=== PATIENT | male | born 2000 | race Caucasian/White ===

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

== ENCOUNTER 2018-02-07 22:36 | Emergency (ER) | payer OTHER ==
[2018-02-07] MEDS ORDERED: LORazepam 2 MG/ML INJ IM STA (22:46)
[2018-02-07] MEDS ORDERED: HALOPERIDOL LACTATE 5 MG/ML 1 ML VIAL IM STA (22:46)
[2018-02-07] MEDS ORDERED: diphenhydrAMINE 50 MG/ML 1 ML VIAL IM STA (22:46)
[2018-02-07 22:54] VITALS: TEMP 99
--- NOTE | 2018-02-08 00:26 | ED ---
General Adult HPI - General Source: patient, RN notes reviewed, old records reviewed Mode of arrival: ambulatory Limitations: no limitations <Shelton Pompa - Last Filed: 02/08/18 00:26> <Jose J Craven - Last Filed: 02/08/18 09:45> - General Chief complaint: Psychiatric Symptoms Stated complaint: Mental Health Time Seen by Provider: 02/07/18 22:41 - History of Present Illness Initial comments: This is a 17-year-old male coming in with intoxication, unknown drug abuse. Patient is uncooperative with history, actively violent, starting staff as well as patient self, patient's brought in by PD, petition under PD's help. (Shelton Pompa) - Related Data Home Medications Medication Instructions Recorded Confirmed Omeprazole 20 mg PO DAILY 12/24/17 02/08/18 traZODone HCL 100 mg PO DAILY 02/08/18 02/08/18 Allergies Allergy/AdvReac Type Severity Reaction Status Date / Time dog dander Allergy Dyspnea Verified 02/07/18 22:53 Review of Systems ROS Other: All systems not noted in ROS Statement are negative. <Shelton Pompa - Last Filed: 02/08/18 00:26> ROS Other: All systems not noted in ROS Statement are negative. <Jose J Craven - Last Filed: 02/08/18 09:45> ROS Statement: Those systems with pertinent positive or pertinent negative responses have been documented in the HPI. Past Medical History Past Medical History: GERD/Reflux Additional Past Medical History / Comment(s): Pt recently discharged from [facility] for suicidal ideation-states he has not followed up or taken his medications prescribed at discharge, FATTY LIVER. History of Any Multi-Drug Resistant Organisms: None Reported Past Surgical History: No Surgical Hx Reported Additional Past Surgical History / Comment(s): [place] teeth extraction with anesthesia. Past Anesthesia/Blood Transfusion Reactions: No Reported Reaction Past Psychological History: ADD/ADHD, Anxiety, Depression Smoking Status: Current every day smoker Past Alcohol Use History: None Reported Past Drug Use History: Cocaine, Marijuana - Past Family History Father Family Medical History: No Reported History Additional Family Medical History / Comment(s): Pt states his dad is healthy-"I guess". Mother Family Medical History: No Reported History Additional Family Medical History / Comment(s): Pt states his mother is healthy- "I guess." <Shelton Pompa - Last Filed: 02/08/18 00:26> General Exam Limitations: no limitations, altered mental status General appearance: alert, anxious, in distress Head exam: Present: atraumatic, normocephalic, normal inspection Eye exam: Present: normal appearance, PERRL, EOMI. Absent: scleral icterus, conjunctival injection, periorbital swelling ENT exam: Present: normal exam, mucous membranes moist Neck exam: Present: normal inspection. Absent: tenderness, meningismus, lymphadenopathy Respiratory exam: Present: normal lung sounds bilaterally. Absent: respiratory distress, wheezes, rales, rhonchi, stridor Cardiovascular Exam: Present: regular rate, normal rhythm, normal heart sounds. Absent: systolic murmur, diastolic murmur, rubs, gallop, clicks GI/Abdominal exam: Present: soft, normal bowel sounds. Absent: distended, tenderness, guarding, rebound, rigid Extremities exam: Present: normal inspection, full ROM, normal capillary refill. Absent: tenderness, pedal edema, joint swelling, calf tenderness Back exam: Present: normal inspection Neurological exam: Present: alert, oriented X3, CN II-XII intact Psychiatric exam: Present: normal affect, normal mood Skin exam: Present: warm, dry, intact, normal color. Absent: rash <Shelton Pompa - Last Filed: 02/08/18 00:26> Course <Shelton Pompa - Last Filed: 02/08/18 00:26> <Jose J Craven - Last Filed: 02/08/18 09:45> Vital Signs 02/07/18 02/08/18 02/08/18 22:51 01:15 05:26 Temperature 99.0 F Pulse Rate 116 H 89 Respiratory 20 16 22 Rate Blood Pressure 124/89 140/63 O2 Sat by Pulse 100 100 Oximetry 02/08/18 09:22 Temperature Pulse Rate 104 H Respiratory 18 Rate Blood Pressure 136/63 O2 Sat by Pulse 98 Oximetry - Reevaluation(s) Reevaluation #1: 02/08/18 00:26 Patient medically clear for psychiatric evaluation (Shelton Pompa) Reevaluation #2: 02/08/18 09:43 Patient reevaluated, he is calm, cooperative. No suicidal or homicidal ideation (Jose J Craven) Procedures - Restraint - Face to Face Restraint Occurrence 1 Patient's Immediate Situation: Endangers self safety, Endangers others' safety, Endangers staff safety, Violent behavior Patient's Reaction to the Intervention: Appropriate, Uncooperative, Belligerent Patient's Medical & Behavioral Condition: Awake Need to Continue or Terminate Restraint or Seclusion: Continue Face to Face Eval of Restraint Date: 02/07/18 Face to Face Eval of Restraint Time: 23:05 <Shelton Pompa - Last Filed: 02/08/18 00:26> Medical Decision Making <Shelton Pompa - Last Filed: 02/08/18 00:26> <Jose J Craven - Last Filed: 02/08/18 09:45> - Medical Decision Making 17-year-old male presenting with agitation anxiety, and aggressive behavior. He was petitioned by police for this behavior. He initially required both chemical and physical restraint. He was observed in the emergency department for several hours, on reevaluation is calm and cooperative. He was evaluated by EPS, it is felt that the patient is safe for outpatient follow-up. He does not require inpatient treatment at this time. He will be discharged home with his guardian who is also his father. (Jose J Craven) - Lab Data Lab Results 02/08/18 Range/Units 05:45 Urine Opiates Screen Not Detected (NotDetected) Ur Oxycodone Screen Not Detected (NotDetected) Urine Methadone Screen Not Detected (NotDetected) Ur Propoxyphene Screen Not Detected (NotDetected) Ur Barbiturates Screen Not Detected (NotDetected) U Tricyclic Antidepress Not Detected (NotDetected) Ur Phencyclidine Scrn Not Detected (NotDetected) Ur Amphetamines Screen Not Detected (NotDetected) U Methamphetamines Scrn Not Detected (NotDetected) U Benzodiazepines Scrn Detected H (NotDetected) Urine Cocaine Screen Not Detected (NotDetected) U Marijuana (THC) Screen Detected H (NotDetected) Disposition <Shelton Pompa - Last Filed: 02/08/18 00:26> Is patient prescribed a controlled substance at d/c from ED?: No Time of Disposition: 09:44 <Jose J Craven - Last Filed: 02/08/18 09:45> Clinical Impression: Bipolar disorder Disposition: HOME SELF-CARE Condition: Fair Instructions: Bipolar Disorder (ED) Additional Instructions: To follow-up with outpatient psychiatric services. Referrals: None,Stated [Primary Care Provider] - 1-2 days
[2018-02-08] MEDS ORDERED: LORazepam 1 MG TAB PO STA (06:11)
[2018-02-08 06:20] LABS: Amphetamine Screen,Urine Not Detected (NotDetected); Barbiturate Screen,Urine Not Detected (NotDetected); Benzodiazepines Screen,Urine Detected (NotDetected); Cocaine Screen,Urine Not Detected (NotDetected); Methadone Screen, Urine Not Detected (NotDetected); Opiate Screen,Urine Not Detected (NotDetected); Oxycodone Screen, Urine Not Detected (NotDetected); Phencyclidine Screen,Urine Not Detected (NotDetected); Tricyclic Antidepressant,Urine Not Detected (NotDetected); Urn Cannabinoid Scrn Detected (NotDetected)
[2018-02-08 09:22] VITALS: BP 136/63; PULSE 104; RESP 18
== END 2018-02-08 10:04 | disposition home or self-care (01) ==
LOC: EC 22:36
DX: F31.9 Bipolar disorder, unspecified (principal); R45.1 Restlessness and agitation; F41.9 Anxiety disorder, unspecified; F91.1 Conduct disorder, childhood-onset type; R45.6 Violent behavior; F90.9 Attention-deficit hyperactivity disorder, unspecified type; F17.200 Nicotine dependence, unspecified, uncomplicated; Z79.899 Other long term (current) drug therapy; Z91.09 Other allergy status, other than to drugs and biological substances
CPT/HCPCS: 80306; 99285; 96372 ×3; J2060; J1200; J1630; 82075

== ENCOUNTER 2018-02-08 19:21 | Inpatient (IN) | payer OTHER ==
[2018-02-08] MEDS ORDERED: ALPRAZolam 1 MG TAB PO STA (19:43)
--- NOTE | 2018-02-08 19:55 | ED ---
General Adult HPI - General Chief complaint: Psychiatric Symptoms Stated complaint: Anxiety Source: patient Mode of arrival: wheelchair Limitations: no limitations - History of Present Illness Initial comments: Dictation was produced using compropago dictation software. please excuse any grammatical, word or spelling errors. Chief Complaint: 17-year-old male with past medical history of anxiety and manic disorder presents with anxiety. History of Present Illness: Patient is a 17-year-old male presents today for anxiety. Patient was seen here yesterday for aggressive behavior. At that time he required chemical and physical restraints. Patient was kept in the emergency department. Patient was observed in emergency department. After several hours she was reevaluated and was found to be calm and cooperative. He was evaluated by EPS. EPS evaluated patient and felt that it was safe for him to follow up. He does have a discharge plan. He presents today with his father who is his sewer head. Patient denies any suicidal or homicidal ideation. Patient is cooperative. Patient has no complaints. The ROS documented in this emergency department record has been reviewed and confirmed by me. Those systems with pertinent positive or negative responses have been documented in the HPI. All other systems are other negative and/or noncontributory. - Related Data Home Medications Medication Instructions Recorded Confirmed Omeprazole 20 mg PO DAILY 12/24/17 02/08/18 traZODone HCL 100 mg PO DAILY 02/08/18 02/08/18 Previous Rx's Medication Instructions Recorded ALPRAZolam [Xanax] 1 mg PO Q8H PRN 3 Days #9 tab 02/08/18 Allergies Allergy/AdvReac Type Severity Reaction Status Date / Time dog dander Allergy Dyspnea Verified 02/08/18 19:27 Review of Systems ROS Statement: Those systems with pertinent positive or pertinent negative responses have been documented in the HPI. ROS Other: All systems not noted in ROS Statement are negative. Past Medical History Past Medical History: GERD/Reflux Additional Past Medical History / Comment(s): Pt recently discharged from [facility] for suicidal ideation-states he has not followed up or taken his medications prescribed at discharge, FATTY LIVER. History of Any Multi-Drug Resistant Organisms: None Reported Past Surgical History: No Surgical Hx Reported Additional Past Surgical History / Comment(s): [place] teeth extraction with anesthesia. Past Anesthesia/Blood Transfusion Reactions: No Reported Reaction Past Psychological History: ADD/ADHD, Anxiety, Depression Smoking Status: Current every day smoker Past Alcohol Use History: Occasional Past Drug Use History: Cocaine, Marijuana - Past Family History Father Family Medical History: No Reported History Additional Family Medical History / Comment(s): Pt states his dad is healthy-"I guess". Mother Family Medical History: No Reported History Additional Family Medical History / Comment(s): Pt states his mother is healthy- "I guess." General Exam - General Exam Comments Initial Comments: PHYSICAL EXAM: General Impression: Alert and oriented x3, not in acute distress HEENT: Normocephalic atraumatic, extra-ocular movements intact, pupils equal and reactive to light bilaterally, mucous membranes moist. Cardiovascular: Heart regular rate and rhythm, S1&S2 audible, no murmurs, rubs or gallops Chest: Lungs clear to auscultation bilaterally, no rhonchi, no wheeze, no rales Abdomen: Bowel sounds present, abdomen soft, non-tender, non-distended, no organomegaly Musculoskeletal: Pulses present and equal in all extremities, no peripheral edema Motor: Power 5/5 bilaterally, no focal deficits noted Neurological: CN II-XII grossly intact, no focal motor or sensory deficits noted Skin: Intact with no visualized rashes Psych: Normal affect and mood Limitations: no limitations Course Vital Signs 02/08/18 19:23 Temperature 98.7 F Pulse Rate 99 Respiratory 18 Rate Blood Pressure 144/74 O2 Sat by Pulse 99 Oximetry Medical Decision Making - Medical Decision Making ED course: 17-year-old male with history of psychiatric disease presents with anxiety. Vital signs upon arrival are within acceptable limits. Patient is requesting anti-anxiety medications to hold him over until he can follow up with psychiatrist for further treatment. Patient was seen and evaluated by EPS last night. Patient not showing any signs of psychosis. He is calm and cooperative. Believe is reasonable to give patient prescription for anxiolytics for the time being. Patient given prescription for Xanax. He is told to follow-up with psychiatrist and primary care physician upon discharge. Plan is agreed upon between patient, father and myself. Told to come to the emergency department should he develop any aggressive behavior. Disposition Clinical Impression: Acute anxiety Disposition: HOME SELF-CARE Condition: Good Prescriptions: ALPRAZolam [Xanax] 1 mg PO Q8H PRN 3 Days #9 tab PRN Reason: Anxiety Is patient prescribed a controlled substance at d/c from ED?: Yes If prescribed controlled substance>3 days was MAPS reviewed?: Prescribed <3 Days Referrals: Juan Diego Martinez MD [Primary Care Provider] - 1-2 days Time of Disposition: 19:55
[2018-02-08] MEDS ORDERED: NICOTINE 21MG/24HR PATCH TRANSDERM STA (20:38)
[2018-02-08 20:57] LABS: Amphetamine Screen,Urine Not Detected (NotDetected); Barbiturate Screen,Urine Not Detected (NotDetected); Benzodiazepines Screen,Urine Detected (NotDetected); Cocaine Screen,Urine Not Detected (NotDetected); Methadone Screen, Urine Not Detected (NotDetected); Opiate Screen,Urine Not Detected (NotDetected); Oxycodone Screen, Urine Not Detected (NotDetected); Phencyclidine Screen,Urine Not Detected (NotDetected); Tricyclic Antidepressant,Urine Not Detected (NotDetected); Urn Cannabinoid Scrn Detected (NotDetected)
[2018-02-08] MEDS ORDERED: OLANZapine 10 MG TAB PO STA (20:58)
[2018-02-08] MEDS ORDERED: HALOPERIDOL LACTATE 5 MG/ML 1 ML VIAL IM STA (22:01)
[2018-02-08] MEDS ORDERED: LORazepam 2 MG/ML INJ IM STA (22:02)
[2018-02-08] MEDS ORDERED: diphenhydrAMINE 50 MG/ML 1 ML VIAL IM STA (22:02)
[2018-02-08 23:13] LABS: Basophils % (A) 0 %; Eosinophils # (A) 0.2 k/uL (0-0.7); Eosinophils % (A) 2 %; HCT 48.1 % (39.0-53.0); HGB 16.1 gm/dL (13.0-17.5); Lymphocytes # (A) 2.4 k/uL (1.0-4.8); Lymphocytes % (A) 20 %; MCH 30.4 pg (25.0-35.0); MCHC 33.4 g/dL (31.0-37.0); Monocytes # (A) 0.7 k/uL (0-1.0); Monocytes % (A) 6 %; Neutrophils # (A) 8.2 k/uL (1.3-7.7); Neutrophils % (A) 70 %; Platelet Count 299 k/uL (150-450); RBC 5.29 m/uL (4.30-5.90); RDW 13.2 % (11.5-15.5); WBC 11.7 k/uL (4.0-11.0)
[2018-02-08 23:18] LABS: Appearance,Urine Clear (Clear); Bilirubin,Urine Negative (Negative); Blood,Urine Negative (Negative); Calcium Oxalate Crystals,Urine Rare /hpf; Color,Urine Yellow; Glucose,Urine (UA) Negative (Negative); Ketones,Urine Trace (Negative); Leukocyte Esterase,Urine Negative (Negative); Mucus,Urine Many /hpf; Nitrite,Urine Negative (Negative); Protein,Urine 1+ (Negative); RBC,Urine 2 /hpf (0-5); Specific Gravity,Urine 1.035 (1.001-1.035); Squamous Epithelial Cell,Urine <1 /hpf (0-4); WBC,Urine 3 /hpf (0-5)
[2018-02-08 23:22] LABS: ALT 28 U/L (21-72); AST 41 U/L (17-59); Albumin 4.3 g/dL (3.5-5.0); Alkaline Phosphatase 62 U/L (38-126); Anion Gap 10 mmol/L; Blood Urea Nitrogen 14 mg/dL (9-20); Calcium 9.8 mg/dL (8.4-10.2); Carbon Dioxide 25 mmol/L (22-30); Chloride 105 mmol/L (98-107); Glucose 89 mg/dL (74-99); Potassium 4.2 mmol/L (3.5-5.1); Sodium 140 mmol/L (137-145); Total Bilirubin 0.5 mg/dL (0.2-1.3); Total Protein 7.3 g/dL (6.3-8.2)
[2018-02-09] MEDS ORDERED: NICOTINE 21MG/24HR PATCH TRANSDERM STA ×3 (13:24→23:16)
[2018-02-09] MEDS ORDERED: traZODone HCL 100 MG TAB PO ONE (13:49)
[2018-02-09] MEDS ORDERED: ALPRAZolam 1 MG TAB PO STA ×2 (14:02→14:06)
[2018-02-09] MEDS ORDERED: diphenhydrAMINE 50 MG CAP PO STA (15:12)
[2018-02-09] MEDS ORDERED: LORazepam 2 MG/ML INJ IM STA (18:10)
[2018-02-10] MEDS ORDERED: LORazepam 1 MG TAB PO STA ×3 (00:50→13:32)
[2018-02-10] MEDS ORDERED: diphenhydrAMINE 50 MG CAP PO STA (01:34)
[2018-02-10] MEDS ORDERED: LORazepam 2 MG/ML INJ IM STA (03:28)
[2018-02-10] MEDS ORDERED: NICOTINE 21MG/24HR PATCH TRANSDERM STA (08:10)
[2018-02-10] MEDS ORDERED: ACETAMINOPHEN TAB 325 MG TAB PO PRN (16:17)
[2018-02-10] MEDS ORDERED: ZIPRASIDONE 20 MG VIAL IM PRN (16:17)
[2018-02-10] MEDS ORDERED: MAGNESIUM HYDROXIDE 2,400 MG/10 ML CUP PO PRN (16:17)
[2018-02-10] MEDS ORDERED: MAG HYDROX/AL HYDROX/SIMETH 30 ML CUP PO PRN (16:17)
[2018-02-10] MEDS: LORazepam 1 MG TAB PO PRN (16:46)
[2018-02-10] MEDS ORDERED: diphenhydrAMINE 50 MG/ML 1 ML VIAL IM STA (22:56)
[2018-02-10] MEDS ORDERED: chlorproMAZINE 25 MG/ML 2 ML AMP IM ONE (23:15)
[2018-02-11] MEDS: NICOTINE 21MG/24HR PATCH TRANSDERM SCH ×2 (10:14→12:19)
[2018-02-11] MEDS: LORazepam 1 MG TAB PO PRN ×3 (12:19→22:00)
--- NOTE | 2018-02-11 12:36 | P.HP ---
Psychiatric H&P - . H&P Date: 02/11/18 History & Physical: Allergies Allergy/AdvReac Type Severity Reaction Status Date / Time dog dander Allergy Dyspnea Verified 02/10/18 15:56 Vital Signs Temp 97 F L 02/10/18 15:44 Pulse 100 02/10/18 15:44 Resp 18 02/10/18 15:44 BP 136/70 02/10/18 15:44 Pulse Ox 97 02/09/18 23:00 Intake & Output 02/10/18 02/11/18 02/11/18 18:59 06:59 18:59 Weight 132.494 kg Laboratory Last Values WBC 11.7 k/uL (4.0-11.0) H 02/08/18 23:01 RBC 5.29 m/uL (4.30-5.90) 02/08/18 23:01 Hgb 16.1 gm/dL (13.0-17.5) 02/08/18 23:01 Hct 48.1 % (39.0-53.0) 02/08/18 23:01 MCV 91.0 fL (80.0-100.0) 02/08/18 23:01 MCH 30.4 pg (25.0-35.0) 02/08/18 23:01 MCHC 33.4 g/dL (31.0-37.0) 02/08/18 23:01 RDW 13.2 % (11.5-15.5) 02/08/18 23:01 Plt Count 299 k/uL (150-450) 02/08/18 23:01 Neutrophils % 70 % 02/08/18 23:01 Lymphocytes % 20 % 02/08/18 23:01 Monocytes % 6 % 02/08/18 23:01 Eosinophils % 2 % 02/08/18 23:01 Basophils % 0 % 02/08/18 23:01 Neutrophils # 8.2 k/uL (1.3-7.7) H 02/08/18 23:01 Lymphocytes # 2.4 k/uL (1.0-4.8) 02/08/18 23:01 Monocytes # 0.7 k/uL (0-1.0) 02/08/18 23:01 Eosinophils # 0.2 k/uL (0-0.7) 02/08/18 23:01 Basophils # 0.0 k/uL (0-0.2) 02/08/18 23:01 Sodium 140 mmol/L (137-145) 02/08/18 23:01 Potassium 4.2 mmol/L (3.5-5.1) 02/08/18 23: Chloride 105 mmol/L (98-107) 02/08/18 23: Carbon Dioxide 25 mmol/L (22-30) 02/08/18 23: Anion Gap 10 mmol/L 02/08/18 23: BUN 14 mg/dL (9-20) 02/08/18 23: Creatinine 0.75 mg/dL (0.66-1.25) 02/08/18 23:01 Est GFR (CKD-EPI)AfAm >90 (>60 ml/min/1.73 sqM) 02/08/18 23: Est GFR (CKD-EPI)NonAf >90 (>60 ml/min/1.73 sqM) 02/08/18 23: Glucose 89 mg/dL (74-99) 02/08/18 23: Calcium 9.8 mg/dL (8.4-10.2) 02/08/18 23:01 Total Bilirubin 0.5 mg/dL (0.2-1.3) 02/08/18 23:01 AST 41 U/L (17-59) 02/08/18 23:01 ALT 28 U/L (21-72) 02/08/18 23:01 Alkaline Phosphatase 62 U/L (38-126) 02/08/18 23: Total Protein 7.3 g/dL (6.3-8.2) 02/08/18 23: Albumin 4.3 g/dL (3.5-5.0) 02/08/18 23:01 Urine Color Yellow 02/08/18 20:35 Urine Appearance Clear (Clear) 02/08/18 20:35 Urine pH 6.0 (5.0-8.0) 02/08/18 20:35 Ur Specific [place] 1.035 (1.001-1.035) 02/08/18 20:35 Urine Protein 1+ (Negative) H 02/08/18 20:35 Urine Glucose (UA) Negative (Negative) 02/08/18 20:35 Urine Ketones Trace (Negative) H 02/08/18 20:35 Urine Blood Negative (Negative) 02/08/18 20:35 Urine Nitrite Negative (Negative) 02/08/18 20:35 Urine Bilirubin Negative (Negative) 02/08/18 20:35 Urine Urobilinogen 2.0 mg/dL (<2.0) 02/08/18 20:35 Ur Leukocyte Esterase Negative (Negative) 02/08/18 20:35 Urine RBC 2 /hpf (0-5) 02/08/18 20:35 Urine WBC 3 /hpf (0-5) 02/08/18 20:35 Ur Squamous Epith Cells <1 /hpf (0-4) 02/08/18 20:35 Calcium Oxalate Crystal Rare /hpf (None) H 02/08/18 20:35 Urine Mucus Many /hpf (None) H 02/08/18 20:35 Urine Opiates Screen Not Detected (NotDetected) 02/08/18 20:35 Ur Oxycodone Screen Not Detected (NotDetected) 02/08/18 20:35 Urine Methadone Screen Not Detected (NotDetected) 02/08/18 20:35 Ur Propoxyphene Screen Not Detected (NotDetected) 02/08/18 20:35 Ur Barbiturates Screen Not Detected (NotDetected) 02/08/18 20:35 U Tricyclic Antidepress Not Detected (NotDetected) 02/08/18 20:35 Ur Phencyclidine Scrn Not Detected (NotDetected) 02/08/18 20:35 Ur Amphetamines Screen Not Detected (NotDetected) 02/08/18 20:35 U Methamphetamines Scrn Not Detected (NotDetected) 02/08/18 20:35 U Benzodiazepines Scrn Detected (NotDetected) H 02/08/18 20:35 Urine Cocaine Screen Not Detected (NotDetected) 02/08/18 20:35 U Marijuana (THC) Screen Detected (NotDetected) H 02/08/18 20:35 Assessment and Plan (1) Psychomotor agitation Current Visit: Yes Status: Acute Priority: High Code(s): R45.1 - RESTLESSNESS AND AGITATION SNOMED Code(s): 70744970 (2) Bipolar disorder Current Visit: Yes Status: Acute Priority: High Code(s): F31.9 - BIPOLAR DISORDER, UNSPECIFIED SNOMED Code(s): 16076551 Plan: Chief Complaint: [This is a 17-year-old single male who lives with his father and grandmother who was brought in by the police for acute agitation and confrontation with the community relations police lieutenant.] History of Present Illness: [This patient was here 1 year ago and was placed on medication stated he stopped that I has a history of bipolar affective disorder and ADHD] Past Psychiatric History: [Nonadherent to his psychiatric treatment with a history of bipolar affective disorder and and ADHD] Drug/Alcohol Abuse History: [Marijuana he wants to get a medical marijuana card] Past Medical History Past Medical History: GERD/Reflux Additional Past Medical History / Comment(s): Pt recently discharged from [facility] for suicidal ideation-states he has not followed up or taken his medications prescribed at discharge, FATTY LIVER. History of Any Multi-Drug Resistant Organisms: None Reported Past Surgical History: No Surgical Hx Reported Additional Past Surgical History / Comment(s): [place] teeth extraction with anesthesia. Past Anesthesia/Blood Transfusion Reactions: No Reported Reaction Past Psychological History: ADD/ADHD, Anxiety, Depression Smoking Status: Current every day smoker Past Alcohol Use History: Occasional Past Drug Use History: Cocaine, Marijuana Family History: [Noncontributory] Current Medications: [Not at the current time since he stopped] Constitutional Review: [Only positive sign that he has difficulty with sleeping focus and concentration] Musculoskeletal Examination - Abnormal/Involuntary Movements: [none] Strength: [greater than antigravity (greater than/equal to 3/5) in all extremities] Muscle Tone: [no impairment] Gait: [grossly normal, ] Station: [grossly normal Mental Status Examination - General Appearance: [This is a 17-year-old dressed in T-shirt and pants with psychomotor agitation disheveled and poor focus and concentration, disheveled, casual, bizarre] Speech/Language: [ rapid, rambled,expressive, loud] Attitude/Behavior: [ irritable, withdrawn, indifferent] Mood: [depressed, anxious, elated, irritable, angry, fearful, hopelessness] Affect: [ incongruent, labile, blunted constricted] Orientation: [not time, but person, place situation] Thought Content: [delusions] Risk Factors: [suicidal (ideations, plan) Perception: [wnl, ] Thought Processes: [concrete, circumstantial, tangential] Concentration/Attention Span: impaired] [Per observation and interview with the patient] Recent Memory: [impaired] [1out of 3 in 3 minutes] Remote Memory: [impaired] [past events, as related history] Intelligence: [below average] [based on history, based on vocabulary, syntax, grammar, and content] Judgement: [poor] [per patient's behavior/history of present illness] Insight: [ poor] [understanding severity of illness/history of present illness] Admitting Diagnosis: [Bipolar affective disorder acute psychosis and mamie, polysubstance abuse] Patient Strengths - Personal Skills: [Patient has a supportive father and grandmother] Achievements: [None] Steady employment/financial stability: [None] Housing stability: [Living with father and grandmother] Interpersonal relationships and supports available - family [] Patient Limitations: [medication, non-compliance, pathological/unsupported environment, no interests, intellectual impairment Initial Plan of Care: [7-10 days due to severe illness and nonadherence to treatment plan plus polysubstance abuse and includes application for involuntary admission, first clinical certification for involuntary and second certification for involuntary hospitalization in a psychiatric environment for [facility]] Estimated Length of Stay: [7-10 days] Initial Discharge Plan: [home referred to therapist, and or partial hospitalr] Prognosis: [guarded] Justification for Inpatient Hospitalization - [Hallucinations, delusions, agitation, anxiety, depression resulting in significant loss of functioning.] [Dangerous to self or property with need for controlled environment.] [Emotional or behavioral conditions and complications requiring 24 hour medical and nursing care.] [Need for special drug therapy program requiring continuous hospitalization.] [Failure of social ] [Inability to meet basic life and health needs.] [Legally mandated admission.] [Patient's occupation presents danger to public safety if they continue to use drugs or alcohol.] [Biomedical conditions and complications requiring 24 hour medical and nursing care.] [Recovery environment includes detrimental family structure, logical impediments to out-patient treatment.] [High relapse potential due to inability to control substance use.] [Needs treatment for acute intoxication or withdrawal.] [Failure of treatment at a lower level of care.] will start lamictal, thorazine prn, proloxin, mirapex 0.75 mg po qhs Time with Patient: Greater than 30
--- NOTE | 2018-02-11 12:45 | CONS ---
CONSULTATION DATE OF CONSULTATION: 02/11/2018 REASON FOR CONSULTATION: Medical management requested by Dr. Ryan. CONSULTATION: This is a 17-year-old patient who follows with Dr. Martinez. Patient presented to the ER on 02/08/2018. He was seen the previous day for aggressive behavior. Patient required chemical and physical restraints. The patient is kept in the ER and observed there. The patient was then discharged. Patient presented yet again being aggressive. The patient was anxious. The patient has a known history of ADD. Patient states he smokes multiple things including cigar, cigarettes, chews tobacco, also did marijuana, did crack in the past. Patient is given medications last night. He feels dizzy this morning. He is hungry and he wants to get medications and get off these drugs. Appetite is fair. No fever. No chills. Up and about. REVIEW OF SYSTEMS: CONSTITUTIONAL: Tired HEENT: None, some dizziness. RESPIRATORY: None. CARDIOVASCULAR: None. GASTROINTESTINAL: None. GENITOURINARY: None. MUSCULOSKELETAL: None. DERMATOLOGIC: None. HEMATOLOGIC: None. LYMPHATIC: None. PSYCHIATRY: As above. NEUROLOGICAL: None. PAST MEDICAL HISTORY: Anxiety, ADD. PAST SURGICAL HISTORY: [place] tooth extraction with anesthesia. PSYCH HISTORY: ADD, anxiety, depression. Patient was recently at [facility], has not followed up with his appointments. SOCIAL HISTORY: Patient lives with grandparents, father, unemployed. Smokes cigar, cigarettes. Chews tobacco and did marijuana also, crack in the past. FAMILY HISTORY: Reviewed, noncontributory to presentation. HOME MEDICATIONS: None. ALLERGIES: Dog dander. PHYSICAL EXAMINATION: Temperature 97, pulse 100, respiration 18, blood pressure 136/70, pulse ox 97% on room air. GENERAL APPEARANCE: Well built, BMI 37.5, sitting up, tired appearing. EYES: Pupils equal, conjunctivae are normal. HEENT: External appearance of nose and ears normal. Oral cavity normal. NECK: JVD not raised. Mass not palpable. RESPIRATORY: Effort normal. LUNGS: Clear. CARDIOVASCULAR: First and second sounds, no edema. ABDOMEN: Soft, nontender. Liver and spleen not palpable. LYMPHATIC: N lymph node palpable in the neck or axillae. PSYCHIATRY: Alert and oriented x3. Mood and affect slightly low. NEUROLOGICAL: Pupils equal. Cranial nerves grossly intact. Power and sensation grossly intact. INVESTIGATIONS: White count 9.7, hemoglobin 16.1, potassium 4.2 BUN and creatinine is normal. Urine drug screen positive for benzodiazepine, marijuana. ASSESSMENT: 1. Chronic nicotine dependence, patient does smoke cigarettes and cigars, also chews tobacco. 2. Obesity, body mass index 37.5. 3. Anxiety disorder, uncontrolled. 4. Recreational marijuana use. 5. Gastroesophageal reflux disease. PLAN: Patient denies use of tobacco use, antianxiety antidepressants per Psychiatry. The patient should follow up with his family doctor for weight loss measures and has been given a nicotine patch. Care was discussed with the patient. Thank you, Dr. Ryan. CASSIE / RADHAN: [id number] /
[2018-02-11] MEDS: chlorproMAZINE 25 MG TAB PO PRN ×2 (13:24→18:24)
[2018-02-11 16:40] LABS: Basophils % (A) 0 %; Eosinophils # (A) 0.2 k/uL (0-0.7); Eosinophils % (A) 2 %; HCT 48.4 % (39.0-53.0); HGB 16.2 gm/dL (13.0-17.5); Lymphocytes % (A) 17 %; MCH 30.6 pg (25.0-35.0); MCHC 33.5 g/dL (31.0-37.0); MCV 91.3 fL (80.0-100.0); Mean Platelet Volume 6.9; Monocytes # (A) 0.6 k/uL (0-1.0); Monocytes % (A) 5 %; Neutrophils % (A) 76 %; Platelet Count 283 k/uL (150-450); RBC 5.31 m/uL (4.30-5.90); WBC 11.9 k/uL (4.0-11.0)
[2018-02-11 16:45] LABS: ALT 35 U/L (21-72); AST 42 U/L (17-59); Albumin 4.4 g/dL (3.5-5.0); Alkaline Phosphatase 63 U/L (38-126); Anion Gap 11 mmol/L; Blood Urea Nitrogen 16 mg/dL (9-20); Calcium 9.5 mg/dL (8.4-10.2); Carbon Dioxide 26 mmol/L (22-30); Chloride 103 mmol/L (98-107); Glucose 91 mg/dL (74-99); Potassium 4.4 mmol/L (3.5-5.1); Sodium 140 mmol/L (137-145); Total Bilirubin 0.6 mg/dL (0.2-1.3); Total Protein 7.4 g/dL (6.3-8.2)
[2018-02-11] MEDS: lamoTRIgine 25 MG TAB PO SCH (20:10)
[2018-02-11] MEDS: PRAMIPEXOLE 0.5 MG TAB PO SCH (20:10)
[2018-02-12] MEDS: chlorproMAZINE 25 MG/ML 2 ML AMP IM PRN (00:02)
[2018-02-12] MEDS: NICOTINE 21MG/24HR PATCH TRANSDERM SCH (07:47)
[2018-02-12] MEDS: chlorproMAZINE 25 MG TAB PO PRN ×2 (07:48→14:26)
[2018-02-12] MEDS: chlorproMAZINE 25 MG/ML 2 ML AMP IM STA ×2 (09:02→15:46)
[2018-02-12] MEDS: LORazepam 1 MG TAB PO PRN ×2 (09:09→16:04)
--- NOTE | 2018-02-12 13:45 | P.PN ---
Subjective Progress Note Date: 02/12/18 Principal diagnosis: Acute psychosis and mamie with agitation Interval history today includes that he still remains quite irritable and agitated roaming the unit and poor focus and concentration Chief Complaint: [This is a 17-year-old single male who lives with his father and grandmother who was brought in by the police for acute agitation and confrontation with the chief mechanical officer.] History of Present Illness: [This patient was here 1 year ago and was placed on medication stated he stopped that I has a history of bipolar affective disorder and ADHD] Past Medical History Past Medical History: GERD/Reflux Additional Past Medical History / Comment(s): Pt recently discharged from [facility] for suicidal ideation-states he has not followed up or taken his medications prescribed at discharge, FATTY LIVER. History of Any Multi-Drug Resistant Organisms: None Reported Past Surgical History: No Surgical Hx Reported Additional Past Surgical History / Comment(s): [place] teeth extraction with anesthesia. Past Anesthesia/Blood Transfusion Reactions: No Reported Reaction Past Psychological History: ADD/ADHD, Anxiety, Depression Smoking Status: Current every day smoker Past Alcohol Use History: Occasional Past Drug Use History: Cocaine, Marijuana Mental Status Examination - General Appearance: [This is a 17-year-old dressed in T-shirt and pants with psychomotor agitation disheveled and poor focus and concentration, disheveled, casual, bizarre] Speech/Language: [ rapid, rambled,expressive, loud] Attitude/Behavior: [ irritable, withdrawn, indifferent] Mood: [depressed, anxious, elated, irritable, angry, fearful, hopelessness] Affect: [ incongruent, labile, blunted constricted] Orientation: [not time, but person, place situation] Thought Content: [delusions] Risk Factors: [suicidal (ideations, plan) Perception: [wnl, ] Thought Processes: [concrete, circumstantial, tangential] Concentration/Attention Span: impaired] [Per observation and interview with the patient] Recent Memory: [impaired] [1out of 3 in 3 minutes] Remote Memory: [impaired] [past events, as related history] Intelligence: [below average] [based on history, based on vocabulary, syntax, grammar, and content] Judgement: [poor] [per patient's behavior/history of present illness] Insight: [ poor] [understanding severity of illness/history of present illness] Plan today; Lamictal was discontinued and Depakote 250 mg 3 times a day was started and Prolixin 5 mg 3 times a day was also initiated. Constant redirection as needed with this in this individual. Objective - Vital Signs Vital signs: Vital Signs Temp 97 F L 02/10/18 15:44 Pulse 100 02/10/18 15:44 Resp 18 02/10/18 15:44 BP 136/70 02/10/18 15:44 Pulse Ox 97 02/09/18 23:00 - Constitutional General appearance: Present: severe distress - Respiratory Respiratory: bilateral: CTA - Neurologic Neurologic: Present: CNII-XII intact - Psychiatric Psychiatric Comment(s): Manic agitated and confused repetitive - Labs CBC & Chem 7: 02/11/18 16:28 02/11/18 16:28 Labs: Abnormal Lab Results - Last 24 Hours (Table) 02/11/18 Range/Units 16:28 WBC 11.9 H (4.0-11.0) k/uL Neutrophils # 9.0 H (1.3-7.7) k/uL Assessment and Plan (1) Psychomotor agitation Current Visit: Yes Status: Acute Priority: High Code(s): R45.1 - RESTLESSNESS AND AGITATION SNOMED Code(s): 90388251 (2) Bipolar disorder Current Visit: Yes Status: Acute Priority: High Code(s): F31.9 - BIPOLAR DISORDER, UNSPECIFIED SNOMED Code(s): 85654755 Plan: Plan today; Lamictal was discontinued and Depakote 250 mg 3 times a day was started and Prolixin 5 mg 3 times a day was also initiated. Constant redirection as needed with this in this individual.
[2018-02-12] MEDS: DIVALPROEX 250 MG TABLET.DR PO SCH ×2 (15:04→21:07)
[2018-02-12] MEDS: PRAMIPEXOLE 0.5 MG TAB PO SCH (20:04)
[2018-02-12] MEDS: lamoTRIgine 25 MG TAB PO SCH (20:04)
[2018-02-12] MEDS: NICOTINE POLACRILEX 2 MG GUM BUCCAL PRN (22:07)
[2018-02-13] MEDS: DIVALPROEX 250 MG TABLET.DR PO SCH ×3 (07:37→22:05)
[2018-02-13] MEDS: NICOTINE POLACRILEX 2 MG GUM BUCCAL PRN ×4 (07:38→18:34)
[2018-02-13] MEDS: chlorproMAZINE 25 MG/ML 2 ML AMP IM PRN (09:58)
[2018-02-13] MEDS ORDERED: LORazepam 2 MG/ML INJ IM STA (10:05)
[2018-02-13] MEDS ORDERED: LORazepam 2 MG/ML INJ ONE (10:06)
--- NOTE | 2018-02-13 12:28 | P.PN ---
Subjective Progress Note Date: 02/13/18 Principal diagnosis: Acute psychosis and mamie with agitation Interval history today includes that he still remains quite irritable and agitated roaming the unit and poor focus and concentration Chief Complaint: [This is a 17-year-old single male who lives with his father and grandmother who was brought in by the police for acute agitation and confrontation with the special police.] History of Present Illness: [This patient was here 1 year ago and was placed on medication stated he stopped that I has a history of bipolar affective disorder and ADHD] Past Medical History Past Medical History: GERD/Reflux Additional Past Medical History / Comment(s): Pt recently discharged from [facility] for suicidal ideation-states he has not followed up or taken his medications prescribed at discharge, FATTY LIVER. History of Any Multi-Drug Resistant Organisms: None Reported Past Surgical History: No Surgical Hx Reported Additional Past Surgical History / Comment(s): [place] teeth extraction with anesthesia. Past Anesthesia/Blood Transfusion Reactions: No Reported Reaction Past Psychological History: ADD/ADHD, Anxiety, Depression Smoking Status: Current every day smoker Past Alcohol Use History: Occasional Past Drug Use History: Cocaine, Marijuana Mental Status Examination - General Appearance: [This is a 17-year-old dressed in T-shirt and pants with psychomotor agitation disheveled and poor focus and concentration, disheveled, casual, bizarre] Speech/Language: [ rapid, rambled,expressive, loud] Attitude/Behavior: [ irritable, withdrawn, indifferent] Mood: [depressed, anxious, elated, irritable, angry, fearful, hopelessness] Affect: [ incongruent, labile, blunted constricted] Orientation: [not time, but person, place situation] Thought Content: [delusions] Risk Factors: [suicidal (ideations, plan) Perception: [wnl, ] Thought Processes: [concrete, circumstantial, tangential] Concentration/Attention Span: impaired] [Per observation and interview with the patient] Recent Memory: [impaired] [1out of 3 in 3 minutes] Remote Memory: [impaired] [past events, as related history] Intelligence: [below average] [based on history, based on vocabulary, syntax, grammar, and content] Judgement: [poor] [per patient's behavior/history of present illness] Insight: [ poor] [understanding severity of illness/history of present illness] Plan today; Lamictal was discontinued and Depakote 250 mg 3 times a day was started and Prolixin 5 mg 3 times a day was also initiated. Constant redirection as needed with this in this individual. Objective - Vital Signs Vital signs: Vital Signs Temp 97 F L 02/10/18 15:44 Pulse 116 H 02/12/18 20:05 Resp 18 02/10/18 15:44 BP 143/66 02/12/18 20:05 Pulse Ox 97 02/09/18 23:00 - Labs CBC & Chem 7: 02/11/18 16:28 02/11/18 16:28 Assessment and Plan (1) Psychomotor agitation Current Visit: Yes Status: Acute Priority: High Code(s): R45.1 - RESTLESSNESS AND AGITATION SNOMED Code(s): 60915180 (2) Bipolar disorder Current Visit: Yes Status: Acute Priority: High Code(s): F31.9 - BIPOLAR DISORDER, UNSPECIFIED SNOMED Code(s): 67794146
[2018-02-13] MEDS: LORazepam 1 MG TAB PO PRN (17:48)
[2018-02-13] MEDS: lamoTRIgine 25 MG TAB PO SCH (22:04)
[2018-02-13] MEDS: PRAMIPEXOLE 0.5 MG TAB PO SCH (22:05)
[2018-02-14] MEDS: DIVALPROEX 250 MG TABLET.DR PO SCH (08:58)
[2018-02-14] MEDS: NICOTINE POLACRILEX 2 MG GUM BUCCAL PRN (08:59)
--- NOTE | 2018-02-14 09:22 | P.PN ---
Subjective Progress Note Date: 02/14/18 Principal diagnosis: Acute psychosis and mamie with agitation Interval history today includes that he still remains quite irritable and agitated roaming the unit and poor focus and concentration Chief Complaint: [This is a 17-year-old single male who lives with his father and grandmother who was brought in by the police for acute agitation and confrontation with the founder and chief technical officer.] History of Present Illness: [This patient was here 1 year ago and was placed on medication stated he stopped that I has a history of bipolar affective disorder and ADHD] Past Medical History Past Medical History: GERD/Reflux Additional Past Medical History / Comment(s): Pt recently discharged from [facility] for suicidal ideation-states he has not followed up or taken his medications prescribed at discharge, FATTY LIVER. History of Any Multi-Drug Resistant Organisms: None Reported Past Surgical History: No Surgical Hx Reported Additional Past Surgical History / Comment(s): [place] teeth extraction with anesthesia. Past Anesthesia/Blood Transfusion Reactions: No Reported Reaction Past Psychological History: ADD/ADHD, Anxiety, Depression Smoking Status: Current every day smoker Past Alcohol Use History: Occasional Past Drug Use History: Cocaine, Marijuana Mental Status Examination - General Appearance: [This is a 17-year-old dressed in T-shirt and pants with psychomotor agitation disheveled and poor focus and concentration, disheveled, casual, bizarre] Speech/Language: [ rapid, lessrambled,expressive, loud] Attitude/Behavior: [ irritable, withdrawn, indifferent] Mood: [depressed, anxious, elated, irritable, angry, fearful, hopelessness] Affect: [ incongruent, blunted constricted] Orientation: [ time, but person, place situation] Thought Content: [delusions] Risk Factors: [suicidal (ideations, plan) Perception: [wnl, ] Thought Processes: [concrete, circumstantial, tangential] Concentration/Attention Span: impaired] [Per observation and interview with the patient] Recent Memory: [impaired] [1out of 3 in 3 minutes] Remote Memory: [impaired] [past events, as related history] Intelligence: [below average] [based on history, based on vocabulary, syntax, grammar, and content] Judgement: [poor] [per patient's behavior/history of present illness] Insight: [ poor] [understanding severity of illness/history of present illness] Plan today; Depakote 250 mg 3 times a day was started and Prolixin 5 mg 3 times a day was also initiated. Constant redirection as needed with this in this individual. Increase depakote 500 mg tid, stop Nicotin gum, prolixin 5 mg tid Estimated length 5 more days Depakote level Saturday Objective - Vital Signs Vital signs: Vital Signs Temp 97 F L 02/10/18 15:44 Pulse 116 H 02/12/18 20:05 Resp 18 02/10/18 15:44 BP 143/66 02/12/18 20:05 Pulse Ox 97 02/09/18 23:00 - Labs CBC & Chem 7: 02/11/18 16:28 02/11/18 16:28 Assessment and Plan (1) Psychomotor agitation Current Visit: Yes Status: Acute Priority: High Code(s): R45.1 - RESTLESSNESS AND AGITATION SNOMED Code(s): 89955708 (2) Bipolar disorder Current Visit: Yes Status: Acute Priority: High Code(s): F31.9 - BIPOLAR DISORDER, UNSPECIFIED SNOMED Code(s): 24249433
[2018-02-14] MEDS: NICOTINE 14MG/24HR PATCH TRANSDERM SCH (09:54)
[2018-02-14] MEDS: DIVALPROEX 500 MG TABLET.DR PO SCH ×3 (13:10→21:02)
[2018-02-14] MEDS: PRAMIPEXOLE 0.5 MG TAB PO SCH (20:09)
[2018-02-14] MEDS: chlorproMAZINE 25 MG TAB PO PRN (22:50)
[2018-02-14] MEDS: LORazepam 1 MG TAB PO PRN (23:54)
[2018-02-15] MEDS: NICOTINE 14MG/24HR PATCH TRANSDERM SCH (08:43)
[2018-02-15] MEDS: DIVALPROEX 500 MG TABLET.DR PO SCH ×3 (08:44→18:06)
[2018-02-15] MEDS ORDERED: NICOTINE 14MG/24HR PATCH TRANSDERM SCH (09:00)
[2018-02-15] MEDS: chlorproMAZINE 25 MG TAB PO PRN (13:52)
[2018-02-15] MEDS: LORazepam 1 MG TAB PO PRN (16:52)
--- NOTE | 2018-02-15 18:06 | P.PN ---
Progress Note - Text Progress Note Date: 02/15/18 IDENTIFICATION DATA: 17-year-old male with history of bipolar disorder admitted due to medication non compliance, uncontrolled behaviors such as agitation, aggression, confrontation with police pilot, lack of impulse control and use of marijuana. INTERVAL HISTORY: Behavioral problems He reports feeling too energetic and feels he has nothing to do being in the hospital. He reports feeling as if he is trapped in here. He states there are no activities like gym to keep himself from feeling too energetic. He currently reports he wants to go home and wants to be with his family. He states taking his medications multiple times a day is too complaicated for him and wonders if his medications can be adjusted so that he can it take them once or twice a day. Mood disorder: He reports feeling crappy being away from his family. He currently realizes the significance of medication compliance. He also understands that self medicating with marijuana is not the best thing to do. He states he wants to be productive citizen and wants to live on his own. 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 He believs once he gets a job and his own place he will be better.. He denies current suicidal or homicidal ideations. He reports good appetite and sleep. Psychosis Denies symptoms of psychosis. MENTAL STATUS EXAMINATION: 17 - year-old male. He appeared his stated age in fair grooming and hygiene. He is dressed casually. No abnormal movements noted. The patient is alert and oriented 4 and in no apparent distress. His speech thought process are linear and goal directed. Mood is reported as good and affect is constricted. Denies suicidal or homicidal ideation. Denies auditory and visual hallucaintions. Not delusional. insight and judgment are improving. ASSESSMENT AND PLAN: Will switch his deapkote 500mg po qid to Depakote ER 2000mg po qhs for simplify his regimen and improve his compliance, as he complains it is too complicated/ cumbersome for him to take his medications multiple times a day. Will switch his prolixin 5mg pot id to 5mg po qam and 10mg po qhs. Continue all precuations Monitor for symptoms
[2018-02-15] MEDS: PRAMIPEXOLE 0.5 MG TAB PO SCH (21:52)
[2018-02-15] MEDS ORDERED: DIVALPROEX ER 500 MG TAB.ER.24H PO ONE (22:00)
[2018-02-16] MEDS: NICOTINE 14MG/24HR PATCH TRANSDERM SCH (09:06)
--- NOTE | 2018-02-16 14:57 | P.PN ---
Progress Note - Text Progress Note Date: 02/16/18 IDENTIFICATION DATA 17-year-old male with history of bipolar disorder admitted due to medication non compliance, uncontrolled behaviors such as agitation, aggression, confrontation with [employer] police, lack of impulse control and use of marijuana. INTERVAL HISTORY: Patient claims to have slept very well yesterday. He reports he woke up in the afternoon today. He states he would rather be drugged up so he wont feel bored. He states when he is awake he reports feeling too energetic and bored. He keeps complaining about feeling phu and seeks medications to knock him out so he can sleep all day long. He claims there is nothing for him to do in here. He reports meeting with his grandmother, father and sister yesterday. He reports his meeting with family members was good. He states his family is ready to take him back. He reports he is ready to go home rather than staying in the hospital and getting bored. He states his plan is to stay busy, find himself a job. He also wants to go to gym and stay healthy. He denies current symptoms of depression. He denies symptoms of psychosis. No behavioral problems reported. MENTAL STATUS EXAMINATION: The patient is alert and oriented 4 and in no apparent distress. he appears in fair grooming and hygiene. He is pleasant and cooperative. Mood is "bored" and affect is constricted. Denies auditory and visual hallucinations. thought processes is linear and goal directed. thought content is negative for suicidal or homicidal ideation. insight and judgment are improving. ASSESSMENT AND PLAN: He keeps complaining about feeling too energetic and bored. HE SEEMS TO HAVE RESPONDED well to depakote well. Will add another 500mg depakote er daily at noon. Obtain depakote level at steady state. Patient does have any symptoms of psychosis. Will taper and discontinue prolixin and mirapex to simplify his medication regimen as he plans to pursue his goal of finding him a job and states taking too many medications multiple times a day will be difficult for him. His depakote dose can be titrated upto his tolerance instead. Continue precuations Monitor for symptoms
[2018-02-16] MEDS: DIVALPROEX ER 250 MG TAB.ER.24H PO SCH (15:29)
[2018-02-16] MEDS: NICOTINE POLACRILEX 2 MG GUM BUCCAL PRN ×3 (16:20→22:49)
[2018-02-16] MEDS: DIVALPROEX ER 500 MG TAB.ER.24H PO SCH (20:36)
[2018-02-16] MEDS: LORazepam 1 MG TAB PO PRN (23:27)
[2018-02-16] MEDS: chlorproMAZINE 25 MG TAB PO PRN (23:47)
[2018-02-17] MEDS: DIVALPROEX ER 250 MG TAB.ER.24H PO SCH (11:59)
--- NOTE | 2018-02-17 12:41 | P.PN ---
Subjective Progress Note Date: 02/17/18 Principal diagnosis: Acute psychosis and mamie with agitation Interval history today includes that he still remains quite irritable and agitated roaming the unit and poor focus and concentration Chief Complaint: [This is a 17-year-old single male who lives with his father and grandmother who was brought in by the police for acute agitation and confrontation with the mounted police officer.] History of Present Illness: [This patient was here 1 year ago and was placed on medication stated he stopped that I has a history of bipolar affective disorder and ADHD] Past Medical History Past Medical History: GERD/Reflux Additional Past Medical History / Comment(s): Pt recently discharged from [facility] for suicidal ideation-states he has not followed up or taken his medications prescribed at discharge, FATTY LIVER. History of Any Multi-Drug Resistant Organisms: None Reported Past Surgical History: No Surgical Hx Reported Additional Past Surgical History / Comment(s): [place] teeth extraction with anesthesia. Past Anesthesia/Blood Transfusion Reactions: No Reported Reaction Past Psychological History: ADD/ADHD, Anxiety, Depression Smoking Status: Current every day smoker Past Alcohol Use History: Occasional Past Drug Use History: Cocaine, Marijuana Mental Status Examination - General Appearance: [This is a 17-year-old dressed in sweat shirt and pants with psychomotor agitation disheveled and poor focus and concentration, disheveled, casual, bizarre] Speech/Language: [ rapid, less rambled,expressive, loud] Attitude/Behavior: [ irritable, withdrawn, indifferent] Mood: [depressed, anxious, elated, irritable, angry, fearful, hopelessness] Affect: [ incongruent, blunted constricted] Orientation: [ time, but person, place situation] Thought Content: [delusions] Risk Factors: [suicidal (ideations, without plan) Perception: [wnl, ] Thought Processes: [circumstantial, tangential] Concentration/Attention Span: impaired] [Per observation and interview with the patient] Recent Memory: [impaired] [1out of 3 in 3 minutes] Remote Memory: [impaired] [past events, as related history] Intelligence: [below average] [based on history, based on vocabulary, syntax, grammar, and content] Judgement: [fair] [per patient's behavior/history of present illness] Insight: [ poor] [understanding severity of illness/history of present illness] Plan today; Depakote 250 mg 3 times a day was started and Prolixin 5 mg 3 times a day was also initiated. Constant redirection as needed with this in this individual. Increase depakote 1000 mg bid, stop Nicotin gum, prolixin 5 mg tid Estimated length 5 more days Depakote level Saturday Objective - Vital Signs Vital signs: Vital Signs Temp 98.0 F 02/17/18 00:15 Pulse 85 02/17/18 00:15 Resp 16 02/17/18 00:15 BP 134/76 02/17/18 00:15 Pulse Ox 97 02/09/18 23:00 Intake & Output 02/16/18 02/17/18 02/17/18 18:59 06:59 18:59 Weight 131.1 kg - Labs CBC & Chem 7: 02/11/18 16:28 02/11/18 16:28 Assessment and Plan (1) Psychomotor agitation Current Visit: Yes Status: Acute Priority: High Code(s): R45.1 - RESTLESSNESS AND AGITATION SNOMED Code(s): 97670744 (2) Bipolar disorder Current Visit: Yes Status: Acute Priority: High Code(s): F31.9 - BIPOLAR DISORDER, UNSPECIFIED SNOMED Code(s): 60434634
[2018-02-17] MEDS ORDERED: DIVALPROEX ER 250 MG TAB.ER.24H PO SCH (15:00)
[2018-02-17] MEDS: DIVALPROEX ER 500 MG TAB.ER.24H PO SCH (21:03)
[2018-02-17] MEDS: NICOTINE POLACRILEX 2 MG GUM BUCCAL PRN (21:43)
[2018-02-17] MEDS: LORazepam 1 MG TAB PO PRN (23:56)
[2018-02-17] MEDS: chlorproMAZINE 25 MG TAB PO PRN (23:56)
[2018-02-18 00:51] VITALS: RESP 18; TEMP 98.1
--- NOTE | 2018-02-18 11:44 | P.PN ---
Subjective Progress Note Date: 02/18/18 Principal diagnosis: Acute psychosis and mamie with agitation Interval history today includes that he still remains less irritable and less agitated roaming the unit and poor focus and concentration Chief Complaint: [This is a 17-year-old single male who lives with his father and grandmother who was brought in by the police for acute agitation and confrontation with the police and fire dispatcher.] History of Present Illness: [This patient was here 1 year ago and was placed on medication stated he stopped that I has a history of bipolar affective disorder and ADHD] Past Medical History Past Medical History: GERD/Reflux Additional Past Medical History / Comment(s): Pt recently discharged from [facility] for suicidal ideation-states he has not followed up or taken his medications prescribed at discharge, FATTY LIVER. History of Any Multi-Drug Resistant Organisms: None Reported Past Surgical History: No Surgical Hx Reported Additional Past Surgical History / Comment(s): [place] teeth extraction with anesthesia. Past Anesthesia/Blood Transfusion Reactions: No Reported Reaction Past Psychological History: ADD/ADHD, Anxiety, Depression Smoking Status: Current every day smoker Past Alcohol Use History: Occasional Past Drug Use History: Cocaine, Marijuana Mental Status Examination - General Appearance: [This is a 17-year-old dressed in sweat shirt and pants with psychomotor agitation disheveled and poor focus and concentration, disheveled, casual, bizarre] Speech/Language: [ rapid, less rambled,expressive, loud] Attitude/Behavior: [ less irritable, withdrawn, indifferent] Mood: [less depressed, anxious, elated, irritable, angry, fearful, hopelessness] Affect: [ incongruent, blunted constricted] Orientation: [ time, but person, place situation] Thought Content: [less delusions] Risk Factors: [not suicidal (ideations, without plan) Perception: [wnl, ] Thought Processes: [circumstantial, tangential] Concentration/Attention Span: wnl] [Per observation and interview with the patient] Recent Memory: [impaired] [1 out of 3 in 3 minutes] Remote Memory: [less impaired] [past events, as related history] Intelligence: [below average] [based on history, based on vocabulary, syntax, grammar, and content] Judgment: [fair] [per patient's behavior/history of present illness] Insight: [ fair] [understanding severity of illness/history of present illness] Plan today; Depakote hold and Prolixin 5 mg 3 times a day was also initiated. Constant redirection as needed with this in this individual. Hold Depakote 1000 mg bid due increase ammonium level and awaiting valproic level which is 85, stop Nicotin gum, prolixin 7.5 mg and client goes to court tomorrow.Stop Thorazine. Objective - Vital Signs Vital signs: Vital Signs Temp 98.1 F 02/18/18 00:15 Pulse 78 02/18/18 00:15 Resp 18 02/18/18 00:15 BP 121/57 02/18/18 00:15 Pulse Ox 97 02/09/18 23:00 - Labs CBC & Chem 7: 02/11/18 16:28 02/11/18 16:28 Labs: Abnormal Lab Results - Last 24 Hours (Table) 02/18/18 Range/Units 09:45 Ammonia 43 H (<30) umol/L Assessment and Plan (1) Psychomotor agitation Current Visit: Yes Status: Acute Priority: High Code(s): R45.1 - RESTLESSNESS AND AGITATION SNOMED Code(s): 38984860 (2) Bipolar disorder Current Visit: Yes Status: Acute Priority: High Code(s): F31.9 - BIPOLAR DISORDER, UNSPECIFIED SNOMED Code(s): 50394812
[2018-02-18] MEDS: NICOTINE POLACRILEX 2 MG GUM BUCCAL PRN ×2 (13:52→21:17)
[2018-02-18] MEDS: LORazepam 1 MG TAB PO PRN (23:03)
--- NOTE | 2018-02-19 13:23 | P.PN ---
Subjective Progress Note Date: 02/19/18 Principal diagnosis: Acute psychosis and mamie with agitation Interval history today includes that he still remains less irritable and less agitated roaming the unit and poor focus and concentration and has increased insight. Chief Complaint: [This is a 17-year-old single male who lives with his father and grandmother who was brought in by the police for acute agitation and confrontation with the police lieutenant.] History of Present Illness: [This patient was here 1 year ago and was placed on medication stated he stopped that I has a history of bipolar affective disorder and ADHD] Past Medical History Past Medical History: GERD/Reflux Additional Past Medical History / Comment(s): Pt recently discharged from [facility] for suicidal ideation-states he has not followed up or taken his medications prescribed at discharge, FATTY LIVER. History of Any Multi-Drug Resistant Organisms: None Reported Past Surgical History: No Surgical Hx Reported Additional Past Surgical History / Comment(s): [place] teeth extraction with anesthesia. Past Anesthesia/Blood Transfusion Reactions: No Reported Reaction Past Psychological History: ADD/ADHD, Anxiety, Depression Smoking Status: Current every day smoker Past Alcohol Use History: Occasional Past Drug Use History: Cocaine, Marijuana Mental Status Examination - General Appearance: [This is a 17-year-old dressed in sweat shirt and pants with psychomotor agitation disheveled and poor focus and casual, less bizarre] Speech/Language: [ rapid, less rambled,expressive] Attitude/Behavior: [ less irritable] Mood: [less depressed, anxious, elated, irritable, angry, fearful, hopelessness] Affect: [ incongruent, blunted constricted] Orientation: [ time, person, place situation] Thought Content: [less delusions] Risk Factors: [not suicidal (ideations, without plan) Perception: [wnl, ] Thought Processes: [tangential] Concentration/Attention Span: wnl] [Per observation and interview with the patient] Recent Memory: [impaired] [1 out of 3 in 3 minutes] Remote Memory: [less impaired] [past events, as related history] Intelligence: [below average] [based on history, based on vocabulary, syntax, grammar, and content] Judgment: [fair] [per patient's behavior/history of present illness] Insight: [ fair] [understanding severity of illness/history of present illness] Objective - Vital Signs Vital signs: Vital Signs Temp 98.1 F 02/18/18 00:15 Pulse 78 02/18/18 00:15 Resp 18 02/18/18 00:15 BP 121/57 02/18/18 00:15 Pulse Ox 97 02/09/18 23:00 - Labs CBC & Chem 7: 02/11/18 16:28 02/11/18 16:28 Assessment and Plan (1) Psychomotor agitation Current Visit: Yes Status: Acute Priority: High Code(s): R45.1 - RESTLESSNESS AND AGITATION SNOMED Code(s): 59950507 (2) Bipolar disorder Current Visit: Yes Status: Acute Priority: High Code(s): F31.9 - BIPOLAR DISORDER, UNSPECIFIED SNOMED Code(s): 92858740 Plan: Plan today; restart Depakote 750 mg a day was started and Prolixin 10 mg . . Time with Patient: Less than 30
[2018-02-19] MEDS: LORazepam 1 MG TAB PO PRN (18:13)
[2018-02-19] MEDS: NICOTINE POLACRILEX 2 MG GUM BUCCAL PRN ×2 (18:13→23:14)
[2018-02-19 20:45] VITALS: BP 145/67; PULSE 95
[2018-02-20] MEDS: LORazepam 1 MG TAB PO PRN (01:14)
[2018-02-20] MEDS ORDERED: DIVALPROEX ER 250 MG TAB.ER.24H PO SCH (09:00)
[2018-02-20 10:24] VITALS: BMI 37.0
[2018-02-20] MEDS: NICOTINE POLACRILEX 2 MG GUM BUCCAL PRN ×3 (11:38→16:27)
--- NOTE | 2018-02-20 13:50 | P.DS ---
Providers Date of admission: 02/10/18 15:20 Expected date of discharge: 02/20/18 Attending physician: Reuben Ryan DO Consults: 02/10/18 16:17 Consult Physician Routine Consulting Provider: Luis Murry Consult Reason/Comments: H and P Do you want consulting provider notified?: Already Contacted Primary care physician: Juan Diego Martinez - Discharge Diagnosis(es) (1) Psychomotor agitation Current Visit: Yes Status: Acute Priority: High (2) Bipolar disorder Current Visit: Yes Status: Acute Priority: High Patient Condition at Discharge: Good Plan - Discharge Summary Discharge Rx Participant: No New Discharge Prescriptions: New Divalproex ER [Depakote ER] 750 mg PO DAILY 30 Days #60 tab.er.24h fluPHENAZine [Prolixin] 10 mg PO 1999 30 Days #30 tab Nicotine Polacrilex [Nicorette] 2 mg BUCCAL Q2HR PRN 30 Days #90 gum PRN Reason: Nicotine Cravings No Action No Known Home Medications Discharge Medication List No Known Home Medications 02/09/18 [History] Divalproex ER [Depakote ER] 750 mg PO DAILY 30 Days #60 tab.er.24h 02/20/18 [Rx] Nicotine Polacrilex [Nicorette] 2 mg BUCCAL Q2HR PRN 30 Days #90 gum 02/20/18 [ Rx] fluPHENAZine [Prolixin] 10 mg PO 1999 30 Days #30 tab 02/20/18 [Rx] Follow up Appointment(s)/Referral(s): Juan Diego Martinez MD [Primary Care Provider] - 1-2 days Patient Instructions/Handouts: Anxiety (ED) Discharge Disposition: HOME SELF-CARE
== END 2018-02-20 16:45 | disposition home or self-care (01) | DRG 885 ==
LOC: EC 19:21 → 3MHU 02-10 15:20
PROVIDERS: ADMIT Psychiatry & Neurology Psychiatry; ATTEND Psychiatry & Neurology Psychiatry
DX: F31.2 Bipolar disorder, current episode manic severe with psychotic features (principal); F12.10 Cannabis abuse, uncomplicated; F14.11 Cocaine abuse, in remission; F17.210 Nicotine dependence, cigarettes, uncomplicated; F17.290 Nicotine dependence, other tobacco product, uncomplicated; F41.9 Anxiety disorder, unspecified; F90.9 Attention-deficit hyperactivity disorder, unspecified type; K21.9 Gastro-esophageal reflux disease without esophagitis; Z78.1 Physical restraint status; Z91.14 Patient's other noncompliance with medication regimen; Z91.19 Patient's noncompliance with other medical treatment and regimen; R45.1 Restlessness and agitation; Z56.0 Unemployment, unspecified; K76.0 Fatty (change of) liver, not elsewhere classified; Z65.3 Problems related to other legal circumstances; E66.9 Obesity, unspecified
CPT/HCPCS: 36415; 80053; 80164; 80306; 81001; 82075; 82140; 84146; 85025; 96372; 99284

== ENCOUNTER 2018-03-12 22:15 | Emergency (ER) | payer OTHER ==
[2018-03-12 22:46] VITALS: RESP 20; TEMP 97.4
--- NOTE | 2018-03-12 23:29 | ED ---
Psych HPI - General Chief Complaint: Psychiatric Symptoms Stated Complaint: Mental Health-needs med refill Time Seen by Provider: 03/12/18 23:10 Source: patient, RN notes reviewed Mode of arrival: ambulatory - History of Present Illness Initial Comments: This is a 17-year-old male with a history depression who states he's feeling depressed he was brought here in [facility] for evaluation. He states he is under a lot of stress he believes his girlfriend a . He denies any drugs or alcohol tonight. Is no particular plan on my examination however he would hurt himself. No other modifying factors at this time MD Complaint: suicidal ideation, feels depressed - Related Data Previous Rx's Medication Instructions Recorded Divalproex ER [Depakote ER] 750 mg PO DAILY 30 Days #60 02/20/18 tab.er.24h Nicotine Polacrilex [Nicorette] 2 mg BUCCAL Q2HR PRN 30 Days #90 02/20/18 gum fluPHENAZine [Prolixin] 10 mg PO HS@199903/12/18 Allergies Allergy/AdvReac Type Severity Reaction Status Date / Time dog dander Allergy Dyspnea Verified 03/17/18 12:33 Review of Systems ROS Statement: Those systems with pertinent positive or pertinent negative responses have been documented in the HPI. ROS Other: All systems not noted in ROS Statement are negative. Past Medical History Past Medical History: GERD/Reflux Additional Past Medical History / Comment(s): Pt recently discharged from [facility] for suicidal ideation-states he has not followed up or taken his medications prescribed at discharge, FATTY LIVER. History of Any Multi-Drug Resistant Organisms: None Reported Past Surgical History: No Surgical Hx Reported Additional Past Surgical History / Comment(s): [place] teeth extraction with anesthesia. Past Anesthesia/Blood Transfusion Reactions: No Reported Reaction Past Psychological History: ADD/ADHD, Anxiety, Depression Smoking Status: Current every day smoker Past Alcohol Use History: Occasional Past Drug Use History: Cocaine, Marijuana - Past Family History Father Family Medical History: No Reported History Additional Family Medical History / Comment(s): Pt states his dad is healthy-"I guess". Mother Family Medical History: No Reported History Additional Family Medical History / Comment(s): Pt states his mother is healthy- "I guess." General Exam - General Exam Comments Initial Comments: This is a well-developed well-nourished awake alert oriented 3 male Limitations: no limitations General appearance: alert, in no apparent distress Head exam: Present: atraumatic, normocephalic, normal inspection Eye exam: Present: normal appearance, PERRL, EOMI. Absent: scleral icterus, conjunctival injection, periorbital swelling ENT exam: Present: normal exam, mucous membranes moist Neck exam: Present: normal inspection. Absent: tenderness, meningismus, lymphadenopathy Respiratory exam: Present: normal lung sounds bilaterally. Absent: respiratory distress, wheezes, rales, rhonchi, stridor Cardiovascular Exam: Present: regular rate, normal rhythm, normal heart sounds. Absent: systolic murmur, diastolic murmur, rubs, gallop, clicks GI/Abdominal exam: Present: soft, normal bowel sounds. Absent: distended, tenderness, guarding, rebound, rigid Extremities exam: Present: normal inspection, full ROM, normal capillary refill. Absent: tenderness, pedal edema, joint swelling, calf tenderness Back exam: Present: normal inspection Neurological exam: Present: alert, oriented X3, CN II-XII intact Psychiatric exam: Present: depressed, flat affect, suicidal ideation Skin exam: Present: warm, dry, intact, normal color. Absent: rash Course Vital Signs 03/12/18 03/13/18 22:41 03:21 Temperature 97.4 F L Pulse Rate 108 H 104 H Respiratory 20 20 Rate Blood Pressure 131/77 155/95 O2 Sat by Pulse 98 98 Oximetry - Reevaluation(s) Reevaluation #1: 03/13/18 01:05 The patients care will be endorsed to Dr. Sebastian at shift change. Procedures - Restraint - Face to Face Restraint Occurrence 1 Patient's Immediate Situation: Endangers others' safety, Endangers staff safety , Violent behavior Patient's Immediate Situation - Comment: Aggressive and threatening Patient's Reaction to the Intervention: Uncooperative, Angry, Depressed, Hostile , Aggressive Patient's Medical & Behavioral Condition: Awake, Alert, Agitated, Depressed, Suicidal thoughts Need to Continue or Terminate Restraint or Seclusion: Continue Face to Face Eval of Restraint Date: 03/13/18 Face to Face Eval of Restraint Time: 00:18 Medical Decision Making - Medical Decision Making The patient had been endorsed to Dr. Sebastian at our shift change she will evaluated by psychiatric service after period time and found not to be a risk to himself he will be discharged to follow-up outpatient - Lab Data Lab Results 03/12/18 Range/Units 22:56 Urine Opiates Screen Not Detected (NotDetected) Ur Oxycodone Screen Not Detected (NotDetected) Urine Methadone Screen Not Detected (NotDetected) Ur Propoxyphene Screen Not Detected (NotDetected) Ur Barbiturates Screen Not Detected (NotDetected) U Tricyclic Antidepress Not Detected (NotDetected) Ur Phencyclidine Scrn Not Detected (NotDetected) Ur Amphetamines Screen Not Detected (NotDetected) U Methamphetamines Scrn Not Detected (NotDetected) U Benzodiazepines Scrn Not Detected (NotDetected) Urine Cocaine Screen Not Detected (NotDetected) U Marijuana (THC) Screen Detected H (NotDetected) Disposition Clinical Impression: Adjustment reaction, Personality disorder, Depression Disposition: HOME SELF-CARE Condition: Good Instructions: Generalized Anxiety Disorder (ED) Is patient prescribed a controlled substance at d/c from ED?: No Referrals: Juan Diego Martinez MD [Primary Care Provider] - 1-2 days
[2018-03-13 00:09] LABS: Amphetamine Screen,Urine Not Detected (NotDetected); Barbiturate Screen,Urine Not Detected (NotDetected); Benzodiazepines Screen,Urine Not Detected (NotDetected); Cocaine Screen,Urine Not Detected (NotDetected); Methadone Screen, Urine Not Detected (NotDetected); Opiate Screen,Urine Not Detected (NotDetected); Oxycodone Screen, Urine Not Detected (NotDetected); Phencyclidine Screen,Urine Not Detected (NotDetected); Tricyclic Antidepressant,Urine Not Detected (NotDetected); Urn Cannabinoid Scrn Detected (NotDetected)
[2018-03-13 03:21] VITALS: BP 155/95; PULSE 104
--- NOTE | 2018-03-14 05:14 | CDI ---
Documentation Clarification OP Dear Mejia Lux MD, Please do addendum to ED report for miising clinical impression. Thank you, george begum Expressive Art Therapist If you have any question, Please contact business office manager at [phone] [facility]
== END 2018-03-13 03:24 | disposition home or self-care (01) ==
LOC: EC 22:15
DX: F43.20 Adjustment disorder, unspecified (principal); F60.9 Personality disorder, unspecified; F32.9 Major depressive disorder, single episode, unspecified; F17.200 Nicotine dependence, unspecified, uncomplicated; Z91.09 Other allergy status, other than to drugs and biological substances
CPT/HCPCS: 80306; 82075; 99284

== ENCOUNTER 2018-03-13 21:48 | Emergency (ER) | payer OTHER ==
[2018-03-13 22:25] VITALS: RESP 18
[2018-03-14] MEDS ORDERED: LORazepam 2 MG/ML INJ IM PRN (03:33)
[2018-03-14] MEDS ORDERED: HALOPERIDOL LACTATE 5 MG/ML 1 ML VIAL IM PRN (03:33)
--- NOTE | 2018-03-14 07:13 | ED ---
Psych HPI - General Chief Complaint: Psychiatric Symptoms Stated Complaint: MENTAL HEALTH Time Seen by Provider: 03/13/18 22:04 Source: patient, EMS Mode of arrival: EMS Limitations: altered mental status (Delirium, suspected drug intoxication) - History of Present Illness Initial Comments: This patient is a 17-year-old man who is brought to the emergency room to have psychiatric evaluation. Per the patient's family, he has been acting appropriately in a bizarre fashion. He does have history of bipolar disorder. When I interview the patient at somewhat she said that he had taken some acid. Patient had also consumed some alcohol. He was denying complaints, but is moderately delirious. MD Complaint: other (Manic behavior) -: days(s) Associated Psychiatric Symptoms: delusions, other (Manic behavior) History of same: Yes Quality: getting worse Improves With: none Worsens With: drug use Context: recent drug abuse Associated Symptoms: insomnia - Related Data Previous Rx's Medication Instructions Recorded Divalproex ER [Depakote ER] 750 mg PO DAILY 30 Days #60 02/20/18 tab.er.24h Nicotine Polacrilex [Nicorette] 2 mg BUCCAL Q2HR PRN 30 Days #90 02/20/18 gum fluPHENAZine [Prolixin] 10 mg PO HS@199903/12/18 Allergies Allergy/AdvReac Type Severity Reaction Status Date / Time dog dander Allergy Dyspnea Verified 03/14/18 22:36 Review of Systems ROS Statement: Those systems with pertinent positive or pertinent negative responses have been documented in the HPI. ROS Other: All systems not noted in ROS Statement are negative. Limitations: ROS unobtainable due to patients medical condition (Suspected drug intoxication) Constitutional: Denies: fever, weakness Respiratory: Denies: cough, dyspnea Cardiovascular: Denies: chest pain, palpitations Gastrointestinal: Denies: abdominal pain, vomiting Musculoskeletal: Denies: back pain Skin: Denies: rash Neurological: Denies: headache, weakness, numbness Past Medical History Past Medical History: GERD/Reflux Additional Past Medical History / Comment(s): Pt recently discharged from [facility] for suicidal ideation-states he has not followed up or taken his medications prescribed at discharge, FATTY LIVER. History of Any Multi-Drug Resistant Organisms: None Reported Past Surgical History: No Surgical Hx Reported Additional Past Surgical History / Comment(s): [place] teeth extraction with anesthesia. Past Anesthesia/Blood Transfusion Reactions: No Reported Reaction Past Psychological History: ADD/ADHD, Anxiety, Depression Smoking Status: Current every day smoker Past Alcohol Use History: Occasional Past Drug Use History: Cocaine, Marijuana - Past Family History Father Family Medical History: No Reported History Additional Family Medical History / Comment(s): Pt states his dad is healthy-"I guess". Mother Family Medical History: No Reported History Additional Family Medical History / Comment(s): Pt states his mother is healthy- "I guess." General Exam Limitations: no limitations General appearance: alert, in no apparent distress, appears intoxicated Head exam: Present: atraumatic, normocephalic Eye exam: Present: normal appearance. Absent: scleral icterus, conjunctival injection ENT exam: Present: normal oropharynx Neck exam: Present: normal inspection Respiratory exam: Present: normal lung sounds bilaterally. Absent: respiratory distress, wheezes, rales, rhonchi, stridor Cardiovascular Exam: Present: regular rate, normal rhythm, normal heart sounds. Absent: systolic murmur, diastolic murmur, rubs, gallop GI/Abdominal exam: Present: soft. Absent: distended, tenderness, guarding, rebound, rigid, mass Back exam: Present: normal inspection Neurological exam: Present: alert, oriented X3, CN II-XII intact, normal gait, other (When the patient is not being directly stimulated she does at times appear to be responding to internal stimuli. When he is vigorously directed he is oriented.) Psychiatric exam: Present: normal mood, anxious, manic. Absent: depressed, agitated, flat affect, homicidal ideation, suicidal ideation Skin exam: Present: warm, dry, intact, normal color. Absent: rash Course Vital Signs 03/13/18 03/14/18 22:18 12:16 Temperature 96.9 F L 97.8 F Pulse Rate 95 96 Respiratory 18 18 Rate Blood Pressure 150/76 148/84 O2 Sat by Pulse 98 96 Oximetry Medical Decision Making - Medical Decision Making Patient has had some sleep here in the emergency department and has shown some symptomatic improvement. He has been evaluated by behavioral health and after staffing with psychiatrist they feel that his symptoms improved enough that he may follow up as outpatient. I did attempt to call and speak with the patient' s father this morning however the call goes to [employer] and the mailbox is full. Disposition Clinical Impression: Bipolar disorder Disposition: HOME SELF-CARE Condition: Good Instructions: Bipolar Disorder (ED) Is patient prescribed a controlled substance at d/c from ED?: No Referrals: Juan Diego Martinez MD [Primary Care Provider] - 1-2 days
--- NOTE | 2018-03-14 07:35 | CDI ---
Dear Helio Obrien MD: Please do addendum clinical impression and disposition. Thank you, Svetlana Dye, Medical Assistant Cardiology. If you have any questions, please contact Delicatessen Department Manager at [phone]. [facility]
[2018-03-14 12:25] VITALS: BP 148/84; PULSE 96; TEMP 97.8
== END 2018-03-14 12:16 | disposition home or self-care (01) ==
LOC: EC 21:48
DX: F31.9 Bipolar disorder, unspecified (principal); F10.129 Alcohol abuse with intoxication, unspecified; F22 Delusional disorders; G47.00 Insomnia, unspecified; R41.0 Disorientation, unspecified; F17.200 Nicotine dependence, unspecified, uncomplicated; Z91.048 Other nonmedicinal substance allergy status
CPT/HCPCS: 99285; 96372; 82075; J2060

== ENCOUNTER 2018-03-17 12:22 | Emergency (ER) | payer OTHER ==
[2018-03-17 12:36] VITALS: RESP 18; TEMP 97.6
--- NOTE | 2018-03-17 12:44 | ED ---
General Adult HPI - General Source: patient, police, EMS, RN notes reviewed, old records reviewed Mode of arrival: EMS Limitations: no limitations <Jose J Craven - Last Filed: 03/17/18 20:50> <Eugene Brice - Last Filed: 03/18/18 09:52> - General Chief complaint: Psychiatric Symptoms Stated complaint: Mental health Time Seen by Provider: 03/17/18 12:28 - History of Present Illness Initial comments: 17-year-old male presents for psychiatric evaluation. [facility], he's been there for the past 4 days. Patient states that he has been taking drugs that he stored in his rectum over the past 24 hours. However he's been in [facility] for the past 4 days. He has not taken his anti-psychiatric medication because every time the nurse attempts to administer these medications patient states he was going to rape them. He is accompanied by local police. Patient is in handcuffs at the time my evaluation. He is otherwise cooperative. No physical complaints. (Jose J Craven) - Related Data Previous Rx's Medication Instructions Recorded Divalproex ER [Depakote ER] 750 mg PO DAILY 30 Days #60 02/20/18 tab.er.24h Nicotine Polacrilex [Nicorette] 2 mg BUCCAL Q2HR PRN 30 Days #90 02/20/18 gum fluPHENAZine [Prolixin] 10 mg PO HS@199903/12/18 Allergies Allergy/AdvReac Type Severity Reaction Status Date / Time dog dander Allergy Dyspnea Verified 03/17/18 12:33 Review of Systems ROS Other: All systems not noted in ROS Statement are negative. <Jose J Craven - Last Filed: 03/17/18 20:50> ROS Other: All systems not noted in ROS Statement are negative. <Eugene Brice - Last Filed: 03/18/18 09:52> ROS Statement: Those systems with pertinent positive or pertinent negative responses have been documented in the HPI. Past Medical History Past Medical History: GERD/Reflux Additional Past Medical History / Comment(s): Pt recently discharged from [facility] for suicidal ideation-states he has not followed up or taken his medications prescribed at discharge, FATTY LIVER. History of Any Multi-Drug Resistant Organisms: None Reported Past Surgical History: No Surgical Hx Reported Additional Past Surgical History / Comment(s): [place] teeth extraction with anesthesia. Past Anesthesia/Blood Transfusion Reactions: No Reported Reaction Past Psychological History: ADD/ADHD, Anxiety, Depression Smoking Status: Current every day smoker Past Alcohol Use History: Occasional Past Drug Use History: Cocaine, IV Drug Use, Marijuana, Methamphetamine, Opiates - Past Family History Father Family Medical History: No Reported History Additional Family Medical History / Comment(s): Pt states his dad is healthy-"I guess". Mother Family Medical History: No Reported History Additional Family Medical History / Comment(s): Pt states his mother is healthy- "I guess." <Jose J Craven - Last Filed: 03/17/18 20:50> General Exam Limitations: no limitations General appearance: alert, in no apparent distress Head exam: Present: atraumatic, normocephalic Eye exam: Present: normal appearance, PERRL ENT exam: Present: normal exam Neck exam: Present: normal inspection. Absent: tenderness, meningismus Respiratory exam: Present: normal lung sounds bilaterally. Absent: respiratory distress, wheezes Cardiovascular Exam: Present: regular rate, normal rhythm GI/Abdominal exam: Present: soft. Absent: distended, tenderness, guarding Extremities exam: Present: normal inspection, normal capillary refill. Absent: pedal edema Neurological exam: Present: alert. Absent: motor sensory deficit Psychiatric exam: Present: agitated Skin exam: Present: warm, dry, intact. Absent: cyanosis, diaphoretic <Jose J Craven - Last Filed: 03/17/18 20:50> Course <Jose J Craven - Last Filed: 03/17/18 20:50> <Eugene Brice - Last Filed: 03/18/18 09:52> Vital Signs 03/17/18 03/17/18 03/18/18 12:24 19:00 06:07 Temperature 97.6 F Pulse Rate 110 H 110 H 57 L Respiratory 18 18 18 Rate Blood Pressure 143/97 171/74 136/89 O2 Sat by Pulse 96 98 96 Oximetry - Reevaluation(s) Reevaluation #1: 03/17/18 14:50 EPS evaluate patient emergency department, will require placement. Psychiatrist it operations manager recommends Thorazine and Benadryl at this time. These will be administered in the emergency department. (Jose J Craven) Reevaluation #2: 03/17/18 2100 Patient's care is signed out to oncoming physician awaiting final EPS disposition. (Jose J Craven) 03/18/18 09:47 Patient was seen by psychiatrist who did do a negative certificate. He does recommend patient be discharged back to [facility]. He feels patient symptoms are from coming off of methamphetamine. (Eugene Brice) Medical Decision Making - Lab Data Result diagrams: 03/17/18 13:15 03/17/18 13:15 <Jose J Craven - Last Filed: 03/17/18 20:50> - Lab Data Result diagrams: 03/17/18 13:15 03/17/18 13:15 <Eugene Brice - Last Filed: 03/18/18 09:52> - Lab Data Lab Results 03/17/18 03/17/18 03/17/18 Range/Units 13:15 13:15 16:51 WBC 12.1 H (4.0-11.0) k/uL RBC 5.22 (4.30-5.90) m/uL Hgb 16.0 (13.0-17.5) gm/dL Hct 47.0 (39.0-53.0) % MCV 90.1 (80.0-100.0) fL MCH 30.6 (25.0-35.0) pg MCHC 34.0 (31.0-37.0) g/dL RDW 12.8 (11.5-15.5) % Plt Count 304 (150-450) k/uL Neutrophils % 77 % Lymphocytes % 14 % Monocytes % 6 % Eosinophils % 1 % Basophils % 0 % Neutrophils # 9.3 H (1.3-7.7) k/uL Lymphocytes # 1.7 (1.0-4.8) k/uL Monocytes # 0.7 (0-1.0) k/uL Eosinophils # 0.1 (0-0.7) k/uL Basophils # 0.0 (0-0.2) k/uL Sodium 138 (137-145) mmol/L Potassium 4.1 (3.5-5.1) mmol/L Chloride 104 (98-107) mmol/L Carbon Dioxide 22 (22-30) mmol/L Anion Gap 12 mmol/L BUN 11 (9-20) mg/dL Creatinine 0.73 (0.66-1.25) mg/dL Est GFR (CKD-EPI)AfAm >90 (>60 ml/min/1.73 sqM) Est GFR (CKD-EPI)NonAf >90 (>60 ml/min/1.73 sqM) Glucose 101 H (74-99) mg/dL Calcium 9.8 (8.4-10.2) mg/dL Total Bilirubin 1.0 (0.2-1.3) mg/dL AST 32 (17-59) U/L ALT 39 (21-72) U/L Alkaline Phosphatase 68 (38-126) U/L Total Protein 7.5 (6.3-8.2) g/dL Albumin 4.4 (3.5-5.0) g/dL Urine Color Urine Appearance (Clear) Urine pH (5.0-8.0) Ur Specific [place] (1.001-1.035) Urine Protein (Negative) Urine Glucose (UA) (Negative) Urine Ketones (Negative) Urine Blood (Negative) Urine Nitrite (Negative) Urine Bilirubin (Negative) Urine Urobilinogen (<2.0) mg/dL Ur Leukocyte Esterase (Negative) Urine RBC (0-5) /hpf Urine WBC (0-5) /hpf Urine Mucus (None) /hpf Urine Opiates Screen Not Detected (NotDetected) Ur Oxycodone Screen Not Detected (NotDetected) Urine Methadone Screen Not Detected (NotDetected) Ur Propoxyphene Screen Not Detected (NotDetected) Ur Barbiturates Screen Not Detected (NotDetected) U Tricyclic Antidepress Not Detected (NotDetected) Ur Phencyclidine Scrn Not Detected (NotDetected) Ur Amphetamines Screen Not Detected (NotDetected) U Methamphetamines Scrn Not Detected (NotDetected) U Benzodiazepines Scrn Not Detected (NotDetected) Urine Cocaine Screen Not Detected (NotDetected) U Marijuana (THC) Screen Detected H (NotDetected) 03/17/18 Range/Units 16:51 WBC (4.0-11.0) k/uL RBC (4.30-5.90) m/uL Hgb (13.0-17.5) gm/dL Hct (39.0-53.0) % MCV (80.0-100.0) fL MCH (25.0-35.0) pg MCHC (31.0-37.0) g/dL RDW (11.5-15.5) % Plt Count (150-450) k/uL Neutrophils % % Lymphocytes % % Monocytes % % Eosinophils % % Basophils % % Neutrophils # (1.3-7.7) k/uL Lymphocytes # (1.0-4.8) k/uL Monocytes # (0-1.0) k/uL Eosinophils # (0-0.7) k/uL Basophils # (0-0.2) k/uL Sodium (137-145) mmol/L Potassium (3.5-5.1) mmol/L Chloride (98-107) mmol/L Carbon Dioxide (22-30) mmol/L Anion Gap mmol/L BUN (9-20) mg/dL Creatinine (0.66-1.25) mg/dL Est GFR (CKD-EPI)AfAm (>60 ml/min/1.73 sqM) Est GFR (CKD-EPI)NonAf (>60 ml/min/1.73 sqM) Glucose (74-99) mg/dL Calcium (8.4-10.2) mg/dL Total Bilirubin (0.2-1.3) mg/dL AST (17-59) U/L ALT (21-72) U/L Alkaline Phosphatase (38-126) U/L Total Protein (6.3-8.2) g/dL Albumin (3.5-5.0) g/dL Urine Color Yellow Urine Appearance Clear (Clear) Urine pH 6.0 (5.0-8.0) Ur Specific [place] 1.029 (1.001-1.035) Urine Protein 1+ H (Negative) Urine Glucose (UA) Negative (Negative) Urine Ketones 2+ H (Negative) Urine Blood Negative (Negative) Urine Nitrite Negative (Negative) Urine Bilirubin 1+ H (Negative) Urine Urobilinogen 3.0 (<2.0) mg/dL Ur Leukocyte Esterase Negative (Negative) Urine RBC <1 (0-5) /hpf Urine WBC 1 (0-5) /hpf Urine Mucus Moderate H (None) /hpf Urine Opiates Screen (NotDetected) Ur Oxycodone Screen (NotDetected) Urine Methadone Screen (NotDetected) Ur Propoxyphene Screen (NotDetected) Ur Barbiturates Screen (NotDetected) U Tricyclic Antidepress (NotDetected) Ur Phencyclidine Scrn (NotDetected) Ur Amphetamines Screen (NotDetected) U Methamphetamines Scrn (NotDetected) U Benzodiazepines Scrn (NotDetected) Urine Cocaine Screen (NotDetected) U Marijuana (THC) Screen (NotDetected) Disposition <Jose J Craven - Last Filed: 03/17/18 20:50> Is patient prescribed a controlled substance at d/c from ED?: No Time of Disposition: 09:51 <Eugene Brice - Last Filed: 03/18/18 09:52> Clinical Impression: Psychomotor agitation Disposition: HOME SELF-CARE Condition: Stable Instructions: Depression (ED), Psychotic Disorder (ED), Polysubstance Abuse (ED ) Additional Instructions: [facility]charge to [facility]. Return for worsening symptoms, thoughts of self-harm, threats or thoughts of harm to others, or other concerns Referrals: Juan Diego Martinez MD [Primary Care Provider] - 1-2 days
[2018-03-17 13:46] LABS: Basophils % (A) 0 %; Eosinophils # (A) 0.1 k/uL (0-0.7); Eosinophils % (A) 1 %; Lymphocytes # (A) 1.7 k/uL (1.0-4.8); Lymphocytes % (A) 14 %; MCH 30.6 pg (25.0-35.0); MCV 90.1 fL (80.0-100.0); Mean Platelet Volume 7.1; Monocytes # (A) 0.7 k/uL (0-1.0); Monocytes % (A) 6 %; Neutrophils # (A) 9.3 k/uL (1.3-7.7); Neutrophils % (A) 77 %; Platelet Count 304 k/uL (150-450); RBC 5.22 m/uL (4.30-5.90); RDW 12.8 % (11.5-15.5); WBC 12.1 k/uL (4.0-11.0)
[2018-03-17 13:52] LABS: ALT 39 U/L (21-72); AST 32 U/L (17-59); Albumin 4.4 g/dL (3.5-5.0); Alkaline Phosphatase 68 U/L (38-126); Anion Gap 12 mmol/L; Blood Urea Nitrogen 11 mg/dL (9-20); Calcium 9.8 mg/dL (8.4-10.2); Carbon Dioxide 22 mmol/L (22-30); Chloride 104 mmol/L (98-107); Glucose 101 mg/dL (74-99); Potassium 4.1 mmol/L (3.5-5.1); Sodium 138 mmol/L (137-145); Total Protein 7.5 g/dL (6.3-8.2)
[2018-03-17] MEDS ORDERED: diphenhydrAMINE 50 MG CAP PO STA (14:49)
[2018-03-17] MEDS ORDERED: chlorproMAZINE 25 MG TAB PO STA (14:50)
[2018-03-17] MEDS ORDERED: diphenhydrAMINE 50 MG/ML 1 ML VIAL IM STA ×2 (14:54→21:28)
[2018-03-17] MEDS ORDERED: chlorproMAZINE 25 MG/ML 2 ML AMP IM STA (14:54)
[2018-03-17 16:58] LABS: Appearance,Urine Clear (Clear); Bilirubin,Urine 1+ (Negative); Blood,Urine Negative (Negative); Color,Urine Yellow; Glucose,Urine (UA) Negative (Negative); Ketones,Urine 2+ (Negative); Leukocyte Esterase,Urine Negative (Negative); Mucus,Urine Moderate /hpf; Nitrite,Urine Negative (Negative); Protein,Urine 1+ (Negative); RBC,Urine <1 /hpf (0-5); Specific Gravity,Urine 1.029 (1.001-1.035); WBC,Urine 1 /hpf (0-5)
[2018-03-17 17:05] LABS: Amphetamine Screen,Urine Not Detected (NotDetected); Barbiturate Screen,Urine Not Detected (NotDetected); Benzodiazepines Screen,Urine Not Detected (NotDetected); Cocaine Screen,Urine Not Detected (NotDetected); Methadone Screen, Urine Not Detected (NotDetected); Opiate Screen,Urine Not Detected (NotDetected); Oxycodone Screen, Urine Not Detected (NotDetected); Phencyclidine Screen,Urine Not Detected (NotDetected); Tricyclic Antidepressant,Urine Not Detected (NotDetected); Urn Cannabinoid Scrn Detected (NotDetected)
[2018-03-17] MEDS ORDERED: chlorproMAZINE 25 MG/ML 2 ML AMP IM PRN (21:28)
[2018-03-18 06:08] VITALS: BP 136/89; PULSE 57
== END 2018-03-18 10:33 | disposition home or self-care (01) ==
LOC: EC 12:22
DX: R45.1 Restlessness and agitation (principal); F41.9 Anxiety disorder, unspecified; F32.9 Major depressive disorder, single episode, unspecified; F17.200 Nicotine dependence, unspecified, uncomplicated; Z91.048 Other nonmedicinal substance allergy status
CPT/HCPCS: 36415; 80053; 85025; 81001; 80306; 99284; 96372 ×4; J1200; J3230; 82075

== ENCOUNTER → 2018-05-30 | Outpatient (CLI) | payer OTHER ==
[2018-05-30 10:34] LABS: Basophils % (A) 0 %; Eosinophils # (A) 0.2 k/uL (0-0.7); Eosinophils % (A) 3 %; HCT 46.4 % (39.0-53.0); HGB 15.4 gm/dL (13.0-17.5); Lymphocytes # (A) 2.7 k/uL (1.0-4.8); Lymphocytes % (A) 39 %; MCH 31.2 pg (25.0-35.0); MCHC 33.1 g/dL (31.0-37.0); MCV 94.2 fL (80.0-100.0); Mean Platelet Volume 6.7; Monocytes # (A) 0.5 k/uL (0-1.0); Monocytes % (A) 7 %; Neutrophils # (A) 3.3 k/uL (1.3-7.7); Neutrophils % (A) 48 %; Platelet Count 241 k/uL (150-450); RBC 4.93 m/uL (4.30-5.90); RDW 13.8 % (11.5-15.5); WBC 6.9 k/uL (4.0-11.0)
[2018-05-30 17:01] LABS: Valproic Acid (Depakene) 66.2 ug/mL (50.0-100.0)
[2018-05-30 17:48] LABS: LDL Cholesterol,Calculated 99.8 mg/dL (0.0-131.0); VLDL Calculation 14.2 mg/dL (5.00-40.00)
[2018-05-30 17:49] LABS: Albumin 4.3 g/dL (3.80-4.90); Albumin/Globulin Ratio 2.39 (1.20-2.10); Anion Gap 10.8 mmol/L (4.00-12.00); Carbon Dioxide 28.2 mmol/L (21.6-31.8); Globulin 1.8 g/dL (1.6-3.3); Potassium 4.4 mmol/L (3.5-5.5); Total Bilirubin 0.4 mg/dL (0.2-1.2); Total Protein 6.1 g/dL (6.2-8.2)
[2018-05-30 17:56] LABS: T4, Free (Free Thyroxine) 1.3 ng/dL (0.83-1.43)
[2018-05-30 21:19] LABS: Hemoglobin A1C 4.8 % (4.0-6.0)
== END ==
LOC: LABWHC1 09:33
PROVIDERS: ATTEND Physician Assistant
DX: Z51.81 Encounter for therapeutic drug level monitoring (principal); Z79.899 Other long term (current) drug therapy
CPT/HCPCS: 36415; 80053; 80061; 80164; 83036; 84439; 84443; 85025

== ENCOUNTER → 2018-06-19 | Outpatient (CLI) | payer OTHER ==
[2018-06-20 00:22] LABS: Calcium 9.4 mg/dL (8.7-10.3); Lithium 0.3 mmol/L (1.0-1.2); Potassium 4.5 mmol/L (3.5-5.5)
== END ==
LOC: LABWHC1 15:19
PROVIDERS: ATTEND Physician Assistant
DX: Z51.81 Encounter for therapeutic drug level monitoring (principal); Z79.899 Other long term (current) drug therapy
CPT/HCPCS: 36415; 80048; 80178

== ENCOUNTER → 2018-06-26 | Outpatient (CLI) | payer OTHER ==
[2018-06-27 00:54] LABS: Anion Gap 11.7 mmol/L (4.00-12.00); Calcium 9.8 mg/dL (8.7-10.3); Carbon Dioxide 27.3 mmol/L (21.6-31.8); Lithium 0.4 mmol/L (1.0-1.2); Potassium 4.5 mmol/L (3.5-5.5)
== END | disposition home or self-care (01) ==
LOC: LABWHC1 16:06
PROVIDERS: ATTEND Physician Assistant
DX: Z51.81 Encounter for therapeutic drug level monitoring (principal); Z79.899 Other long term (current) drug therapy
CPT/HCPCS: 36415; 80048; 80178

== ENCOUNTER → 2018-07-18 | Outpatient (CLI) | payer OTHER ==
[2018-07-18 19:05] LABS: Anion Gap 10.4 mmol/L (4.00-12.00); Calcium 9.5 mg/dL (8.7-10.3); Carbon Dioxide 25.6 mmol/L (21.6-31.8); Lithium 0.6 mmol/L (1.0-1.2); Potassium 4.3 mmol/L (3.5-5.5)
== END | disposition home or self-care (01) ==
LOC: LABWHC1 10:00
PROVIDERS: ATTEND Physician Assistant
DX: F31.32 Bipolar disorder, current episode depressed, moderate (principal); Z79.899 Other long term (current) drug therapy
CPT/HCPCS: 36415; 80048; 80178

== ENCOUNTER → 2018-08-13 | Outpatient (CLI) | payer OTHER | END | disposition home or self-care (01) | LOC: LABWHC1 10:01 | PROVIDERS: ATTEND Physician Assistant | DX: F31.32 Bipolar disorder, current episode depressed, moderate (principal); Z79.899 Other long term (current) drug therapy | CPT/HCPCS: 36415; 80178 ==

== ENCOUNTER → 2018-10-02 | Outpatient (CLI) | payer OTHER ==
[2018-10-02 19:28] LABS: Anion Gap 6.3 mmol/L (4.00-12.00); Calcium 9.2 mg/dL (8.7-10.3); Carbon Dioxide 26.7 mmol/L (21.6-31.8); Lithium 0.7 mmol/L (1.0-1.2); Potassium 4.3 mmol/L (3.5-5.5)
== END | disposition home or self-care (01) ==
LOC: LABWHC1 12:47
PROVIDERS: ATTEND Physician Assistant
DX: F31.32 Bipolar disorder, current episode depressed, moderate (principal); Z79.899 Other long term (current) drug therapy
CPT/HCPCS: 36415; 80048; 80178; 84439; 84443

== ENCOUNTER 2019-01-30 06:15 | Emergency (ER) | payer OTHER ==
[2019-01-30 06:40] VITALS: RESP 18
--- NOTE | 2019-01-30 06:59 | ED ---
Psych HPI - General Chief Complaint: Anxiety Stated Complaint: Mental Health Time Seen by Provider: 01/30/19 06:17 Source: patient Mode of arrival: ambulatory - History of Present Illness Initial Comments: 18yo male presenting for psychiatric med evaluation. Patient states that he is currently on probation. He states he is tired of his by mouth telling him what to do. He states that this caused him to feel very angry. He states he wants to be up his by mouth in order to just go to [facility] don't probation. She states she does not like where he lives, and he does not seem age. He states that he doesn't feel like anyone is helping him. Patient denies any homicidal or suicidal thoughts. Patient states that he doesn't appointment at 8:30AM at [facility] and doesnt want to go because "they dont do anything for him anyways". Remaining ROS (-), patient denies any recent fever, chills, shortness of breath, chest pain, back pain, abdominal pain, nausea or vomiting, numbness or tingling, dysuria or hematuria, constipation or diarrhea, headaches or visual changes, or any other complaints. - Related Data Home Medications Medication Instructions Recorded Confirmed [place] Carbonate 1,200 mg PO HS 01/30/19 01/30/19 QUEtiapine FUMARATE [QUEtiapine 150 mg PO HS 01/30/19 01/30/19 FUMARATE ER] Allergies Allergy/AdvReac Type Severity Reaction Status Date / Time dog dander AdvReac Dyspnea Verified 01/30/19 07:00 Review of Systems ROS Statement: Those systems with pertinent positive or pertinent negative responses have been documented in the HPI. ROS Other: All systems not noted in ROS Statement are negative. Past Medical History Past Medical History: GERD/Reflux Additional Past Medical History / Comment(s): Pt recently discharged from [facility] for suicidal ideation-states he has not followed up or taken his medications prescribed at discharge, FATTY LIVER. History of Any Multi-Drug Resistant Organisms: None Reported Past Surgical History: No Surgical Hx Reported Additional Past Surgical History / Comment(s): [place] teeth extraction with anesthesia. Past Anesthesia/Blood Transfusion Reactions: No Reported Reaction Past Drug Use History: Cocaine, IV Drug Use, Marijuana, Methamphetamine, Opiates - Past Family History Father Family Medical History: No Reported History Additional Family Medical History / Comment(s): Pt states his dad is healthy-"I guess". Mother Family Medical History: No Reported History Additional Family Medical History / Comment(s): Pt states his mother is healthy- "I guess." General Exam - General Exam Comments Initial Comments: General: The patient is awake and alert, in no distress, and does not appear acutely ill. Eye: +3 mm pupils are equal, round and reactive to light, extra-ocular movements are intact. No nystagmus. There is normal conjunctiva bilaterally. No signs of icterus. Ears, nose, mouth and throat: There are moist mucous membranes and no oral lesions. Cardiovascular: There is a regular rate and rhythm. No murmur, rub or gallop is appreciated. Respiratory: Lungs are clear to auscultation, respirations are non-labored, breath sounds are equal. No wheezes, stridor, rales, or rhonchi. Gastrointestinal: Soft, non-distended, non-tender abdomen without masses or organomegaly noted. There is no rebound or guarding present. N Musculoskeletal: Normal ROM, no tenderness. Strength 5/5. Sensation intact. Pulses equal bilaterally 2+. Neurological: A&O x 3. CN II-XII intact, There are no obvious motor or sensory deficits. Coordination appears grossly intact. Speech is normal. Skin: Skin is warm and dry and no rashes or lesions are noted. Psychiatric: Cooperative Limitations: no limitations Course Vital Signs 01/30/19 06:34 Temperature 97 F L Pulse Rate 100 Respiratory 18 Rate Blood Pressure 138/98 O2 Sat by Pulse 93 L Oximetry Medical Decision Making - Medical Decision Making 18-year-old male presenting for wanting new psychiatrist as he feels [facility] is not helping him. Patient is evaluated by EPS he denies any suicidal or homicidal ideation. At this time feel patient is stable for discharge, inpatient psychiatry standpoint to follow up with [facility]. There is a plan in place patient appears pleased with this and was discharged appearing well. - Lab Data Lab Results 01/30/19 Range/Units 08:25 Urine Opiates Screen Not Detected (NotDetected) Ur Oxycodone Screen Not Detected (NotDetected) Urine Methadone Screen Not Detected (NotDetected) Ur Propoxyphene Screen Not Detected (NotDetected) Ur Barbiturates Screen Not Detected (NotDetected) U Tricyclic Antidepress Not Detected (NotDetected) Ur Phencyclidine Scrn Not Detected (NotDetected) Ur Amphetamines Screen Not Detected (NotDetected) U Methamphetamines Scrn Not Detected (NotDetected) U Benzodiazepines Scrn Not Detected (NotDetected) Urine Cocaine Screen Not Detected (NotDetected) U Marijuana (THC) Screen Not Detected (NotDetected) Disposition Clinical Impression: Anxiety Disposition: HOME SELF-CARE Condition: Good Instructions (If sedation given, give patient instructions): Generalized Anxiety Disorder (ED) Is patient prescribed a controlled substance at d/c from ED?: No Referrals: None,Stated [Primary Care Provider] - 1-2 days Time of Disposition: 12:31
[2019-01-30 08:42] LABS: Amphetamine Screen,Urine Not Detected (NotDetected); Barbiturate Screen,Urine Not Detected (NotDetected); Benzodiazepines Screen,Urine Not Detected (NotDetected); Cocaine Screen,Urine Not Detected (NotDetected); Methadone Screen, Urine Not Detected (NotDetected); Opiate Screen,Urine Not Detected (NotDetected); Oxycodone Screen, Urine Not Detected (NotDetected); Phencyclidine Screen,Urine Not Detected (NotDetected); Tricyclic Antidepressant,Urine Not Detected (NotDetected); Urn Cannabinoid Scrn Not Detected (NotDetected)
[2019-01-30 12:50] VITALS: BP 156/96; PULSE 102; TEMP 97.8
== END 2019-01-30 12:50 | disposition home or self-care (01) ==
LOC: EC 06:15
DX: F41.9 Anxiety disorder, unspecified (principal); R45.4 Irritability and anger; Z79.899 Other long term (current) drug therapy; Z91.048 Other nonmedicinal substance allergy status
CPT/HCPCS: 80306; 82075; 99284

== ENCOUNTER 2019-03-22 09:44 | Inpatient (IN) | payer BC, OTHER ==
--- NOTE | 2019-03-22 10:10 | ED ---
General Adult HPI - General Chief complaint: Altered Mental Status Stated complaint: Altered Mental Status Time Seen by Provider: 03/22/19 09:50 Source: EMS, RN notes reviewed Mode of arrival: EMS Limitations: altered mental status - History of Present Illness Initial comments: This is a 19-year-old male who [facility] he started acting bizarre and altered last evening and there was a possibility that he was throwing himself on the ground and hurting himself. It did not appear that he understood that he may be hurting himself according to the clearing distribution clerk that came with him. The clearing distribution clerk states he does not have that much information on him other than he is altered and he is all bruised up on his back. According to the clearing distribution clerk he has had no episode like this in the past where he was confused acting erratically. Patient is unable to give any other history. No one else is with the patient currently. - Related Data Home Medications Medication Instructions Recorded Confirmed [place] Carbonate 1,200 mg PO HS 01/30/19 03/22/19 QUEtiapine FUMARATE [QUEtiapine 150 mg PO HS 01/30/19 03/22/19 FUMARATE ER] Allergies Allergy/AdvReac Type Severity Reaction Status Date / Time dog dander AdvReac Dyspnea Verified 03/22/19 10:28 Review of Systems ROS Statement: Those systems with pertinent positive or pertinent negative responses have been documented in the HPI. ROS Other: All systems not noted in ROS Statement are negative. Past Medical History Past Medical History: GERD/Reflux Additional Past Medical History / Comment(s): Pt recently discharged from [facility] for suicidal ideation-states he has not followed up or taken his medications prescribed at discharge, FATTY LIVER. History of Any Multi-Drug Resistant Organisms: None Reported Past Surgical History: No Surgical Hx Reported Additional Past Surgical History / Comment(s): [place] teeth extraction with anesthesia. Past Anesthesia/Blood Transfusion Reactions: No Reported Reaction Past Psychological History: ADD/ADHD, Anxiety, Depression Smoking Status: Former smoker Past Alcohol Use History: None Reported Past Drug Use History: Cocaine, IV Drug Use, Marijuana, Methamphetamine, Opiates - Past Family History Father Family Medical History: No Reported History Additional Family Medical History / Comment(s): Pt states his dad is healthy-"I guess". Mother Family Medical History: No Reported History Additional Family Medical History / Comment(s): Pt states his mother is healthy- "I guess." General Exam - General Exam Comments Initial Comments: GENERAL: Patient is well-developed and well-nourished. Patient is nontoxic and well- hydrated and is in no acute distress. ENT: Neck is soft and supple. No significant lymphadenopathy is noted. Oropharynx is clear. Moist mucous membranes. Neck has full range of motion without eliciting any pain. EYES: The sclera were anicteric and conjunctiva were pink and moist. Extraocular movements were intact and pupils were equal round and reactive to light. Eyelid s were unremarkable. PULMONARY: Unlabored respirations. Good breath sounds bilaterally. No audible rales rhonchi or wheezing was noted. CARDIOVASCULAR: There is a regular rate and rhythm without any murmurs gallops or rubs. ABDOMEN: Soft and nontender with normal bowel sounds. SKIN: She has multiple areas of ecchymosis to his back and buttocks and legs and left upper arm. NEUROLOGIC: Patient is alert and is not oriented at all. Patient was able to ambulate according to the Tax Expert he is moving all 4 extremities. I cannot assess his sensation and I cannot assess how much drinking he has because he does not follow any commands. Patient does speak clearly but does not make any sense. MUSCULOSKELETAL: Normal extremities with adequate strength and full range of motion. No lower e xtremity swelling or edema. No calf tenderness. LYMPHATICS: No significant lymphadenopathy is noted PSYCHIATRIC: Unable to assess Limitations: altered mental status Course Vital Signs 03/22/19 03/22/19 03/22/19 09:48 11:25 13:59 Temperature 100.1 F H 99.6 F 100.7 F H Pulse Rate 130 H 125 H 133 H Respiratory 20 20 20 Rate Blood Pressure 144/92 156/100 O2 Sat by Pulse 100 100 Oximetry 03/22/19 14:39 Temperature Pulse Rate 130 H Respiratory 20 Rate Blood Pressure 136/88 O2 Sat by Pulse 96 Oximetry Medical Decision Making - Medical Decision Making EKG shows supraventricular tachycardia at 134 bpm QRS is 82 QT interval 336 QTC is 501. P waves or not completely discernible CT of the brain shows no acute abnormalities. CT of the abdomen and pelvis showed no acute normalities. Patient still is babbling and not making any sense in his heart rate is greater than 120. Patient did get Tylenol for the fever as well as Motrin earlier. I attempted a lumbar puncture but because of all the ecchymosis around his lumbar area I could not find any significant anatomy that would indicate the spinous processes were made a couple of attempts but was unable to get the lumbar puncture. I spoke with Rosey and I indicated to him I thought it lumbar puncture was indicated but I was unable to do so. Patient did get 1 g Rocephin. I spoke with Dr. Ronquillo he wanted the patient to be on 2 g of Rocephin every 12 hours and vancomycin. I added 1 g in the emergency department I ordered the rest as an inpatient. - Lab Data Result diagrams: 03/22/19 10:15 03/22/19 10:15 Lab Results 03/22/19 03/22/19 03/22/19 Range/Units 10:15 10:15 10:15 WBC 13.7 H (3.8-10.6) k/uL RBC 4.73 (4.30-5.90) m/uL Hgb 14.7 (13.0-17.5) gm/dL Hct 43.0 (39.0-53.0) % MCV 90.9 (80.0-100.0) fL MCH 31.1 (25.0-35.0) pg MCHC 34.2 (31.0-37.0) g/dL RDW 13.0 (11.5-15.5) % Plt Count 344 (150-450) k/uL Neutrophils % 83 % Lymphocytes % 8 % Monocytes % 8 % Eosinophils % 0 % Basophils % 0 % Neutrophils # 11.3 H (1.3-7.7) k/uL Lymphocytes # 1.0 (1.0-4.8) k/uL Monocytes # 1.0 (0-1.0) k/uL Eosinophils # 0.0 (0-0.7) k/uL Basophils # 0.0 (0-0.2) k/uL PT (9.0-12.0) sec INR (<1.2) APTT (22.0-30.0) sec Sodium 136 L (137-145) mmol/L Potassium 4.0 (3.5-5.1) mmol/L Chloride 103 (98-107) mmol/L Carbon Dioxide 19 L (22-30) mmol/L Anion Gap 14 mmol/L BUN 13 (9-20) mg/dL Creatinine 0.88 (0.66-1.25) mg/dL Est GFR (CKD-EPI)AfAm >90 (>60 ml/min/1.73 sqM) Est GFR (CKD-EPI)NonAf >90 (>60 ml/min/1.73 sqM) Glucose 120 H (74-99) mg/dL Lactic Ac Sepsis Rflx Plasma Lactic Acid Cesar 2.2 H* (0.7-2.0) mmol/L Calcium 9.5 (8.4-10.2) mg/dL Total Bilirubin 2.3 H (0.2-1.3) mg/dL AST 60 H (17-59) U/L ALT 94 H (21-72) U/L Alkaline Phosphatase 83 (38-126) U/L Total Protein 6.9 (6.3-8.2) g/dL Albumin 4.2 (3.5-5.0) g/dL Urine Color Urine Appearance (Clear) Urine pH (5.0-8.0) Ur Specific [place] (1.001-1.035) Urine Protein (Negative) Urine Glucose (UA) (Negative) Urine Ketones (Negative) Urine Blood (Negative) Urine Nitrite (Negative) Urine Bilirubin (Negative) Urine Urobilinogen (<2.0) mg/dL Ur Leukocyte Esterase (Negative) Urine RBC (0-5) /hpf Urine WBC (0-5) /hpf Ur Squamous Epith Cells (0-4) /hpf Hyaline Casts (0-2) /lpf Urine Mucus (None) /hpf Urine Opiates Screen (NotDetected) Ur Oxycodone Screen (NotDetected) Urine Methadone Screen (NotDetected) Ur Propoxyphene Screen (NotDetected) Ur Barbiturates Screen (NotDetected) U Tricyclic Antidepress (NotDetected) Ur Phencyclidine Scrn (NotDetected) Ur Amphetamines Screen (NotDetected) U Methamphetamines Scrn (NotDetected) U Benzodiazepines Scrn (NotDetected) [place] mmol/L Urine Cocaine Screen (NotDetected) U Marijuana (THC) Screen (NotDetected) Serum Alcohol mg/dL Influenza Type A RNA (Not Detectd) Influenza Type B (PCR) (Not Detectd) 03/22/19 03/22/19 03/22/19 Range/Units 10:15 10:32 10:32 WBC (3.8-10.6) k/uL RBC (4.30-5.90) m/uL Hgb (13.0-17.5) gm/dL Hct (39.0-53.0) % MCV (80.0-100.0) fL MCH (25.0-35.0) pg MCHC (31.0-37.0) g/dL RDW (11.5-15.5) % Plt Count (150-450) k/uL Neutrophils % % Lymphocytes % % Monocytes % % Eosinophils % % Basophils % % Neutrophils # (1.3-7.7) k/uL Lymphocytes # (1.0-4.8) k/uL Monocytes # (0-1.0) k/uL Eosinophils # (0-0.7) k/uL Basophils # (0-0.2) k/uL PT 10.8 (9.0-12.0) sec INR 1.0 (<1.2) APTT 21.3 L (22.0-30.0) sec Sodium (137-145) mmol/L Potassium (3.5-5.1) mmol/L Chloride (98-107) mmol/L Carbon Dioxide (22-30) mmol/L Anion Gap mmol/L BUN (9-20) mg/dL Creatinine (0.66-1.25) mg/dL Est GFR (CKD-EPI)AfAm (>60 ml/min/1.73 sqM) Est GFR (CKD-EPI)NonAf (>60 ml/min/1.73 sqM) Glucose (74-99) mg/dL Lactic Ac Sepsis Rflx Plasma Lactic Acid Cesar (0.7-2.0) mmol/L Calcium (8.4-10.2) mg/dL Total Bilirubin (0.2-1.3) mg/dL AST (17-59) U/L ALT (21-72) U/L Alkaline Phosphatase (38-126) U/L Total Protein (6.3-8.2) g/dL Albumin (3.5-5.0) g/dL Urine Color [place] Urine Appearance Clear (Clear) Urine pH 6.0 (5.0-8.0) Ur Specific [place] 1.031 (1.001-1.035) Urine Protein 2+ H (Negative) Urine Glucose (UA) Negative (Negative) Urine Ketones 3+ H (Negative) Urine Blood Small H (Negative) Urine Nitrite Negative (Negative) Urine Bilirubin 1+ H (Negative) Urine Urobilinogen 6.0 (<2.0) mg/dL Ur Leukocyte Esterase Negative (Negative) Urine RBC 1 (0-5) /hpf Urine WBC 5 (0-5) /hpf Ur Squamous Epith Cells <1 (0-4) /hpf Hyaline Casts 5 H (0-2) /lpf Urine Mucus Many H (None) /hpf Urine Opiates Screen Not Detected (NotDetected) Ur Oxycodone Screen Not Detected (NotDetected) Urine Methadone Screen Not Detected (NotDetected) Ur Propoxyphene Screen Not Detected (NotDetected) Ur Barbiturates Screen Not Detected (NotDetected) U Tricyclic Antidepress Not Detected (NotDetected) Ur Phencyclidine Scrn Not Detected (NotDetected) Ur Amphetamines Screen Not Detected (NotDetected) U Methamphetamines Scrn Not Detected (NotDetected) U Benzodiazepines Scrn Not Detected (NotDetected) [place] mmol/L Urine Cocaine Screen Not Detected (NotDetected) U Marijuana (THC) Screen Not Detected (NotDetected) Serum Alcohol mg/dL Influenza Type A RNA (Not Detectd) Influenza Type B (PCR) (Not Detectd) 03/22/19 03/22/19 03/22/19 Range/Units 10:35 12:06 12:24 WBC (3.8-10.6) k/uL RBC (4.30-5.90) m/uL Hgb (13.0-17.5) gm/dL Hct (39.0-53.0) % MCV (80.0-100.0) fL MCH (25.0-35.0) pg MCHC (31.0-37.0) g/dL RDW (11.5-15.5) % Plt Count (150-450) k/uL Neutrophils % % Lymphocytes % % Monocytes % % Eosinophils % % Basophils % % Neutrophils # (1.3-7.7) k/uL Lymphocytes # (1.0-4.8) k/uL Monocytes # (0-1.0) k/uL Eosinophils # (0-0.7) k/uL Basophils # (0-0.2) k/uL PT (9.0-12.0) sec INR (<1.2) APTT (22.0-30.0) sec Sodium (137-145) mmol/L Potassium (3.5-5.1) mmol/L Chloride (98-107) mmol/L Carbon Dioxide (22-30) mmol/L Anion Gap mmol/L BUN (9-20) mg/dL Creatinine (0.66-1.25) mg/dL Est GFR (CKD-EPI)AfAm (>60 ml/min/1.73 sqM) Est GFR (CKD-EPI)NonAf (>60 ml/min/1.73 sqM) Glucose (74-99) mg/dL Lactic Ac Sepsis Rflx Y Plasma Lactic Acid Cesar (0.7-2.0) mmol/L Calcium (8.4-10.2) mg/dL Total Bilirubin (0.2-1.3) mg/dL AST (17-59) U/L ALT (21-72) U/L Alkaline Phosphatase (38-126) U/L Total Protein (6.3-8.2) g/dL Albumin (3.5-5.0) g/dL Urine Color Urine Appearance (Clear) Urine pH (5.0-8.0) Ur Specific [place] (1.001-1.035) Urine Protein (Negative) Urine Glucose (UA) (Negative) Urine Ketones (Negative) Urine Blood (Negative) Urine Nitrite (Negative) Urine Bilirubin (Negative) Urine Urobilinogen (<2.0) mg/dL Ur Leukocyte Esterase (Negative) Urine RBC (0-5) /hpf Urine WBC (0-5) /hpf Ur Squamous Epith Cells (0-4) /hpf Hyaline Casts (0-2) /lpf Urine Mucus (None) /hpf Urine Opiates Screen (NotDetected) Ur Oxycodone Screen (NotDetected) Urine Methadone Screen (NotDetected) Ur Propoxyphene Screen (NotDetected) Ur Barbiturates Screen (NotDetected) U Tricyclic Antidepress (NotDetected) Ur Phencyclidine Scrn (NotDetected) Ur Amphetamines Screen (NotDetected) U Methamphetamines Scrn (NotDetected) U Benzodiazepines Scrn (NotDetected) [place] mmol/L Urine Cocaine Screen (NotDetected) U Marijuana (THC) Screen (NotDetected) Serum Alcohol <10 mg/dL Influenza Type A RNA Not Detected (Not Detectd) Influenza Type B (PCR) Not Detected (Not Detectd) 03/22/19 03/22/19 Range/Units 13:48 16:00 WBC (3.8-10.6) k/uL RBC (4.30-5.90) m/uL Hgb (13.0-17.5) gm/dL Hct (39.0-53.0) % MCV (80.0-100.0) fL MCH (25.0-35.0) pg MCHC (31.0-37.0) g/dL RDW (11.5-15.5) % Plt Count (150-450) k/uL Neutrophils % % Lymphocytes % % Monocytes % % Eosinophils % % Basophils % % Neutrophils # (1.3-7.7) k/uL Lymphocytes # (1.0-4.8) k/uL Monocytes # (0-1.0) k/uL Eosinophils # (0-0.7) k/uL Basophils # (0-0.2) k/uL PT (9.0-12.0) sec INR (<1.2) APTT (22.0-30.0) sec Sodium (137-145) mmol/L Potassium (3.5-5.1) mmol/L Chloride (98-107) mmol/L Carbon Dioxide (22-30) mmol/L Anion Gap mmol/L BUN (9-20) mg/dL Creatinine (0.66-1.25) mg/dL Est GFR (CKD-EPI)AfAm (>60 ml/min/1.73 sqM) Est GFR (CKD-EPI)NonAf (>60 ml/min/1.73 sqM) Glucose (74-99) mg/dL Lactic Ac Sepsis Rflx Plasma Lactic Acid Cesar 1.2 (0.7-2.0) mmol/L Calcium (8.4-10.2) mg/dL Total Bilirubin (0.2-1.3) mg/dL AST (17-59) U/L ALT (21-72) U/L Alkaline Phosphatase (38-126) U/L Total Protein (6.3-8.2) g/dL Albumin (3.5-5.0) g/dL Urine Color Urine Appearance (Clear) Urine pH (5.0-8.0) Ur Specific [place] (1.001-1.035) Urine Protein (Negative) Urine Glucose (UA) (Negative) Urine Ketones (Negative) Urine Blood (Negative) Urine Nitrite (Negative) Urine Bilirubin (Negative) Urine Urobilinogen (<2.0) mg/dL Ur Leukocyte Esterase (Negative) Urine RBC (0-5) /hpf Urine WBC (0-5) /hpf Ur Squamous Epith Cells (0-4) /hpf Hyaline Casts (0-2) /lpf Urine Mucus (None) /hpf Urine Opiates Screen (NotDetected) Ur Oxycodone Screen (NotDetected) Urine Methadone Screen (NotDetected) Ur Propoxyphene Screen (NotDetected) Ur Barbiturates Screen (NotDetected) U Tricyclic Antidepress (NotDetected) Ur Phencyclidine Scrn (NotDetected) Ur Amphetamines Screen (NotDetected) U Methamphetamines Scrn (NotDetected) U Benzodiazepines Scrn (NotDetected) [place] <0.2 mmol/L Urine Cocaine Screen (NotDetected) U Marijuana (THC) Screen (NotDetected) Serum Alcohol mg/dL Influenza Type A RNA (Not Detectd) Influenza Type B (PCR) (Not Detectd) Disposition Clinical Impression: Altered mental status, Multiple contusions Disposition: ADMITTED IP TO THIS HOSP Referrals: None,Stated [Primary Care Provider] - 1-2 days Time of Disposition: 15:49
[2019-03-22] MEDS ORDERED: IBUPROFEN IV 600 MG in SODIUM CHLORIDE 0.9% 250 ML IV STA (10:13)
[2019-03-22 10:29] LABS: Basophils % (A) 0 %; Eosinophils % (A) 0 %; HGB 14.7 gm/dL (13.0-17.5); Lymphocytes % (A) 8 %; MCH 31.1 pg (25.0-35.0); MCHC 34.2 g/dL (31.0-37.0); MCV 90.9 fL (80.0-100.0); Mean Platelet Volume 6.8; Monocytes % (A) 8 %; Neutrophils # (A) 11.3 k/uL (1.3-7.7); Neutrophils % (A) 83 %; Platelet Count 344 k/uL (150-450); RBC 4.73 m/uL (4.30-5.90); WBC 13.7 k/uL (3.8-10.6)
[2019-03-22 10:33] LABS: ALT 94 U/L (21-72); AST 60 U/L (17-59); African American GFR (CKD) >90 (>60 ml/min/1.73 sqM); Albumin 4.2 g/dL (3.5-5.0); Alkaline Phosphatase 83 U/L (38-126); Anion Gap 14 mmol/L; Blood Urea Nitrogen 13 mg/dL (9-20); Calcium 9.5 mg/dL (8.4-10.2); Carbon Dioxide 19 mmol/L (22-30); Chloride 103 mmol/L (98-107); Glucose 120 mg/dL (74-99); Non-African American GFR(CKD) >90 (>60 ml/min/1.73 sqM); Prothrombin Time 10.8 sec (9.0-12.0); Sodium 136 mmol/L (137-145); Total Bilirubin 2.3 mg/dL (0.2-1.3); Total Protein 6.9 g/dL (6.3-8.2)
[2019-03-22] MEDS: SODIUM CHLORIDE 0.9% 500 ML 500 ML IV SCH ×3 (10:36→11:36)
[2019-03-22 10:41] LABS: Partial Thromboplastin Time 21.3 sec (22.0-30.0)
[2019-03-22 11:02] LABS: Appearance,Urine Clear (Clear); Bilirubin,Urine 1+ (Negative); Blood,Urine Small (Negative); Color,Urine Orange; Glucose,Urine (UA) Negative (Negative); Hyaline Casts,Urine 5 /lpf (0-2); Ketones,Urine 3+ (Negative); Leukocyte Esterase,Urine Negative (Negative); Mucus,Urine Many /hpf; Nitrite,Urine Negative (Negative); Protein,Urine 2+ (Negative); RBC,Urine 1 /hpf (0-5); Specific Gravity,Urine 1.031 (1.001-1.035); Squamous Epithelial Cell,Urine <1 /hpf (0-4)
--- NOTE | 2019-03-22 11:40 | CT ---
EXAMINATION TYPE: CT brain wo con DATE OF EXAM: 03/22/2019 COMPARISON: NONE HISTORY: Altered mental status CT DLP: 1095.4 mGycm Automated exposure control for dose reduction was used. FINDINGS: Central structures are midline. There is no evidence of hydrocephalus. No acute focal lesion, mass ef fect or midline shift is seen. I do not see evidence of intracranial blood. There is mild mucoperiosteal thickening involving the anterior ethmoid air cells on the right. The re maining paranasal sinuses and mastoids are clear. The bony calvarium is intact. IMPRESSION: 1. NO ACUTE INTRACRANIAL ABNORMALITY. 2. MINIMAL, RIGHT, ANTERIOR ETHMOIDAL AIRSPACE DISEASE.
--- NOTE | 2019-03-22 11:47 | CT ---
EXAMINATION TYPE: CT abdomen pelvis w con DATE OF EXAM: 03/22/2019 REFERENCE: NONE HISTORY: Trauma HISTORY: Trauma CT DLP: 2560.7 mGy Automated exposure control for dose reduction was used. TECHNIQUE: Helical acquisition through the abdomen and pelvis was obtained following the oral ingesti on of without Oral Contrast and following intravenous administration of 100 ml mL of Isovue 300. The data was reformatted in axial, coronal and sagittal projections. FINDINGS: Visualized portions of the lungs are clear. There is no pleural or pericardial fluid. The heart is not enlarged. Within the abdomen, there is significant streak artifact due to breathing motion. The liver, spleen and gallbladder are normal. Both adrenal glands appear normal. Both kidneys demonstrate function and appear morphologically normal. Limited views of the pancreas are unremarkable. There is no significant retroperitoneal, iliac or inguinal adenopathy. There is considerable streak artifact in the pelvis due to the patient's arms. The bladder is only pa rtially assessed. There is no significant diverticular change and there is no radiographic evidence of diverticulitis t he appendix is not visualized with certainty. Small bowel loops are normal in caliber. There is no free fluid and no free air identified. No fractures are seen. IMPRESSION: NO ACUTE POSTTRAUMATIC ABNORMALITY.
--- NOTE | 2019-03-22 11:48 | XR ---
EXAMINATION TYPE: XR chest 2V DATE OF EXAM: 03/22/2019 HISTORY: Fever. REFERENCE: Previous study dated 07/20/2017. FINDINGS: The lungs remain clear. Heart size upper limits of normal. Pleural space are clear. IMPRESSION: NO ACTIVE INTRATHORACIC DISEASE.
[2019-03-22 12:47] LABS: Amphetamine Screen,Urine Not Detected (NotDetected); Barbiturate Screen,Urine Not Detected (NotDetected); Benzodiazepines Screen,Urine Not Detected (NotDetected); Cocaine Screen,Urine Not Detected (NotDetected); Methadone Screen, Urine Not Detected (NotDetected); Opiate Screen,Urine Not Detected (NotDetected); Oxycodone Screen, Urine Not Detected (NotDetected); Phencyclidine Screen,Urine Not Detected (NotDetected); Tricyclic Antidepressant,Urine Not Detected (NotDetected); Urn Cannabinoid Scrn Not Detected (NotDetected)
[2019-03-22] MEDS ORDERED: SODIUM CHLORIDE 0.9% 1,000 ML IV STA (14:01)
[2019-03-22] MEDS ORDERED: MORPHINE SULFATE 2 MG/ML SYRINGE IVP STA (14:01)
[2019-03-22] MEDS ORDERED: ACETAMINOPHEN TAB 500 MG TAB PO STA (14:23)
[2019-03-22] MEDS ORDERED: cefTRIAXone IN SWFI 1,000 MG/10 ML SYRINGE IVP STA ×2 (14:24→16:15)
[2019-03-22] MEDS: SODIUM CHLORIDE 0.9% 1,000 ML IV ONE ×2 (16:10→16:57)
[2019-03-22] MEDS ORDERED: VANCOMYCIN IV PER PHARMACY 1 EACH MISC MISCELLANE PRN (16:17)
[2019-03-22] MEDS ORDERED: VANCOMYCIN 2,000 MG in SODIUM CHLORIDE 0.9% 500 ML 500 ML IVPB STA (16:24)
[2019-03-22] MEDS ORDERED: LITHIUM CARBONATE ER 450 MG TABLET.ER PO SCH (21:00)
[2019-03-22] MEDS: DEXTROSE 5%-0.2% NACL 1,000 ML IV SCH (22:11)
[2019-03-23] MEDS: DEXTROSE 5%-0.2% NACL 1,000 ML IV SCH ×3 (01:44→22:14)
[2019-03-23] MEDS: VANCOMYCIN 1,750 MG in SODIUM CHLORIDE 0.9% 500 ML 500 ML IVPB SCH ×3 (03:00→18:05)
[2019-03-23] MEDS: LITHIUM CARBONATE 300 MG CAP PO SCH ×2 (09:27→10:19)
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
[2019-03-23] MEDS: ACETAMINOPHEN IV (For NPO) 1,000 MG in EMPTY BAG 1 BAG IVPB PRN (16:00)
[2019-03-23 16:29] LABS: T4, Free (Free Thyroxine) 1.87 ng/dL (0.78-2.19)
--- NOTE | 2019-03-23 19:33 | PN ---
PROGRESS NOTE CHIEF COMPLAINT: Mental status changes. HISTORY OF PRESENT ILLNESS: This gentleman is still slightly lethargic, but is still very agitated. He is not making sense with his speech. PHYSICAL EXAMINATION: Chest is clear. Cardiac exam is normal. Abdomen is soft, nontender. IMPRESSION: 1. Mental status changes. 2. Possible neuroleptic malignant syndrome. PLAN: 1. Continue with restraints. 2. Psychiatric consult. 3. Hold lithium and Seroquel. MMODL / IJN: [id number] /
[2019-03-23 19:48] LABS: Hepatitis A Antibody IgM Non-Reactive (Non-Reactive); Hepatitis B Core IgM Non-Reactive (Non-Reactive); Hepatitis B Surface Antigen Non-Reactive (Non-Reactive); Hepatitis C IgG Antibody Non-Reactive (Non-Reactive)
--- NOTE | 2019-03-23 20:50 | P.CONS ---
History of Present Illness - Reason for Consult Consult date: 03/23/19 - Chief Complaint ltered mental status - History of Present Illness 19-year-old male is [facility] because of worsening behavior. The patient has a known psychiatric history it is not clear what his current medications are while he is incarcerated except for notations of lithium and Seroquel. The patient apparently has been doing self-harm activities mentoring himself against doors in the floor. His behavior worsened consequently he was brought to the emergency center recommendations evidence of a low-grade fever. The patient underwent some testing showed evidence of a mild leukocytosis no evidence of pneumonia, urinary tract infection or other obvious source of infection. He'll low-grade temperature 100.6 calcium lumbar puncture was attempted given his altered mental status. Lumbar puncture could not be performed. Antibiotics therapy was begun and the consult was requested. The patient this point in time remains acutely psychotic. He is not communicating in any meaningful way to the observers. Echolalia is occurring. Fortunately he is accepting some food and drink from the staff and not spitting on them as he was earlier. Review of Systems ROS unobtainable: due to mental status Past Medical History Past Medical History: GERD/Reflux Additional Past Medical History / Comment(s): Pt recently discharged from [facility] for suicidal ideation, suicide percautions in place from [facility]. History of Any Multi-Drug Resistant Organisms: None Reported Past Surgical History: No Surgical Hx Reported Additional Past Surgical History / Comment(s): [place] teeth extraction with anesthesia. Past Anesthesia/Blood Transfusion Reactions: No Reported Reaction Past Psychological History: ADD/ADHD, Anxiety, Depression Additional Psychological History / Comment(s): Pt states he is suicidal. He was recently admitted/discharged from [facility] and has not followed thru with appts or taken his medication. He recently moved out of his mother's home and is living with his brother. He does not have a job. He drives. Smoking Status: Unknown if ever smoked Past Alcohol Use History: None Reported Additional Past Alcohol Use History / Comment(s): Pt states he started smoking in 2015 and is less than a ppd smoker. Past Drug Use History: Cocaine, IV Drug Use, Marijuana, Methamphetamine, Opiates Additional Drug Use History / Comment(s): Pt states he used to smoke marijuana on a daily basis but now only smokes it "once in a blue salguero." - Past Family History Father Family Medical History: No Reported History Additional Family Medical History / Comment(s): Pt states his dad is healthy-"I guess". Mother Family Medical History: No Reported History Additional Family Medical History / Comment(s): Pt states his mother is healthy- "I guess." Medications and Allergies Home Medications and Allergies Comment(s): Current Medications Acetaminophen (Tylenol Tab) 650 mg PO Q6HR PRN PRN Reason: Fever and/ or Pain Ceftriaxone Sodium 2 gm/ (Sodium Chloride) 50 mls @ 100 mls/hr IVPB Q12HR [facility] Last Admin: 03/23/19 09:10 Dose: 100 mls/hr Documented by: Dextrose/Sodium Chloride (Dextrose 5%-1/4ns Iv Soln) 1,000 mls @ 150 mls/hr IV .Q6H40M [facility] Last Admin: 03/23/19 13:10 Dose: 150 mls/hr Documented by: Vancomycin HCl 1,750 mg/ (Sodium Chloride) 500 mls @ 167 mls/hr IVPB Q8H [facility] Last Admin: 03/23/19 18:05 Dose: 167 mls/hr Documented by: Acetaminophen 1,000 mg/ IV (Solution) 100 mls @ 400 mls/hr IVPB Q6HR PRN PRN Reason: Fever Stop: 03/24/19 12:14 Last Admin: 03/23/19 16:00 Dose: 400 mls/hr Documented by: Miscellaneous Information (Vancomycin Trough Due) 0 each MISCELLANE DIRECTED ONE Stop: 03/24/19 01:01 Home Medications Medication Instructions Recorded Confirmed Type Pike Carbonate 1,200 mg PO HS 01/30/19 03/22/19 History QUEtiapine FUMARATE [QUEtiapine 150 mg PO HS 01/30/19 03/22/19 History FUMARATE ER] Allergies Allergy/AdvReac Type Severity Reaction Status Date / Time dog dander AdvReac Dyspnea Verified 03/22/19 10:28 Physical Exam Vitals: Vital Signs Temp Pulse Resp BP Pulse Ox 03/23/19 16:05 100.1 F H 110 H 18 169/86 03/23/19 11:40 100.1 F H 110 H 16 135/70 98 03/23/19 09:05 100 F H 120 H 18 138/65 96 03/23/19 04:00 99.4 F 98 16 139/75 98 03/23/19 00:00 99.6 F 119 H 17 159/75 98 Intake and Output 03/23/19 03/23/19 03/23/19 06:59 14:59 22:59 Intake Total 450 200 Output Total 1300 1000 Balance -850 200 -1000 Intake: Intake, IV Titration 450 Amount Dextrose 5%-0.2% NaCl 1, 450 000 ml @ 150 mls/hr IV . Q6H40M [facility] Rx#:[id number] Oral 200 Output: Urine 1300 1000 Other: Voiding Method Indwelling Catheter Indwelling Catheter Indwelling Catheter Weight 131.5 kg 19-year-old male he is tall and obese HEENT: Anicteric conjunctiva are pink and moist nasal mucosa grossly intact without significant lesions, there is no thrush. Neck: The neck is supple without significant lymphadenopathy or thyromegaly. Lungs: They're symmetrical bilateral air entry no severe wheezing no bronchial sounds no crackles Heart: Regular rate and rhythm with an audible S1-S2, no S3 no S4. There is no significant murmur click or rub, PMI was nondisplaced. Abdomen:obese, Positive bowel sounds soft and nontender without palpable masses or organomegaly. There was no guarding or rebound. Extremities: The upper extremities have excellent pulses they are symmetric, no significant petechiae or telangiectasia. No splinter hemorrhages were noted. The lower extremities are free from significant edema. The peripheral pulses were 2+ and symmetric. skin;The backs evaluated with the help of the nursing staff. There are no open ulcerations. Some scattered ecchymosis is seen. Some ecchymosis of the upper buttocks is also noted without open ulcers. Neuro: he is awake he looks to be observers he exhibits echolalia but does not initiate speech edges of significant comprehension or of any significant content Results CBC & Chem 7: 03/22/19 10:15 03/22/19 10:15 Labs: Abnormal Lab Results - Last 24 Hours (Table) 03/23/19 Range/Units 14:14 TSH 0.199 L (0.465-4.680) mIU/L Microbiology - Last 24 Hours (Table) 03/22/19 10:00 Blood Culture - Preliminary Blood No Growth after 24 hours Laboratory Results WBC 13.7 k/uL (3.8-10.6) H 03/22/19 10:15 RBC 4.73 m/uL (4.30-5.90) 03/22/19 10:15 Hgb 14.7 gm/dL (13.0-17.5) 03/22/19 10:15 Hct 43.0 % (39.0-53.0) 03/22/19 10:15 MCV 90.9 fL (80.0-100.0) 03/22/19 10:15 MCH 31.1 pg (25.0-35.0) 03/22/19 10:15 MCHC 34.2 g/dL (31.0-37.0) 03/22/19 10:15 RDW 13.0 % (11.5-15.5) 03/22/19 10:15 Plt Count 344 k/uL (150-450) 03/22/19 10:15 Neutrophils % 83 % 03/22/19 10:15 Lymphocytes % 8 % 03/22/19 10:15 Monocytes % 8 % 03/22/19 10:15 Eosinophils % 0 % 03/22/19 10:15 Basophils % 0 % 03/22/19 10:15 Neutrophils # 11.3 k/uL (1.3-7.7) H 03/22/19 10:15 Lymphocytes # 1.0 k/uL (1.0-4.8) 03/22/19 10:15 Monocytes # 1.0 k/uL (0-1.0) 03/22/19 10:15 Eosinophils # 0.0 k/uL (0-0.7) 03/22/19 10:15 Basophils # 0.0 k/uL (0-0.2) 03/22/19 10:15 PT 10.8 sec (9.0-12.0) 03/22/19 10:15 INR 1.0 (<1.2) 03/22/19 10:15 APTT 21.3 sec (22.0-30.0) L 03/22/19 10:15 Sodium 136 mmol/L (137-145) L 03/22/19 10:15 Potassium 4.0 mmol/L (3.5-5.1) 03/22/19 10:15 Chloride 103 mmol/L (98-107) 03/22/19 10:15 Carbon Dioxide 19 mmol/L (22-30) L 03/22/19 10:15 Anion Gap 14 mmol/L 03/22/19 10:15 BUN 13 mg/dL (9-20) 03/22/19 10:15 Creatinine 0.88 mg/dL (0.66-1.25) 03/22/19 10:15 Est GFR (CKD-EPI)AfAm >90 (>60 ml/min/1.73 sqM) 03/22/19 10:15 Est GFR (CKD-EPI)NonAf >90 (>60 ml/min/1.73 sqM) 03/22/19 10:15 Glucose 120 mg/dL (74-99) H 03/22/19 10:15 Lactic Ac Sepsis Rflx Y 03/22/19 10:35 Plasma Lactic Acid Cesar 0.8 mmol/L (0.7-2.0) 03/23/19 14:14 Calcium 9.5 mg/dL (8.4-10.2) 03/22/19 10:15 Total Bilirubin 2.3 mg/dL (0.2-1.3) H 03/22/19 10:15 AST 60 U/L (17-59) H 03/22/19 10:15 ALT 94 U/L (21-72) H 03/22/19 10:15 Alkaline Phosphatase 83 U/L (38-126) 03/22/19 10:15 Total Protein 6.9 g/dL (6.3-8.2) 03/22/19 10:15 Albumin 4.2 g/dL (3.5-5.0) 03/22/19 10:15 TSH 0.199 mIU/L (0.465-4.680) L 03/23/19 14:14 Free T4 1.87 ng/dL (0.78-2.19) 03/23/19 14:14 Urine Color [place] 03/22/19 10:32 Urine Appearance Clear (Clear) 03/22/19 10:32 Urine pH 6.0 (5.0-8.0) 03/22/19 10:32 Ur Specific [place] 1.031 (1.001-1.035) 03/22/19 10:32 Urine Protein 2+ (Negative) H 03/22/19 10:32 Urine Glucose (UA) Negative (Negative) 03/22/19 10:32 Urine Ketones 3+ (Negative) H 03/22/19 10:32 Urine Blood Small (Negative) H 03/22/19 10:32 Urine Nitrite Negative (Negative) 03/22/19 10:32 Urine Bilirubin 1+ (Negative) H 03/22/19 10:32 Urine Urobilinogen 6.0 mg/dL (<2.0) 03/22/19 10:32 Ur Leukocyte Esterase Negative (Negative) 03/22/19 10:32 Urine RBC 1 /hpf (0-5) 03/22/19 10:32 Urine WBC 5 /hpf (0-5) 03/22/19 10:32 Ur Squamous Epith Cells <1 /hpf (0-4) 03/22/19 10:32 Hyaline Casts 5 /lpf (0-2) H 03/22/19 10:32 Urine Mucus Many /hpf (None) H 03/22/19 10:32 Urine Opiates Screen Not Detected (NotDetected) 03/22/19 10:32 Ur Oxycodone Screen Not Detected (NotDetected) 03/22/19 10:32 Urine Methadone Screen Not Detected (NotDetected) 03/22/19 10:32 Ur Propoxyphene Screen Not Detected (NotDetected) 03/22/19 10:32 Ur Barbiturates Screen Not Detected (NotDetected) 03/22/19 10:32 U Tricyclic Antidepress Not Detected (NotDetected) 03/22/19 10:32 Ur Phencyclidine Scrn Not Detected (NotDetected) 03/22/19 10:32 Ur Amphetamines Screen Not Detected (NotDetected) 03/22/19 10:32 U Methamphetamines Scrn Not Detected (NotDetected) 03/22/19 10:32 U Benzodiazepines Scrn Not Detected (NotDetected) 03/22/19 10:32 Pike <0.2 mmol/L 03/22/19 16:00 Urine Cocaine Screen Not Detected (NotDetected) 03/22/19 10:32 U Marijuana (THC) Screen Not Detected (NotDetected) 03/22/19 10:32 Serum Alcohol <10 mg/dL 03/22/19 12:24 Hepatitis A IgM Ab Non-Reactive (Non-Reactive) 03/23/19 14:14 Hep Bs Antigen Non-Reactive (Non-Reactive) 03/23/19 14:14 Hep B Core IgM Ab Non-Reactive (Non-Reactive) 03/23/19 14:14 Hep C IgG Ab Non-Reactive (Non-Reactive) 03/23/19 14:14 Influenza Type A RNA Not Detected (Not Detectd) 03/22/19 12:06 Influenza Type B (PCR) Not Detected (Not Detectd) 03/22/19 12:06 Microbiology 03/22/19 10:00 Blood Blood Culture - Preliminary No Growth after 24 hours Chest x-ray: image reviewed (no acute infiltrates) CT Scan - head: report reviewed (no acute trauma) Assessment and Plan (1) Psychoses Current Visit: Yes Status: Acute Code(s): F29 - UNSP PSYCHOSIS NOT DUE TO A SUBSTANCE OR KNOWN PHYSIOL COND SNOMED Code(s): 57699541 (2) Fever Narrative/Plan: 19-year-old male presents to the emergency center from the local care home because of worsening of his behavior and mental status. The patient currently has been throwing his body against the doors in the floor resulting in a scattered ecchymosis of his back and buttocks area. As noted no open areas are seen. Patient is being available by psychiatry for the utilization of antipsychotics. The patient has had a low-grade fever which could be coming from the traumatic areas over his lower back and buttocks that are reportedly self-inflicted. He does not seem. Other obvious sources of infection. His lumbar puncture could not be performed antibiotic therapy has been she with Rocephin and vancomycin pending some of his other culture results. He has only some low-grade temperature leukocytosis at 13.6 and these will all be monitored. Neuroleptic malignant syndrome is not likely given the patient's fever is minimal, and he has no evidence of any spasticity or depressed level of consciousness. His progress will be monitored while he remains in hospital. Current Visit: Yes Status: Acute Code(s): R50.9 - FEVER, UNSPECIFIED SNOMED Code(s): 729750274 (3) Leukocytosis Current Visit: Yes Status: Acute Code(s): D72.829 - ELEVATED WHITE BLOOD CELL COUNT, UNSPECIFIED SNOMED Code(s): 539652206 (4) Altered mental status Current Visit: Yes Status: Acute Code(s): R41.82 - ALTERED MENTAL STATUS, UNSPECIFIED SNOMED Code(s): 749669499 (5) Multiple contusions Current Visit: Yes Status: Acute Code(s): T07.XXXA - UNSPECIFIED MULTIPLE INJURIES, INITIAL ENCOUNTER SNOMED Code(s): 014657400
--- NOTE | 2019-03-23 23:31 | CONS ---
CONSULTATION DATE OF SERVICE: 03/23/2019 PURPOSE FOR CONSULTATION: Evaluate for disorganized behavior and history of psychiatric issues. HISTORY OF PRESENTING ILLNESS: It is noted the patient was not able to provide any information regarding his current situation. The patient is a 19-year-old male. He was brought to the hospital from senior living due to increasing bazaar behavior where recently he started throwing himself around the senior living and up against jauregui. He has suffered bruises on his back. It is noted that the only descriptive documentation in the psychiatric record is as follows. "Drug abuse; involuntary admission; hallucinations; delusions; agitation; anxiety; depression." Again, there is no specific information, behavioral observations or historical record relating to presenting circumstances or recent past history to clarify those specific descriptors. He is currently prescribed Seroquel 150 mg at bedtime and lithium carbonate 1200 mg at bedtime. He has a long history of psychiatric issues. He had a psychiatric hospitalization in this facility on 02/10/2018 to 02/20/2018. Unfortunately, the documentation for that hospitalization provides virtually no information in regards to the psychiatric issues. There is no information about treatment leading up to his hospitalization. There was no information regarding the presenting circumstances and symptoms and there was no clear indication of the treatment plan upon discharge. Discharge medications included Depakote ER 750 mg a day and Prolixin 10 mg a day. He also had a psychiatric hospitalization 01/28/2017 to 02/04/2017. I refer the reader to Dr. Frances's admission note, progress notes and discharge summary for details. At that time he was admitted for major depression. The patient was noted to be depressed and hopeless. He had an attempted suicide by contemplating carbon monoxide poisoning, though apparently brought himself to the emergency room. He was noted to have significant problems with poor self esteem. His diagnosis was major depression. He was discharged on a combination of Wellbutrin 200 mg a day and Abilify 5 mg a day. He was referred for followup with Dr. Martinez for primary care. My understanding is that he had been living with his parents. There is a telephone number listed, though it is outdated. I was not able to make contact with the patient's parents to get further psychiatric history. He has been in senior living for about the last 2 months according to senior living staff that were with him. Apparently, the patient is in senior living due to probation violation. According to the senior living staff, he has been prescribed lithium, though has been refusing it in senior living. Since he has been on the floor, staff have noted that he is eating poorly and has been resisting medications. When I talked to the patient he would respond to some questions with direct responses, at other times he would just mumble. According to senior living staff who is with him, the staff indicated that the patient had been adequately communicative until I came into the room. He believed that the patient had consciously chosen to withdraw from any productive communication. MENTAL STATUS: Patient was lying in bed. He had his eyes closed. He was mumbling various sounds repeatedly. Most of what he said was unintelligible. It was noteworthy that occasionally he would give direct responses that were appropriate and one example is I told him he needed to open his eyes and his immediate response was to stop his mumbling and then say "I can't open my eyes." He had other similar responses to concrete information then in between those statements he would go back to mumbling and making repeated almost chanting like verbalizations. He had some restlessness in his upper body, though not to a significant degree. For the most part he kept his eyes either shut or half shut throughout the interview. He had a fairly relaxed facial expression. He did not appear to be significantly distressed. ASSESSMENT: This 19-year-old male is diagnosed with depression based on his admission of January 2017, again, I refer the reader to notes of Dr. Frances for details, beyond that there is no reliable information to better clarify his psychiatric history. He has significantly disorganized behavior, though it is unclear whether that represents underlying psychosis or related to personality and behavioral issues which may be impacted specifically by his being incarcerated as opposed to a clear underlying thought disorder. It would not be unreasonable to consider starting an antipsychotic medication which may be the only likely medication option that could show some response in a timely manner which could be useful not only for treatment but as well as diagnostics. At this point I would make an effort to contact parents as soon as possible to try to get further information prior to starting an antipsychotic. It may be useful to contact Dr. Martinez if, in fact, he actually provided followup for his psychiatric care following his January 2018 admission. It would not be unreasonable at this point to consider a test dose of Haldol 5 mg IM once or twice a day, though again it would be helpful to get any input that we can from family and Dr. Martinez if there was a choice to initiate the Haldol. I would reconsult psychiatry to continue to follow. MMODL / IJN: [id number] /
[2019-03-24] MEDS ORDERED: VANCOMYCIN TROUGH DUE 1 EACH MISC MISCELLANE ONE (01:00)
[2019-03-24 01:23] LABS: African American GFR (CKD) >90 (>60 ml/min/1.73 sqM); Non-African American GFR(CKD) >90 (>60 ml/min/1.73 sqM)
[2019-03-24] MEDS: VANCOMYCIN 1,750 MG in SODIUM CHLORIDE 0.9% 500 ML 500 ML IVPB SCH ×3 (02:34→18:22)
[2019-03-24] MEDS: DEXTROSE 5%-0.2% NACL 1,000 ML IV SCH ×4 (03:29→17:42)
[2019-03-24] MEDS: ACETAMINOPHEN IV (For NPO) 1,000 MG in EMPTY BAG 1 BAG IVPB PRN (11:03)
--- NOTE | 2019-03-24 15:16 | P.PN ---
Progress Note - Text Progress Note Date: 03/24/19 Patient was seen today as a follow-up consult after was seen first time on 03/23/[address] Pinto for initial psychiatric consultation. Subjective: The patient was not able to give any information today and he was mumbling sounds. Patient refused to talk to me and was mumbling " devil". According to the nursing staff at the medical floor the patient presents on and continued to be mumbling sounds. He refused to eat earlier today and he spits out the food. Patient continued to refuse medications and he was repeating what he hears from nurses and probably hears from patients and other rooms. Reportedly, the patient's father stated that patient has history of bipolar" manic depressive", and he would presented with disorganized speech and behavior when he is manic. Nursing reported patient was supposed to be on Seroquel and lithium while he was in halfway but according to the halfway report he was refusing taking these medications for the past 2 weeks. Also reported the patient was receiving Haldol Decanoate from [facility] with the last dose given 50 mg which was about 2 weeks ago. Discussed the case with the attending physician who reported that patient came into the hospital was violent and aggressive behavior but apparently now he presents with altered mental status and some psychotic features. Discussed with the attending physician the potential diagnosis of neuroleptic malignant syndrome and that is very unlikely due to questionable compliance with antipsychotic medications. The patient didn't present with any aggression, disruptive or violent behavior today. No reports of suicidal ideation, and no reports of thoughts to hurt self or others. Objective: Vitals has been reviewed. Mental status examination; Appearance: The patient appears stated age, poorly groomed, dressed in hospital gown, above average body built, no specific features. Gait/posture: Gait was not assessed, Normal arm swinging: No abnormal movements. Attitude and behavior: Not engaged, not cooperative, poor eye contact. Motor activity: Decreased psychomotor activity Speech: Limited. Low tone. Not pressured Mood: Irritable Affect: Constricted to flat Thought form: Disorganized Thought content: Some delusions, report of suicidal thoughts, denies homicidal thoughts, denies intentions or plans. Perception: No report of auditory or visual hallucinations Attention: Impaired Orientation: Impaired and patient not cooperative for full assessment. Insight: Limited Judgment: Limited Assessment: Altered mental status Unspecified psychosis History of bipolar disorder. Recommendations: Addressed and ensured patient's safety, patient is not actively suicidal, report of active plan or intent of suicide. Patient is not psychiatrically stable due to psychotic symptoms and bizarre thoughts. Please contact psychiatric team before discharging the patient. Psychiatry team will continue follow-up with the patient. Medication management: At this time the patient does not present with aggressive or threatening behavior and will hold starting anti-psychotic medications until we achieve more stability or AMS. As NMS was considered as DD, it is better to make sure the patient is not having reaction to previous doses of anti-psychotic. Please obtain collateral from [facility] about any history of adverse reaction to previous anti-psychotic medications. Consider low dose of Anti-psychotic medications like Haldol or Zyprexa only as needed for severe agitation or severe threatening psychotic behavior. Obtain information from [facility] about dose and when received Haldol Decanoate last time. Also obtain copy of the court order to mandate treatment. Contact the psychiatric team once you obtain the information requested from [facility]. Not recommended to restart [place] and/or Seroquel at his time because of the patient's AMS. Delirium precautions recommended with the patient including: Avoid use of narcotics and [employer] sedatives, limit anti-cholinergic medications when possible, frequent reorientation, minimize use of restraints, open window shades during the day and close them at night. Discussed the treatment plan with the requesting physician/service. Thank you for permitting me to assist in this patient's treatment. Please call psychiatry department if you have any question or need further help with this case.
[2019-03-24] MEDS: ACETAMINOPHEN TAB 325 MG TAB PO PRN (18:04)
--- NOTE | 2019-03-24 23:16 | PN ---
PROGRESS NOTE CHIEF COMPLAINT: Altered mental status and fever. HISTORY OF PRESENT ILLNESS: This gentleman is just about the same. He is possibly a little bit more alert. He is still running temperatures on and off. Remains agitated. He is diaphoretic. PHYSICAL EXAMINATION: Chest is clear. Cardiac exam is normal. Abdomen is soft. IMPRESSION: 1. Mental status changes. 2. Hyperpyrexia. 3. Diaphoresis. 4. History of schizophrenia. 5. Neuroleptic malignant syndrome ? PLAN: Continue to monitor and if he continues to improve, no further studies should be necessary. MMODL / IJN: [id number] /
[2019-03-25] MEDS: VANCOMYCIN 1,750 MG in SODIUM CHLORIDE 0.9% 500 ML 500 ML IVPB SCH ×3 (02:34→18:07)
[2019-03-25] MEDS: DEXTROSE 5%-0.2% NACL 1,000 ML IV SCH ×4 (02:37→18:42)
[2019-03-25 07:29] LABS: Basophils % (A) 0 %; Eosinophils # (A) 0.3 k/uL (0-0.7); Eosinophils % (A) 4 %; HCT 38.6 % (39.0-53.0); HGB 13.1 gm/dL (13.0-17.5); Lymphocytes # (A) 1.9 k/uL (1.0-4.8); Lymphocytes % (A) 20 %; MCH 30.5 pg (25.0-35.0); MCHC 33.9 g/dL (31.0-37.0); MCV 90.1 fL (80.0-100.0); Mean Platelet Volume 7.3; Monocytes # (A) 0.6 k/uL (0-1.0); Monocytes % (A) 7 %; Neutrophils # (A) 6.6 k/uL (1.3-7.7); Neutrophils % (A) 68 %; Platelet Count 282 k/uL (150-450); RBC 4.28 m/uL (4.30-5.90); RDW 12.9 % (11.5-15.5); WBC 9.7 k/uL (3.8-10.6)
--- NOTE | 2019-03-25 20:17 | PN ---
PROGRESS NOTE CHIEF COMPLAINT: Mental status changes. HISTORY OF PRESENT ILLNESS: This gentleman is gradually becoming more awake and alert. He is eating. PHYSICAL EXAMINATION: Chest is quite clear. Cardiac exam is normal. The abdomen is soft and nontender. IMPRESSION: Mental status changes probably related to Haldol and neuroleptic malignant syndrome. PLAN: No change in program, as he is improving. MMODL / IJN: [id number] /
[2019-03-26] MEDS: VANCOMYCIN 1,750 MG in SODIUM CHLORIDE 0.9% 500 ML 500 ML IVPB SCH (03:35)
[2019-03-26] MEDS: DEXTROSE 5%-0.2% NACL 1,000 ML IV SCH ×4 (03:38→23:00)
[2019-03-26] MEDS ORDERED: VANCOMYCIN TROUGH DUE 1 EACH MISC MISCELLANE ONE (09:00)
[2019-03-26 09:43] LABS: African American GFR (CKD) >90 (>60 ml/min/1.73 sqM); Non-African American GFR(CKD) >90 (>60 ml/min/1.73 sqM)
[2019-03-26] MEDS ORDERED: VANCOMYCIN 2,000 MG in SODIUM CHLORIDE 0.9% 500 ML 500 ML IVPB SCH (11:00)
--- NOTE | 2019-03-26 15:37 | P.CN ---
Psychiatric Consult - . Consult date: 03/26/19 Consult:: Chief complaint: "Feeling depressed, guilty, and suicidal " Subjective: The patient has been seen today as follow-up psychiatric consultation, chart reviewed, case discussed with the treatment team. Patient didn't refused to talk to me today, and he presented very depressed, crying, and was very emotional. He was talking about feeling very depressed, guilty, and he puts his family down because what he did. Patient was not able to explain more but he clearly indicated that he is feeling suicidal. Patient denies any active plan but he reports doesn't feel safe and continued to cry. Patient reports very poor sleep and wakes up frequently during the night. He reports very poor appetite. Reportedly the patient has severe mood swings with outbursts of severe agitation and anger problems. Reportedly the patient was throwing his food earlier today and he was very agitated. Objective: Vitals has been reviewed. Mental status examination; Appearance: The patient appears stated age, poorly groomed, dressed in hospital gown, above average body built, in handcuffs, no specific features. Gait/posture: Gait was not assessed, No abnormal movements. Attitude and behavior: Not fully engaged, superficially cooperative, poor eye contact. Motor activity: Decreased psychomotor activity Speech: Limited. Low tone. Not pressured Mood: Depressed, Irritable Affect: Constricted to flat Thought form: Disorganized Thought content: Some delusions, report of suicidal thoughts, denies homicidal thoughts, denies intentions or plans. Perception: No report of auditory or visual hallucinations Attention: Impaired Orientation: Impaired. Insight: Limited Judgment: Limited Assessment: Unspecified mood disorder. Unspecified psychosis. Rule out bipolar disorder most recent episode depressed versus mixed it with psychotic features. Rule out major depressive disorder, recurrent, severe with psychotic features. Recommendations: Addressed and ensured patient's safety, patient is actively suicidal. Patient is not psychiatrically stable. Patient meets criteria for psychiatric hospitalization. Please contact psychiatry team once the patient is medically stable. Psychiatry team will continue follow-up with the patient. No evidence of an NMS which was differential for altered mental status. Patient presents today with severe mood swings and suicidal thoughts and not disorganized or delusional. As per report from [facility], the patient last time he received Haldol Decanoate was December 2018. Medication management: Discussed starting psychiatric medications and patient agreed. Recommended to start Abilify 5 mg daily for mood stabilization. Start Effexor XR 37.5 mg daily for depression and anxiety symptoms. Start trazodone 50 mg at bedtime for depression and anxiety and to help with insomnia. Discussed the treatment plan with the requesting physician/service. Thank you for permitting me to assist in this patient's treatment. Please call psychiatry department if you have any question or need further help with this case. 03/26/19 15:28
[2019-03-26] MEDS: ARIPiprazole 5 MG TAB PO SCH (16:16)
[2019-03-26] MEDS: VENLAFAXINE HCL ER 37.5 MG CAP PO SCH (16:16)
--- NOTE | 2019-03-26 19:38 | PN ---
PROGRESS NOTE CHIEF COMPLAINT: Mental status changes and neuroleptic malignant syndrome. HISTORY OF PRESENT ILLNESS: This gentleman is slowly becoming more alert and awake each day. His vital signs are normal. He is not febrile. PHYSICAL EXAMINATION: Hydration is good. Chest is clear. Cardiac exam is normal. Abdomen is soft, nontender. IMPRESSION: 1. Neuroleptic malignant syndrome. 2. Encephalopathy. 3. Mental status changes. 4. Schizophrenia. PLAN: Continue with the monitoring process until he is fully awake and alert. MMODL / IJN: [id number] /
[2019-03-26] MEDS: traZODone HCL 50 MG TAB PO SCH (20:10)
[2019-03-27 07:20] LABS: HGB 12.5 gm/dL (13.0-17.5); MCH 30.5 pg (25.0-35.0); MCHC 33.6 g/dL (31.0-37.0); MCV 90.6 fL (80.0-100.0); Mean Platelet Volume 6.4; Platelet Count 324 k/uL (150-450); RBC 4.09 m/uL (4.30-5.90); RDW 13.4 % (11.5-15.5); WBC 7.8 k/uL (3.8-10.6)
[2019-03-27 07:33] LABS: African American GFR (CKD) >90 (>60 ml/min/1.73 sqM); Anion Gap 8 mmol/L; Blood Urea Nitrogen 3 mg/dL (9-20); Calcium 8.8 mg/dL (8.4-10.2); Carbon Dioxide 29 mmol/L (22-30); Chloride 101 mmol/L (98-107); Glucose 100 mg/dL (74-99); Non-African American GFR(CKD) >90 (>60 ml/min/1.73 sqM); Potassium 3.2 mmol/L (3.5-5.1); Sodium 138 mmol/L (137-145)
[2019-03-27] MEDS: DEXTROSE 5%-0.2% NACL 1,000 ML IV SCH ×2 (08:38→20:14)
[2019-03-27] MEDS: VENLAFAXINE HCL ER 37.5 MG CAP PO SCH (08:44)
[2019-03-27] MEDS: ARIPiprazole 5 MG TAB PO SCH (08:44)
--- NOTE | 2019-03-27 12:30 | CDI ---
Documentation Clarification Form Date: 03/27/2019 12:09:52 PM From: Fara Ortiz RN, CCDS Admit Date: 03/22/2019 3:50:00 PM Patient Name: Chapito Cancino Visit Number: [id number] ATTENTION: The Clinical Documentation Specialists (CDI) and [facility] Coding Staff appreciate your assistance in clarifying documentation. Please respond to the clarification below the line at the bottom and electronically sign. The CDI & [facility] Coding staff will review the response and follow-up if needed. Please note: Queries are made part of the Legal Health Record. If you have any questions, please contact the author of this message via ITS. Dr. Darell Lew Encephalopathy is documented in the 03/26 Progress note and requires further specificity. History/Risk Factors: pt has an extensive PMH of drug abuse, [place] and Sequ[place] at [facility] w/o documentation of psych disorder Clinical Indicators: 03/24 Attending Progress Note: "Remains agitated. He is diaphoretic." 03/25 Attending Progress Note: "Mental status changes probably related to Haldol and neuroleptic malignant syndrome." 03/26 Attending Progress Note: Neuroleptic malignant syndrome." Labs: WBC 13.7 CT Brain: right anterior ethmoidal sinus disease Treatment: Consults: Psych Abilify 5 mg PO QD, IVF @ 150 cc/hr [place] PO BID Po Effexor PO QD In your professional opinion, can you please clarify the specific type of Encephalopathy, if known? Toxic Encephalopathy Metabolic Encephalopathy Septic Encephalopathy Other, please specify Unable to determine (Last Revision: August 2017) MTDD
--- NOTE | 2019-03-27 18:00 | PN ---
PROGRESS NOTE CHIEF COMPLAINT: Mental status changes. HISTORY OF PRESENT ILLNESS: This gentleman is slowly becoming more awake and alert. Psychiatry is apparently talking about taking him on the psych floor once he is more stable. He has not been gotten out of bed at this time. PHYSICAL EXAMINATION: He is a little bit more alert each day. Breath sounds are clear on both sides and cardiac exam is normal. Abdomen is soft. IMPRESSION: 1. Mental status changes. 2. Neuroleptic malignant syndrome. 3. Schizophrenia. PLAN: Continue to monitor until he is able to go independently to the psych service. MMODL / IJN: [id number] /
[2019-03-27] MEDS: ACETAMINOPHEN TAB 325 MG TAB PO PRN (18:53)
[2019-03-27] MEDS: traZODone HCL 50 MG TAB PO SCH (20:17)
[2019-03-28] MEDS: ARIPiprazole 5 MG TAB PO SCH (08:29)
[2019-03-28] MEDS: VENLAFAXINE HCL ER 37.5 MG CAP PO SCH (08:29)
[2019-03-28] MEDS: ACETAMINOPHEN TAB 325 MG TAB PO PRN ×2 (12:03→21:07)
--- NOTE | 2019-03-28 13:47 | PN ---
PROGRESS NOTE CHIEF COMPLAINT: Mental status changes. HISTORY OF PRESENT ILLNESS: This gentleman continues to do a little bit better each day. We are increasing his activity and diet. It is currently planned that when he is a little bit more stable, he will be sent to the psych unit. PHYSICAL EXAMINATION: His vital signs are normal. He is afebrile. Chest is clear. Cardiac exam is normal. IMPRESSION: 1. Neuroleptic malignant syndrome. 2. Schizophrenia. 3. Mental status changes. PLAN: Continue with recovery and probably transfer next week. MMODL / IJN: [id number] /
[2019-03-28] MEDS: traZODone HCL 50 MG TAB PO SCH (21:07)
[2019-03-29] MEDS: VENLAFAXINE HCL ER 37.5 MG CAP PO SCH (08:22)
[2019-03-29] MEDS: ARIPiprazole 5 MG TAB PO SCH (08:22)
--- NOTE | 2019-03-29 19:24 | PN ---
PROGRESS NOTE CHIEF COMPLAINT: Mental status changes, coma and schizophrenia. HISTORY OF PRESENT ILLNESS: This gentleman is now fully awake and alert and is becoming extremely agitated and aggressive. He has pulled out his IV and this will be left out. It is planned that he will go to Psychiatry this week. PHYSICAL EXAM: Patient would not allow an exam. He is very agitated and combative. IMPRESSION: 1. Mental status changes. 2. Possible neuroleptic malignant syndrome. 3. Schizophrenia with aggressive behavior. PLAN: Transferred to Psychiatry tomorrow. MMODL / IJN: [id number] /
[2019-03-29] MEDS: traZODone HCL 50 MG TAB PO SCH ×2 (19:33→19:40)
[2019-03-29] MEDS ORDERED: HALOPERIDOL LACTATE 5 MG/ML 1 ML VIAL IM PRN (20:53)
[2019-03-29] MEDS ORDERED: diphenhydrAMINE 50 MG/ML 1 ML VIAL IM PRN (20:54)
[2019-03-30] MEDS: LORazepam 2 MG/ML INJ IM PRN ×3 (05:57→19:46)
[2019-03-30] MEDS: VENLAFAXINE HCL ER 37.5 MG CAP PO SCH ×2 (09:45→10:00)
[2019-03-30] MEDS: ARIPiprazole 5 MG TAB PO SCH ×2 (09:45→10:00)
[2019-03-30 13:49] VITALS: BMI 36.2
--- NOTE | 2019-03-30 16:19 | P.CON ---
Consult Note - . Consult date: 03/30/19 Assessment/Plan:: I reviewed the medical record and attempted to interview the patient. He is a 19-year-old single male transferred from correction for evaluation and treatment of acute mental status changes. According to the record he was "acting bizarre". He was "turn himself on the ground and "hurting himself". Dr. Shah completed the initial psychiatric assessment on 03/24/2019 and diagnosed altered mental status, unspecified psychosis and history of bipolar disorder. He recommended to transfer him to the psychiatric unit when he was medically stable. He was laying in bed with the software reliability engineer and attendance. He had handcuffs on both arms and one leg. He was markedly sedated. According to the ER he received 2 mg of lorazepam IM about 1 hour before my assessment. He is unable to concentrate or attend to the interview. Nursing notes that he has recently refused to take recommended psychotropic medications-Abilify 5 mg daily, trazodone 50 mg at bedtime and Effexor XR 37.5 mg daily. He is not appropriate for transfer to the psychiatric unit at this time. I will attempt to reevaluate him again on 03/31/2019. However, considering his need for 24-hour supervision by software reliability engineer and the need for 3 and 4 point restraint he may be not be appropriate for transfer to this psychiatric unit.
--- NOTE | 2019-03-30 17:41 | PN ---
PROGRESS NOTE CHIEF COMPLAINT: Mental status changes, schizophrenia. HISTORY OF PRESENT ILLNESS: This gentleman is currently calm. Yesterday he became very violent and uncontrollable. PHYSICAL EXAMINATION: Chest is clear. Cardiac exam is normal. At the present time he is calm. IMPRESSION: 1. Schizophrenia. 2. Aggressive personality. 3. Bipolar disease. PLAN: I had a lengthy discussion with the patient's father, who is his legal guardian. He is concerned about his son being returned to custodial. It is agreed that this is not an appropriate treatment facility for the patient, but his behavior will make him difficult to manage in any care setting. Psychiatry wanted him to be transferred to [facility], but I am concerned about the safety of the patient, other patients and the staff. He is more appropriate for long-term inpatient care, which is what his father would prefer. This will be the direction that we will try to go, and the patient's father will go to court requesting same. CASSIE / BETINA: [id number] /
[2019-03-30] MEDS: traZODone HCL 50 MG TAB PO SCH (19:46)
[2019-03-31] MEDS: ARIPiprazole 5 MG TAB PO SCH ×2 (08:13→13:52)
[2019-03-31] MEDS: VENLAFAXINE HCL ER 37.5 MG CAP PO SCH ×2 (08:13→13:52)
[2019-03-31] MEDS: LORazepam 2 MG/ML INJ IM PRN ×3 (08:26→20:36)
--- NOTE | 2019-03-31 09:38 | CDI ---
Documentation Clarification Form 2nd Request ATTENTION: The Clinical Documentation Specialists (CDI) and [facility] Coding Staff appreciate your assistance in clarifying documentation. Please respond to the clarification below the line at the bottom and electronically sign. The [facility] & [facility] Coding staff will review the response and follow-up if needed. Please note: Queries are made part of the Legal Health Record. If you have any questions, please contact the author of this message via ITS. Date: 03/27/2019 12:09:52 PM From: Fara Ortiz RN, CCDS Admit Date: 03/22/2019 3:50:00 PM Patient Name: Chapito Cancino Visit Number: [id number] ATTENTION: The Clinical Documentation Specialists (CDI) and [facility] Coding Staff appreciate your assistance in clarifying documentation. Please respond to the clarification below the line at the bottom and electronically sign. The [facility] & [facility] Coding staff will review the response and follow-up if needed. Please note: Queries are made part of the Legal Health Record. If you have any questions, please contact the author of this message via ITS. Dr. Darell Lew Encephalopathy is documented in the 03/26 Progress note and requires further specificity. History/Risk Factors: pt has an extensive PMH of drug abuse, [place] and Sequel at [facility] w/o documentation of psych disorder Clinical Indicators: 03/24 Attending Progress Note: "Remains agitated. He is diaphoretic." 03/25 Attending Progress Note: "Mental status changes probably related to Haldol and neuroleptic malignant syndrome." 03/26 Attending Progress Note: Neuroleptic malignant syndrome." Labs: WBC 13.7 CT Brain: right anterior ethmoidal sinus disease Treatment: Consults: Psych Abilify 5 mg PO QD, IVF @ 150 cc/hr [place] PO BID Po Effexor PO QD In your professional opinion, can you please clarify the specific type of Encephalopathy, if known? Toxic Encephalopathy Metabolic Encephalopathy Septic Encephalopathy Other, please specify Unable to determine (Last Revision: August 2017) MTDD
--- NOTE | 2019-03-31 10:38 | MISC ---
MISCELLANOUS REPORT Toxic encephalopathy. MMODL / IJN: [id number] /
[2019-03-31] MEDS: ACETAMINOPHEN TAB 325 MG TAB PO PRN (11:17)
--- NOTE | 2019-03-31 18:47 | PN ---
PROGRESS NOTE CHIEF COMPLAINT: Schizophrenia and bipolar I depression. HISTORY OF PRESENT ILLNESS: This patient remains shackled in bed. Inpatient Psychiatry has turned him down as a candidate on . My understanding is that the family and court will pursue other placement options. PHYSICAL EXAMINATION: He is a little bit lethargic. His chest is clear. Cardiac exam is normal. The abdomen is soft, nontender. IMPRESSION: 1. Bipolar I depression. 2. Schizophrenia. PLAN: Await arrangements for discharge. MMODL / IJN: [id number] /
[2019-04-01] MEDS: LORazepam 2 MG/ML INJ IM PRN ×4 (02:34→18:40)
[2019-04-01] MEDS: VENLAFAXINE HCL ER 37.5 MG CAP PO SCH (08:12)
[2019-04-01] MEDS: ARIPiprazole 5 MG TAB PO SCH (08:12)
--- NOTE | 2019-04-01 14:00 | P.CON ---
Consult Note - . Consult date: 04/01/19 Assessment/Plan:: Clinical Problems: Schizophrenia Interim history: I reviewed the medical record and attempted to interview the patient. He is a 19-year-old single male who has a history of a mental illness variously diagnosed as ADHD, major depressive disorder, bipolar disorder and schizoaffective disorder. He is transferred from retirement for evaluation of acute change in mental status. According to the record he was acting bizarrely and attempting to harm herself. I first attempted to interview him on 03/30/2019. He was markedly sedated after receiving 2 mg of lorazepam IM. Since the initial evaluation both his nurse and the forensic social worker have contacted me. Apparently the patient's guardian requested transfer to a long-term state facility. The guardian is concerned that he is had multiple psychiatric hospitalizations, has been treated with several medications, has been on a continual involuntary treatment order and yet remains unwell. The patient was lying on his hospital bed and the camp guard was in attendance. He was in 4-point restraint with handcuffs on his arms and legs. He was unable to provide a coherent history. He talked about having poison in his blood. He perseverated about wanting to have sex with his cousin but knowing that it is wrong to have sex with her. Mental status exam: He presented as I disheveled appearing 19-year-old male who is wearing a hospital gown. When I arrived in the room his genitals were exposed. He was in 4-point hard restraints. He made eye contact but did not appear to attend to the interview. He was twisting against the restraints and frequently asked me to release him. His affect was inappropriate but not intense. He did not express suicidal ideation or wishes. He denied homicidal ideation. His thinking was grossly disorganized. He expressed paran oid ideation and bizarre beliefs. He did not appear to be responding to internal stimuli. Assessment: He has a chronic and severe mental illness that is most likely due to a schizophrenia. He is had multiple psychiatric hospitalization and his clinical condition is not improved with treatment with antipsychotic medications. I concur with the recommendation that he would benefit from long- term psychiatric treatment. Considering the chronicity and severity of his illness he may also benefit from a trial of clozapine. Plan: remelt worker to coordinate transfer to a long-term psychiatric facility. Discontinue venlafaxine because of may be activating. Increase Abilify to 10 mg daily and titrated according to clinical response and tolerance. Discontinue trazodone 50 mg at bedtime and begin quetiapine 100 mg at bedtime for sleep and augmentation of Abilify. Consider a trial of clozapine.
[2019-04-01] MEDS ORDERED: diphenhydrAMINE 50 MG/ML 1 ML VIAL IM STA (18:38)
[2019-04-01] MEDS: QUEtiapine 100 MG TAB PO SCH (21:02)
--- NOTE | 2019-04-01 22:43 | PN ---
PROGRESS NOTE CHIEF COMPLAINT: Bipolar I and schizophrenia. HISTORY OF PRESENT ILLNESS: This gentleman still awaits a decision regarding where he will be going for treatment after the hospital. This is probably going to be worked out by his guardian through the court. CASSIE / RADHAN: [id number] /
[2019-04-02] MEDS: LORazepam 2 MG/ML INJ IM PRN ×4 (00:22→21:42)
[2019-04-02] MEDS: ARIPiprazole 10 MG TAB PO SCH (08:45)
--- NOTE | 2019-04-02 12:23 | PN ---
PROGRESS NOTE CHIEF COMPLAINT: Schizophrenia. HISTORY OF PRESENT ILLNESS: This gentleman's condition is just about the same. Psychiatry in the hospital are now working on finding a place for him in the long-term institutional setting. There has been no other interval change. He is requiring occasional sedation. IMPRESSION: 1. Schizophrenia. 2. Hostile and aggressive personality. PLAN: Await transfer to psych institution for inpatient care. MMODL / IJN: [id number] /
[2019-04-02] MEDS: QUEtiapine 100 MG TAB PO SCH (19:43)
[2019-04-03] MEDS: LORazepam 2 MG/ML INJ IM PRN ×3 (02:52→19:32)
[2019-04-03] MEDS: ARIPiprazole 10 MG TAB PO SCH (08:00)
[2019-04-03] MEDS: ARIPiprazole 15 MG TAB PO SCH (10:46)
[2019-04-03] MEDS: LITHIUM CARBONATE 300 MG CAP PO SCH ×2 (10:46→20:55)
[2019-04-03 11:14] LABS: Basophils # (A) 0.1 k/uL (0-0.2); Basophils % (A) 1 %; Eosinophils # (A) 0.3 k/uL (0-0.7); Eosinophils % (A) 3 %; HCT 43.1 % (39.0-53.0); Lymphocytes # (A) 1.5 k/uL (1.0-4.8); Lymphocytes % (A) 16 %; MCH 30.1 pg (25.0-35.0); MCHC 32.4 g/dL (31.0-37.0); MCV 92.9 fL (80.0-100.0); Mean Platelet Volume 6.5; Monocytes # (A) 0.6 k/uL (0-1.0); Monocytes % (A) 7 %; Neutrophils # (A) 6.8 k/uL (1.3-7.7); Neutrophils % (A) 72 %; Platelet Count 396 k/uL (150-450); RBC 4.64 m/uL (4.30-5.90); RDW 13.7 % (11.5-15.5); WBC 9.4 k/uL (3.8-10.6)
[2019-04-03 11:26] LABS: African American GFR (CKD) >90 (>60 ml/min/1.73 sqM); Anion Gap 8 mmol/L; Blood Urea Nitrogen 12 mg/dL (9-20); Calcium 9.4 mg/dL (8.4-10.2); Carbon Dioxide 28 mmol/L (22-30); Chloride 103 mmol/L (98-107); Glucose 91 mg/dL (74-99); Non-African American GFR(CKD) >90 (>60 ml/min/1.73 sqM); Potassium 4.4 mmol/L (3.5-5.1); Sodium 139 mmol/L (137-145)
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
[2019-04-03] MEDS ORDERED: QUEtiapine 200 MG TAB PO SCH (21:00)
[2019-04-04] MEDS: ARIPiprazole 15 MG TAB PO SCH (07:47)
[2019-04-04] MEDS: LITHIUM CARBONATE 300 MG CAP PO SCH ×2 (07:47→20:41)
[2019-04-04] MEDS: ACETAMINOPHEN TAB 325 MG TAB PO PRN (07:47)
[2019-04-04] MEDS: LORazepam 2 MG/ML INJ IM PRN ×3 (07:48→18:09)
[2019-04-04] MEDS ORDERED: HALOPERIDOL LACTATE 5 MG/ML 1 ML VIAL IM PRN (13:41)
--- NOTE | 2019-04-04 13:49 | P.PN ---
Progress Note - Text Progress Note Date: 04/04/19 Interval history: Patient was seen today at the bedside at the request of the nurse taking care of the patient. Patient was handcuffed to the bed and had a company manager at his side. Patient was noted by a nurse and company manager to be yelling and agitated throughout the day and night. Zipper Lining Folder spoke with patient who states that he feels "angry" and claimed that people were out to harm him. He states that everything was making him upset and proceeded to tell press writer what to do and who to talk to in the room. Patient was difficult to redirect and appeared to have poor insight and judgment and was impulsive. At this time patient denies any suicidal or homicidal ideations intent or plan. Admits to Auditory hallucinations at this time but does not describe what they are. Patient denies any side effects from the medications and has been compliant with meds. Mental status exam: General Appearance: Patient appears to be overweight, tall and stated age is alert, and difficult to redirect. Patient has poor hygiene and grooming. Behavior: Patient was pulling at restraints and was uncooperative and difficult to redirect. Speech: Patient's speech is fluent and nonpressured. Loud tone. Mood/Affect: Mood is "bad", affect is congruent and constricted. Suicidality/Homicidality: Patient denies having any suicidal or homicidal ideation intent or plan. Perceptions: Admits to auditory hallucinations. Though content/process: Patient is delusional and is illogical at times, difficult to redirect. Memory and concentration: AOX3, grossly intact for the purposes of this session, poor attention span. Judgment and insight: Poor Assessment/Plan: Continue with current diagnosis. Continue with placement in long-term psychiatric facility. Increased patient's Haldol IM PRN dose to 4 mg every 6 hours when necessary for agitation/psychosis. Changed Seroquel to 200 mg daily +500 mg daily at bedtime for psychosis/mood stabilization. Continue with current dose of Abilify. Continue with current dose of Ativan when necessary for agitation.
[2019-04-04] MEDS: QUEtiapine 200 MG TAB PO SCH ×2 (14:45→20:41)
[2019-04-05] MEDS: LORazepam 2 MG/ML INJ IM PRN ×4 (00:33→17:32)
[2019-04-05] MEDS: ARIPiprazole 15 MG TAB PO SCH (08:54)
[2019-04-05] MEDS: QUEtiapine 200 MG TAB PO SCH ×2 (08:54→22:28)
[2019-04-05] MEDS: LITHIUM CARBONATE 300 MG CAP PO SCH ×2 (09:03→22:28)
--- NOTE | 2019-04-05 10:42 | PN ---
PROGRESS NOTE CHIEF COMPLAINT: Schizophrenia. HISTORY OF PRESENT ILLNESS: This gentleman awaits placement for long-term institutional mental health care. There has been no interval change. PHYSICAL EXAM: Unchanged with normal chest and cardiac exam. IMPRESSION: Schizophrenia. PLAN: Await institutional placement. MMCASSY / RDAHAN: [id number] /
[2019-04-05] MEDS ORDERED: QUEtiapine 400 MG TAB PO SCH (21:00)
[2019-04-05] MEDS: HEPARIN SODIUM,PORCINE 5,000 UNIT/ML 1 ML VIAL SQ SCH (22:29)
[2019-04-06] MEDS: ARIPiprazole 15 MG TAB PO SCH (07:38)
[2019-04-06] MEDS: QUEtiapine 200 MG TAB PO SCH ×2 (07:38→21:11)
[2019-04-06] MEDS: HEPARIN SODIUM,PORCINE 5,000 UNIT/ML 1 ML VIAL SQ SCH ×2 (07:38→21:12)
[2019-04-06] MEDS: LITHIUM CARBONATE 300 MG CAP PO SCH ×2 (07:39→21:11)
[2019-04-06] MEDS: LORazepam 2 MG/ML INJ IM PRN ×2 (09:35→17:35)
--- NOTE | 2019-04-06 16:15 | P.CON ---
Consult Note - . Consult date: 04/06/19 Assessment/Plan:: The patient was seen today as a follow-up psychiatric consultation He continued to address feeling suicidal. As per nursing team the patient continued to have severe mood swings with outbursts of severe agitation. Chart reviewed, case discussed with the treatment team. Patient continued to report feeling overwhelmed, stressed, and easily agitated. He reports feeling depressed and he continued to feel suicidal and not able to commit for safety. Patient reports very poor sleep and according to the 1-1 the patient didn't sleep for more than 20 minutes since yesterday. Mental status examination; Appearance: The patient appears stated age, poorly groomed, dressed in hospital gown, above average body built, in handcuffs, no specific features. Gait/posture: Gait was not assessed, No abnormal movements. Attitude and behavior: Not fully engaged, superficially cooperative, poor eye contact. Motor activity: Decreased psychomotor activity Speech: Limited. Low tone. Not pressured Mood: Depressed, Irritable Affect: Constricted to flat Thought form: Disorganized Thought content: Some delusions, report of suicidal thoughts, denies homicidal thoughts, denies intentions or plans. Perception: No report of auditory or visual hallucinations Attention: Impaired Orientation: Impaired. Insight: Limited Judgment: Limited Assessment: Bipolar disorder by history. Rule out bipolar disorder most recent episode depressed versus mixed it with psychotic features. Recommendations: The primary team has been working on transferring the patient to [facility]. Psychiatry team will continue follow-up with the patient. Medication management: Continue Abilify 15 mg daily for mood stabilization and psychotic symptoms. Seroquel 200 mg in the morning and 500 mg at bedtime for psychotic symptoms and mood stabilization. Continue lithium 600 mg twice daily for mood stabilization. Please obtain lithium level to rule out toxicity. Continue Haldol when necessary for severe agitation/psychosis. Start trazodone 50 mg at bedtime as needed for insomnia. The patient on 2 antipsychotic medication because he had 3 failed trials of monotherapy with Antipsychotics medication. Discussed the treatment plan with the requesting physician/service. Thank you for permitting me to assist in this patient's treatment. Please call psychiatry department if you have any question or need further help with this case.
--- NOTE | 2019-04-06 19:31 | PN ---
PROGRESS NOTE DATE OF SERVICE: 04/06/2019 CHIEF COMPLAINT: Schizophrenia and mental status changes. HISTORY OF PRESENT ILLNESS: The patient is currently stable and we are waiting for a long-term inpatient institutionalization bed. There has been no interval change. Physical exam is unchanged. IMPRESSION: Schizophrenia. PLAN: Await discharge location and plan. MMVICKYL / RADHAN: [id number] /
[2019-04-06] MEDS: traZODone HCL 50 MG TAB PO SCH (21:11)
[2019-04-07] MEDS: ARIPiprazole 15 MG TAB PO SCH (08:34)
[2019-04-07] MEDS: QUEtiapine 200 MG TAB PO SCH ×2 (08:34→20:17)
[2019-04-07] MEDS: HEPARIN SODIUM,PORCINE 5,000 UNIT/ML 1 ML VIAL SQ SCH ×3 (08:34→20:17)
[2019-04-07] MEDS: LITHIUM CARBONATE 300 MG CAP PO SCH ×2 (08:34→20:17)
--- NOTE | 2019-04-07 17:24 | PN ---
PROGRESS NOTE CHIEF COMPLAINT: Schizophrenia. HISTORY OF PRESENT ILLNESS: The nurse noticed that the patient's pulse was running around 120 beats per minute. He did not appear to be having any discomfort or shortness of breath. There was no diaphoresis. PHYSICAL EXAMINATION: His chest is clear and it sounds like he has sinus tachycardia. Extremities are normal. IMPRESSION: Tachycardia. PLAN: 1. EKG. 2. Await results of EKG before making any changes. In the meantime, we are still waiting for a discharge plan. MMODL / IJN: [id number] /
[2019-04-07] MEDS: traZODone HCL 50 MG TAB PO SCH (20:17)
[2019-04-08] MEDS: ARIPiprazole 15 MG TAB PO SCH (09:36)
[2019-04-08] MEDS: LITHIUM CARBONATE 300 MG CAP PO SCH ×2 (09:36→21:18)
[2019-04-08] MEDS: QUEtiapine 200 MG TAB PO SCH ×2 (09:36→21:18)
[2019-04-08] MEDS: HEPARIN SODIUM,PORCINE 5,000 UNIT/ML 1 ML VIAL SQ SCH ×2 (09:36→21:19)
--- NOTE | 2019-04-08 14:17 | P.CON ---
Consult Note - . Consult date: 04/08/19 Assessment/Plan:: The patient was seen today as a follow-up psychiatric consultation Patient presented with better affect and he minimizes depression and suicidal ideation. Reportedly the patient continued to have severe mood swings with ou tbursts of agitation. Patient reports feeling stressed and overwhelmed. Patient was not fully cooperative and to certain degree guarded and very superficial in his answers. Patient is not fully oriented and continued to report poor sleep. Mental status examination; Appearance: The patient appears stated age, poorly groomed, dressed in hospital gown, above average body built, in handcuffs, no specific features. Gait/posture: Gait was not assessed, No abnormal movements. Attitude and behavior: Not fully engaged, superficially cooperative, poor eye contact. Motor activity: Decreased psychomotor activity Speech: Limited. Low tone. Not pressured Mood: Depressed, Irritable Affect: Constricted to flat Thought form: Disorganized Thought content: Some delusions, minimizes suicidal thoughts, denies homicidal thoughts, denies intentions or plans. Perception: No report of auditory or visual hallucinations Attention: Impaired Orientation: Impaired. Insight: Limited Judgment: Limited Assessment: Bipolar disorder by history. Rule out bipolar disorder most recent episode depressed versus mixed it with psychotic features. Recommendations: The primary team has been working on transferring the patient to psychiatric [facility]. Agree with the plan to [facility]. Psychiatry team will continue follow-up with the patient. Medication management: Continue Abilify 15 mg daily for mood stabilization and psychotic symptoms. Seroquel 200 mg in the morning and 500 mg at bedtime for psychotic symptoms and mood stabilization. Continue lithium 600 mg twice daily for mood stabilization. [place] level reviewed 0.7 on 04/07/19. Continue Haldol when necessary for severe agitation/psychosis. Continue trazodone 50 mg at bedtime as needed for insomnia. The patient on 2 antipsychotic medication because he failed 3 trials of monotherapy with Antipsychotics medication (Haldol, Seroquel, and Zyprexa) Discussed the treatment plan with the requesting physician/service. Thank you for permitting me to assist in this patient's treatment. Please call psychiatry department if you have any question or need further help with this case.
--- NOTE | 2019-04-08 16:47 | P.PN ---
Progress Note - Text Progress Note Date: 04/08/19 Chart reviewed. Patient remains in 3 or 4 point restraint. [place] level .7. This is steady state for the 1200mg dose of lithium. Will increase the dose to 600mg TID to target a steady state between .8 and 1.2. Repeat lithium level in 3 to 4 days.
--- NOTE | 2019-04-08 17:21 | PN ---
PROGRESS NOTE CHIEF COMPLAINT: Schizophrenia. HISTORY OF PRESENT ILLNESS: We are still waiting on a bed. Case was discussed with the staff in [facility] as well as Case Management, and there was word that he might be transferred to [place] today. Efforts are being made to get him into long-term institutionalization. If they accept him today, arrangements which will be made for him to be discharged and transferred. Physical exam is unchanged. IMPRESSION: Schizophrenia with borderline personality. PLAN: Await approval of discharge plan and institutionalization. CASSIE / BETINA: [id number] /
[2019-04-08] MEDS: traZODone HCL 50 MG TAB PO SCH (21:18)
[2019-04-09] MEDS: LITHIUM CARBONATE 300 MG CAP PO SCH ×2 (07:00→21:41)
[2019-04-09] MEDS: ARIPiprazole 15 MG TAB PO SCH (07:00)
[2019-04-09] MEDS: HEPARIN SODIUM,PORCINE 5,000 UNIT/ML 1 ML VIAL SQ SCH ×2 (07:01→21:41)
[2019-04-09] MEDS: QUEtiapine 200 MG TAB PO SCH ×2 (07:01→21:41)
--- NOTE | 2019-04-09 20:42 | PN ---
PROGRESS NOTE CHIEF COMPLAINT: Schizophrenia with violent behavior and mental status changes. HISTORY OF PRESENT ILLNESS: There is still no word on this patient's placement and long-term psychiatric institution. Two days ago it was thought that he was approved to go to [place]. Physical exam is unchanged. CSASIE / BETINA: [id number] /
[2019-04-09] MEDS: traZODone HCL 50 MG TAB PO SCH (21:41)
[2019-04-10] MEDS: ARIPiprazole 15 MG TAB PO SCH (06:56)
[2019-04-10] MEDS: LITHIUM CARBONATE 300 MG CAP PO SCH ×2 (06:56→21:24)
[2019-04-10] MEDS: HEPARIN SODIUM,PORCINE 5,000 UNIT/ML 1 ML VIAL SQ SCH ×2 (06:56→21:24)
[2019-04-10] MEDS: QUEtiapine 200 MG TAB PO SCH ×2 (06:57→21:24)
--- NOTE | 2019-04-10 11:37 | P.CON ---
Consult Note - . Consult date: 04/10/19 Assessment/Plan:: The patient was seen today as a follow-up psychiatric consultation Patient was seen while he is in bed. Generally, the patient was minimally cooperative and very superficial in his answer. He was not fully oriented to time, but oriented to place and situation. He was to some degree inappropriate and sexually preoccupied. Today, he reports feeling suicidal but didn't address any specific plan to hurt himself. He denies any homicidal ideation. Nursing reports one incident of yelling and screaming yesterday but no threatening or violent behavior, and sometimes using inappropriate language with nurses. Patient continued to report poor sleep, but as per nursing and one to one officer in the room with the patient he slept all night with no interruptions. Patient presents to some degree tired and hypersomnolent Mental status examination; Appearance: The patient appears stated age, poorly groomed, dressed in hospital gown, above average body built, in handcuffs, no specific features. Gait/posture: Gait was not assessed as patient is lying in bed. No abnormal movements. Attitude and behavior: Not fully engaged, superficially cooperative, poor eye contact. Motor activity: Decreased psychomotor activity Speech: Limited. Low tone. Not pressured Mood: Depressed, Irritable Affect: Constricted to flat Thought form: Disorganized Thought content: Some delusions, reports suicidal thoughts, denies homicidal thoughts, denies intentions or plans. Perception: No report of auditory or visual hallucinations Attention: Impaired Orientation: Impaired. Insight: Limited Judgment: Limited Assessment: Bipolar disorder by history. Rule out bipolar disorder most recent episode depressed versus mixed it with psychotic features. Recommendations: The primary team has been working on transferring the patient to psychiatric [facility]. Agree with the plan to transfer [facility]term [facility]. Psychiatry team will continue follow-up with the patient. Medication management: Continue Abilify 15 mg daily for mood stabilization and psychotic symptoms. Seroquel 200 mg in the morning and 500 mg at bedtime for psychotic symptoms and mood stabilization. Continue lithium 600 mg twice daily for mood stabilization. [place] level reviewed 0.7 on 04/07/19. Continue Haldol when necessary for severe agitation/psychosis. Continue trazodone 50 mg at bedtime as needed for insomnia. Discussed the case with Dr. Nicholson who recommended to increase [place] to 600 mg TID, but for now I will keep the patient on 600 mg BID as his level was within therapeutic level and patient has no acute mamie but he presents to some degree over sedated and hypersomnolent. The patient on 2 antipsychotic medication because he failed 3 trials of monotherapy with antipsychotics medication (Haldol, Seroquel, and Zyprexa) Discussed the treatment plan with the requesting physician/service. Thank you for permitting me to assist in this patient's treatment. Please call psychiatry department if you have any question or need further help with this case.
--- NOTE | 2019-04-10 13:38 | PN ---
PROGRESS NOTE CHIEF COMPLAINT: Schizophrenia and mental status changes. HISTORY OF PRESENT ILLNESS: We are waiting for long-term placement in a mental institution. There has been no interval change in his history or exam. MMODL / IJN: [id number] /
[2019-04-10] MEDS: traZODone HCL 50 MG TAB PO SCH (21:24)
[2019-04-11] MEDS: ARIPiprazole 15 MG TAB PO SCH (08:23)
[2019-04-11] MEDS: LITHIUM CARBONATE 300 MG CAP PO SCH ×2 (08:23→22:09)
[2019-04-11] MEDS: HEPARIN SODIUM,PORCINE 5,000 UNIT/ML 1 ML VIAL SQ SCH ×2 (08:23→22:10)
[2019-04-11] MEDS: QUEtiapine 200 MG TAB PO SCH ×2 (08:23→22:10)
[2019-04-11 10:57] LABS: Basophils # (A) 0.3 k/uL (0-0.2); Basophils % (A) 3 %; Eosinophils # (A) 0.3 k/uL (0-0.7); Eosinophils % (A) 2 %; HCT 50.6 % (39.0-53.0); HGB 16.6 gm/dL (13.0-17.5); Lymphocytes # (A) 2.7 k/uL (1.0-4.8); Lymphocytes % (A) 22 %; MCHC 32.8 g/dL (31.0-37.0); MCV 94.5 fL (80.0-100.0); Mean Platelet Volume 7.5; Monocytes # (A) 0.7 k/uL (0-1.0); Monocytes % (A) 6 %; Neutrophils # (A) 8.1 k/uL (1.3-7.7); Neutrophils % (A) 66 %; Platelet Count 316 k/uL (150-450); RBC 5.35 m/uL (4.30-5.90); WBC 12.3 k/uL (3.8-10.6)
[2019-04-11 11:07] LABS: ALT 81 U/L (21-72); AST 29 U/L (17-59); African American GFR (CKD) >90 (>60 ml/min/1.73 sqM); Albumin 4.2 g/dL (3.5-5.0); Alkaline Phosphatase 83 U/L (38-126); Anion Gap 10 mmol/L; Blood Urea Nitrogen 13 mg/dL (9-20); Calcium 10.2 mg/dL (8.4-10.2); Carbon Dioxide 31 mmol/L (22-30); Chloride 99 mmol/L (98-107); Glucose 95 mg/dL (74-99); Non-African American GFR(CKD) >90 (>60 ml/min/1.73 sqM); Potassium 4.9 mmol/L (3.5-5.1); Sodium 140 mmol/L (137-145); Total Bilirubin 0.7 mg/dL (0.2-1.3); Total Protein 7.3 g/dL (6.3-8.2)
--- NOTE | 2019-04-11 13:56 | XR ---
EXAMINATION TYPE: XR chest 1V portable DATE OF EXAM: 04/11/2019 COMPARISON: NONE HISTORY: Fever of unknown origin. TECHNIQUE: Single frontal view of the chest is obtained. FINDINGS: There is no focal air space opacity, pleural effusion, or pneumothorax seen. The cardiac silhouette size is within normal limits. The osseous structures are intact. IMPRESSION: No acute process.
[2019-04-11 15:26] LABS: Appearance,Urine Clear (Clear); Bilirubin,Urine Negative (Negative); Blood,Urine Negative (Negative); Color,Urine Yellow; Glucose,Urine (UA) Negative (Negative); Ketones,Urine Negative (Negative); Leukocyte Esterase,Urine Negative (Negative); Nitrite,Urine Negative (Negative); PH, Urine 6.5 (5.0-8.0); Protein,Urine Trace (Negative)
--- NOTE | 2019-04-11 16:26 | PN ---
PROGRESS NOTE CHIEF COMPLAINT: Schizophrenia. HISTORY OF PRESENT ILLNESS: We are still waiting psychiatric institutional bed for this patient. In the meantime, his lactic acid has gone over 2 and he has a low-grade fever. This will be worked up. PHYSICAL EXAMINATION: Chest is clear. Cardiac exam is normal. Abdomen is soft, nontender. IMPRESSION: 1. Schizophrenia with aggressive personality. 2. Low-grade fever and elevated lactic acid. PLAN: Chest x-ray, CBC, UA and blood cultures. Monitor his temperature. MMODL / IJN: [id number] /
[2019-04-11] MEDS: traZODone HCL 50 MG TAB PO SCH (22:10)
[2019-04-11 22:29] VITALS: RESP 16
[2019-04-12] MEDS: LITHIUM CARBONATE 300 MG CAP PO SCH ×2 (08:46→20:40)
[2019-04-12] MEDS: ARIPiprazole 15 MG TAB PO SCH (08:46)
[2019-04-12] MEDS: QUEtiapine 200 MG TAB PO SCH ×2 (08:46→20:41)
[2019-04-12] MEDS: HEPARIN SODIUM,PORCINE 5,000 UNIT/ML 1 ML VIAL SQ SCH ×2 (08:47→20:42)
[2019-04-12] MEDS: traZODone HCL 50 MG TAB PO SCH (20:42)
[2019-04-13] MEDS: QUEtiapine 200 MG TAB PO SCH (05:59)
[2019-04-13] MEDS: ARIPiprazole 15 MG TAB PO SCH (05:59)
[2019-04-13] MEDS: LITHIUM CARBONATE 300 MG CAP PO SCH (05:59)
[2019-04-13 06:12] VITALS: BP 130/85; PULSE 126; TEMP 98.5
--- NOTE | 2019-04-13 11:59 | MISC ---
MISCELLANOUS REPORT QUERY Encephalopathy, would be other. Schizophrenia, mood stabilizer overdose. MMODL / IJN: [id number] /
--- NOTE | 2019-04-13 13:56 | PN ---
PROGRESS NOTE DATE OF SERVICE: 04/12/2019. CHIEF COMPLAINT: Schizophrenia. HISTORY OF PRESENT ILLNESS: Apparently, a bed is now available at [facility] and he will be going there at 7 o'clock tomorrow morning. PHYSICAL EXAM: Unchanged. IMPRESSION: Mental status changes and schizophrenia. PLAN: Discharged early tomorrow morning to [facility]. MMODL / IJN: [id number] /
--- NOTE | 2019-04-13 17:02 | DS ---
DISCHARGE SUMMARY CHIEF COMPLAINT: Mental status changes. HISTORY OF PRESENT ILLNESS AND PHYSICAL EXAM: Details of this man's history and physical can be found in the initial workup. LABORATORY STUDIES: While he was in the hospital, he had laboratory studies, details of which can be found in the laboratory section of his chart. COURSE IN HOSPITAL: After admission, he was placed on bedrest, started on intravenous fluids and worked up for mental status changes and FUO. He remained very lethargic for many days and then slowly he became more awake and oriented. He became very violent at times. He had to be restrained his entire hospitalization. It was thought that he may have had a neuroleptic malignant syndrome based on his elevated temperature. Psychiatry initially had planned to move him to the psych unit, but could clearly see that this was not safe even for this patient, other people on the floor including the staff, etc. It was decided he should be institutionalized in a marine [facility] superintendent psychiatric care facility. This was petitioned to the court and he was assigned to [facility]. A bed became available and he was sent on the morning of the . FINAL DIAGNOSES: 1. Mental status changes. 2. Schizophrenia. 3. Possible neuroleptic malignant syndrome. OPERATIONS: None. CONSULTATIONS: Psychiatry and Intensive Medicine. He is improved. MMODL / IJN: [id number] /
--- NOTE | 2019-04-15 12:38 | PN ---
PROGRESS NOTE ADDENDUM: DATE OF SERVICE: 04/10/2019 HISTORY OF PRESENT ILLNESS: History of present illness is unchanged. We are still waiting bed. He has had no fever, chest pain, abdominal pain, nausea, etc. PHYSICAL EXAM: Chest is clear. Cardiac exam is normal. Abdomen is soft and there are no masses. IMPRESSION: 1. Mental status changes. 2. Schizophrenia and aggressive personality. PLAN: Wait for a psych bed to open up so that he could be transferred. MMODL / IJN: [id number] /
--- NOTE | 2019-04-15 12:38 | PN ---
PROGRESS NOTE ADDENDUM: DATE OF SERVICE: 04/09/2019 HISTORY OF PRESENT ILLNESS: Regarding the patient's history of present illness, there has been nothing new. He has had no fever, complaints of any abdominal pain, nausea, etc. PHYSICAL EXAMINATION: Chest is clear. Cardiac exam is normal. The abdomen is slightly protuberant, soft, but there is no tenderness or masses. Extremities are the same. MMODL / IJN: [id number] /
--- NOTE | 2019-04-15 12:41 | PN ---
PROGRESS NOTE ADDENDUM: DATE OF SERVICE: 04/01/2019 HISTORY OF PRESENT ILLNESS: History of present illness reveals that the patient is not having any further difficulty. He has not had any new symptoms including fever, chest pain, abdominal pain, nausea, etc. PHYSICAL EXAM: Physical exam is normal. Temperature is normal. Chest is clear. There are no rales. Cardiac exam is normal sinus rhythm. The abdomen is soft and there are no masses. Extremities are the same. Neurologically, he is intact. IMPRESSION: 1. Schizophrenia with major aggressive behavior. 2. Mental status changes. 3. Possible neuroleptics malignant syndrome. 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 MMODL / IJN: [id number] /
== END 2019-04-13 07:31 | DRG 885 ==
LOC: EC 09:44 → 3SCARD 15:50 → EEVIPCON 15:50 → 3SCARD 16:55 → 4MS4W 04-01 19:24
PROVIDERS: ADMIT Family Medicine; ATTEND Family Medicine
DX: F20.9 Schizophrenia, unspecified (principal); G21.0 Malignant neuroleptic syndrome; G92 Toxic encephalopathy; R45.851 Suicidal ideations; D72.829 Elevated white blood cell count, unspecified; F60.3 Borderline personality disorder; T50.991A Poisoning by other drugs, medicaments and biological substances, accidental (unintentional), initial encounter; K76.0 Fatty (change of) liver, not elsewhere classified; S60.811A Abrasion of right wrist, initial encounter; T43.4X5A Adverse effect of butyrophenone and thiothixene neuroleptics, initial encounter; S20.229A Contusion of unspecified back wall of thorax, initial encounter; S30.0XXA Contusion of lower back and pelvis, initial encounter; F41.9 Anxiety disorder, unspecified; F90.9 Attention-deficit hyperactivity disorder, unspecified type; K21.9 Gastro-esophageal reflux disease without esophagitis; Z79.899 Other long term (current) drug therapy; Z87.891 Personal history of nicotine dependence; Z91.048 Other nonmedicinal substance allergy status
CPT/HCPCS: 36415; 70450; 71045; 71046; 74177; 80048; 80053; 80074; 80178; 80202; 80306; 80320; 81001; 81003; 82565; 83605; 84439; 84443; 85025; 85027; 85610; 85730; 87040; 87502; 93005; 96361; 96365; 96366; 96375; 96376; 99285

== ENCOUNTER 2022-08-18 23:20 | Emergency (ER) | payer BC, OTHER ==
[2022-08-18 23:48] VITALS: RESP 18
[2022-08-19] MEDS ORDERED: ZIPRASIDONE 20 MG VIAL IM STA
[2022-08-19 01:54] LABS: Appearance,Urine Clear (Clear); Bilirubin,Urine Negative (Negative); Blood,Urine Negative (Negative); Color,Urine Yellow; Glucose,Urine (UA) Negative (Negative); Ketones,Urine 2+ (Negative); Leukocyte Esterase,Urine Negative (Negative); Nitrite,Urine Negative (Negative); PH, Urine 5.5 (5.0-8.0); Protein,Urine Trace (Negative); Specific Gravity,Urine 1.031 (1.001-1.035); Urobilinogen,Urine <2.0 mg/dL (<2.0)
[2022-08-19 02:17] LABS: Amphetamine Screen,Urine Not Detected (NotDetected); Barbiturate Screen,Urine Not Detected (NotDetected); Benzodiazepines Screen,Urine Not Detected (NotDetected); Cocaine Screen,Urine Not Detected (NotDetected); Methadone Screen, Urine Not Detected (NotDetected); Opiate Screen,Urine Not Detected (NotDetected); Oxycodone Screen, Urine Not Detected (NotDetected); Phencyclidine Screen,Urine Not Detected (NotDetected); Tricyclic Antidepressant,Urine Not Detected (NotDetected); Urn Cannabinoid Scrn Not Detected (NotDetected)
--- NOTE | 2022-08-19 04:36 | ED ---
Psych HPI - General Source: patient, family, police Mode of arrival: ambulatory <Ayesha Avila - Last Filed: 08/19/22 08:29> <Shelton Pompa - Last Filed: 08/19/22 16:02> - General Chief Complaint: Psychiatric Symptoms Stated Complaint: Mental Health - History of Present Illness Initial Comments: 22-year-old male past history of polysubstance abuse, schizophrenia who presents emergency department accompanied by dad and police. It is reported that the patient has been acting aggressive at his fpc. Father states that he has the ability to get extremely out of control and therefore he wanted to "catch it early". States he has been taking his medications however his outbursts has been getting progressively worse. Patient admits to feeling depressed. Denies suicidal ideations. No drug use. No other alleviating, precipitating or modifying factors (Ayesha Avila) - Related Data Home Medications Medication Instructions Recorded Confirmed Cholecalciferol (Vitamin D3) 125 mcg PO DAILY@00 08/19/22 08/19/22 [Vitamin D3 (125 MCG = 5,000 IU)] [place] Carbonate 600 mg PO HS@209908/19/22 08/19/22 Paliperidone [Invega] 1.5 mg PO DIRECTED 08/19/22 08/19/22 Paliperidone [Invega] 9 mg PO HS@209908/19/22 08/19/22 Sertraline [Zoloft] 50 mg PO DAILY@79908/19/22 08/19/22 buPROPion SR [Wellbutrin SR] 100 mg PO DAILY@79908/19/22 08/19/22 hydrOXYzine HCL [Atarax] 25 mg PO TID PRN 08/19/22 08/19/22 traZODone HCL 100 mg PO HS@209908/19/22 08/19/22 Previous Rx's Medication Instructions Recorded LORazepam [Ativan] 2 mg PO TID 3 Days #9 tab 08/19/22 haloperidoL [Haldol] 5 mg PO TID #9 tablet 08/19/22 Allergies Allergy/AdvReac Type Severity Reaction Status Date / Time dog dander AdvReac Dyspnea Verified 08/19/22 13:27 Review of Systems ROS Other: All systems not noted in ROS Statement are negative. <Ayesha Avila - Last Filed: 08/19/22 08:29> ROS Other: All systems not noted in ROS Statement are negative. <PeñaShelton - Last Filed: 08/19/22 16:02> ROS Statement: Those systems with pertinent positive or pertinent negative responses have been documented in the HPI. Past Medical History Past Medical History: GERD/Reflux Additional Past Medical History / Comment(s): Pt recently discharged from [facility] for suicidal ideation, [facility]. History of Any Multi-Drug Resistant Organisms: None Reported Past Surgical History: No Surgical Hx Reported Additional Past Surgical History / Comment(s): [place] teeth extraction with anesthesia. Past Anesthesia/Blood Transfusion Reactions: No Reported Reaction Past Psychological History: ADD/ADHD, Anxiety, Depression Past Alcohol Use History: None Reported Past Drug Use History: Cocaine, IV Drug Use, Marijuana, Methamphetamine, Opiates - Past Family History Father Family Medical History: No Reported History Additional Family Medical History / Comment(s): Pt states his dad is healthy-"I guess". Mother Family Medical History: No Reported History Additional Family Medical History / Comment(s): Pt states his mother is healthy- "I guess." <Ayesha Avila - Last Filed: 08/19/22 08:29> General Exam Limitations: altered mental status <Ayesha Avila - Last Filed: 08/19/22 08:29> General appearance: alert, in no apparent distress Head exam: Present: atraumatic, normocephalic, normal inspection Eye exam: Present: normal appearance, PERRL, EOMI. Absent: scleral icterus, conjunctival injection, periorbital swelling ENT exam: Present: normal exam, mucous membranes moist Neck exam: Present: normal inspection. Absent: tenderness, meningismus, lymphadenopathy Respiratory exam: Present: normal lung sounds bilaterally. Absent: respiratory distress, wheezes, rales, rhonchi, stridor Cardiovascular Exam: Present: regular rate, normal rhythm, normal heart sounds. Absent: systolic murmur, diastolic murmur, rubs, gallop, clicks GI/Abdominal exam: Present: soft, normal bowel sounds. Absent: distended, tenderness, guarding, rebound, rigid Extremities exam: Present: normal inspection, full ROM, normal capillary refill. Absent: tenderness, pedal edema, joint swelling, calf tenderness Back exam: Present: normal inspection Neurological exam: Present: alert, oriented X3, CN II-XII intact Psychiatric exam: Present: normal affect, normal mood Skin exam: Present: warm, dry, intact, normal color. Absent: rash <Shelton Pompa - Last Filed: 08/19/22 16:02> Course Vital Signs 08/18/22 08/19/22 23:39 11:35 Temperature 96.9 F L 98.7 F Pulse Rate 83 87 Respiratory 18 18 Rate Blood Pressure 145/67 142/91 O2 Sat by Pulse 97 97 Oximetry Medical Decision Making <Ayesha Avila - Last Filed: 08/19/22 08:29> <Shelton Pompa - Last Filed: 08/19/22 16:02> - Medical Decision Making Was pt. sent in by a medical professional or institution (, PA, THERMOSPRAY OPERATOR, urgent care, hospital, or snf...) When possible be specific @ -[No] Did you speak to anyone other than the patient for history (EMS, parent, family, police, friend...)? What history was obtained from this source @ -[No] Did you review nursing and triage notes (agree or disagree)? Why? @ -[I reviewed and agree with nursing and triage notes] Were old charts reviewed (outside hosp., previous admission, EMS record, old EKG, old radiological studies, urgent care reports/EKG's, snf records)? Report findings @ -[No old charts were reviewed] Differential Diagnosis (chest pain, altered mental status, abdominal pain women, abdominal pain men, vaginal bleeding, weakness, fever, dyspnea, syncope, headache, dizziness, GI bleed, back pain, seizure, CVA, palpatations, mental health, musculoskeletal)? @ -[not applicable] EKG interpreted by me (3pts min.). @ -[As above] X-rays interpreted by me (1pt min.). @ -[None done] CT interpreted by me (1pt min.). @ -[None done] U/S interpreted by me (1pt. min.). @ -[None done] What testing was considered but not performed or refused? (CT, X-rays, U/S, labs)? Why? @ -[None] What meds were considered but not given or refused? Why? @ -[None] Did you discuss the management of the patient with other professionals (professionals i.e. , PA, THERMOSPRAY OPERATOR, lab, RT, psych nurse, social media executive, garbage pick up worker, teacher, licensing officer, case packer and sealer)? Give summary @ -[No] Was smoking cessation discussed for >3mins.? @ -[No] Was critical care preformed (if so, how long)? @ -[No] Were there social determinants of health that impacted care today? How? (Homelessness, low income, unemployed, alcoholism, drug addiction, transportation, low edu. Level, literacy, decrease access to med. care, long term, rehab)? @ -[No] Was there de-escalation of care discussed even if they declined (Discuss DNR or withdrawal of care, Hospice)? DNR status @ -[No] What co-morbidities impacted this encounter? (DM, HTN, Smoking, COPD, CAD, Cancer, CVA, ARF, Chemo, Hep., AIDS, mental health diagnosis, sleep apnea, morbid obesity)? @ -[None] Was patient admitted / discharged? Hospital course, mention meds given and route, prescriptions, significant lab abnormalities, going to OR and other pertinent info. @ -Upon arrival patient was placed into room 8. There are history of physical exam was performed. Patient does provide a urine sample. He is evaluated by EPS. They did discuss the case with the psychiatrist and we are awaiting personal psychiatry evaluation at this time. Undiagnosed new problem with uncertain prognosis? @ -[No] Drug Therapy requiring intensive monitoring for toxicity (Heparin, Nitro, Insulin, Cardizem)? @ -[No] Were any procedures done? @ -[No] Diagnosis/symptom? @ -[default] Acute, or Chronic, or Acute on Chronic? @ -[default] Uncomplicated (without systemic symptoms) or Complicated (systemic symptoms)? @ -[default] Side effects of treatment? @ -[No] Exacerbation, Progression, or Severe Exacerbation? @ -[No] Poses a threat to life or bodily function? How? (Chest pain, USA, ND, pneumonia, PE, COPD, DKA, ARF, appy, cholecystitis, CVA, Diverticulitis, Homicidal, Suicidal, threat to staff... and all critical care pts) @ -[No] (Ayesha Avila) 22 male was seen eval by psychiatry here in the emergency department, no placement able to be fine, patient will work on outpatient treatment and continued going for (Shelton Pompa) - Lab Data Lab Results 08/19/22 Range/Units 01:12 Urine Color Yellow Urine Appearance Clear (Clear) Urine pH 5.5 (5.0-8.0) Ur Specific [place] 1.031 (1.001-1.035) Urine Protein Trace H (Negative) Urine Glucose (UA) Negative (Negative) Urine Ketones 2+ H (Negative) Urine Blood Negative (Negative) Urine Nitrite Negative (Negative) Urine Bilirubin Negative (Negative) Urine Urobilinogen <2.0 (<2.0) mg/dL Ur Leukocyte Esterase Negative (Negative) Urine Opiates Screen Not Detected (NotDetected) Ur Oxycodone Screen Not Detected (NotDetected) Urine Methadone Screen Not Detected (NotDetected) Ur Propoxyphene Screen Not Detected (NotDetected) Ur Barbiturates Screen Not Detected (NotDetected) U Tricyclic Antidepress Not Detected (NotDetected) Ur Phencyclidine Scrn Not Detected (NotDetected) Ur Amphetamines Screen Not Detected (NotDetected) U Methamphetamines Scrn Not Detected (NotDetected) U Benzodiazepines Scrn Not Detected (NotDetected) Urine Cocaine Screen Not Detected (NotDetected) U Marijuana (THC) Screen Not Detected (NotDetected) Disposition <Ayesha Avila - Last Filed: 08/19/22 08:29> Is patient prescribed a controlled substance at d/c from ED?: No <Shelton Pompa - Last Filed: 08/19/22 16:02> Clinical Impression: Altered mental status, Psychoses, Acute anxiety, Depression, Psychomotor agitation Disposition: HOME SELF-CARE Condition: Good Instructions (If sedation given, give patient instructions): Depression (ED) Prescriptions: LORazepam [Ativan] 2 mg PO TID 3 Days #9 tab haloperidoL [Haldol] 5 mg PO TID #9 tablet Referrals: Juan Diego Martinez MD [Primary Care Provider] - 1-2 days
[2022-08-19] MEDS ORDERED: buPROPion 100 MG TAB PO STA (08:02)
[2022-08-19] MEDS ORDERED: INVEGA 1.5 MG PO STA (08:03)
[2022-08-19] MEDS ORDERED: SERTRALINE 50 MG TAB PO SCH (09:00)
[2022-08-19 11:37] VITALS: BP 142/91; PULSE 87; TEMP 98.7
[2022-08-19] MEDS ORDERED: HALOPERIDOL LACTATE 5 MG/ML 1 ML VIAL IM ONE (14:50)
[2022-08-19] MEDS ORDERED: LORazepam 2 MG/ML INJ IM ONE (14:50)
== END 2022-08-19 16:05 | disposition home or self-care (01) ==
LOC: EC 23:20
DX: R41.82 Altered mental status, unspecified (principal); F29 Unspecified psychosis not due to a substance or known physiological condition; F41.9 Anxiety disorder, unspecified; F32.A Depression, unspecified; R41.843 Psychomotor deficit; F90.9 Attention-deficit hyperactivity disorder, unspecified type; F12.90 Cannabis use, unspecified, uncomplicated; F14.90 Cocaine use, unspecified, uncomplicated; F11.90 Opioid use, unspecified, uncomplicated; Z88.8 Allergy status to other drugs, medicaments and biological substances
CPT/HCPCS: 82075; 81003; 80306; 99285; 96372 ×3; J2060; J1630; J3486

== ENCOUNTER 2022-08-20 00:28 | Emergency (ER) | payer OTHER ==
[2022-08-20] MEDS ORDERED: ZIPRASIDONE 20 MG VIAL IM STA (00:58)
[2022-08-20] MEDS ORDERED: LORazepam 2 MG/ML INJ IM STA ×4 (00:59→21:37)
[2022-08-20] MEDS ORDERED: LORazepam 2 MG/ML INJ IV STA (00:59)
[2022-08-20] MEDS ORDERED: hydrOXYzine HCL 50 MG/ML 1 ML VIAL IM STA (01:39)
--- NOTE | 2022-08-20 07:46 | ED ---
Psych HPI <Ayesha Avila - Last Filed: 08/23/22 13:35> - General Source: patient, family Mode of arrival: ambulatory - History of Present Illness MD Complaint: other -: days(s) Associated Psychiatric Symptoms: racing thoughts, delusions History of same: Yes Quality: getting worse Improves With: none Worsens With: none Associated Symptoms: denies other symptoms <Helio Sebastian - Last Filed: 08/26/22 08:53> - General Chief Complaint: Psychiatric Symptoms Stated Complaint: Insomnia Time Seen by Provider: 08/20/22 00:46 - History of Present Illness Initial Comments: This patient is a 22-year-old man with history of bipolar disorder and previous episodes of mamie. He is brought by his father to have evaluation for suspected recurrence. He had been seen here yesterday, been given medications and then discharged but the patient's father states that he was not able to sleep and therefore the symptoms are not improving. The patient is not having suicidal or homicidal ideation. (Helio Sebastian) - Related Data Home Medications Medication Instructions Recorded Confirmed Cholecalciferol (Vitamin D3) 125 mcg PO DAILY@79908/19/22 08/20/22 [Vitamin D3 (125 MCG = 5,000 IU)] [place] Carbonate 600 mg PO HS@209908/19/22 08/20/22 Paliperidone [Invega] 1.5 mg PO DAILY@79908/19/22 08/20/22 Paliperidone [Invega] 9 mg PO HS@209908/19/22 08/20/22 Sertraline [Zoloft] 50 mg PO DAILY@79908/19/22 08/20/22 buPROPion SR [Wellbutrin SR] 100 mg PO DAILY@79908/19/22 08/20/22 hydrOXYzine HCL [Atarax] 25 mg PO TID PRN 08/19/22 08/20/22 traZODone HCL 100 mg PO HS@209908/19/22 08/20/22 Previous Rx's Medication Instructions Recorded LORazepam [Ativan] 2 mg PO TID 3 Days #9 tab 08/19/22 haloperidoL [Haldol] 5 mg PO TID #9 tablet 08/19/22 Allergies Allergy/AdvReac Type Severity Reaction Status Date / Time dog dander AdvReac Dyspnea Verified 08/20/22 07:29 Review of Systems ROS Other: All systems not noted in ROS Statement are negative. <Ayesha Avila Ej - Last Filed: 08/23/22 13:35> ROS Other: All systems not noted in ROS Statement are negative. Constitutional: Denies: fever, chills Eyes: Denies: vision change Respiratory: Denies: cough, dyspnea Cardiovascular: Denies: chest pain, palpitations, edema, syncope Gastrointestinal: Denies: abdominal pain, vomiting, diarrhea Genitourinary: Denies: dysuria, hematuria Musculoskeletal: Denies: back pain Skin: Denies: rash Neurological: Denies: headache, weakness, confusion Psychiatric: Reports: as per HPI, other. Denies: visual hallucinations, homicidal thoughts, suicidal thoughts <RomuloHelio - Last Filed: 08/26/22 08:53> ROS Statement: Those systems with pertinent positive or pertinent negative responses have been documented in the HPI. Past Medical History Past Medical History: GERD/Reflux Additional Past Medical History / Comment(s): Pt recently discharged from [facility] for suicidal ideation, suicide percautions in place from [facility],[place]. History of Any Multi-Drug Resistant Organisms: None Reported Past Surgical History: No Surgical Hx Reported Additional Past Surgical History / Comment(s): [place] teeth extraction with anesthesia. Past Anesthesia/Blood Transfusion Reactions: No Reported Reaction Past Psychological History: ADD/ADHD, Anxiety, Depression Smoking Status: Vaper Past Alcohol Use History: None Reported Past Drug Use History: Cocaine, IV Drug Use, Marijuana, Methamphetamine, Opiates - Past Family History Father Family Medical History: No Reported History Additional Family Medical History / Comment(s): Pt states his dad is healthy-"I guess". Mother Family Medical History: No Reported History Additional Family Medical History / Comment(s): Pt states his mother is healthy- "I guess." <Helio Sebastian - Last Filed: 08/26/22 08:53> General Exam Limitations: no limitations General appearance: alert, in no apparent distress Head exam: Present: atraumatic, normocephalic Eye exam: Present: normal appearance, PERRL, EOMI. Absent: scleral icterus, conjunctival injection ENT exam: Present: normal oropharynx Neck exam: Present: normal inspection Respiratory exam: Present: normal lung sounds bilaterally. Absent: respiratory distress, wheezes, rales, rhonchi, stridor Cardiovascular Exam: Present: regular rate, normal rhythm, normal heart sounds. Absent: systolic murmur, diastolic murmur, rubs, gallop GI/Abdominal exam: Present: soft. Absent: distended, tenderness, guarding, rebound, rigid, mass Extremities exam: Present: normal inspection, normal capillary refill. Absent: pedal edema, calf tenderness Back exam: Present: normal inspection. Absent: vertebral tenderness Neurological exam: Present: alert, CN II-XII intact. Absent: motor sensory deficit Psychiatric exam: Present: manic. Absent: homicidal ideation, suicidal ideation Skin exam: Present: warm, dry, intact, normal color. Absent: rash <Helio Sebastian - Last Filed: 08/26/22 08:53> Course Vital Signs 08/20/22 08/20/22 08/21/22 00:29 00:36 10:35 Temperature 98.6 F 98.0 F Pulse Rate 118 H 86 Respiratory 18 18 Rate Blood Pressure 138/83 124/82 119/73 O2 Sat by Pulse 93 L 98 Oximetry 08/22/22 12:01 Temperature 97.7 F Pulse Rate 81 Respiratory 19 Rate Blood Pressure 144/77 O2 Sat by Pulse 97 Oximetry Medical Decision Making - Lab Data Result diagrams: 08/20/22 15:27 08/20/22 15:27 <Ayesha Avila - Last Filed: 08/23/22 13:35> - Lab Data Result diagrams: 08/20/22 15:27 08/20/22 15:27 <Helio Sebastian - Last Filed: 08/26/22 08:53> - Medical Decision Making Patient was evaluated by EPS today and is deemed stable for discharge. He does have follow up with [facility] tomorrow. His medications have been adjusted. Soak with the patient's father who was agreeable to take the patient home (Ayesha Avila) Was pt. sent in by a medical professional or institution (, PA, FABRIC AND ACCESSORIES ESTIMATOR, urgent care, hospital, or intermediate...) When possible be specific @ -[No] Did you speak to anyone other than the patient for history (EMS, parent, family, police, friend...)? What history was obtained from this source @ -[Parent Did you review nursing and triage notes (agree or disagree)? Why? @ -[I reviewed and agree with nursing and triage notes] Were old charts reviewed (outside hosp., previous admission, EMS record, old EKG, old radiological studies, urgent care reports/EKG's, intermediate records)? Report findings @ -[old charts were reviewed] Differential Diagnosis (chest pain, altered mental status, abdominal pain women, abdominal pain men, vaginal bleeding, weakness, fever, dyspnea, syncope, headache, dizziness, GI bleed, back pain, seizure, CVA, palpatations, mental health, musculoskeletal)? @ -Differential Mental Health Depression, anxiety, bipolar, psychosis, schizophrenia, borderline personality, situational depression, adjustment disorder, behavioral disorder, brain tumor, malingering, substance abuse, encephalopathy, medication reaction, dementia, hypothyroidism, degenerative neurologic disorder, lupus.... This is not meant to be all-inclusive list EKG interpreted by me (3pts min.). @ -[ X-rays interpreted by me (1pt min.). @ -[None done] CT interpreted by me (1pt min.). @ -[None done] U/S interpreted by me (1pt. min.). @ -[None done] What testing was considered but not performed or refused? (CT, X-rays, U/S, labs)? Why? @ -[None] What meds were considered but not given or refused? Why? @ -[None] Did you discuss the management of the patient with other professionals (professionals i.e. , PA, FABRIC AND ACCESSORIES ESTIMATOR, lab, RT, psych nurse, rn social services, information assoc, teacher, navigating officer, hospice case manager)? Give summary @ -[Case was discussed with EPS personnel Was smoking cessation discussed for >3mins.? @ -[No] Was critical care preformed (if so, how long)? @ -[No] Were there social determinants of health that impacted care today? How? (Homelessness, low income, unemployed, alcoholism, drug addiction, transportation, low edu. Level, literacy, decrease access to med. care, shelter, rehab)? @ -[No] Was there de-escalation of care discussed even if they declined (Discuss DNR or withdrawal of care, Hospice)? DNR status @ -[No] What co-morbidities impacted this encounter? (DM, HTN, Smoking, COPD, CAD, Cancer, CVA, ARF, Chemo, Hep., AIDS, mental health diagnosis, sleep apnea, morbid obesity)? @ -[None] Was patient admitted / discharged? Hospital course, mention meds given and route, prescriptions, significant lab abnormalities, going to OR and other pertinent info. @ -[Is charged Undiagnosed new problem with uncertain prognosis? @ -[No] Drug Therapy requiring intensive monitoring for toxicity (Heparin, Nitro, Insulin, Cardizem)? @ -[No] Were any procedures done? @ -[No] Diagnosis/symptom? @ -[Acute mamie Acute, or Chronic, or Acute on Chronic? @ -[Acute on chronic Uncomplicated (without systemic symptoms) or Complicated (systemic symptoms)? @ -[Uncomplicated Side effects of treatment? @ -[No] Exacerbation, Progression, or Severe Exacerbation? @ -[Exacerbation Poses a threat to life or bodily function? How? (Chest pain, USA, [place], pneumonia, PE, COPD, DKA, ARF, appy, cholecystitis, CVA, Diverticulitis, Homicidal, Suicidal, threat to staff... and all critical care pts) @ -[No] (Helio Sebastian) - Lab Data Lab Results 08/20/22 08/20/22 08/20/22 Range/Units 15:27 15:27 15:27 WBC 11.9 H (3.8-10.6) k/uL RBC 4.97 (4.30-5.90) m/uL Hgb 14.9 (13.0-17.5) gm/dL Hct 44.2 (39.0-53.0) % MCV 88.9 (80.0-100.0) fL MCH 30.0 (25.0-35.0) pg MCHC 33.7 (31.0-37.0) g/dL RDW 13.3 (11.5-15.5) % Plt Count 316 (150-450) k/uL MPV 7.8 Neutrophils % 72 % Lymphocytes % 18 % Monocytes % 5 % Eosinophils % 2 % Basophils % 0 % Neutrophils # 8.6 H (1.3-7.7) k/uL Lymphocytes # 2.2 (1.0-4.8) k/uL Monocytes # 0.6 (0-1.0) k/uL Eosinophils # 0.2 (0-0.7) k/uL Basophils # 0.0 (0-0.2) k/uL Sodium 140 (137-145) mmol/L Potassium 4.7 (3.5-5.1) mmol/L Chloride 105 (98-107) mmol/L Carbon Dioxide 27 (22-30) mmol/L Anion Gap 8 mmol/L BUN 11 (9-20) mg/dL Creatinine 0.83 (0.66-1.25) mg/dL Est GFR (CKD-EPI)AfAm >90 (>60 ml/min/1.73 sqM) Est GFR (CKD-EPI)NonAf >90 (>60 ml/min/1.73 sqM) Glucose 81 (74-99) mg/dL Calcium 9.0 (8.4-10.2) mg/dL Total Bilirubin 0.5 (0.2-1.3) mg/dL AST 30 (17-59) U/L ALT 43 (4-49) U/L Alkaline Phosphatase 78 (38-126) U/L Total Protein 7.0 (6.3-8.2) g/dL Albumin 4.2 (3.5-5.0) g/dL Coronavirus (PCR) Not Detected (Not Detectd) Disposition Is patient prescribed a controlled substance at d/c from ED?: No Time of Disposition: 11:53 <Ayesha Avila - Last Filed: 08/23/22 13:35> <Helio Sebastian - Last Filed: 08/26/22 08:53> Clinical Impression: Acute psychosis Disposition: HOME SELF-CARE Condition: Stable Instructions (If sedation given, give patient instructions): Conduct Disorder in Children (ED) Referrals: Juan Diego Martinez MD [Primary Care Provider] - 1-2 days
[2022-08-20 16:10] LABS: Basophils % (A) 0 %; Eosinophils # (A) 0.2 k/uL (0-0.7); Eosinophils % (A) 2 %; HCT 44.2 % (39.0-53.0); HGB 14.9 gm/dL (13.0-17.5); Lymphocytes # (A) 2.2 k/uL (1.0-4.8); Lymphocytes % (A) 18 %; MCHC 33.7 g/dL (31.0-37.0); MCV 88.9 fL (80.0-100.0); Mean Platelet Volume 7.8; Monocytes # (A) 0.6 k/uL (0-1.0); Monocytes % (A) 5 %; Neutrophils # (A) 8.6 k/uL (1.3-7.7); Neutrophils % (A) 72 %; Platelet Count 316 k/uL (150-450); RBC 4.97 m/uL (4.30-5.90); RDW 13.3 % (11.5-15.5); WBC 11.9 k/uL (3.8-10.6)
[2022-08-20 16:11] LABS: ALT 43 U/L (4-49); AST 30 U/L (17-59); African American GFR (CKD) >90 (>60 ml/min/1.73 sqM); Albumin 4.2 g/dL (3.5-5.0); Alkaline Phosphatase 78 U/L (38-126); Anion Gap 8 mmol/L; Blood Urea Nitrogen 11 mg/dL (9-20); Carbon Dioxide 27 mmol/L (22-30); Chloride 105 mmol/L (98-107); Glucose 81 mg/dL (74-99); Non-African American GFR(CKD) >90 (>60 ml/min/1.73 sqM); Potassium 4.7 mmol/L (3.5-5.1); Sodium 140 mmol/L (137-145); Total Bilirubin 0.5 mg/dL (0.2-1.3)
[2022-08-20] MEDS: haloperidoL 5 MG TAB PO SCH ×2 (19:59→22:16)
[2022-08-20] MEDS: LORazepam 1 MG TAB PO SCH ×2 (19:59→22:53)
[2022-08-20] MEDS: LITHIUM CARBONATE 300 MG CAP PO SCH (19:59)
[2022-08-20] MEDS: traZODone HCL 100 MG TAB PO SCH (20:00)
[2022-08-20] MEDS: PALIPERIDONE 3 MG TAB.ER.24 PO SCH (20:00)
[2022-08-20] MEDS ORDERED: diphenhydrAMINE 50 MG/ML 1 ML VIAL IM STA (21:37)
[2022-08-20] MEDS ORDERED: HALOPERIDOL LACTATE 5 MG/ML 1 ML VIAL IM STA (21:37)
--- NOTE | 2022-08-20 22:07 | ED ---
Medical Decision Making - Lab Data Result diagrams: 08/20/22 15:27 08/20/22 15:27 Lab Results 08/20/22 08/20/22 08/20/22 Range/Units 15:27 15:27 15:27 WBC 11.9 H (3.8-10.6) k/uL RBC 4.97 (4.30-5.90) m/uL Hgb 14.9 (13.0-17.5) gm/dL Hct 44.2 (39.0-53.0) % MCV 88.9 (80.0-100.0) fL MCH 30.0 (25.0-35.0) pg MCHC 33.7 (31.0-37.0) g/dL RDW 13.3 (11.5-15.5) % Plt Count 316 (150-450) k/uL MPV 7.8 Neutrophils % 72 % Lymphocytes % 18 % Monocytes % 5 % Eosinophils % 2 % Basophils % 0 % Neutrophils # 8.6 H (1.3-7.7) k/uL Lymphocytes # 2.2 (1.0-4.8) k/uL Monocytes # 0.6 (0-1.0) k/uL Eosinophils # 0.2 (0-0.7) k/uL Basophils # 0.0 (0-0.2) k/uL Sodium 140 (137-145) mmol/L Potassium 4.7 (3.5-5.1) mmol/L Chloride 105 (98-107) mmol/L Carbon Dioxide 27 (22-30) mmol/L Anion Gap 8 mmol/L BUN 11 (9-20) mg/dL Creatinine 0.83 (0.66-1.25) mg/dL Est GFR (CKD-EPI)AfAm >90 (>60 ml/min/1.73 sqM) Est GFR (CKD-EPI)NonAf >90 (>60 ml/min/1.73 sqM) Glucose 81 (74-99) mg/dL Calcium 9.0 (8.4-10.2) mg/dL Total Bilirubin 0.5 (0.2-1.3) mg/dL AST 30 (17-59) U/L ALT 43 (4-49) U/L Alkaline Phosphatase 78 (38-126) U/L Total Protein 7.0 (6.3-8.2) g/dL Albumin 4.2 (3.5-5.0) g/dL Coronavirus (PCR) Not Detected (Not Detectd) Disposition Clinical Impression: Acute psychosis Disposition: TRANSFER TO PSYCH HOSP/UNIT Condition: Stable Is patient prescribed a controlled substance at d/c from ED?: No Referrals: Juan Diego Martinez MD [Primary Care Provider] - 1-2 days Procedures - Restraint - Face to Face Restraint Occurrence 1 Patient's Immediate Situation: Endangers self safety, Endangers others' safety Patient's Reaction to the Intervention: Appropriate, Calm, Angry Patient's Medical & Behavioral Condition: Awake, Alert Need to Continue or Terminate Restraint or Seclusion: Continue Face to Face Eval of Restraint Date: 08/20/22 Face to Face Eval of Restraint Time: 21:55
[2022-08-21] MEDS: hydrOXYzine HCL 25 MG TAB PO PRN (04:33)
[2022-08-21] MEDS: SERTRALINE 50 MG TAB PO SCH (10:37)
[2022-08-21] MEDS: CHOLECALCIFEROL 125 MCG (5000 IU) TABLET PO SCH (10:37)
[2022-08-21] MEDS: LORazepam 1 MG TAB PO SCH ×3 (10:37→21:51)
[2022-08-21] MEDS: haloperidoL 5 MG TAB PO SCH ×3 (10:37→21:51)
[2022-08-21] MEDS: buPROPion SR 100 MG TABLET.ER PO SCH (10:38)
[2022-08-21] MEDS: PALIPERIDONE 1.5 MG TAB.ER.24 PO SCH ×2 (10:39→21:51)
[2022-08-21] MEDS: traZODone HCL 100 MG TAB PO SCH (21:51)
[2022-08-21] MEDS: LITHIUM CARBONATE 300 MG CAP PO SCH (21:51)
[2022-08-21] MEDS: PALIPERIDONE 3 MG TAB.ER.24 PO SCH (21:54)
[2022-08-22] MEDS: hydrOXYzine HCL 25 MG TAB PO PRN (01:30)
[2022-08-22] MEDS: SERTRALINE 50 MG TAB PO SCH (08:27)
[2022-08-22] MEDS: CHOLECALCIFEROL 125 MCG (5000 IU) TABLET PO SCH (08:27)
[2022-08-22] MEDS: buPROPion SR 100 MG TABLET.ER PO SCH (08:27)
[2022-08-22] MEDS: LORazepam 1 MG TAB PO SCH (08:27)
[2022-08-22] MEDS: haloperidoL 5 MG TAB PO SCH (09:11)
[2022-08-22 12:02] VITALS: BP 144/77; PULSE 81; RESP 19; TEMP 97.7
== END 2022-08-22 12:02 | disposition home or self-care (01) ==
LOC: EC 00:28
DX: F23 Brief psychotic disorder (principal); F31.9 Bipolar disorder, unspecified; F41.9 Anxiety disorder, unspecified; F17.290 Nicotine dependence, other tobacco product, uncomplicated; F12.90 Cannabis use, unspecified, uncomplicated; F14.90 Cocaine use, unspecified, uncomplicated; F11.90 Opioid use, unspecified, uncomplicated; F15.90 Other stimulant use, unspecified, uncomplicated; Z79.899 Other long term (current) drug therapy; Z91.048 Other nonmedicinal substance allergy status; Z20.822 Contact with and (suspected) exposure to COVID-19
CPT/HCPCS: 99285 ×2; 96372 ×9; 82075; 36415; 80053; 85025; 87635; J2060; J1200; J1630; S0106 ×2; J3410; J3486

== ENCOUNTER 2022-09-10 22:40 | Emergency (ER) | payer OTHER ==
[2022-09-10 22:46] VITALS: BP 175/95; PULSE 88; RESP 20; TEMP 98.6
--- NOTE | 2022-09-10 23:37 | ED ---
Psych HPI - General Source: patient, RN notes reviewed, old records reviewed Mode of arrival: ambulatory - History of Present Illness MD Complaint: feels depressed (anxiety) -: days(s) (1) Associated Psychiatric Symptoms: depression History of same: Yes Quality: constant, getting worse Associated Symptoms: denies other symptoms <Phuc Nash - Last Filed: 09/11/22 03:08> <Yves Payne - Last Filed: 09/12/22 22:48> - General Chief Complaint: Psychiatric Symptoms Stated Complaint: Mental Health Time Seen by Provider: 09/10/22 23:22 - History of Present Illness Initial Comments: This is a nontoxic appearing 22-year-old male that presents to the emergency room pacing with complaints of increased anxiety, depression, and inability to sit still. Feels like he is going to have a manic episode. Patient states he was last hospitalized a few weeks ago with similar symptoms and was given medications which seem to have improved his symptoms until today. He denies any alcohol or drug use. States he has been taking his medications as prescribed. Denies any suicidal or homicidal ideations. States that he does vape and smoke (Phuc Nash) - Related Data Home Medications Medication Instructions Recorded Confirmed Cholecalciferol (Vitamin D3) 125 mcg PO DAILY@0800 08/19/22 08/20/22 [Vitamin D3 (125 MCG = 5,000 IU)] [place] Carbonate 600 mg PO HS@209908/19/22 08/20/22 Paliperidone [Invega] 1.5 mg PO DAILY@79908/19/22 08/20/22 Paliperidone [Invega] 9 mg PO HS@209908/19/22 08/20/22 Sertraline [Zoloft] 50 mg PO DAILY@79908/19/22 08/20/22 buPROPion SR [Wellbutrin SR] 100 mg PO DAILY@79908/19/22 08/20/22 hydrOXYzine HCL [Atarax] 25 mg PO TID PRN 08/19/22 08/20/22 traZODone HCL 100 mg PO HS@209908/19/22 08/20/22 Previous Rx's Medication Instructions Recorded LORazepam [Ativan] 2 mg PO TID 3 Days #9 tab 08/19/22 haloperidoL [Haldol] 5 mg PO TID #9 tablet 08/19/22 Allergies Allergy/AdvReac Type Severity Reaction Status Date / Time dog dander AdvReac Dyspnea Verified 08/20/22 07:29 Review of Systems ROS Other: All systems not noted in ROS Statement are negative. <Phuc Nash - Last Filed: 09/11/22 03:08> ROS Other: All systems not noted in ROS Statement are negative. <Yves Payne - Last Filed: 09/12/22 22:48> ROS Statement: Those systems with pertinent positive or pertinent negative responses have been documented in the HPI. Past Medical History Past Medical History: GERD/Reflux Additional Past Medical History / Comment(s): Pt recently discharged from [facility] for suicidal ideation[facility]. History of Any Multi-Drug Resistant Organisms: None Reported Past Surgical History: No Surgical Hx Reported Additional Past Surgical History / Comment(s): [place] teeth extraction with anesthesia. Past Anesthesia/Blood Transfusion Reactions: No Reported Reaction Past Psychological History: ADD/ADHD, Anxiety, Depression Past Alcohol Use History: None Reported Past Drug Use History: Cocaine, IV Drug Use, Marijuana, Methamphetamine, Opiates - Past Family History Father Family Medical History: No Reported History Additional Family Medical History / Comment(s): Pt states his dad is healthy-"I guess". Mother Family Medical History: No Reported History Additional Family Medical History / Comment(s): Pt states his mother is healthy- "I guess." <Phuc Nash - Last Filed: 09/11/22 03:08> General Exam Limitations: no limitations General appearance: alert, in no apparent distress Head exam: Present: atraumatic Eye exam: Present: normal appearance, EOMI. Absent: scleral icterus, conjunctival injection, periorbital swelling, periorbital tenderness ENT exam: Present: mucous membranes moist Neck exam: Absent: meningismus Respiratory exam: Absent: respiratory distress, accessory muscle use Cardiovascular Exam: Present: regular rate GI/Abdominal exam: Present: soft Extremities exam: Present: normal capillary refill Neurological exam: Present: alert, oriented X3, normal gait Psychiatric exam: Present: normal affect, normal mood Skin exam: Present: warm, dry, normal color. Absent: cyanosis, diaphoretic, petechiae, pallor <Phuc Nash - Last Filed: 09/11/22 03:08> Course Vital Signs 09/10/22 22:44 Temperature 98.6 F Pulse Rate 88 Respiratory 20 Rate Blood Pressure 175/95 O2 Sat by Pulse 96 Oximetry Medical Decision Making <Phuc Nash - Last Filed: 09/11/22 03:08> - Medical Decision Making Patient presents increased anxiety and depression. Denies any suicidal or homicidal ideations. He denies any physical complaints. No fevers, no nausea vomiting or diarrhea. Denies any pain. EPS nurse Leann did speak with patient and states that this is his anxiety and he is not a risk to himself. He was last hospitalized inpatient for mental health on August 20. He was encouraged to follow up with [facility]. Continue his previous prescribed medications. Patient agreeable to discharge. He does want to go to the care home. Case discussed with Dr. Payne Was pt. sent in by a medical professional or institution (, PA, HORN PLAYER, urgent care, hospital, or long term...) When possible be specific @ -No Did you speak to anyone other than the patient for history (EMS, parent, family, police, friend...)? What history was obtained from this source @ -No Did you review nursing and triage notes (agree or disagree)? Why? @ -I reviewed and agree with nursing and triage notes Were old charts reviewed (outside hosp., previous admission, EMS record, old EKG, old radiological studies, urgent care reports/EKG's, long term records)? Report findings @ -No old charts were reviewed Differential Diagnosis (chest pain, altered mental status, abdominal pain women, abdominal pain men, vaginal bleeding, weakness, fever, dyspnea, syncope, headache, dizziness, GI bleed, back pain, seizure, CVA, palpatations, mental health, musculoskeletal)? @ -Differential Mental Health Depression, anxiety, bipolar, psychosis, schizophrenia, borderline personality, situational depression, adjustment disorder, behavioral disorder, brain tumor, malingering, substance abuse, encephalopathy, medication reaction, dementia, hypothyroidism, degenerative neurologic disorder, lupus.... This is not meant to be all-inclusive list EKG interpreted by me (3pts min.). @ -n/a X-rays interpreted by me (1pt min.). @ -None done CT interpreted by me (1pt min.). @ -None done U/S interpreted by me (1pt. min.). @ -None done What testing was considered but not performed or refused? (CT, X-rays, U/S, labs)? Why? @ -None What meds were considered but not given or refused? Why? @ -Antipsychotics were considered however patient is not currently manic and is calm and cooperative. Did you discuss the management of the patient with other professionals (professionals i.e. , PA, HORN PLAYER, lab, RT, psych nurse, healthcare social worker, punch machine operator, teacher, customer service security officer, lining caser)? Give summary @ -Leann EPS nurse Was smoking cessation discussed for >3mins.? @ -Yes Was critical care preformed (if so, how long)? @ -No Were there social determinants of health that impacted care today? How? (Homelessness, low income, unemployed, alcoholism, drug addiction, transportation, low edu. Level, literacy, decrease access to med. care, senior living, rehab)? @ -No Was there de-escalation of care discussed even if they declined (Discuss DNR or withdrawal of care, Hospice)? DNR status @ -No What co-morbidities impacted this encounter? (DM, HTN, Smoking, COPD, CAD, Cancer, CVA, ARF, Chemo, Hep., AIDS, mental health diagnosis, sleep apnea, morbid obesity)? @ -Anxiety, bipolar, depression Was patient admitted / discharged? Hospital course, mention meds given and route, prescriptions, significant lab abnormalities, going to OR and other pertinent info. @ -Discharged Undiagnosed new problem with uncertain prognosis? @ -No Drug Therapy requiring intensive monitoring for toxicity (Heparin, Nitro, Insulin, Cardizem)? @ -No Were any procedures done? @ -No Diagnosis/symptom? @ -Anxiety, depression Acute, or Chronic, or Acute on Chronic? @ -Acute on chronic Uncomplicated (without systemic symptoms) or Complicated (systemic symptoms)? @ -Uncomplicated Side effects of treatment? @ -No Exacerbation, Progression, or Severe Exacerbation? @ -No Poses a threat to life or bodily function? How? (Chest pain, USA, [place], pneumonia, PE, COPD, DKA, ARF, appy, cholecystitis, CVA, Diverticulitis, Homicidal, Suicidal, threat to staff... and all critical care pts) @ -No (Phuc Nash) Disposition Is patient prescribed a controlled substance at d/c from ED?: No Time of Disposition: 01:34 <Phuc Nash - Last Filed: 09/11/22 03:08> <Yves Payne - Last Filed: 09/12/22 22:48> Clinical Impression: Personality disorder, Acute anxiety Disposition: HOME SELF-CARE Condition: Good Instructions (If sedation given, give patient instructions): Mood Disorders (ED), Generalized Anxiety Disorder (ED) Additional Instructions: Continue taking your previously prescribed medications and follow up with community mental health. Referrals: None,Stated [REFERRING] - 1-2 days
== END 2022-09-11 01:58 | disposition home or self-care (01) ==
LOC: EC 22:40
DX: F60.9 Personality disorder, unspecified (principal); F41.9 Anxiety disorder, unspecified; F14.10 Cocaine abuse, uncomplicated; F12.90 Cannabis use, unspecified, uncomplicated; F11.90 Opioid use, unspecified, uncomplicated; F15.10 Other stimulant abuse, uncomplicated; F17.290 Nicotine dependence, other tobacco product, uncomplicated; F90.9 Attention-deficit hyperactivity disorder, unspecified type; F32.A Depression, unspecified; Z88.8 Allergy status to other drugs, medicaments and biological substances
CPT/HCPCS: 99284

== ENCOUNTER 2022-11-27 18:15 | Emergency (ER) | payer MEDICAID, OTHER ==
[2022-11-27 19:16] VITALS: BP 115/83; PULSE 94; RESP 18; TEMP 99.2
--- NOTE | 2022-11-27 19:28 | ED ---
General Adult HPI - General Chief complaint: Psychiatric Symptoms Stated complaint: mental health Time Seen by Provider: 11/27/22 19:17 Source: patient, RN notes reviewed Mode of arrival: ambulatory Limitations: no limitations - History of Present Illness Initial comments: Patient is a pleasant 22-year-old male presenting to the emergency room with concerns with depression and suicidal thoughts. Patient has multiple mental health problems. Patient still takes his medications. Patient has felt more depressed last few days with suicidal thoughts and plan. Patient does not want assure the plan. No homicidal thoughts. No physical complaints. No hallucinations. No alcohol or street drug use - Related Data Home Medications Medication Instructions Recorded Confirmed Cholecalciferol (Vitamin D3) 125 mcg PO DAILY@0800 08/19/22 08/20/22 [Vitamin D3 (125 MCG = 5,000 IU)] [place] Carbonate 600 mg PO HS@209908/19/22 08/20/22 Paliperidone [Invega] 1.5 mg PO DAILY@79908/19/22 08/20/22 Paliperidone [Invega] 9 mg PO HS@209908/19/22 08/20/22 Sertraline [Zoloft] 50 mg PO DAILY@00 08/19/22 08/20/22 buPROPion SR [Wellbutrin SR] 100 mg PO DAILY@79908/19/22 08/20/22 hydrOXYzine HCL [Atarax] 25 mg PO TID PRN 08/19/22 08/20/22 traZODone HCL 100 mg PO HS@209908/19/22 08/20/22 Previous Rx's Medication Instructions Recorded LORazepam [Ativan] 2 mg PO TID 3 Days #9 tab 08/19/22 haloperidoL [Haldol] 5 mg PO TID #9 tablet 08/19/22 Allergies Allergy/AdvReac Type Severity Reaction Status Date / Time dog dander AdvReac Dyspnea Verified 11/27/22 19:16 Review of Systems ROS Statement: Those systems with pertinent positive or pertinent negative responses have been documented in the HPI. ROS Other: All systems not noted in ROS Statement are negative. Constitutional: Denies: fever Eyes: Denies: eye pain ENT: Denies: ear pain Respiratory: Denies: cough Cardiovascular: Denies: chest pain Endocrine: Denies: fatigue Gastrointestinal: Denies: abdominal pain Genitourinary: Denies: dysuria Psychiatric: Reports: anxiety, depression, suicidal thoughts Past Medical History Past Medical History: GERD/Reflux Additional Past Medical History / Comment(s): Pt recently discharged from [facility] for suicidal ideation, suicide percautions in [facility] from [facility]. History of Any Multi-Drug Resistant Organisms: None Reported Past Surgical History: No Surgical Hx Reported Additional Past Surgical History / Comment(s): [place] teeth extraction with anesthesia. Past Anesthesia/Blood Transfusion Reactions: No Reported Reaction Past Psychological History: ADD/ADHD, Anxiety, Depression Smoking Status: Current every day smoker Past Alcohol Use History: None Reported Past Drug Use History: Cocaine, IV Drug Use, Marijuana, Methamphetamine, Opiates - Past Family History Father Family Medical History: No Reported History Additional Family Medical History / Comment(s): Pt states his dad is healthy-"I guess". Mother Family Medical History: No Reported History Additional Family Medical History / Comment(s): Pt states his mother is healthy- "I guess." General Exam Limitations: no limitations General appearance: alert, in no apparent distress Head exam: Present: normocephalic Eye exam: Present: normal appearance Neck exam: Present: normal inspection Respiratory exam: Present: normal lung sounds bilaterally Cardiovascular Exam: Present: regular rate, normal rhythm GI/Abdominal exam: Present: soft. Absent: tenderness Extremities exam: Present: normal inspection Neurological exam: Present: alert Psychiatric exam: Present: flat affect Skin exam: Present: normal color Course Vital Signs 11/27/22 19:14 Temperature 99.2 F Pulse Rate 94 Respiratory 18 Rate Blood Pressure 115/83 O2 Sat by Pulse 97 Oximetry Medical Decision Making - Medical Decision Making Was pt. sent in by a medical professional or institution (, PA, MANAGER SAS, urgent care, hospital, or detention...) When possible be specific @ -No Did you speak to anyone other than the patient for history (EMS, parent, family, police, friend...)? What history was obtained from this source @ -No Did you review nursing and triage notes (agree or disagree)? Why? @ -I reviewed and agree with nursing and triage notes Were old charts reviewed (outside hosp., previous admission, EMS record, old EKG, old radiological studies, urgent care reports/EKG's, detention records)? Report findings @ -No old charts were reviewed Differential Diagnosis (chest pain, altered mental status, abdominal pain women, abdominal pain men, vaginal bleeding, weakness, fever, dyspnea, syncope, headache, dizziness, GI bleed, back pain, seizure, CVA, palpatations, mental health, musculoskeletal)? @ -Differential Mental Health Depression, anxiety, bipolar, psychosis, schizophrenia, borderline personality, situational depression, adjustment disorder, behavioral disorder, brain tumor, malingering, substance abuse, encephalopathy, medication reaction, dementia, hypothyroidism, degenerative neurologic disorder, lupus.... This is not meant to be all-inclusive list EKG interpreted by me (3pts min.). @ -As above X-rays interpreted by me (1pt min.). @ -None done CT interpreted by me (1pt min.). @ -None done U/S interpreted by me (1pt. min.). @ -None done What testing was considered but not performed or refused? (CT, X-rays, U/S, labs)? Why? @ -None What meds were considered but not given or refused? Why? @ -None Did you discuss the management of the patient with other professionals (asmita pollard i.e. , PA, MANAGER SAS, lab, RT, psych nurse, public health social worker, sifting operator, teacher, neighborhood conservation officer, bottle caser)? Give summary @ -Case was discussed with psychiatric nurse with plans for admission or transfer Was smoking cessation discussed for >3mins.? @ -No Was critical care preformed (if so, how long)? @ -No Were there social determinants of health that impacted care today? How? (Homelessness, low income, unemployed, alcoholism, drug addiction, transportation, low edu. Level, literacy, decrease access to med. care, care home, rehab)? @ -No Was there de-escalation of care discussed even if they declined (Discuss DNR or withdrawal of care, Hospice)? DNR status @ -No What co-morbidities impacted this encounter? (DM, HTN, Smoking, COPD, CAD, Cancer, CVA, ARF, Chemo, Hep., AIDS, mental health diagnosis, sleep apnea, morbid obesity)? @ -None Was patient admitted / discharged? Hospital course, mention meds given and route, prescriptions, significant lab abnormalities, going to OR and other pertinent info. @ -Patient presents with depression and suicidal ideation with plan. Patient will be transferred for psychiatric care. Positive clinical certificate is completed. Undiagnosed new problem with uncertain prognosis? @ -No Drug Therapy requiring intensive monitoring for toxicity (Heparin, Nitro, Insulin, Cardizem)? @ -[No] Were any procedures done? @ -[No] Diagnosis/symptom? @ -Depression, suicidal ideation Acute, or Chronic, or Acute on Chronic? @ -Acute on chronic, acute on chronic Uncomplicated (without systemic symptoms) or Complicated (systemic symptoms)? @ -[default] Side effects of treatment? @ -[No] Exacerbation, Progression, or Severe Exacerbation? @ -[No] Poses a threat to life or bodily function? How? (Chest pain, USA, [place], pneumonia, PE, COPD, DKA, ARF, appy, cholecystitis, CVA, Diverticulitis, Homicidal, Suicidal, threat to staff... and all critical care pts) @ -[No] - Lab Data Lab Results 11/27/22 Range/Units 19:40 Urine Opiates Screen Not Detected (NotDetected) Ur Oxycodone Screen Not Detected (NotDetected) Urine Methadone Screen Not Detected (NotDetected) Ur Propoxyphene Screen Not Detected (NotDetected) Ur Barbiturates Screen Not Detected (NotDetected) U Tricyclic Antidepress Not Detected (NotDetected) Ur Phencyclidine Scrn Not Detected (NotDetected) Ur Amphetamines Screen Not Detected (NotDetected) U Methamphetamines Scrn Not Detected (NotDetected) U Benzodiazepines Scrn Detected H (NotDetected) Urine Cocaine Screen Not Detected (NotDetected) U Marijuana (THC) Screen Not Detected (NotDetected) Disposition Clinical Impression: Suicidal ideation, Depression Disposition: TRANSFER TO PSYCH HOSP/UNIT Is patient prescribed a controlled substance at d/c from ED?: No Referrals: [facility] [Primary Care Provider] - 1-2 days Time of Disposition: 22:23
[2022-11-27 20:24] LABS: Amphetamine Screen,Urine Not Detected (NotDetected); Barbiturate Screen,Urine Not Detected (NotDetected); Benzodiazepines Screen,Urine Detected (NotDetected); Cocaine Screen,Urine Not Detected (NotDetected); Methadone Screen, Urine Not Detected (NotDetected); Opiate Screen,Urine Not Detected (NotDetected); Oxycodone Screen, Urine Not Detected (NotDetected); Phencyclidine Screen,Urine Not Detected (NotDetected); Tricyclic Antidepressant,Urine Not Detected (NotDetected); Urn Cannabinoid Scrn Not Detected (NotDetected)
[2022-11-27] MEDS ORDERED: NICOTINE 21MG/24HR PATCH TRANSDERM STA (21:24)
[2022-11-28 00:18] LABS: Appearance,Urine Clear (Clear); Bilirubin,Urine Negative (Negative); Blood,Urine Negative (Negative); Color,Urine Yellow; Glucose,Urine (UA) Negative (Negative); Ketones,Urine Negative (Negative); Leukocyte Esterase,Urine Negative (Negative); Nitrite,Urine Negative (Negative); PH, Urine 5.5 (5.0-8.0); Protein,Urine Trace (Negative); Specific Gravity,Urine 1.024 (1.001-1.035); Urobilinogen,Urine <2.0 mg/dL (<2.0)
[2022-11-28] MEDS ORDERED: hydrOXYzine HCL 25 MG TAB PO PRN (00:18)
[2022-11-28] MEDS ORDERED: LORazepam 1 MG TAB PO PRN (00:22)
[2022-11-28] MEDS ORDERED: PALIPERIDONE 3 MG TAB.ER.24 PO SCH (00:30)
[2022-11-28] MEDS ORDERED: haloperidoL 5 MG TAB PO SCH (00:30)
[2022-11-28] MEDS ORDERED: traZODone HCL 100 MG TAB PO SCH (00:30)
[2022-11-28] MEDS ORDERED: LITHIUM CARBONATE 300 MG CAP PO SCH (00:30)
[2022-11-28] MEDS ORDERED: NICOTINE 21MG/24HR PATCH TRANSDERM STA (01:04)
[2022-11-28 02:32] LABS: Basophils % (A) 0 %; Eosinophils # (A) 0.4 k/uL (0-0.7); Eosinophils % (A) 3 %; HCT 46.2 % (39.0-53.0); HGB 14.6 gm/dL (13.0-17.5); Lymphocytes # (A) 3.2 k/uL (1.0-4.8); Lymphocytes % (A) 25 %; MCH 28.6 pg (25.0-35.0); MCHC 31.6 g/dL (31.0-37.0); MCV 90.3 fL (80.0-100.0); Mean Platelet Volume 7.3; Monocytes # (A) 0.7 k/uL (0-1.0); Monocytes % (A) 6 %; Neutrophils # (A) 8.3 k/uL (1.3-7.7); Neutrophils % (A) 65 %; Platelet Count 357 k/uL (150-450); RBC 5.12 m/uL (4.30-5.90); RDW 13.5 % (11.5-15.5); WBC 12.9 k/uL (3.8-10.6)
[2022-11-28 02:34] LABS: African American GFR (CKD) >90 (>60 ml/min/1.73 sqM); Anion Gap 8 mmol/L; Blood Urea Nitrogen 10 mg/dL (9-20); Calcium 8.8 mg/dL (8.4-10.2); Carbon Dioxide 23 mmol/L (22-30); Chloride 104 mmol/L (98-107); Glucose 95 mg/dL (74-99); Non-African American GFR(CKD) >90 (>60 ml/min/1.73 sqM); Potassium 4.3 mmol/L (3.5-5.1); Sodium 135 mmol/L (137-145)
--- NOTE | 2022-11-28 06:56 | ED ---
Medical Decision Making - Medical Decision Making Patient was pending psychiatric transfer. I was notified by [facility] patient was accepted to [facility]. Accepting physician is Dr. James. Patient will be transferred at approximately 8 AM 11/28/2022. - Lab Data Result diagrams: 11/27/22 01:45 11/27/22 01:45 Lab Results 11/27/22 11/27/22 11/27/22 Range/Units 01:45 01:45 01:51 WBC 12.9 H (3.8-10.6) k/uL RBC 5.12 (4.30-5.90) m/uL Hgb 14.6 (13.0-17.5) gm/dL Hct 46.2 (39.0-53.0) % MCV 90.3 (80.0-100.0) fL MCH 28.6 (25.0-35.0) pg MCHC 31.6 (31.0-37.0) g/dL RDW 13.5 (11.5-15.5) % Plt Count 357 (150-450) k/uL MPV 7.3 Neutrophils % 65 % Lymphocytes % 25 % Monocytes % 6 % Eosinophils % 3 % Basophils % 0 % Neutrophils # 8.3 H (1.3-7.7) k/uL Lymphocytes # 3.2 (1.0-4.8) k/uL Monocytes # 0.7 (0-1.0) k/uL Eosinophils # 0.4 (0-0.7) k/uL Basophils # 0.0 (0-0.2) k/uL Sodium 135 L (137-145) mmol/L Potassium 4.3 (3.5-5.1) mmol/L Chloride 104 (98-107) mmol/L Carbon Dioxide 23 (22-30) mmol/L Anion Gap 8 mmol/L BUN 10 (9-20) mg/dL Creatinine 0.85 (0.66-1.25) mg/dL Est GFR (CKD-EPI)AfAm >90 (>60 ml/min/1.73 sqM) Est GFR (CKD-EPI)NonAf >90 (>60 ml/min/1.73 sqM) Glucose 95 (74-99) mg/dL Calcium 8.8 (8.4-10.2) mg/dL Urine Color Urine Appearance (Clear) Urine pH (5.0-8.0) Ur Specific [place] (1.001-1.035) Urine Protein (Negative) Urine Glucose (UA) (Negative) Urine Ketones (Negative) Urine Blood (Negative) Urine Nitrite (Negative) Urine Bilirubin (Negative) Urine Urobilinogen (<2.0) mg/dL Ur Leukocyte Esterase (Negative) Urine Opiates Screen (NotDetected) Ur Oxycodone Screen (NotDetected) Urine Methadone Screen (NotDetected) Ur Propoxyphene Screen (NotDetected) Ur Barbiturates Screen (NotDetected) U Tricyclic Antidepress (NotDetected) Ur Phencyclidine Scrn (NotDetected) Ur Amphetamines Screen (NotDetected) U Methamphetamines Scrn (NotDetected) U Benzodiazepines Scrn (NotDetected) Urine Cocaine Screen (NotDetected) U Marijuana (THC) Screen (NotDetected) Coronavirus (PCR) Not Detected (Not Detectd) 11/27/22 11/27/22 Range/Units 19:40 19:40 WBC (3.8-10.6) k/uL RBC (4.30-5.90) m/uL Hgb (13.0-17.5) gm/dL Hct (39.0-53.0) % MCV (80.0-100.0) fL MCH (25.0-35.0) pg MCHC (31.0-37.0) g/dL RDW (11.5-15.5) % Plt Count (150-450) k/uL MPV Neutrophils % % Lymphocytes % % Monocytes % % Eosinophils % % Basophils % % Neutrophils # (1.3-7.7) k/uL Lymphocytes # (1.0-4.8) k/uL Monocytes # (0-1.0) k/uL Eosinophils # (0-0.7) k/uL Basophils # (0-0.2) k/uL Sodium (137-145) mmol/L Potassium (3.5-5.1) mmol/L Chloride (98-107) mmol/L Carbon Dioxide (22-30) mmol/L Anion Gap mmol/L BUN (9-20) mg/dL Creatinine (0.66-1.25) mg/dL Est GFR (CKD-EPI)AfAm (>60 ml/min/1.73 sqM) Est GFR (CKD-EPI)NonAf (>60 ml/min/1.73 sqM) Glucose (74-99) mg/dL Calcium (8.4-10.2) mg/dL Urine Color Yellow Urine Appearance Clear (Clear) Urine pH 5.5 (5.0-8.0) Ur Specific [place] 1.024 (1.001-1.035) Urine Protein Trace H (Negative) Urine Glucose (UA) Negative (Negative) Urine Ketones Negative (Negative) Urine Blood Negative (Negative) Urine Nitrite Negative (Negative) Urine Bilirubin Negative (Negative) Urine Urobilinogen <2.0 (<2.0) mg/dL Ur Leukocyte Esterase Negative (Negative) Urine Opiates Screen Not Detected (NotDetected) Ur Oxycodone Screen Not Detected (NotDetected) Urine Methadone Screen Not Detected (NotDetected) Ur Propoxyphene Screen Not Detected (NotDetected) Ur Barbiturates Screen Not Detected (NotDetected) U Tricyclic Antidepress Not Detected (NotDetected) Ur Phencyclidine Scrn Not Detected (NotDetected) Ur Amphetamines Screen Not Detected (NotDetected) U Methamphetamines Scrn Not Detected (NotDetected) U Benzodiazepines Scrn Detected H (NotDetected) Urine Cocaine Screen Not Detected (NotDetected) U Marijuana (THC) Screen Not Detected (NotDetected) Coronavirus (PCR) (Not Detectd) Disposition Clinical Impression: Suicidal ideation, Depression Disposition: TRANSFER TO PSYCH HOSP/UNIT Condition: Stable Referrals: [facility] [Primary Care Provider] - 1-2 days
[2022-11-28] MEDS ORDERED: buPROPion SR 100 MG TABLET.ER PO SCH (09:00)
[2022-11-28] MEDS ORDERED: LORATADINE 10 MG TAB PO SCH (09:00)
[2022-11-28] MEDS ORDERED: CHOLECALCIFEROL 125 MCG (5000 IU) TABLET PO SCH (09:00)
[2022-11-28] MEDS ORDERED: SERTRALINE 50 MG TAB PO SCH (09:00)
== END 2022-11-28 08:26 ==
LOC: EC 18:15
DX: F32.A Depression, unspecified (principal); R45.851 Suicidal ideations; F41.9 Anxiety disorder, unspecified; K21.9 Gastro-esophageal reflux disease without esophagitis; F17.200 Nicotine dependence, unspecified, uncomplicated; F11.90 Opioid use, unspecified, uncomplicated; F12.90 Cannabis use, unspecified, uncomplicated; F14.90 Cocaine use, unspecified, uncomplicated; F15.90 Other stimulant use, unspecified, uncomplicated; Z79.899 Other long term (current) drug therapy; Z91.09 Other allergy status, other than to drugs and biological substances
CPT/HCPCS: 82075; 36415; 80048; 85025; 81003; 80306; 87635; 99285; S4990 ×2

== ENCOUNTER 2023-01-25 20:10 | Emergency (ER) | payer MEDICARE, OTHER ==
[2023-01-25 20:19] VITALS: RESP 18
--- NOTE | 2023-01-25 21:03 | ED ---
Psych HPI - General Chief Complaint: Psychiatric Symptoms Stated Complaint: Petitioned Time Seen by Provider: 01/25/23 21:02 Source: patient, police, RN notes reviewed, old records reviewed Mode of arrival: ambulatory Limitations: no limitations - History of Present Illness Initial Comments: This is a 22-year-old male to the emergency department stay. for evaluation today. Patient presents was for evaluation of psychiatric illness. Patient was petition for psychiatric evaluation and treatment MD Complaint: suicidal ideation, feels depressed -: unknown Associated Psychiatric Symptoms: depression, suicidal ideation History of same: Yes Quality: constant, getting worse Improves With: none Context: significant life stressor Associated Symptoms: denies other symptoms Treatments Prior to Arrival: placed on mental health hold - Related Data Home Medications Medication Instructions Recorded Confirmed Cholecalciferol (Vitamin D3) 125 mcg PO DAILY 08/19/22 11/27/22 [Vitamin D3 (125 MCG = 5,000 IU)] [place] Carbonate 600 mg PO HS 08/19/22 11/27/22 Paliperidone [Invega] 9 mg PO HS 08/19/22 11/27/22 Sertraline [Zoloft] 50 mg PO DAILY 08/19/22 11/27/22 buPROPion SR [Wellbutrin SR] 100 mg PO DAILY 08/19/22 11/27/22 hydrOXYzine HCL [Atarax] 25 mg PO TID PRN 08/19/22 11/27/22 traZODone HCL 100 mg PO HS 08/19/22 11/27/22 LORazepam [Ativan] 2 mg PO HS PRN 11/27/22 11/27/22 Loratadine [Claritin] 10 mg PO DAILY 11/27/22 11/27/22 haloperidoL [Haldol] 10 mg PO HS 11/27/22 11/27/22 Allergies Allergy/AdvReac Type Severity Reaction Status Date / Time dog dander AdvReac Dyspnea Verified 01/25/23 20:18 Review of Systems ROS Statement: Those systems with pertinent positive or pertinent negative responses have been documented in the HPI. ROS Other: All systems not noted in ROS Statement are negative. Past Medical History Past Medical History: GERD/Reflux Additional Past Medical History / Comment(s): Pt recently discharged from [facility] for suicidal ideation, suicide percautions in place from [facility],[place] [place]. History of Any Multi-Drug Resistant Organisms: None Reported Past Surgical History: No Surgical Hx Reported Additional Past Surgical History / Comment(s): [place] teeth extraction with anesthesia. Past Anesthesia/Blood Transfusion Reactions: No Reported Reaction Past Psychological History: ADD/ADHD, Anxiety, Depression Smoking Status: Current every day smoker Past Alcohol Use History: None Reported Past Drug Use History: Cocaine, IV Drug Use, Marijuana, Methamphetamine, Opiates - Past Family History Father Family Medical History: No Reported History Additional Family Medical History / Comment(s): Pt states his dad is healthy-"I guess". Mother Family Medical History: No Reported History Additional Family Medical History / Comment(s): Pt states his mother is healthy- "I guess." General Exam Limitations: no limitations General appearance: alert, in no apparent distress Head exam: Present: atraumatic, normocephalic, normal inspection Eye exam: Present: normal appearance, PERRL, EOMI. Absent: scleral icterus, c onjunctival injection, periorbital swelling ENT exam: Present: normal exam, mucous membranes moist Neck exam: Present: normal inspection. Absent: tenderness, meningismus, lymphadenopathy Respiratory exam: Present: normal lung sounds bilaterally. Absent: respiratory distress, wheezes, rales, rhonchi, stridor Cardiovascular Exam: Present: regular rate, normal rhythm, normal heart sounds. Absent: systolic murmur, diastolic murmur, rubs, gallop, clicks GI/Abdominal exam: Present: soft, normal bowel sounds. Absent: distended, tenderness, guarding, rebound, rigid Extremities exam: Present: normal inspection, full ROM, normal capillary refill. Absent: tenderness, pedal edema, joint swelling, calf tenderness Back exam: Present: normal inspection Neurological exam: Present: alert, oriented X3, CN II-XII intact Psychiatric exam: Present: normal affect, normal mood Skin exam: Present: warm, dry, intact, normal color. Absent: rash Course Vital Signs 01/25/23 01/26/23 20:13 12:03 Temperature 98.3 F 97.8 F Pulse Rate 92 79 Respiratory 18 18 Rate Blood Pressure 122/73 129/84 O2 Sat by Pulse 99 98 Oximetry - Reevaluation(s) Reevaluation #1: 01/25/23 22:51 Medical records reviewed Reevaluation #2: 09/08/23 22:51 Medically clear for psychiatric evaluation Medical Decision Making - Medical Decision Making 22 male to the ER stay for psychiatric evaluation patient seen and evaluated here in the ER is will be transferred inpatient psychiatric evaluation and treatment - Lab Data Result diagrams: 01/25/23 22:59 01/25/23 22:59 Lab Results 01/25/23 01/25/23 01/25/23 Range/Units 21:50 22:59 22:59 WBC 11.9 H (3.8-10.6) k/uL RBC 5.60 (4.30-5.90) m/uL Hgb 16.2 (13.0-17.5) gm/dL Hct 50.0 (39.0-53.0) % MCV 89.2 (80.0-100.0) fL MCH 29.0 (25.0-35.0) pg MCHC 32.5 (31.0-37.0) g/dL RDW 13.1 (11.5-15.5) % Plt Count 357 (150-450) k/uL MPV 7.2 Neutrophils % 69 % Lymphocytes % 22 % Monocytes % 5 % Eosinophils % 2 % Basophils % 0 % Neutrophils # 8.3 H (1.3-7.7) k/uL Lymphocytes # 2.6 (1.0-4.8) k/uL Monocytes # 0.6 (0-1.0) k/uL Eosinophils # 0.3 (0-0.7) k/uL Basophils # 0.0 (0-0.2) k/uL Sodium (137-145) mmol/L Potassium (3.5-5.1) mmol/L Chloride (98-107) mmol/L Carbon Dioxide (22-30) mmol/L Anion Gap mmol/L BUN (9-20) mg/dL Creatinine (0.66-1.25) mg/dL Est GFR (CKD-EPI)AfAm (>60 ml/min/1.73 sqM) Est GFR (CKD-EPI)NonAf (>60 ml/min/1.73 sqM) Glucose (74-99) mg/dL Calcium (8.4-10.2) mg/dL Total Bilirubin (0.2-1.3) mg/dL AST (17-59) U/L ALT (4-49) U/L Alkaline Phosphatase (38-126) U/L Total Protein (6.3-8.2) g/dL Albumin (3.5-5.0) g/dL Urine Color Light Brown Urine Appearance Turbid (Clear) Urine pH 5.5 (5.0-8.0) Ur Specific [place] 1.028 (1.001-1.035) Urine Protein Trace H (Negative) Urine Glucose (UA) Negative (Negative) Urine Ketones Negative (Negative) Urine Blood Negative (Negative) Urine Nitrite Negative (Negative) Urine Bilirubin Negative (Negative) Urine Urobilinogen <2.0 (<2.0) mg/dL Ur Leukocyte Esterase Negative (Negative) Urine WBC 5 (0-5) /hpf Amorphous Sediment Many H (None) /hpf Urine Mucus Many H (None) /hpf Urine Opiates Screen Not Detected (NotDetected) Ur Oxycodone Screen Not Detected (NotDetected) Urine Methadone Screen Not Detected (NotDetected) Ur Propoxyphene Screen Not Detected (NotDetected) Ur Barbiturates Screen Not Detected (NotDetected) U Tricyclic Antidepress Detected H (NotDetected) Ur Phencyclidine Scrn Not Detected (NotDetected) Ur Amphetamines Screen Not Detected (NotDetected) U Methamphetamines Scrn Not Detected (NotDetected) U Benzodiazepines Scrn Not Detected (NotDetected) Urine Cocaine Screen Not Detected (NotDetected) U Marijuana (THC) Screen Not Detected (NotDetected) Coronavirus (PCR) Not Detected (Not Detectd) 01/25/23 Range/Units 22:59 WBC (3.8-10.6) k/uL RBC (4.30-5.90) m/uL Hgb (13.0-17.5) gm/dL Hct (39.0-53.0) % MCV (80.0-100.0) fL MCH (25.0-35.0) pg MCHC (31.0-37.0) g/dL RDW (11.5-15.5) % Plt Count (150-450) k/uL MPV Neutrophils % % Lymphocytes % % Monocytes % % Eosinophils % % Basophils % % Neutrophils # (1.3-7.7) k/uL Lymphocytes # (1.0-4.8) k/uL Monocytes # (0-1.0) k/uL Eosinophils # (0-0.7) k/uL Basophils # (0-0.2) k/uL Sodium 138 (137-145) mmol/L Potassium 4.3 (3.5-5.1) mmol/L Chloride 105 (98-107) mmol/L Carbon Dioxide 22 (22-30) mmol/L Anion Gap 11 mmol/L BUN 8 L (9-20) mg/dL Creatinine 0.79 (0.66-1.25) mg/dL Est GFR (CKD-EPI)AfAm >90 (>60 ml/min/1.73 sqM) Est GFR (CKD-EPI)NonAf >90 (>60 ml/min/1.73 sqM) Glucose 98 (74-99) mg/dL Calcium 9.7 (8.4-10.2) mg/dL Total Bilirubin 0.6 (0.2-1.3) mg/dL AST 38 (17-59) U/L ALT 49 (4-49) U/L Alkaline Phosphatase 110 (38-126) U/L Total Protein 7.9 (6.3-8.2) g/dL Albumin 4.6 (3.5-5.0) g/dL Urine Color Urine Appearance (Clear) Urine pH (5.0-8.0) Ur Specific [place] (1.001-1.035) Urine Protein (Negative) Urine Glucose (UA) (Negative) Urine Ketones (Negative) Urine Blood (Negative) Urine Nitrite (Negative) Urine Bilirubin (Negative) Urine Urobilinogen (<2.0) mg/dL Ur Leukocyte Esterase (Negative) Urine WBC (0-5) /hpf Amorphous Sediment (None) /hpf Urine Mucus (None) /hpf Urine Opiates Screen (NotDetected) Ur Oxycodone Screen (NotDetected) Urine Methadone Screen (NotDetected) Ur Propoxyphene Screen (NotDetected) Ur Barbiturates Screen (NotDetected) U Tricyclic Antidepress (NotDetected) Ur Phencyclidine Scrn (NotDetected) Ur Amphetamines Screen (NotDetected) U Methamphetamines Scrn (NotDetected) U Benzodiazepines Scrn (NotDetected) Urine Cocaine Screen (NotDetected) U Marijuana (THC) Screen (NotDetected) Coronavirus (PCR) (Not Detectd) Disposition Clinical Impression: Suicidal ideation, Psychoses, Acute anxiety Disposition: TRANSFER TO PSYCH HOSP/UNIT Condition: Fair Is patient prescribed a controlled substance at d/c from ED?: No Referrals: None,Stated [Primary Care Provider] - 1-2 days
[2023-01-25 23:27] LABS: ALT 49 U/L (4-49); AST 38 U/L (17-59); African American GFR (CKD) >90 (>60 ml/min/1.73 sqM); Albumin 4.6 g/dL (3.5-5.0); Alkaline Phosphatase 110 U/L (38-126); Anion Gap 11 mmol/L; Blood Urea Nitrogen 8 mg/dL (9-20); Calcium 9.7 mg/dL (8.4-10.2); Carbon Dioxide 22 mmol/L (22-30); Chloride 105 mmol/L (98-107); Glucose 98 mg/dL (74-99); Non-African American GFR(CKD) >90 (>60 ml/min/1.73 sqM); Potassium 4.3 mmol/L (3.5-5.1); Sodium 138 mmol/L (137-145); Total Bilirubin 0.6 mg/dL (0.2-1.3); Total Protein 7.9 g/dL (6.3-8.2)
[2023-01-25 23:30] LABS: Basophils % (A) 0 %; Eosinophils # (A) 0.3 k/uL (0-0.7); Eosinophils % (A) 2 %; HGB 16.2 gm/dL (13.0-17.5); Lymphocytes # (A) 2.6 k/uL (1.0-4.8); Lymphocytes % (A) 22 %; MCHC 32.5 g/dL (31.0-37.0); MCV 89.2 fL (80.0-100.0); Mean Platelet Volume 7.2; Monocytes # (A) 0.6 k/uL (0-1.0); Monocytes % (A) 5 %; Neutrophils # (A) 8.3 k/uL (1.3-7.7); Neutrophils % (A) 69 %; Platelet Count 357 k/uL (150-450); RDW 13.1 % (11.5-15.5); WBC 11.9 k/uL (3.8-10.6)
[2023-01-25 23:59] LABS: Amorphous Sediment,Urine Many /hpf; Appearance,Urine Turbid (Clear); Bilirubin,Urine Negative (Negative); Blood,Urine Negative (Negative); Color,Urine Light Brown; Glucose,Urine (UA) Negative (Negative); Ketones,Urine Negative (Negative); Leukocyte Esterase,Urine Negative (Negative); Mucus,Urine Many /hpf; Nitrite,Urine Negative (Negative); PH, Urine 5.5 (5.0-8.0); Protein,Urine Trace (Negative); Specific Gravity,Urine 1.028 (1.001-1.035); Urobilinogen,Urine <2.0 mg/dL (<2.0); WBC,Urine 5 /hpf (0-5)
[2023-01-26 00:06] LABS: Amphetamine Screen,Urine Not Detected (NotDetected); Barbiturate Screen,Urine Not Detected (NotDetected); Benzodiazepines Screen,Urine Not Detected (NotDetected); Cocaine Screen,Urine Not Detected (NotDetected); Methadone Screen, Urine Not Detected (NotDetected); Opiate Screen,Urine Not Detected (NotDetected); Oxycodone Screen, Urine Not Detected (NotDetected); Phencyclidine Screen,Urine Not Detected (NotDetected); Tricyclic Antidepressant,Urine Detected (NotDetected); Urn Cannabinoid Scrn Not Detected (NotDetected)
[2023-01-26 12:06] VITALS: BP 129/84; PULSE 79; TEMP 97.8
== END 2023-01-26 12:03 ==
LOC: EC 20:10
DX: F41.9 Anxiety disorder, unspecified (principal); R45.851 Suicidal ideations; F29 Unspecified psychosis not due to a substance or known physiological condition; F32.A Depression, unspecified; F90.9 Attention-deficit hyperactivity disorder, unspecified type; F17.200 Nicotine dependence, unspecified, uncomplicated; F12.90 Cannabis use, unspecified, uncomplicated; F14.90 Cocaine use, unspecified, uncomplicated; F15.90 Other stimulant use, unspecified, uncomplicated; Z79.899 Other long term (current) drug therapy; Z91.09 Other allergy status, other than to drugs and biological substances; Z20.822 Contact with and (suspected) exposure to COVID-19
CPT/HCPCS: 36415; 80053; 80306; 81001; 82075; 85025; 87635; 99285

== ENCOUNTER 2023-03-22 03:17 | Emergency (ER) | payer MEDICARE, OTHER ==
[2023-03-22 03:38] VITALS: RESP 18; TEMP 98.6
--- NOTE | 2023-03-22 03:39 | ED ---
General Adult HPI - General Source: patient Mode of arrival: ambulatory <Alek Torres - Last Filed: 03/22/23 07:01> <Yves Payne - Last Filed: 03/22/23 14:12> - General Chief complaint: Psychiatric Symptoms Stated complaint: Mental Health Time Seen by Provider: 03/22/23 03:22 - History of Present Illness Initial comments: Dictation was produced using [employer] dictation software. please excuse any grammatical, word or spelling errors. Chief Complaint: 23-year-old male presents to the ER for psychiatric evaluation History of Present Illness: 23-year-old male who has psychiatric history presents to the ER for psychiatric evaluation. Patient isn't illicit drug user states that he feels manic paranoid. Denies any suicidal or homicidal ideation. Denies any visual or auditory hallucinations. The ROS documented in this emergency department record has been reviewed and confirmed by me. Those systems with pertinent positive or negative responses have been documented in the HPI. All other systems are other negative and/or noncontributory. (Alek Torres) - Related Data Home Medications Medication Instructions Recorded Confirmed Paliperidone [Invega] 9 mg PO HS 08/19/22 03/22/23 [place] Carbonate ER [Lithobid] 450 mg PO HS 03/22/23 03/22/23 OXcarbazepine [Trileptal] 300 mg PO BID 03/22/23 03/22/23 Sertraline [Zoloft] 100 mg PO DAILY 03/22/23 03/22/23 chlorproMAZINE HCL [Thorazine] 50 mg PO DAILY 03/22/23 03/22/23 chlorproMAZINE [Thorazine] 100 mg PO HS 03/22/23 03/22/23 hydrOXYzine pamoate [Vistaril] 50 mg PO BID PRN 03/22/23 03/22/23 traZODone HCL [Desyrel] 50 mg PO HS PRN 03/22/23 03/22/23 Allergies Allergy/AdvReac Type Severity Reaction Status Date / Time dog dander AdvReac Dyspnea Verified 03/22/23 08:24 Review of Systems ROS Other: All systems not noted in ROS Statement are negative. <Alek Torres - Last Filed: 03/22/23 07:01> ROS Other: All systems not noted in ROS Statement are negative. <Yves Payne - Last Filed: 03/22/23 14:12> ROS Statement: Those systems with pertinent positive or pertinent negative responses have been documented in the HPI. Past Medical History Past Medical History: GERD/Reflux Additional Past Medical History / Comment(s): Pt recently discharged from [facility] for suicidal ideation, suicide percautions in place from [facility]. History of Any Multi-Drug Resistant Organisms: None Reported Past Surgical History: No Surgical Hx Reported Additional Past Surgical History / Comment(s): [place] teeth extraction with anesthesia. Past Anesthesia/Blood Transfusion Reactions: No Reported Reaction Past Psychological History: ADD/ADHD, Anxiety, Depression Smoking Status: Current every day smoker Past Alcohol Use History: None Reported Past Drug Use History: Cocaine, IV Drug Use, Marijuana, Methamphetamine, Opiates - Past Family History Father Family Medical History: No Reported History Additional Family Medical History / Comment(s): Pt states his dad is healthy-"I guess". Mother Family Medical History: No Reported History Additional Family Medical History / Comment(s): Pt states his mother is healthy- "I guess." <Alek Torres - Last Filed: 03/22/23 07:01> General Exam <Alek Torres - Last Filed: 03/22/23 07:01> - General Exam Comments Initial Comments: PHYSICAL EXAM: General Impression: Alert and oriented x3, not in acute distress HEENT: Normocephalic atraumatic, extra-ocular movements intact, pupils equal and reactive to light bilaterally, mucous membranes moist. Cardiovascular: Heart regular rate and rhythm Chest: Able to complete full sentences, no retractions, no tachypnea Musculoskeletal: no peripheral edema Motor: no focal deficits noted Neurological: CN II-XII grossly intact, no focal motor or sensory deficits noted Skin: Intact with no visualized rashes Psych: Tangential speech (Alek Torres) Course Vital Signs 03/22/23 03/22/23 03:21 06:20 Temperature 98.6 F 98.6 F Pulse Rate 99 84 Respiratory 18 18 Rate Blood Pressure 161/90 152/84 O2 Sat by Pulse 97 98 Oximetry Medical Decision Making <Alek Torres - Last Filed: 03/22/23 07:01> <Yves Payne - Last Filed: 03/22/23 14:12> - Medical Decision Making Was pt. sent in by a medical professional or institution ([facility] Forte, [facility]ST[facility]ICER, urgent care, hospital, or intermediate...) When possible be specific @ -No Did you speak to anyone other than the patient for history (EMS, parent, family, police, friend...)? What history was obtained from this source @ -No Did you review nursing and triage notes (agree or disagree)? Why? @ -I reviewed and agree with nursing and triage notes Were old charts reviewed (outside hosp., previous admission, EMS record, old EKG , old radiological studies, urgent care reports/EKG's, intermediate records)? Report findings @ -No old charts were reviewed Differential Diagnosis (chest pain, altered mental status, abdominal pain women, abdominal pain men, vaginal bleeding, musculoskeletal, weakness, fever, dyspnea, syncope, headache, dizziness, GI bleed, back pain, seizure, CVA, palpatations, mental health)? @ -Differential Mental Health: Depression, anxiety, bipolar, psychosis, schizophrenia, borderline personality, situational depression, adjustment disorder, behavioral disorder, brain tumor, malingering, substance abuse, encephalopathy, medication reaction, dementia, hypothyroidism, degenerative neurologic disorder, lupus.... This is not meant to be all-inclusive list EKG interpreted by me (3pts min.). @ -None done X-rays interpreted by me (1pt min.). @ -None done CT interpreted by me (1pt min.). @ -None done U/S interpreted by me (1pt. min.). @ -None done What testing was considered but not performed or refused? (CT, X-rays, U/S, labs)? Why? @ -None What meds were considered but not given or refused? Why? @ -None Did you discuss the management of the patient with other professionals (professionals i.e. LEONID Forte, [facility]YSTAL SLICER, lab, RT, psych nurse, director of social services, scalp specialist, teacher, customs and immigration officer, counter caser)? Give summary @ - discussed with the EPS Was smoking cessation discussed for >3mins.? @ -No Was critical care preformed (if so, how long)? @ -No Were there social determinants of health that impacted care today? How? (Homelessness, low income, unemployed, alcoholism, drug addiction, tra nsportation, low edu. Level, literacy, decrease access to med. care, residential, rehab)? @ -No Was there de-escalation of care discussed even if they declined (Discuss DNR or withdrawal of care, Hospice)? DNR status @ -No What co-morbidities impacted this encounter? (DM, HTN, Smoking, COPD, CAD, Cancer, CVA, ARF, Chemo, Hep., AIDS, mental health diagnosis, sleep apnea, morbid obesity)? @ -None Was patient admitted / discharged? Hospital course, mention meds given and route, prescriptions, significant lab abnormalities, going to OR and other pertinent info. @ -23-year-old male presents emergency department for psychiatric evaluation. Vital signs stable. Patient denies any medical complaints. Vital signs stable. Patient cleared by me for EPS evaluation at 3:30 AM. Patient care is signed out to oncoming physician at 7am Undiagnosed new problem with uncertain prognosis? @ -No Drug Therapy requiring intensive monitoring for toxicity (Heparin, Nitro, Insulin, Cardizem)? @ -No Were any procedures done? @ -No Diagnosis/symptom? Acute, or Chronic, or Acute on Chronic? Uncomplicated (without systemic symptoms) or Complicated (systemic symptoms)? @ -Psychosis Side effects of treatment? @ -No Exacerbation, Progression, or Severe Exacerbation? @ -No Poses a threat to life or bodily function? How? (Chest pain, [place], MA, pneumonia, PE, COPD, DKA, ARF, appy, cholecystitis, CVA, Diverticulitis, Homicidal, Suicidal, threat to staff... and all critical care pts) @ -No (Alek Torres) Patient signed out to me pending results of EPS evaluation. Brought himself in for voluntary EPS evaluation. Does have paranoia but denies any homicidal or suicidal ideations, attempts, plans. Is not a danger to himself or others. He would like to go home. Patient does have a guardian. We are still pending EPS evaluation at this time. He is not petitioned. Guardian was contacted and was in agreement the patient does not require evaluation. Guardian presents emergency department to sign paperwork for AGAINST MEDICAL ADVICE for discharge home. I do not be that the patient requires being held against his will for evaluation. He is not a danger to himself or others. Guardian was in agreement with this. Recommended to get a psychiatric evaluation. Expressed understanding. Patient signed out via Guardian AGAINST MEDICAL ADVICE. Diagnosis/symptom? @ -Encounter for psychiatric evaluation Acute, or Chronic, or Acute on Chronic? @ -Acute Uncomplicated (without systemic symptoms) or Complicated (systemic symptoms)? @ -Uncomplicated Side effects of treatment? @ -none Exacerbation, Progression, or Severe Exacerbation] @ -no Poses a threat to life or bodily function? @ -no (Yves Payne) Disposition <Alek Torres - Last Filed: 03/22/23 07:01> <Yves Payne - Last Filed: 03/22/23 14:12> Clinical Impression: Encounter for psychological evaluation Disposition: LEFT AGAINST MEDICAL ADVICE Condition: Undetermined Referrals: [facility] [Primary Care Provider] - 1-2 days
[2023-03-22 06:26] VITALS: BP 152/84; PULSE 84
== END 2023-03-22 08:50 | disposition left against medical advice (07) ==
LOC: EC 03:17
DX: Z00.8 Encounter for other general examination (principal); F41.9 Anxiety disorder, unspecified; F32.A Depression, unspecified; F17.200 Nicotine dependence, unspecified, uncomplicated; Z79.899 Other long term (current) drug therapy; Z88.8 Allergy status to other drugs, medicaments and biological substances; Z53.29 Procedure and treatment not carried out because of patient's decision for other reasons
CPT/HCPCS: 82075; 99284

== ENCOUNTER 2023-03-31 19:46 | Emergency (ER) | payer MEDICARE, OTHER ==
--- NOTE | 2023-03-31 20:05 | ED ---
Psych HPI - General Chief Complaint: Psychiatric Symptoms Stated Complaint: Mental Health Time Seen by Provider: 03/31/23 19:57 Source: patient, RN notes reviewed Mode of arrival: ambulatory - History of Present Illness Initial Comments: Patient is 23-year-old male presenting to ER with a chief complaint of mental health. Patient states his [facility] worker picked him up and brought him here. Patient is unaware why his worker brought him here. Patient denies any SI/HI. Denies any alcohol or drug use at this time. - Related Data Home Medications Medication Instructions Recorded Confirmed Paliperidone [Invega] 9 mg PO HS 08/19/22 03/31/23 [place] Carbonate ER [Lithobid] 450 mg PO HS 03/22/23 03/31/23 OXcarbazepine [Trileptal] 300 mg PO BID 03/22/23 03/31/23 Sertraline [Zoloft] 100 mg PO DAILY 03/22/23 03/31/23 chlorproMAZINE HCL [Thorazine] 50 mg PO DAILY 03/22/23 03/31/23 chlorproMAZINE [Thorazine] 100 mg PO HS 03/22/23 03/31/23 hydrOXYzine pamoate [Vistaril] 50 mg PO BID PRN 03/22/23 03/31/23 traZODone HCL [Desyrel] 50 mg PO HS PRN 03/22/23 03/31/23 Allergies Allergy/AdvReac Type Severity Reaction Status Date / Time dog dander AdvReac Dyspnea Verified 03/31/23 21:11 Review of Systems ROS Statement: Those systems with pertinent positive or pertinent negative responses have been documented in the HPI. ROS Other: All systems not noted in ROS Statement are negative. Past Medical History Past Medical History: GERD/Reflux Additional Past Medical History / Comment(s): Pt recently discharged from [facility] for suicidal ideation, suicide percautions in place from [facility],FATTY LIVER. History of Any Multi-Drug Resistant Organisms: None Reported Past Surgical History: No Surgical Hx Reported Additional Past Surgical History / Comment(s): [place] teeth extraction with anesthesia. Past Anesthesia/Blood Transfusion Reactions: No Reported Reaction Past Psychological History: ADD/ADHD, Anxiety, Depression Smoking Status: Current every day smoker Past Alcohol Use History: None Reported Past Drug Use History: Cocaine, IV Drug Use, Marijuana, Methamphetamine, Opiates - Past Family History Father Family Medical History: No Reported History Additional Family Medical History / Comment(s): Pt states his dad is healthy-"I guess". Mother Family Medical History: No Reported History Additional Family Medical History / Comment(s): Pt states his mother is healthy- "I guess." General Exam Limitations: no limitations General appearance: alert, in no apparent distress Respiratory exam: Present: normal lung sounds bilaterally. Absent: respiratory distress, wheezes, rales, rhonchi, stridor Cardiovascular Exam: Present: regular rate, normal rhythm, normal heart sounds. Absent: systolic murmur, diastolic murmur, rubs, gallop, clicks Neurological exam: Present: alert, oriented X3, CN II-XII intact Psychiatric exam: Present: anxious Skin exam: Present: warm, dry, intact, normal color. Absent: rash Course Vital Signs 03/31/23 19:47 Temperature 97.4 F L Pulse Rate 91 Respiratory 16 Rate Blood Pressure 130/91 O2 Sat by Pulse 98 Oximetry Medical Decision Making - Medical Decision Making Was pt. sent in by a medical professional or institution (, PA, TECHNICIAN PREVENTATIVE MEDICINE, urgent care, hospital, or long-term...) When possible be specific @ -No Did you speak to anyone other than the patient for history (EMS, parent, family, police, friend...)? What history was obtained from this source @ -No Did you review nursing and triage notes (agree or disagree)? Why? @ -I reviewed and agree with nursing and triage notes Were old charts reviewed (outside hosp., previous admission, EMS record, old EKG, old radiological studies, urgent care reports/EKG's, long-term records)? Report findings @ -No old charts were reviewed Differential Diagnosis (chest pain, altered mental status, abdominal pain women, abdominal pain men, vaginal bleeding, weakness, fever, dyspnea, syncope, headache, dizziness, GI bleed, back pain, seizure, CVA, palpatations, mental health, musculoskeletal)? @ -Differential Mental Health: Depression, anxiety, bipolar, psychosis, schizophrenia, borderline personality, situational depression, adjustment disorder, behavioral disorder, brain tumor, malingering, substance abuse, encephalopathy, medication reaction, dementia, hypothyroidism, degenerative neurologic disorder, lupus.... This is not meant to be all-inclusive liste EKG interpreted by me (3pts min.). @ -None X-rays interpreted by me (1pt min.). @ -None done CT interpreted by me (1pt min.). @ -None done U/S interpreted by me (1pt. min.). @ -None done What testing was considered but not performed or refused? (CT, X-rays, U/S, labs)? Why? @ -None What meds were considered but not given or refused? Why? @ -None Did you discuss the management of the patient with other professionals (professionals i.e. , PA, TECHNICIAN PREVENTATIVE MEDICINE, lab, RT, psych nurse, family welfare social work professor, battery container tester aluminum, teacher, international first officer, upper caser)? Give summary @ -Yes, I discussed this case with Berna from [facility]. She stated she is unsure why he is here. She spoke with his father, his legal guardian, and decided he was safe for discharge. Was smoking cessation discussed for >3mins.? @ -No Was critical care preformed (if so, how long)? @ -No Were there social determinants of health that impacted care today? How? (Homelessness, low income, unemployed, alcoholism, drug addiction, transportation, low edu. Level, literacy, decrease access to med. care, usp, rehab)? @ -No Was there de-escalation of care discussed even if they declined (Discuss DNR or withdrawal of care, Hospice)? DNR status @ -No What co-morbidities impacted this encounter? (DM, HTN, Smoking, COPD, CAD, Cancer, CVA, ARF, Chemo, Hep., AIDS, mental health diagnosis, sleep apnea, morbid obesity)? @ -Mental Health Was patient admitted / discharged? Hospital course, mention meds given and route, prescriptions, significant lab abnormalities, going to OR and other pertinent info. @ -Discharge. Patient was medically cleared to speak with mental health. I discussed this case with Berna from [facility] who examined the patient and spoke with his father. She states he is not homicidal or suicidal. She is unsure why patient is here today thinking he may have missed 1 dose of his medications and the [facility] worker sent him in. Patient's father stated that he will make sure the patient receives his medication when he gets home and will monitor him for the remainder of the night. Patient will be discharged in stable condition with follow-up to [facility]. Undiagnosed new problem with uncertain prognosis? @ -No Drug Therapy requiring intensive monitoring for toxicity (Heparin, Nitro, Insulin, Cardizem)? @ -No Were any procedures done? @ -No Diagnosis/symptom? @ -Schizoaffective/bipolar disorder Acute, or Chronic, or Acute on Chronic? @ -Chronic Uncomplicated (without systemic symptoms) or Complicated (systemic symptoms)? @ -Uncomplicated Side effects of treatment? @ -No Exacerbation, Progression, or Severe Exacerbation? @ -No Poses a threat to life or bodily function? How? (Chest pain, [place], [place], pneumonia, PE, COPD, DKA, ARF, appy, cholecystitis, CVA, Diverticulitis, Homicidal, Suicidal, threat to staff... and all critical care pts) @ -No Disposition Clinical Impression: Schizoaffective disorder, Bipolar disorder Disposition: HOME SELF-CARE Condition: Stable Additional Instructions: Please return to the Emergency Department if symptoms worsen or any other concerns. Is patient prescribed a controlled substance at d/c from ED?: No Referrals: [facility] [Primary Care Provider] - 1-2 days Time of Disposition: 21:33
[2023-03-31 20:09] VITALS: PULSE 91
[2023-03-31 22:09] VITALS: BP 128/88; RESP 18; TEMP 98.6
== END 2023-03-31 22:00 | disposition home or self-care (01) ==
LOC: EC 19:46
DX: F25.9 Schizoaffective disorder, unspecified (principal); F31.9 Bipolar disorder, unspecified; F90.9 Attention-deficit hyperactivity disorder, unspecified type; F41.9 Anxiety disorder, unspecified; F17.200 Nicotine dependence, unspecified, uncomplicated; F12.90 Cannabis use, unspecified, uncomplicated; F11.90 Opioid use, unspecified, uncomplicated; F15.90 Other stimulant use, unspecified, uncomplicated; F14.90 Cocaine use, unspecified, uncomplicated; Z79.899 Other long term (current) drug therapy
CPT/HCPCS: 82075; 99285

== ENCOUNTER 2023-04-13 06:42 | Emergency (ER) | payer MEDICARE, OTHER ==
[2023-04-13 07:16] VITALS: TEMP 98.1
--- NOTE | 2023-04-13 07:47 | ED ---
General Adult HPI - General Chief complaint: Psychiatric Symptoms Stated complaint: Mental Health Source: patient Mode of arrival: ambulatory Limitations: no limitations - History of Present Illness Initial comments: Patient seen in waiting room for advanced triage purposes. Patient has a psychiatric history. He hasn't slept very well. He is feeling calm but is having racing thoughts and talking/laughing to himself. He denies any suicidal or homicidal thoughts. - Related Data Home Medications Medication Instructions Recorded Confirmed Paliperidone [Invega] 9 mg PO HS 08/19/22 03/31/23 [place] Carbonate ER [Lithobid] 450 mg PO HS 03/22/23 03/31/23 OXcarbazepine [Trileptal] 300 mg PO BID 03/22/23 03/31/23 Sertraline [Zoloft] 100 mg PO DAILY 03/22/23 03/31/23 chlorproMAZINE HCL [Thorazine] 50 mg PO DAILY 03/22/23 03/31/23 chlorproMAZINE [Thorazine] 100 mg PO HS 03/22/23 03/31/23 hydrOXYzine pamoate [Vistaril] 50 mg PO BID PRN 03/22/23 03/31/23 traZODone HCL [Desyrel] 50 mg PO HS PRN 03/22/23 03/31/23 Allergies Allergy/AdvReac Type Severity Reaction Status Date / Time dog dander AdvReac Dyspnea Verified 04/13/23 06:50 Review of Systems ROS Statement: Those systems with pertinent positive or pertinent negative responses have been documented in the HPI. ROS Other: All systems not noted in ROS Statement are negative. Past Medical History Past Medical History: GERD/Reflux Additional Past Medical History / Comment(s): FATTY LIVER. History of Any Multi-Drug Resistant Organisms: None Reported Past Surgical History: No Surgical Hx Reported Additional Past Surgical History / Comment(s): [place] teeth extraction with anesthesia. Past Anesthesia/Blood Transfusion Reactions: No Reported Reaction Past Psychological History: ADD/ADHD, Anxiety, Depression Smoking Status: Current every day smoker, Vaper Past Alcohol Use History: None Reported Past Drug Use History: Cocaine, IV Drug Use, Marijuana, Methamphetamine, Opiates - Past Family History Father Family Medical History: No Reported History Additional Family Medical History / Comment(s): Pt states his dad is healthy-"I guess". Mother Family Medical History: No Reported History Additional Family Medical History / Comment(s): Pt states his mother is healthy- "I guess." General Exam Limitations: no limitations General appearance: alert, in no apparent distress Head exam: Present: atraumatic Eye exam: Present: normal appearance, PERRL, EOMI. Absent: scleral icterus, conjunctival injection ENT exam: Present: normal exam Neck exam: Present: normal inspection Respiratory exam: Absent: respiratory distress Neurological exam: Present: alert Course Vital Signs 04/13/23 06:50 Temperature 98.1 F Pulse Rate 89 Respiratory 18 Rate Blood Pressure 128/75 O2 Sat by Pulse 98 Oximetry Medical Decision Making - Medical Decision Making Was pt. sent in by a medical professional or institution (, PA, CIRCULAR HEAD SAW OPERATOR, urgent care, hospital, or fdc...) When possible be specific @ -no Did you speak to anyone other than the patient for history (EMS, parent, family, police, friend...)? What history was obtained from this source @ -parent (father) Did you review nursing and triage notes (agree or disagree)? Why? @ -[I reviewed and agree with nursing and triage notes] Were old charts reviewed (outside hosp., previous admission, EMS record, old EKG, old radiological studies, urgent care reports/EKG's, fdc records)? Report findings @ -Previous admissions, previous ER visits Differential Diagnosis (chest pain, altered mental status, abdominal pain women, abdominal pain men, vaginal bleeding, weakness, fever, dyspnea, syncope, headache, dizziness, GI bleed, back pain, seizure, CVA, palpatations, mental health)? @ -Anxiety, psychosis, insomnia EKG interpreted by me (3pts min.). @ -Not applicable X-rays interpreted by me (1pt min.). @ -[None done] CT interpreted by me (1pt min.). @ -[None done] U/S interpreted by me (1pt. min.). @ -[None done] What testing was considered but not performed or refused? (CT, X-rays, U/S, labs)? Why? @ -EPS evaluation with urine drug screen, alcohol, patient started to feel better and father was comfortable with discharge before EPS evaluation. Father is guardian. What meds were considered but not given or refused? Why? @ -[None] Did you discuss the management of the patient with other professionals (professionals i.e. DrKole, PA, CIRCULAR HEAD SAW OPERATOR, lab, RT, psych nurse, high school social studies teacher, drift miner, teacher, sheriff officer, rn field case manager)? Give summary @ -[No] Was smoking cessation discussed for >3mins.? @ -[No] Was critical care preformed (if so, how long)? @ -[No] Were there social determinants of health that impacted care today? How? (Homelessness, low income, unemployed, alcoholism, drug addiction, transportation, low edu. Level, literacy, decrease access to med. care, fdc, rehab)? @ -[No] Was there de-escalation of care discussed even if they declined (Discuss DNR or withdrawal of care, Hospice)? DNR status @ -[No] What co-morbidities impacted this encounter? (DM, HTN, Smoking, COPD, CAD, Cancer, CVA, ARF, Chemo, Hep., AIDS, mental health diagnosis, sleep apnea, morbid obesity)? @ -[None] Was patient admitted / discharged? Hospital course, mention meds given and route, prescriptions, significant lab abnormalities, going to OR and other pertinent info. @ -Patient seen in waiting room. He felt like he couldn't sleep. He had racing thoughts. No suicidal or homicidal thoughts or thoughts of harming himself or anyone else. Patient waited in the waiting room for over 2 hours. He became sleepy and felt like he wanted to go home as that was his problem in the first place. He spoke with father who is his guardian and he prefers to take the patient home today and not have him evaluated by EPS. Undiagnosed new problem with uncertain prognosis? @ -[No] Drug Therapy requiring intensive monitoring for toxicity (Heparin, Nitro, Insulin, Cardizem)? @ -[No] Were any procedures done? @ -[No] Diagnosis/symptom? @ -[default] Acute, or Chronic, or Acute on Chronic? @ -Acute on chronic Uncomplicated (without systemic symptoms) or Complicated (systemic symptoms)? @ -[default] Side effects of treatment? @ -[No] Exacerbation, Progression, or Severe Exacerbation? @ -[No] Poses a threat to life or bodily function? How? (Chest pain, [place], [place], pneumonia, PE, COPD, DKA, ARF, appy, cholecystitis, CVA, Diverticulitis, Homicidal, Suicidal, threat to staff... and all critical care pts) @ -[No] Disposition Clinical Impression: Acute anxiety Disposition: HOME SELF-CARE Condition: Good Instructions (If sedation given, give patient instructions): Anxiety (ED) Additional Instructions: Please return as needed. Is patient prescribed a controlled substance at d/c from ED?: No Referrals: [facility] [Primary Care Provider] - 1-2 days Time of Disposition: 08:35
[2023-04-13 09:02] VITALS: BP 120/75; PULSE 78; RESP 19
== END 2023-04-13 08:41 | disposition home or self-care (01) ==
LOC: EEVIPCON 06:42 → EC 06:42
DX: F41.9 Anxiety disorder, unspecified (principal); F32.A Depression, unspecified; F17.290 Nicotine dependence, other tobacco product, uncomplicated; F12.90 Cannabis use, unspecified, uncomplicated; Z88.8 Allergy status to other drugs, medicaments and biological substances; Z79.899 Other long term (current) drug therapy
CPT/HCPCS: 99285

== ENCOUNTER 2023-05-02 04:08 | Emergency (ER) | payer MEDICARE, OTHER ==
[2023-05-02 04:40] VITALS: BP 132/90; PULSE 105; RESP 16; TEMP 98.1
--- NOTE | 2023-05-02 05:01 | ED ---
General Adult HPI - General Chief complaint: Psychiatric Symptoms Stated complaint: Insomnia, Hallucinations Time Seen by Provider: 05/02/23 04:13 Source: patient, RN notes reviewed, old records reviewed Mode of arrival: ambulatory Limitations: no limitations - History of Present Illness Initial comments: 23 yo male presenting with insomnia, patient states that he's had changes in his medication timing which has disturbed his sleep. He has no physical complaints. No suicidal or homicidal ideation. - Related Data Home Medications Medication Instructions Recorded Confirmed Paliperidone [Invega] 9 mg PO HS 08/19/22 03/31/23 [place] Carbonate ER [Lithobid] 450 mg PO HS 03/22/23 03/31/23 OXcarbazepine [Trileptal] 300 mg PO BID 03/22/23 03/31/23 Sertraline [Zoloft] 100 mg PO DAILY 03/22/23 03/31/23 chlorproMAZINE HCL [Thorazine] 50 mg PO DAILY 03/22/23 03/31/23 chlorproMAZINE [Thorazine] 100 mg PO HS 03/22/23 03/31/23 hydrOXYzine pamoate [Vistaril] 50 mg PO BID PRN 03/22/23 03/31/23 traZODone HCL [Desyrel] 50 mg PO HS PRN 03/22/23 03/31/23 Previous Rx's Medication Instructions Recorded LORazepam [Ativan] 1 mg PO HS 3 Days #3 tab 05/02/23 Allergies Allergy/AdvReac Type Severity Reaction Status Date / Time dog dander AdvReac Dyspnea Verified 04/13/23 06:50 Review of Systems ROS Statement: Those systems with pertinent positive or pertinent negative responses have been documented in the HPI. ROS Other: All systems not noted in ROS Statement are negative. Past Medical History Past Medical History: GERD/Reflux Additional Past Medical History / Comment(s): FATTY LIVER. History of Any Multi-Drug Resistant Organisms: None Reported Past Surgical History: No Surgical Hx Reported Additional Past Surgical History / Comment(s): [place] teeth extraction with anesthesia. Past Anesthesia/Blood Transfusion Reactions: No Reported Reaction Past Psychological History: ADD/ADHD, Anxiety, Depression Smoking Status: Current every day smoker, Vaper Past Alcohol Use History: None Reported Past Drug Use History: Cocaine, IV Drug Use, Marijuana, Methamphetamine, Opiates - Past Family History Father Family Medical History: No Reported History Additional Family Medical History / Comment(s): Pt states his dad is healthy-"I guess". Mother Family Medical History: No Reported History Additional Family Medical History / Comment(s): Pt states his mother is healthy- "I guess." General Exam Limitations: no limitations General appearance: alert, in no apparent distress Head exam: Present: atraumatic, normocephalic Eye exam: Present: normal appearance, PERRL ENT exam: Present: normal exam Neck exam: Present: normal inspection Respiratory exam: Present: normal lung sounds bilaterally. Absent: respiratory distress, wheezes Cardiovascular Exam: Present: regular rate, normal rhythm GI/Abdominal exam: Present: soft. Absent: distended, tenderness Extremities exam: Present: normal inspection, normal capillary refill. Absent: pedal edema Neurological exam: Present: alert, oriented X3, CN II-XII intact. Absent: motor sensory deficit Psychiatric exam: Present: normal affect, normal mood. Absent: homicidal ideation, suicidal ideation Skin exam: Present: warm, dry, intact Course Vital Signs 05/02/23 04:26 Temperature 98.1 F Pulse Rate 105 H Respiratory 16 Rate Blood Pressure 132/90 O2 Sat by Pulse 97 Oximetry Medical Decision Making - Medical Decision Making Was pt. sent in by a medical professional or institution (LEONID Forte, EMERGENCY ROOM CLINICIAN, urgent care, hospital, or shelter...) When possible be specific @ -No Did you speak to anyone other than the patient for history (EMS, parent, family, police, friend...)? What history was obtained from this source @ -No Did you review nursing and triage notes (agree or disagree)? Why? @ -I reviewed and agree with nursing and triage notes Were old charts reviewed (outside hosp., previous admission, EMS record, old EKG, old radiological studies, urgent care reports/EKG's, shelter records)? Report findings @ -No old charts were reviewed Differential Diagnosis (chest pain, altered mental status, abdominal pain women, abdominal pain men, vaginal bleeding, weakness, fever, dyspnea, syncope, headache, dizziness, GI bleed, back pain, seizure, CVA, palpatations, mental health, musculoskeletal)? @ -Differential Mental Health Depression, anxiety, bipolar, psychosis, schizophrenia, borderline personality, situational depression, adjustment disorder, behavioral disorder, brain tumor, malingering, substance abuse, encephalopathy, medication reaction, dementia, hypothyroidism, degenerative neurologic disorder, lupus.... This is not meant to be all-inclusive list EKG interpreted by me (3pts min.). @ -As above X-rays interpreted by me (1pt min.). @ -None done CT interpreted by me (1pt min.). @ -None done U/S interpreted by me (1pt. min.). @ -None done What testing was considered but not performed or refused? (CT, X-rays, U/S, labs)? Why? @ -None What meds were considered but not given or refused? Why? @ -None Did you discuss the management of the patient with other professionals (professionals i.e. , PA, EMERGENCY ROOM CLINICIAN, lab, RT, psych nurse, high school social studies tutor, closing supervisor, teacher, strategic intelligence officer, casework manager)? Give summary @ -No Was smoking cessation discussed for >3mins.? @ -No Was critical care preformed (if so, how long)? @ -No Were there social determinants of health that impacted care today? How? (Homelessness, low income, unemployed, alcoholism, drug addiction, transportation, low edu. Level, literacy, decrease access to med. care, long term, rehab)? @ -No Was there de-escalation of care discussed even if they declined (Discuss DNR or withdrawal of care, Hospice)? DNR status @ -No What co-morbidities impacted this encounter? (DM, HTN, Smoking, COPD, CAD, Cancer, CVA, ARF, Chemo, Hep., AIDS, mental health diagnosis, sleep apnea, morbid obesity)? @ -None Was patient admitted / discharged? Hospital course, mention meds given and route, prescriptions, significant lab abnormalities, going to OR and other pertinent info. @Patient requesting medication for insomnia. No other complaints. Undiagnosed new problem with uncertain prognosis? @ -No Drug Therapy requiring intensive monitoring for toxicity (Heparin, Nitro, Insulin, Cardizem)? @ -No Were any procedures done? @ -No Diagnosis/symptom? @Insomnia Acute, or Chronic, or Acute on Chronic? @Acute on chronic Uncomplicated (without systemic symptoms) or Complicated (systemic symptoms)? @ -default Side effects of treatment? @ -No Exacerbation, Progression, or Severe Exacerbation? @ -No Poses a threat to life or bodily function? How? (Chest pain, [place], [place], pneumonia, PE, COPD, DKA, ARF, appy, cholecystitis, CVA, Diverticulitis, Homicidal, Suicidal, threat to staff... and all critical care pts) @ -No Disposition Clinical Impression: Acute insomnia Disposition: HOME SELF-CARE Condition: Fair Instructions (If sedation given, give patient instructions): Insomnia (ED) Prescriptions: LORazepam [Ativan] 1 mg PO HS 3 Days #3 tab Is patient prescribed a controlled substance at d/c from ED?: No Referrals: [facility] [Primary Care Provider] - 1-2 days Time of Disposition: 05:01
[2023-05-02] MEDS ORDERED: LORazepam 1 MG TAB PO STA (05:07)
== END 2023-05-02 05:21 | disposition home or self-care (01) ==
LOC: EC 04:08
DX: G47.00 Insomnia, unspecified (principal); K76.0 Fatty (change of) liver, not elsewhere classified; F90.9 Attention-deficit hyperactivity disorder, unspecified type; F32.A Depression, unspecified; F41.9 Anxiety disorder, unspecified; F17.290 Nicotine dependence, other tobacco product, uncomplicated; F14.90 Cocaine use, unspecified, uncomplicated; F12.90 Cannabis use, unspecified, uncomplicated; F15.90 Other stimulant use, unspecified, uncomplicated; F11.90 Opioid use, unspecified, uncomplicated; Z79.899 Other long term (current) drug therapy; Z88.8 Allergy status to other drugs, medicaments and biological substances
CPT/HCPCS: 99284

== ENCOUNTER 2023-05-18 23:54 | Emergency (ER) | payer MEDICARE, OTHER ==
[2023-05-19 00:11] VITALS: PULSE 84
--- NOTE | 2023-05-19 00:28 | ED ---
General Adult HPI - General Source: patient, police, RN notes reviewed, old records reviewed Mode of arrival: ambulatory Limitations: no limitations <Yves Payne - Last Filed: 05/19/23 03:53> <Shelton Carr - Last Filed: 05/19/23 15:19> - General Chief complaint: Psychiatric Symptoms Stated complaint: EPS Time Seen by Provider: 05/18/23 23:57 - History of Present Illness Initial comments: Patient Is a 23-year-old male presents to the Department complaining of petition. Is well known to our emergency department. Petition states that he was knocking on random doors, asking for help getting into his house and he was locked out of, was petitioned by police. Currently has no acute acute complaints. Does not wish to speak with me. He is requesting a sandwich only. Is alert and oriented. Presents for further. Evaluation and was petitioned. (Yves Payne) - Related Data Home Medications Medication Instructions Recorded Confirmed Paliperidone [Invega] 9 mg PO HS 08/19/22 03/31/23 [place] Carbonate ER [Lithobid] 450 mg PO HS 03/22/23 03/31/23 OXcarbazepine [Trileptal] 300 mg PO BID 03/22/23 03/31/23 Sertraline [Zoloft] 100 mg PO DAILY 03/22/23 03/31/23 chlorproMAZINE HCL [Thorazine] 50 mg PO DAILY 03/22/23 03/31/23 chlorproMAZINE [Thorazine] 100 mg PO HS 03/22/23 03/31/23 hydrOXYzine pamoate [Vistaril] 50 mg PO BID PRN 03/22/23 03/31/23 traZODone HCL [Desyrel] 50 mg PO HS PRN 03/22/23 03/31/23 Previous Rx's Medication Instructions Recorded LORazepam [Ativan] 1 mg PO HS 3 Days #3 tab 05/02/23 Allergies Allergy/AdvReac Type Severity Reaction Status Date / Time dog dander AdvReac Dyspnea Verified 05/18/23 23:56 Review of Systems ROS Other: All systems not noted in ROS Statement are negative. <Yves Payne - Last Filed: 05/19/23 03:53> ROS Other: All systems not noted in ROS Statement are negative. <Shelton Carr - Last Filed: 05/19/23 15:19> ROS Statement: Those systems with pertinent positive or pertinent negative responses have been documented in the HPI. Review of Systems: CONST: Denies fever EYES: Denies blurry vision ENT: Denies nasal congestion C/V: Denies Chest pain RESP: Denies shortness of breath GI: Denies abdominal pain : Denies dysuria SKIN: Denies rash. MSK: Denies joint pain. NEURO: Denies headache (Yves Payne) Past Medical History Past Medical History: GERD/Reflux Additional Past Medical History / Comment(s): FATTY LIVER. History of Any Multi-Drug Resistant Organisms: None Reported Past Surgical History: No Surgical Hx Reported Additional Past Surgical History / Comment(s): [place] teeth extraction with anesthesia. Past Anesthesia/Blood Transfusion Reactions: No Reported Reaction Past Psychological History: ADD/ADHD, Anxiety, Depression Smoking Status: Current every day smoker, Vaper Past Alcohol Use History: None Reported Past Drug Use History: Cocaine, IV Drug Use, Marijuana, Methamphetamine, Opiates - Past Family History Father Family Medical History: No Reported History Additional Family Medical History / Comment(s): Pt states his dad is healthy-"I guess". Mother Family Medical History: No Reported History Additional Family Medical History / Comment(s): Pt states his mother is healthy- "I guess." <Yves Payne - Last Filed: 05/19/23 03:53> General Exam Limitations: no limitations <Yves Payne - Last Filed: 05/19/23 03:53> - General Exam Comments Initial Comments: General: Appears in no acute distress. HEAD: Normal with no signs of head trauma. EYES: EOMI ENT: Hearing grossly intact, normal oropharynx. RESPIRATORY: Clear breath sounds bilaterally. No wheezes, rales, or rhonchi. C/V: Regular rate and rhythm. S1 and S2 auscultated, peripheral pulses 2+ and intact throughout ABD: Abd is soft, nontender, nondistended EXT: Normal range of motion, no obvious deformity SKIN: No rashes or lesions observed on exposed skin. NEURO: Alert and oriented x 4. (Yves Payne) Course Vital Signs 05/18/23 05/19/23 23:55 08:01 Temperature 97.6 F 98.1 F Pulse Rate 84 84 Respiratory 18 17 Rate Blood Pressure 143/96 143/83 O2 Sat by Pulse 97 96 Oximetry Medical Decision Making <Yves Payne - Last Filed: 05/19/23 03:53> <Shelton Carr - Last Filed: 05/19/23 15:19> - Medical Decision Making Was pt. sent in by a medical professional or institution (, PA, FINANCIAL ADMINISTRATIVE ASSISTANT, urgent care, hospital, or penitentiary...) When possible be specific @ -No Did you speak to anyone other than the patient for history (EMS, parent, family, police, friend...)? What history was obtained from this source @ -No Did you review nursing and triage notes (agree or disagree)? Why? @ -I reviewed and agree with nursing and triage notes Were old charts reviewed (outside hosp., previous admission, EMS record, old EKG, old radiological studies, urgent care reports/EKG's, penitentiary records)? Report findings @ -No old charts were reviewed Differential Diagnosis (chest pain, altered mental status, abdominal pain women, abdominal pain men, vaginal bleeding, weakness, fever, dyspnea, syncope, headache, dizziness, GI bleed, back pain, seizure, CVA, palpatations, mental health, musculoskeletal)? @ -Differential Mental Health Depression, anxiety, bipolar, psychosis, schizophrenia, borderline personality, situational depression, adjustment disorder, behavioral disorder, brain tumor, malingering, substance abuse, encephalopathy, medication reaction, dementia, hypothyroidism, degenerative neurologic disorder, lupus.... This is not meant to be all-inclusive list EKG interpreted by me (3pts min.). @ -None done X-rays interpreted by me (1pt min.). @ -None done CT interpreted by me (1pt min.). @ -None done U/S interpreted by me (1pt. min.). @ -None done What testing was considered but not performed or refused? (CT, X-rays, U/S, labs)? Why? @ -None What meds were considered but not given or refused? Why? @ -None Did you discuss the management of the patient with other professionals (professionals i.e. , PA, FINANCIAL ADMINISTRATIVE ASSISTANT, lab, RT, psych nurse, director social welfare, roofer helper, teacher, fisheries officer, manager rn case)? Give summary @ -EPS notified of the consult. Was smoking cessation discussed for >3mins.? @ -No Was critical care preformed (if so, how long)? @ -No Were there social determinants of health that impacted care today? How? (Homelessness, low income, unemployed, alcoholism, drug addiction, transportation, low edu. Level, literacy, decrease access to med. care, senior living, rehab)? @ -No Was there de-escalation of care discussed even if they declined (Discuss DNR or withdrawal of care, Hospice)? DNR status @ -No What co-morbidities impacted this encounter? (DM, HTN, Smoking, COPD, CAD, Cancer, CVA, ARF, Chemo, Hep., AIDS, mental health diagnosis, sleep apnea, morbid obesity)? @ -None Was patient admitted / discharged? Hospital course, mention meds given and route, prescriptions, significant lab abnormalities, going to OR and other pertinent info. @ -Based on the patient's presentation and physical exam, presents complaining of being petitioned. Patient is no acute complaints at this time. Patient was placed in green scrubs. BAT is 0. UDS is pending. Vital signs are within acceptable limits. At this time, patient is medically cleared for evaluation by psychiatry. Disposition is pending psychiatric evaluation. EPS is notified. Undiagnosed new problem with uncertain prognosis? @ -No Drug Therapy requiring intensive monitoring for toxicity (Heparin, Nitro, Insulin, Cardizem)? @ -No Were any procedures done? @ -No (Yves Payne) Was patient admitted / discharged? Hospital course, mention meds given and route, prescriptions, significant lab abnormalities, going to OR and other pertinent info. @ -Patient was evaluated by EPS and they determined that the patient could safely be discharged home with the guardian. Everybody was in agreement. Patient was given a safety plan and so was the guardian Undiagnosed new problem with uncertain prognosis? @ -No Drug Therapy requiring intensive monitoring for toxicity (Heparin, Nitro, Insulin, Cardizem)? @ -No Were any procedures done? @ -No Diagnosis/symptom? @ -Acute psychosis Acute, or Chronic, or Acute on Chronic? @ -Acute Uncomplicated (without systemic symptoms) or Complicated (systemic symptoms)? @ -Complicated Side effects of treatment? @ -No Exacerbation, Progression, or Severe Exacerbation? @ -No Poses a threat to life or bodily function? How? (Chest pain, USA, SD, pneumonia, PE, COPD, DKA, ARF, appy, cholecystitis, CVA, Diverticulitis, Homicidal, Suicidal, threat to staff... and all critical care pts) @ -No (Shelton Carr) - Lab Data Lab Results 05/19/23 Range/Units 00:20 Urine Opiates Screen Not Detected (NotDetected) Ur Oxycodone Screen Not Detected (NotDetected) Urine Methadone Screen Not Detected (NotDetected) Ur Barbiturates Screen Not Detected (NotDetected) U Tricyclic Antidepress Detected H (NotDetected) Ur Phencyclidine Scrn Not Detected (NotDetected) Ur Amphetamines Screen Not Detected (NotDetected) U Methamphetamines Scrn Not Detected (NotDetected) U Benzodiazepines Scrn Not Detected (NotDetected) Urine Cocaine Screen Not Detected (NotDetected) U Marijuana (THC) Screen Not Detected (NotDetected) Disposition <Yves Payne - Last Filed: 05/19/23 03:53> Is patient prescribed a controlled substance at d/c from ED?: No Time of Disposition: 15:19 <Shelton Carr - Last Filed: 05/19/23 15:19> Clinical Impression: Acute psychosis Disposition: HOME SELF-CARE Condition: Good Instructions (If sedation given, give patient instructions): Psychotic Disorder (ED) Additional Instructions: Patient should take medicines as prescribed Referrals: None,Stated [Primary Care Provider] - 1-2 days
[2023-05-19 01:03] LABS: Amphetamine Screen,Urine Not Detected (NotDetected); Barbiturate Screen,Urine Not Detected (NotDetected); Benzodiazepines Screen,Urine Not Detected (NotDetected); Cocaine Screen,Urine Not Detected (NotDetected); Methadone Screen, Urine Not Detected (NotDetected); Opiate Screen,Urine Not Detected (NotDetected); Oxycodone Screen, Urine Not Detected (NotDetected); Phencyclidine Screen,Urine Not Detected (NotDetected); Tricyclic Antidepressant,Urine Detected (NotDetected); Urn Cannabinoid Scrn Not Detected (NotDetected)
[2023-05-19 08:18] VITALS: BP 143/83; RESP 17; TEMP 98.1
== END 2023-05-19 15:29 | disposition home or self-care (01) ==
LOC: EC 23:54
DX: F29 Unspecified psychosis not due to a substance or known physiological condition (principal); F41.9 Anxiety disorder, unspecified; F32.A Depression, unspecified; F12.90 Cannabis use, unspecified, uncomplicated; F17.290 Nicotine dependence, other tobacco product, uncomplicated; Z79.899 Other long term (current) drug therapy; Z88.8 Allergy status to other drugs, medicaments and biological substances
CPT/HCPCS: 80306; 82075; 99285

== ENCOUNTER 2023-05-19 18:51 | Inpatient (IN) | payer MEDICARE, OTHER ==
[2023-05-19] MEDS ORDERED: ZIPRASIDONE 20 MG VIAL IM STA (19:42)
--- NOTE | 2023-05-19 23:37 | ED ---
Psych HPI <Jose J Craven [place] - Last Filed: 05/20/23 06:49> <Eugene Brice - Last Filed: 05/20/23 13:01> <Shelton Pompa - Last Filed: 05/24/23 22:05> - General Source: patient, family Mode of arrival: ambulatory <Ayesha Avila - Last Filed: 05/29/23 23:12> - General Chief Complaint: Psychiatric Symptoms Stated Complaint: Mental Health Time Seen by Provider: 05/19/23 19:00 - History of Present Illness Initial Comments: 23-year-old male with past medical history of polysubstance abuse who presents to the emergency department and is petitioned by father. Patient was just in the emergency department last night for mental health evaluation. Patient was discharged home and was visiting with family. Father the patient reports that he squeezed arm of an family member in an attempt to harm himself. Because of this aggressive behavior they bring him back for reevaluation. Patient states that he is not taking his medications. Offers little advice upon my evaluation. Report of any suicidal statements. Patient not intoxicated. No other alleviating, precipitating or modifying factors (Ayesha Avila) - Related Data Home Medications Medication Instructions Recorded Confirmed Paliperidone [Invega] 9 mg PO HS 08/19/22 05/19/23 Cane Beds Carbonate ER [Lithobid] 450 mg PO HS 03/22/23 05/19/23 OXcarbazepine [Trileptal] 300 mg PO BID 03/22/23 05/19/23 Sertraline [Zoloft] 100 mg PO DAILY 03/22/23 05/19/23 chlorproMAZINE HCL [Thorazine] 50 mg PO DAILY 03/22/23 05/19/23 chlorproMAZINE [Thorazine] 100 mg PO HS 03/22/23 05/19/23 hydrOXYzine pamoate [Vistaril] 50 mg PO BID PRN 03/22/23 05/19/23 traZODone HCL [Desyrel] 50 mg PO HS PRN 03/22/23 05/19/23 Allergies Allergy/AdvReac Type Severity Reaction Status Date / Time dog dander AdvReac Dyspnea Verified 05/27/23 21:27 Review of Systems ROS Other: All systems not noted in ROS Statement are negative. <Jose J Craven - Last Filed: 05/20/23 06:49> ROS Other: All systems not noted in ROS Statement are negative. <Eugene Brice - Last Filed: 05/20/23 13:01> ROS Other: All systems not noted in ROS Statement are negative. <PeñaLiamShelton B - Last Filed: 05/24/23 22:05> ROS Other: All systems not noted in ROS Statement are negative. <Ayesha Avila Ej - Last Filed: 05/29/23 23:12> ROS Statement: Those systems with pertinent positive or pertinent negative responses have been documented in the HPI. Past Medical History Past Medical History: GERD/Reflux Additional Past Medical History / Comment(s): FATTY LIVER. History of Any Multi-Drug Resistant Organisms: None Reported Past Surgical History: No Surgical Hx Reported Additional Past Surgical History / Comment(s): [place] teeth extraction with anes thesia. Past Anesthesia/Blood Transfusion Reactions: No Reported Reaction Past Psychological History: ADD/ADHD, Anxiety, Depression Smoking Status: Current every day smoker, Vaper Past Alcohol Use History: None Reported Past Drug Use History: Cocaine, IV Drug Use, Marijuana, Methamphetamine, Opiates - Past Family History Father Family Medical History: No Reported History Additional Family Medical History / Comment(s): Pt states his dad is healthy-"I guess". Mother Family Medical History: No Reported History Additional Family Medical History / Comment(s): Pt states his mother is healthy- "I guess." <AustinAyesha A - Last Filed: 05/29/23 23:12> General Exam Limitations: no limitations General appearance: alert, in no apparent distress Head exam: Present: atraumatic, normocephalic, normal inspection Eye exam: Present: normal appearance, PERRL, EOMI. Absent: scleral icterus, conjunctival injection, periorbital swelling ENT exam: Present: normal exam, mucous membranes moist Neck exam: Present: normal inspection. Absent: tenderness, meningismus, lymphadenopathy Respiratory exam: Present: normal lung sounds bilaterally. Absent: respiratory distress, wheezes, rales, rhonchi, stridor Cardiovascular Exam: Present: normal rhythm, tachycardia, normal heart sounds. Absent: systolic murmur, diastolic murmur, rubs, gallop, clicks GI/Abdominal exam: Present: soft, normal bowel sounds. Absent: distended, tenderness, guarding, rebound, rigid Extremities exam: Present: normal inspection, full ROM, normal capillary refill. Absent: tenderness, pedal edema, joint swelling, calf tenderness Back exam: Present: normal inspection Neurological exam: Present: alert, oriented X3, CN II-XII intact Psychiatric exam: Present: normal affect, normal mood Skin exam: Present: warm, dry, intact, normal color. Absent: rash <Ayesha Avila - Last Filed: 05/29/23 23:12> Course Vital Signs 05/19/23 05/20/23 05/21/23 18:57 04:25 00:12 Temperature 97 F L 97.9 F Pulse Rate 116 H 100 84 Respiratory 20 17 19 Rate Blood Pressure 156/95 130/83 148/96 O2 Sat by Pulse 97 97 98 Oximetry 05/21/23 05/21/23 05/21/23 06:34 08:00 10:31 Temperature Pulse Rate 109 H 86 86 Respiratory 19 20 20 Rate Blood Pressure 122/84 140/68 120/80 O2 Sat by Pulse 96 98 96 Oximetry 05/21/23 05/22/23 05/23/23 15:33 03:48 01:30 Temperature 98.1 F 97.6 F Pulse Rate 78 90 80 Respiratory 20 18 18 Rate Blood Pressure 150/89 165/111 142/86 O2 Sat by Pulse 98 98 97 Oximetry 05/23/23 05/24/23 05/26/23 05:15 07:28 08:00 Temperature 98.0 F 97.5 F L Pulse Rate 97 95 Respiratory 18 16 20 Rate Blood Pressure 178/88 122/76 O2 Sat by Pulse 97 99 Oximetry 05/26/23 05/26/23 05/26/23 09:00 12:04 16:00 Temperature Pulse Rate Respiratory 18 18 18 Rate Blood Pressure O2 Sat by Pulse Oximetry 05/26/23 05/26/23 05/27/23 16:55 18:40 06:22 Temperature 97.6 F 98.1 F Pulse Rate 97 92 Respiratory 18 18 18 Rate Blood Pressure 124/79 131/81 O2 Sat by Pulse 97 98 Oximetry Procedures - Restraint - Face to Face Restraint Occurrence 1 Patient's Immediate Situation: Endangers self safety, Endangers others' safety, Endangers staff safety Patient's Reaction to the Intervention: Uncooperative, Belligerent, Aggressive Patient's Medical & Behavioral Condition: Awake, Alert, Follows directions Need to Continue or Terminate Restraint or Seclusion: Continue Face to Face Eval of Restraint Date: 05/20/23 Face to Face Eval of Restraint Time: 06:35 <Jose J Craven - Last Filed: 05/20/23 06:49> - Restraint - Face to Face Restraint Occurrence 2 Patient's Immediate Situation: Endangers self safety, Endangers others' safety, Endangers staff safety Patient's Reaction to the Intervention: Angry Patient's Medical & Behavioral Condition: Awake Need to Continue or Terminate Restraint or Seclusion: Continue Face to Face Eval of Restraint Date: 05/20/23 Face to Face Eval of Restraint Time: 10:29 <Eugene Brice - Last Filed: 05/20/23 13:01> - Restraint - Face to Face Restraint Occurrence 6 Patient's Immediate Situation: Endangers self safety, Endangers others' safety, Endangers staff safety, Violent behavior Patient's Reaction to the Intervention: Appropriate, Uncooperative, Angry, Depressed, Hostile, Belligerent, Anxious Patient's Medical & Behavioral Condition: Awake Need to Continue or Terminate Restraint or Seclusion: Continue Face to Face Eval of Restraint Date: 05/24/23 Face to Face Eval of Restraint Time: 22:07 <Shelton Pompa - Last Filed: 05/24/23 22:05> - Restraint - Face to Face Restraint Occurrence 3 Patient's Immediate Situation: Endangers self safety, Endangers others' safety Patient's Reaction to the Intervention: Aggressive, Combative, Resistive to care Patient's Medical & Behavioral Condition: Awake, Alert, Agitated, Manic Need to Continue or Terminate Restraint or Seclusion: Continue Face to Face Eval of Restraint Date: 05/22/23 Face to Face Eval of Restraint Time: 18:52 Restraint Occurrence 4 Patient's Immediate Situation: Endangers self safety, Endangers others' safety Patient's Reaction to the Intervention: Aggressive, Combative, Restless, Resistive to care Patient's Medical & Behavioral Condition: Agitated Need to Continue or Terminate Restraint or Seclusion: Continue Face to Face Eval of Restraint Date: 05/22/23 Face to Face Eval of Restraint Time: 22:50 Restraint Occurrence 5 Patient's Immediate Situation: Endangers self safety, Endangers others' safety Patient's Reaction to the Intervention: Aggressive, Combative, Resistive to care Patient's Medical & Behavioral Condition: Agitated Need to Continue or Terminate Restraint or Seclusion: Continue Face to Face Eval of Restraint Date: 05/24/23 Face to Face Eval of Restraint Time: 14:10 <Ayesha Avila - Last Filed: 05/29/23 23:12> Medical Decision Making - Lab Data Result diagrams: 05/20/23 09:12 05/20/23 09:12 <Eugene Brice - Last Filed: 05/20/23 13:01> - Lab Data Result diagrams: 05/20/23 09:12 05/20/23 09:12 <Shelton Pompa - Last Filed: 05/24/23 22:05> - Lab Data Result diagrams: 05/27/23 08:50 05/27/23 08:50 <Ayesha Avila - Last Filed: 05/29/23 23:12> - Medical Decision Making Case was discussed with mental health worker who does recommend placement. Patient reevaluated. Patient in bed. Patient denies having problems. Patient denies drug use. Patient will not answer if he has any hallucinations. Patient admits to not sleeping well for the past few days. Positive clinical certificate completed. Diagnosis psychosis, acute Plan is for patient to be admitted for psychiatric care. (Eugene Brice) Was pt. sent in by a medical professional or institution (, PA, PRESS PIPE INSPECTOR, urgent care, hospital, or [facility]...) When possible be specific @ -No Did you speak to anyone other than the patient for history (EMS, parent, family, police, friend...)? What history was obtained from this source @ -father Did you review nursing and triage notes (agree or disagree)? Why? @ -I reviewed and agree with nursing and triage notes Were old charts reviewed (outside hosp., previous admission, EMS record, old EKG, old radiological studies, urgent care reports/EKG's, [facility] records)? Report findings @ -Reviewed patient's ED visit from yesterday Differential Diagnosis (chest pain, altered mental status, abdominal pain women, abdominal pain men, vaginal bleeding, weakness, fever, dyspnea, syncope, headache, dizziness, GI bleed, back pain, seizure, CVA, palpatations, mental health, musculoskeletal)? @ -Differential Mental Health Depression, anxiety, bipolar, psychosis, schizophrenia, borderline personality, situational depression, adjustment disorder, behavioral disorder, brain tumor, malingering, substance abuse, encephalopathy, medication reaction, dementia, hyp othyroidism, degenerative neurologic disorder, lupus.... This is not meant to be all-inclusive list EKG interpreted by me (3pts min.). @ -not done X-rays interpreted by me (1pt min.). @ -None done CT interpreted by me (1pt min.). @ -None done U/S interpreted by me (1pt. min.). @ -None done What testing was considered but not performed or refused? (CT, X-rays, U/S, labs)? Why? @ -None What meds were considered but not given or refused? Why? @ -None Did you discuss the management of the patient with other professionals (professionals i.e. , PA, PRESS PIPE INSPECTOR, lab, RT, psych nurse, foster care social worker, tile mechanic helper, teacher, custodial officer, immigration case worker)? Give summary @ -EPS nurse Was smoking cessation discussed for >3mins.? @ -No Was critical care preformed (if so, how long)? @ -No Were there social determinants of health that impacted care today? How? (Homelessness, low income, unemployed, alcoholism, drug addiction, transportation, low edu. Level, literacy, decrease access to med. care, [facility], rehab)? @ -No Was there de-escalation of care discussed even if they declined (Discuss DNR or withdrawal of care, Hospice)? DNR status @ -No What co-morbidities impacted this encounter? (DM, HTN, Smoking, COPD, CAD, Cancer, CVA, ARF, Chemo, Hep., AIDS, mental health diagnosis, sleep apnea, morbid obesity)? @ -polysubstance abuse Was patient admitted / discharged? Hospital course, mention meds given and route, prescriptions, significant lab abnormalities, going to OR and other pertinent info. @ -Patient's placed into room 12. He is evaluated by EPS. They do feel that the patient may need admission and therefore laboratory studies are obtained. Patient will be reevaluated in the morning by psychiatric services Undiagnosed new problem with uncertain prognosis? @ -No Drug Therapy requiring intensive monitoring for toxicity (Heparin, Nitro, Insulin, Cardizem)? @ -No Were any procedures done? @ -No Diagnosis/symptom? @ -Acute aggressive behavior Acute, or Chronic, or Acute on Chronic? @ -acute Uncomplicated (without systemic symptoms) or Complicated (systemic symptoms)? @ -Complicated Side effects of treatment? @ -No Exacerbation, Progression, or Severe Exacerbation? @ -No Poses a threat to life or bodily function? How? (Chest pain, [place], [place], pneumonia, PE, COPD, DKA, ARF, appy, cholecystitis, CVA, Diverticulitis, Homicidal, Suicidal, threat to staff... and all critical care pts) @ -No (Ayesha Avila) - Lab Data Lab Results 05/20/23 05/20/23 05/20/23 Range/Units 09:12 09:12 09:12 WBC 11.9 H (3.8-10.6) k/uL RBC 5.16 (4.30-5.90) m/uL Hgb 15.0 (13.0-17.5) gm/dL Hct 45.9 (39.0-53.0) % MCV 89.0 (80.0-100.0) fL MCH 29.0 (25.0-35.0) pg MCHC 32.6 (31.0-37.0) g/dL RDW 13.5 (11.5-15.5) % Plt Count 327 (150-450) k/uL MPV 7.6 Neutrophils % 72 % Lymphocytes % 17 % Monocytes % 7 % Eosinophils % 2 % Basophils % 0 % Neutrophils # 8.6 H (1.3-7.7) k/uL Lymphocytes # 2.0 (1.0-4.8) k/uL Monocytes # 0.9 (0-1.0) k/uL Eosinophils # 0.2 (0-0.7) k/uL Basophils # 0.1 (0-0.2) k/uL Sodium 139 (137-145) mmol/L Potassium 4.2 (3.5-5.1) mmol/L Chloride 101 (98-107) mmol/L Carbon Dioxide 25 (22-30) mmol/L Anion Gap 13 mmol/L BUN 11 (9-20) mg/dL Creatinine 0.73 (0.66-1.25) mg/dL Est GFR (CKD-EPI)AfAm >90 (>60 ml/min/1.73 sqM) Est GFR (CKD-EPI)NonAf >90 (>60 ml/min/1.73 sqM) Glucose 102 H (74-99) mg/dL Calcium 9.3 (8.4-10.2) mg/dL Total Bilirubin 0.9 (0.2-1.3) mg/dL AST 30 (17-59) U/L ALT 30 (4-49) U/L Alkaline Phosphatase 96 (38-126) U/L Total Protein 7.1 (6.3-8.2) g/dL Albumin 4.4 (3.5-5.0) g/dL Urine Color Colorless Urine Appearance Clear (Clear) Urine pH 6.0 (5.0-8.0) Ur Specific [place] 1.007 (1.001-1.035) Urine Protein Negative (Negative) Urine Glucose (UA) Negative (Negative) Urine Ketones Negative (Negative) Urine Blood Negative (Negative) Urine Nitrite Negative (Negative) Urine Bilirubin Negative (Negative) Urine Urobilinogen <2.0 (<2.0) mg/dL Ur Leukocyte Esterase Negative (Negative) Urine Opiates Screen Not Detected (NotDetected) Ur Oxycodone Screen Not Detected (NotDetected) Urine Methadone Screen Not Detected (NotDetected) Ur Barbiturates Screen Not Detected (NotDetected) U Tricyclic Antidepress Not Detected (NotDetected) Ur Phencyclidine Scrn Not Detected (NotDetected) Ur Amphetamines Screen Not Detected (NotDetected) U Methamphetamines Scrn Not Detected (NotDetected) U Benzodiazepines Scrn Detected H (NotDetected) Cane Beds mmol/L Urine Cocaine Screen Not Detected (NotDetected) U Marijuana (THC) Screen Not Detected (NotDetected) SARS-CoV-2 (PCR) (Not Detectd) 05/20/23 05/24/23 05/27/23 Range/Units 09:12 02:38 08:50 WBC 11.9 H (3.8-10.6) k/uL RBC 4.96 (4.30-5.90) m/uL Hgb 14.6 (13.0-17.5) gm/dL Hct 44.1 (39.0-53.0) % MCV 89.1 (80.0-100.0) fL MCH 29.4 (25.0-35.0) pg MCHC 33.0 (31.0-37.0) g/dL RDW 13.7 (11.5-15.5) % Plt Count 306 (150-450) k/uL MPV 7.6 Neutrophils % 67 % Lymphocytes % 20 % Monocytes % 9 % Eosinophils % 2 % Basophils % 0 % Neutrophils # 8.0 H (1.3-7.7) k/uL Lymphocytes # 2.4 (1.0-4.8) k/uL Monocytes # 1.1 H (0-1.0) k/uL Eosinophils # 0.3 (0-0.7) k/uL Basophils # 0.0 (0-0.2) k/uL Sodium (137-145) mmol/L Potassium (3.5-5.1) mmol/L Chloride (98-107) mmol/L Carbon Dioxide (22-30) mmol/L Anion Gap mmol/L BUN (9-20) mg/dL Creatinine (0.66-1.25) mg/dL Est GFR (CKD-EPI)AfAm (>60 ml/min/1.73 sqM) Est GFR (CKD-EPI)NonAf (>60 ml/min/1.73 sqM) Glucose (74-99) mg/dL Calcium (8.4-10.2) mg/dL Total Bilirubin (0.2-1.3) mg/dL AST (17-59) U/L ALT (4-49) U/L Alkaline Phosphatase (38-126) U/L Total Protein (6.3-8.2) g/dL Albumin (3.5-5.0) g/dL Urine Color Urine Appearance (Clear) Urine pH (5.0-8.0) Ur Specific [place] (1.001-1.035) Urine Protein (Negative) Urine Glucose (UA) (Negative) Urine Ketones (Negative) Urine Blood (Negative) Urine Nitrite (Negative) Urine Bilirubin (Negative) Urine Urobilinogen (<2.0) mg/dL Ur Leukocyte Esterase (Negative) Urine Opiates Screen (NotDetected) Ur Oxycodone Screen (NotDetected) Urine Methadone Screen (NotDetected) Ur Barbiturates Screen (NotDetected) U Tricyclic Antidepress (NotDetected) Ur Phencyclidine Scrn (NotDetected) Ur Amphetamines Screen (NotDetected) U Methamphetamines Scrn (NotDetected) U Benzodiazepines Scrn (NotDetected) Cane Beds 0.3 mmol/L Urine Cocaine Screen (NotDetected) U Marijuana (THC) Screen (NotDetected) SARS-CoV-2 (PCR) Not Detected (Not Detectd) 05/27/23 05/27/23 Range/Units 08:50 16:50 WBC (3.8-10.6) k/uL RBC (4.30-5.90) m/uL Hgb (13.0-17.5) gm/dL Hct (39.0-53.0) % MCV (80.0-100.0) fL MCH (25.0-35.0) pg MCHC (31.0-37.0) g/dL RDW (11.5-15.5) % Plt Count (150-450) k/uL MPV Neutrophils % % Lymphocytes % % Monocytes % % Eosinophils % % Basophils % % Neutrophils # (1.3-7.7) k/uL Lymphocytes # (1.0-4.8) k/uL Monocytes # (0-1.0) k/uL Eosinophils # (0-0.7) k/uL Basophils # (0-0.2) k/uL Sodium 138 (137-145) mmol/L Potassium 4.3 (3.5-5.1) mmol/L Chloride 104 (98-107) mmol/L Carbon Dioxide 27 (22-30) mmol/L Anion Gap 7 mmol/L BUN 9 (9-20) mg/dL Creatinine 0.85 (0.66-1.25) mg/dL Est GFR (CKD-EPI)AfAm >90 (>60 ml/min/1.73 sqM) Est GFR (CKD-EPI)NonAf >90 (>60 ml/min/1.73 sqM) Glucose 89 (74-99) mg/dL Calcium 8.9 (8.4-10.2) mg/dL Total Bilirubin (0.2-1.3) mg/dL AST (17-59) U/L ALT (4-49) U/L Alkaline Phosphatase (38-126) U/L Total Protein (6.3-8.2) g/dL Albumin (3.5-5.0) g/dL Urine Color Urine Appearance (Clear) Urine pH (5.0-8.0) Ur Specific [place] (1.001-1.035) Urine Protein (Negative) Urine Glucose (UA) (Negative) Urine Ketones (Negative) Urine Blood (Negative) Urine Nitrite (Negative) Urine Bilirubin (Negative) Urine Urobilinogen (<2.0) mg/dL Ur Leukocyte Esterase (Negative) Urine Opiates Screen (NotDetected) Ur Oxycodone Screen (NotDetected) Urine Methadone Screen (NotDetected) Ur Barbiturates Screen (NotDetected) U Tricyclic Antidepress (NotDetected) Ur Phencyclidine Scrn (NotDetected) Ur Amphetamines Screen (NotDetected) U Methamphetamines Scrn (NotDetected) U Benzodiazepines Scrn (NotDetected) Cane Beds 0.2 mmol/L Urine Cocaine Screen (NotDetected) U Marijuana (THC) Screen (NotDetected) SARS-CoV-2 (PCR) Not Detected (Not Detectd) Disposition <Jose J Craven - Last Filed: 05/20/23 06:49> Is patient prescribed a controlled substance at d/c from ED?: No Time of Disposition: 13:02 <Eugene Brice - Last Filed: 05/20/23 13:01> <Shelton Pompa - Last Filed: 05/24/23 22:05> <Ayesha Avila - Last Filed: 05/29/23 23:12> Clinical Impression: Acute psychosis Disposition: TRANSFER TO PSYCH HOSP/UNIT Condition: Stable
[2023-05-20] MEDS ORDERED: LORazepam 2 MG/ML INJ IM STA ×3 (03:19→19:38)
[2023-05-20] MEDS ORDERED: ZIPRASIDONE 20 MG VIAL IM STA ×3 (03:41→23:59)
[2023-05-20] MEDS ORDERED: traZODone HCL 50 MG TAB PO PRN (06:47)
[2023-05-20] MEDS: chlorproMAZINE 25 MG TAB PO SCH (09:16)
[2023-05-20] MEDS: OXcarbazepine 300 MG TAB PO SCH ×2 (09:16→21:41)
[2023-05-20] MEDS: SERTRALINE 100 MG TAB PO SCH (09:16)
[2023-05-20 09:23] LABS: Appearance,Urine Clear (Clear); Bilirubin,Urine Negative (Negative); Blood,Urine Negative (Negative); Color,Urine Colorless; Glucose,Urine (UA) Negative (Negative); Ketones,Urine Negative (Negative); Leukocyte Esterase,Urine Negative (Negative); Nitrite,Urine Negative (Negative); Protein,Urine Negative (Negative); Specific Gravity,Urine 1.007 (1.001-1.035); Urobilinogen,Urine <2.0 mg/dL (<2.0)
[2023-05-20 09:25] LABS: Basophils # (A) 0.1 k/uL (0-0.2); Basophils % (A) 0 %; Eosinophils # (A) 0.2 k/uL (0-0.7); Eosinophils % (A) 2 %; HCT 45.9 % (39.0-53.0); Lymphocytes % (A) 17 %; MCHC 32.6 g/dL (31.0-37.0); Mean Platelet Volume 7.6; Monocytes # (A) 0.9 k/uL (0-1.0); Monocytes % (A) 7 %; Neutrophils # (A) 8.6 k/uL (1.3-7.7); Neutrophils % (A) 72 %; Platelet Count 327 k/uL (150-450); RBC 5.16 m/uL (4.30-5.90); RDW 13.5 % (11.5-15.5); WBC 11.9 k/uL (3.8-10.6)
[2023-05-20 09:31] LABS: ALT 30 U/L (4-49); AST 30 U/L (17-59); African American GFR (CKD) >90 (>60 ml/min/1.73 sqM); Albumin 4.4 g/dL (3.5-5.0); Alkaline Phosphatase 96 U/L (38-126); Anion Gap 13 mmol/L; Blood Urea Nitrogen 11 mg/dL (9-20); Calcium 9.3 mg/dL (8.4-10.2); Carbon Dioxide 25 mmol/L (22-30); Chloride 101 mmol/L (98-107); Glucose 102 mg/dL (74-99); Non-African American GFR(CKD) >90 (>60 ml/min/1.73 sqM); Potassium 4.2 mmol/L (3.5-5.1); Sodium 139 mmol/L (137-145); Total Bilirubin 0.9 mg/dL (0.2-1.3); Total Protein 7.1 g/dL (6.3-8.2)
[2023-05-20 09:40] LABS: Amphetamine Screen,Urine Not Detected (NotDetected); Barbiturate Screen,Urine Not Detected (NotDetected); Benzodiazepines Screen,Urine Detected (NotDetected); Cocaine Screen,Urine Not Detected (NotDetected); Methadone Screen, Urine Not Detected (NotDetected); Opiate Screen,Urine Not Detected (NotDetected); Oxycodone Screen, Urine Not Detected (NotDetected); Phencyclidine Screen,Urine Not Detected (NotDetected); Tricyclic Antidepressant,Urine Not Detected (NotDetected); Urn Cannabinoid Scrn Not Detected (NotDetected)
--- NOTE | 2023-05-20 16:41 | ED ---
Medical Decision Making - Lab Data Result diagrams: 05/20/23 09:12 05/20/23 09:12 <Alek Torres - Last Filed: 05/21/23 17:27> - Lab Data Result diagrams: 05/20/23 09:12 05/20/23 09:12 <MechegeorgiaJose J - Last Filed: 05/22/23 02:11> - Lab Data Result diagrams: 05/20/23 09:12 05/20/23 09:12 <Yves Payne - Last Filed: 05/23/23 22:51> - Lab Data Result diagrams: 05/27/23 08:50 05/27/23 08:50 <Eugene Brice - Last Filed: 05/28/23 01:03> - Medical Decision Making EKG interpreted by myself at 1343 shows sinus rhythm with rate of 92. WI 164. QRS 113. QT 368. QTC 418. Normal axis. Normal QRS. No acute ST change. (Eugene Brice) - Lab Data Lab Results 05/20/23 05/20/23 05/20/23 Range/Units 09:12 09:12 09:12 WBC 11.9 H (3.8-10.6) k/uL RBC 5.16 (4.30-5.90) m/uL Hgb 15.0 (13.0-17.5) gm/dL Hct 45.9 (39.0-53.0) % MCV 89.0 (80.0-100.0) fL MCH 29.0 (25.0-35.0) pg MCHC 32.6 (31.0-37.0) g/dL RDW 13.5 (11.5-15.5) % Plt Count 327 (150-450) k/uL MPV 7.6 Neutrophils % 72 % Lymphocytes % 17 % Monocytes % 7 % Eosinophils % 2 % Basophils % 0 % Neutrophils # 8.6 H (1.3-7.7) k/uL Lymphocytes # 2.0 (1.0-4.8) k/uL Monocytes # 0.9 (0-1.0) k/uL Eosinophils # 0.2 (0-0.7) k/uL Basophils # 0.1 (0-0.2) k/uL Sodium 139 (137-145) mmol/L Potassium 4.2 (3.5-5.1) mmol/L Chloride 101 (98-107) mmol/L Carbon Dioxide 25 (22-30) mmol/L Anion Gap 13 mmol/L BUN 11 (9-20) mg/dL Creatinine 0.73 (0.66-1.25) mg/dL Est GFR (CKD-EPI)AfAm >90 (>60 ml/min/1.73 sqM) Est GFR (CKD-EPI)NonAf >90 (>60 ml/min/1.73 sqM) Glucose 102 H (74-99) mg/dL Calcium 9.3 (8.4-10.2) mg/dL Total Bilirubin 0.9 (0.2-1.3) mg/dL AST 30 (17-59) U/L ALT 30 (4-49) U/L Alkaline Phosphatase 96 (38-126) U/L Total Protein 7.1 (6.3-8.2) g/dL Albumin 4.4 (3.5-5.0) g/dL Urine Color Colorless Urine Appearance Clear (Clear) Urine pH 6.0 (5.0-8.0) Ur Specific [place] 1.007 (1.001-1.035) Urine Protein Negative (Negative) Urine Glucose (UA) Negative (Negative) Urine Ketones Negative (Negative) Urine Blood Negative (Negative) Urine Nitrite Negative (Negative) Urine Bilirubin Negative (Negative) Urine Urobilinogen <2.0 (<2.0) mg/dL Ur Leukocyte Esterase Negative (Negative) Urine Opiates Screen Not Detected (NotDetected) Ur Oxycodone Screen Not Detected (NotDetected) Urine Methadone Screen Not Detected (NotDetected) Ur Barbiturates Screen Not Detected (NotDetected) U Tricyclic Antidepress Not Detected (NotDetected) Ur Phencyclidine Scrn Not Detected (NotDetected) Ur Amphetamines Screen Not Detected (NotDetected) U Methamphetamines Scrn Not Detected (NotDetected) U Benzodiazepines Scrn Detected H (NotDetected) Urine Cocaine Screen Not Detected (NotDetected) U Marijuana (THC) Screen Not Detected (NotDetected) SARS-CoV-2 (PCR) (Not Detectd) 05/20/23 Range/Units 09:12 WBC (3.8-10.6) k/uL RBC (4.30-5.90) m/uL Hgb (13.0-17.5) gm/dL Hct (39.0-53.0) % MCV (80.0-100.0) fL MCH (25.0-35.0) pg MCHC (31.0-37.0) g/dL RDW (11.5-15.5) % Plt Count (150-450) k/uL MPV Neutrophils % % Lymphocytes % % Monocytes % % Eosinophils % % Basophils % % Neutrophils # (1.3-7.7) k/uL Lymphocytes # (1.0-4.8) k/uL Monocytes # (0-1.0) k/uL Eosinophils # (0-0.7) k/uL Basophils # (0-0.2) k/uL Sodium (137-145) mmol/L Potassium (3.5-5.1) mmol/L Chloride (98-107) mmol/L Carbon Dioxide (22-30) mmol/L Anion Gap mmol/L BUN (9-20) mg/dL Creatinine (0.66-1.25) mg/dL Est GFR (CKD-EPI)AfAm (>60 ml/min/1.73 sqM) Est GFR (CKD-EPI)NonAf (>60 ml/min/1.73 sqM) Glucose (74-99) mg/dL Calcium (8.4-10.2) mg/dL Total Bilirubin (0.2-1.3) mg/dL AST (17-59) U/L ALT (4-49) U/L Alkaline Phosphatase (38-126) U/L Total Protein (6.3-8.2) g/dL Albumin (3.5-5.0) g/dL Urine Color Urine Appearance (Clear) Urine pH (5.0-8.0) Ur Specific [place] (1.001-1.035) Urine Protein (Negative) Urine Glucose (UA) (Negative) Urine Ketones (Negative) Urine Blood (Negative) Urine Nitrite (Negative) Urine Bilirubin (Negative) Urine Urobilinogen (<2.0) mg/dL Ur Leukocyte Esterase (Negative) Urine Opiates Screen (NotDetected) Ur Oxycodone Screen (NotDetected) Urine Methadone Screen (NotDetected) Ur Barbiturates Screen (NotDetected) U Tricyclic Antidepress (NotDetected) Ur Phencyclidine Scrn (NotDetected) Ur Amphetamines Screen (NotDetected) U Methamphetamines Scrn (NotDetected) U Benzodiazepines Scrn (NotDetected) Urine Cocaine Screen (NotDetected) U Marijuana (THC) Screen (NotDetected) SARS-CoV-2 (PCR) Not Detected (Not Detectd) Disposition <Alek Torres - Last Filed: 05/21/23 17:27> <Jose J Craven - Last Filed: 05/22/23 02:11> Is patient prescribed a controlled substance at d/c from ED?: No <Yves Payne - Last Filed: 05/23/23 22:51> Is patient prescribed a controlled substance at d/c from ED?: No <Eugene Brice - Last Filed: 05/28/23 01:03> Clinical Impression: Acute psychosis Disposition: TRANSFER TO PSYCH HOSP/UNIT Condition: Stable Procedures - Restraint - Face to Face Restraint Occurrence 4 Patient's Immediate Situation: Endangers self safety, Endangers others' safety, Endangers staff safety, Violent behavior Patient's Reaction to the Intervention: Uncooperative, Angry Patient's Medical & Behavioral Condition: Agitated Need to Continue or Terminate Restraint or Seclusion: Continue Face to Face Eval of Restraint Date: 05/21/23 Face to Face Eval of Restraint Time: 17:27 <Alek Torres - Last Filed: 05/21/23 17:27> - Restraint - Face to Face Restraint Occurrence 3 Patient's Immediate Situation: Endangers self safety, Endangers others' safety, Endangers staff safety Patient's Reaction to the Intervention: Belligerent, Aggressive Patient's Medical & Behavioral Condition: Awake, Alert Need to Continue or Terminate Restraint or Seclusion: Continue Face to Face Eval of Restraint Date: 05/21/23 Face to Face Eval of Restraint Time: 06:55 Restraint Occurrence 5 Patient's Immediate Situation: Endangers self safety, Endangers others' safety, Endangers staff safety Patient's Reaction to the Intervention: Hostile, Belligerent, Aggressive Patient's Medical & Behavioral Condition: Awake, Alert, Follows directions Need to Continue or Terminate Restraint or Seclusion: Continue Face to Face Eval of Restraint Date: 05/21/23 Face to Face Eval of Restraint Time: 21:40 Restraint Occurrence 6 Patient's Immediate Situation: Endangers self safety, Endangers others' safety, Endangers staff safety Patient's Reaction to the Intervention: Hostile, Belligerent Patient's Medical & Behavioral Condition: Awake, Alert Need to Continue or Terminate Restraint or Seclusion: Continue Face to Face Eval of Restraint Date: 05/22/23 Face to Face Eval of Restraint Time: 01:40 <Jose J Craven - Last Filed: 05/22/23 02:11> - Restraint - Face to Face Restraint Occurrence 1 Patient's Immediate Situation: Endangers self safety, Endangers others' safety, Endangers staff safety, Violent behavior Patient's Reaction to the Intervention: Uncooperative, Angry Patient's Medical & Behavioral Condition: Awake, Alert Need to Continue or Terminate Restraint or Seclusion: Continue Face to Face Eval of Restraint Date: 05/20/23 Face to Face Eval of Restraint Time: 16:07 Restraint Occurrence 2 Patient's Immediate Situation: Endangers self safety, Endangers others' safety, Endangers staff safety, Violent behavior Patient's Reaction to the Intervention: Appropriate, Calm Patient's Medical & Behavioral Condition: Awake, Alert Face to Face Eval of Restraint Date: 05/20/23 Face to Face Eval of Restraint Time: 19:55 Restraint Occurrence 11 Patient's Immediate Situation: Endangers self safety, Endangers others' safety, Endangers staff safety, Violent behavior Patient's Reaction to the Intervention: Uncooperative Patient's Medical & Behavioral Condition: Awake, Alert Face to Face Eval of Restraint Date: 05/23/23 Face to Face Eval of Restraint Time: 18:07 Restraint Occurrence 12 Patient's Immediate Situation: Endangers self safety, Endangers others' safety, Endangers staff safety, Violent behavior Patient's Reaction to the Intervention: Uncooperative Patient's Medical & Behavioral Condition: Awake, Alert Need to Continue or Terminate Restraint or Seclusion: Continue Face to Face Eval of Restraint Date: 05/23/23 Face to Face Eval of Restraint Time: 22:10 <Yves Payne - Last Filed: 05/23/23 22:51> - Restraint - Face to Face Restraint Occurrence 7 Patient's Immediate Situation: Endangers self safety, Endangers others' safety, Endangers staff safety Patient's Reaction to the Intervention: Angry Patient's Medical & Behavioral Condition: Awake, Alert Need to Continue or Terminate Restraint or Seclusion: Continue Face to Face Eval of Restraint Date: 05/22/23 Face to Face Eval of Restraint Time: 10:52 Restraint Occurrence 8 Patient's Immediate Situation: Endangers self safety, Endangers others' safety Patient's Reaction to the Intervention: Angry Patient's Medical & Behavioral Condition: Awake Need to Continue or Terminate Restraint or Seclusion: Continue Face to Face Eval of Restraint Date: 05/22/23 Face to Face Eval of Restraint Time: 14:52 Restraint Occurrence 9 Patient's Immediate Situation: Endangers self safety, Endangers others' safety, Endangers staff safety Patient's Reaction to the Intervention: Uncooperative Patient's Medical & Behavioral Condition: Awake, Alert Need to Continue or Terminate Restraint or Seclusion: Continue Face to Face Eval of Restraint Date: 05/23/23 Face to Face Eval of Restraint Time: 10:02 Restraint Occurrence 10 Patient's Immediate Situation: Endangers self safety, Endangers others' safety, Endangers staff safety Patient's Reaction to the Intervention: Uncooperative, Angry Patient's Medical & Behavioral Condition: Awake, Alert Need to Continue or Terminate Restraint or Seclusion: Continue Face to Face Eval of Restraint Date: 05/23/23 Face to Face Eval of Restraint Time: 14:05 <Eugene Brice - Last Filed: 05/28/23 01:03>
[2023-05-20] MEDS ORDERED: HALOPERIDOL LACTATE 5 MG/ML 1 ML VIAL IM STA (19:38)
[2023-05-20] MEDS: LITHIUM CARBONATE ER 450 MG TABLET.ER PO SCH (21:40)
[2023-05-20] MEDS: PALIPERIDONE 3 MG TAB.ER.24 PO SCH (21:41)
[2023-05-20] MEDS: chlorproMAZINE 100 MG TAB PO SCH (21:52)
[2023-05-21] MEDS ORDERED: ZIPRASIDONE 20 MG VIAL IM STA (00:03)
[2023-05-21] MEDS ORDERED: ZIPRASIDONE 20 MG VIAL IM PRN (07:37)
[2023-05-21] MEDS ORDERED: LORazepam 2 MG/ML INJ IV STA (07:39)
[2023-05-21] MEDS: OXcarbazepine 300 MG TAB PO SCH ×2 (08:34→20:46)
[2023-05-21] MEDS: SERTRALINE 100 MG TAB PO SCH (08:34)
[2023-05-21] MEDS: chlorproMAZINE 25 MG TAB PO SCH (08:58)
[2023-05-21] MEDS ORDERED: LORazepam 2 MG/ML INJ IM STA (14:06)
[2023-05-21] MEDS: LITHIUM CARBONATE ER 450 MG TABLET.ER PO SCH (20:46)
[2023-05-21] MEDS: PALIPERIDONE 3 MG TAB.ER.24 PO SCH (20:46)
[2023-05-21] MEDS: chlorproMAZINE 100 MG TAB PO SCH (22:15)
[2023-05-22] MEDS ORDERED: ZIPRASIDONE 20 MG VIAL IM STA ×4 (03:54→14:51)
[2023-05-22] MEDS ORDERED: LORazepam 2 MG/ML INJ IM STA ×3 (07:49→14:52)
[2023-05-22] MEDS: hydrOXYzine pamoate 25 MG CAP PO PRN (09:38)
[2023-05-22] MEDS: SERTRALINE 100 MG TAB PO SCH (09:39)
[2023-05-22] MEDS: OXcarbazepine 300 MG TAB PO SCH ×2 (09:39→21:13)
[2023-05-22] MEDS: chlorproMAZINE 25 MG TAB PO SCH (10:01)
[2023-05-22] MEDS ORDERED: LORazepam 2 MG/ML INJ IV STA (10:07)
[2023-05-22] MEDS: PALIPERIDONE 3 MG TAB.ER.24 PO SCH (21:13)
[2023-05-22] MEDS: LITHIUM CARBONATE ER 450 MG TABLET.ER PO SCH (21:14)
[2023-05-22] MEDS: chlorproMAZINE 100 MG TAB PO SCH (21:17)
[2023-05-22] MEDS ORDERED: HALOPERIDOL LACTATE 5 MG/ML 1 ML VIAL IM STA (23:51)
[2023-05-23] MEDS: SERTRALINE 100 MG TAB PO SCH (08:40)
[2023-05-23] MEDS: hydrOXYzine pamoate 25 MG CAP PO PRN ×2 (08:40→20:41)
[2023-05-23] MEDS: OXcarbazepine 300 MG TAB PO SCH (08:40)
[2023-05-23] MEDS: chlorproMAZINE 25 MG TAB PO SCH (09:12)
[2023-05-23] MEDS ORDERED: DIVALPROEX ER 500 MG TAB.ER.24H PO STA (13:02)
[2023-05-23] MEDS ORDERED: traZODone HCL 100 MG TAB PO PRN (13:05)
--- NOTE | 2023-05-23 13:19 | P.CN ---
Psychiatric Consult - . Consult date: 05/23/23 Consult:: 05/23/23 11:42 IDENTIFYING DATA: This patient is a 23-year-old male currently lives alone however states that he is "homeless". REASON FOR REFERRAL: Psychiatry was consulted for psychiatric evaluation and medication management HISTORY OF PRESENT ILLNESS: The patient presented to the hospital initially on 05/19 was brought in night previously for evaluation of his mental health. Patient apparently returned back with his father and was petitioned. According to petition and father states that he has been more aggressive and also squeeze the arm of the baby and would not let go. Also reported the patient has not been taking his psychiatric medications. Patient is currently following up with Dr. Garcia from [facility] and also with the act team. Patient was positive for benzodiazepines in his urine. He has been restrained multiple times since being in the emergency room attending to get placement. Patient has been given several when necessary medications. Patient was seen today by publicity writer at the bedside. Patient was in restraints. He initially was somewhat cooperative however fairly oppositional. He is redirected several questions back to publicity writer, was fairly irritable and agitated with publicity writer. He told publicity writer "if you turn off the lights I'm going to get really upset". He appeared to have very poor decision-making skills, very poor insight and judgment. He believes that his mental illness is "cured". He appears to have very low impulse control. Kennel Helper attempted to asked patient more about the circumstances of being in the hospital and patient did not answer. He apparently has been attacking staff members and fairly aggressive with others since being in the ER. Kennel Helper attempted to speak with act body team member however patient began shaking the bed furiously and yelling and when publicity writer and nurse came back to the bad patient stopped immediately looked at this and began laughing. Vision has poor hygiene and grooming. At this time patient denies any suicidal or homical ideations, intent or plan. Patient denies any auditory, visual hallucinations. Patient denies using any recreational drugs. Patient is denying any depression or anxiety at this time. States that he sleeps fairly at nighttime. PAST PSYCHIATRIC HISTORY: Patient has a a history of schizoaffective disorder. Patient is currently on several different psychiatric medications through [facility]. Patient sees Dr. Garcia as a psychiatrist regularly. He is currently on lithium, trazodone, haloperidol, Trileptal, Zoloft, Thorazine, Vistaril. Patient apparently does have a history of being at [facility] pre viously. Patient has been admitted psychiatrically several times in the past. According to EMR patient was last admitted to the psychiatric unit here at the hospital in 2018. Patient denies any history of suicide attempts in the past. Past Medical History: GERD/Reflux Additional Past Medical History / Comment(s): FATTY LIVER. History of Any Multi-Drug Resistant Organisms: None Reported Past Surgical History: No Surgical Hx Reported Additional Past Surgical History / Comment(s): [place] teeth extraction with anesthesia. Past Anesthesia/Blood Transfusion Reactions: No Reported Reaction Past Psychological History: ADD/ADHD, Anxiety, Depression Smoking Status: Current every day smoker, Vaper Past Alcohol Use History: None Reported Past Drug Use History: Cocaine, IV Drug Use, Marijuana, Methamphetamine, Opiates ALLERGIES: as per EMR. CHEMICAL DEPENDENCY HISTORY: as per HPI. FAMILY PSYCHIATRIC/SUBSTANCE USE HISTORY: Unable to gather SOCIAL HISTORY: Patient was unable to provide further social history. Patient apparently lives alone and his father is his guardian. MENTAL STATUS EXAM: General Appearance: Patient appears to be tall, overweight, longer hair, stated age is alert, unpleasant, defiant and agitated. Patient appears to have poor hygiene and grooming wearing hospital gown with intense eye contact. Behavior: Patient is lying in bed in restraints, defiant, aggressive and agitated Speech: Patient's speech is fluent and nonpressured. [place] Mood/Affect: Patient reports their mood is "just fine", affect is congruent Suicidality/Homicidality: Patient denies having any suicidal or homicidal ideation intent or plan. Perceptions: Patient denies any visual hallucinations and denies any auditory hallucinations Though content/process: There is no evidence of any delusional thought content, concrete Memory and concentration: AOX3, grossly intact for the purposes of this session. Judgment and insight: poor/impulsive IMPRESSIONS: Schizoaffective disorder Rule out antisocial personality disorder PLAN: -At this time patient DOES meet criteria for inpatient psychiatric admission however due to patient currently being over the weight limit for the unit, will continue to look for outside placement/transfer. -Would recommend the following medication changes/additions: Start Prolixin 5 mg 3 times a day for psychosis/mood stabilization, Depakote ER 500 mg daily for mood stabilization. Continue with lithium 450 mg daily at bedtime for mood stabilization. Trazodone 100 mg daily at bedtime when necessary for sleep. Titrate off of Thorazine, last dose to be given tonight at lower dose. Vistaril 50 mg twice a day prn for anxiety. Zoloft 100 mg daily for mood/anxiety. -Thorazine and Ativan IM and by mouth options when necessary for agitation. -Will order EKG to check QTc interval and also lithium level for tomorrow morning. [-Cannot leave AMA at this time. Kennel Helper completed a second certificate, will be filing with the court today along with petition and first cert to commence involuntary process. -Communicated plan to patient's nurse -Will continue to follow along -Please contact with any questions.
[2023-05-23] MEDS: LORazepam 1 MG TAB PO PRN (20:40)
[2023-05-23] MEDS: LITHIUM CARBONATE ER 450 MG TABLET.ER PO SCH (20:46)
[2023-05-23] MEDS ORDERED: chlorproMAZINE 25 MG TAB PO ONE (21:00)
[2023-05-23] MEDS ORDERED: DIVALPROEX ER 500 MG TAB.ER.24H PO SCH (21:00)
--- NOTE | 2023-05-24 07:52 | ED ---
Medical Decision Making - Lab Data Result diagrams: 05/27/23 08:50 05/27/23 08:50 Lab Results 05/20/23 05/20/23 05/20/23 Range/Units 09:12 09:12 09:12 WBC 11.9 H (3.8-10.6) k/uL RBC 5.16 (4.30-5.90) m/uL Hgb 15.0 (13.0-17.5) gm/dL Hct 45.9 (39.0-53.0) % MCV 89.0 (80.0-100.0) fL MCH 29.0 (25.0-35.0) pg MCHC 32.6 (31.0-37.0) g/dL RDW 13.5 (11.5-15.5) % Plt Count 327 (150-450) k/uL MPV 7.6 Neutrophils % 72 % Lymphocytes % 17 % Monocytes % 7 % Eosinophils % 2 % Basophils % 0 % Neutrophils # 8.6 H (1.3-7.7) k/uL Lymphocytes # 2.0 (1.0-4.8) k/uL Monocytes # 0.9 (0-1.0) k/uL Eosinophils # 0.2 (0-0.7) k/uL Basophils # 0.1 (0-0.2) k/uL Sodium 139 (137-145) mmol/L Potassium 4.2 (3.5-5.1) mmol/L Chloride 101 (98-107) mmol/L Carbon Dioxide 25 (22-30) mmol/L Anion Gap 13 mmol/L BUN 11 (9-20) mg/dL Creatinine 0.73 (0.66-1.25) mg/dL Est GFR (CKD-EPI)AfAm >90 (>60 ml/min/1.73 sqM) Est GFR (CKD-EPI)NonAf >90 (>60 ml/min/1.73 sqM) Glucose 102 H (74-99) mg/dL Calcium 9.3 (8.4-10.2) mg/dL Total Bilirubin 0.9 (0.2-1.3) mg/dL AST 30 (17-59) U/L ALT 30 (4-49) U/L Alkaline Phosphatase 96 (38-126) U/L Total Protein 7.1 (6.3-8.2) g/dL Albumin 4.4 (3.5-5.0) g/dL Urine Color Colorless Urine Appearance Clear (Clear) Urine pH 6.0 (5.0-8.0) Ur Specific [place] 1.007 (1.001-1.035) Urine Protein Negative (Negative) Urine Glucose (UA) Negative (Negative) Urine Ketones Negative (Negative) Urine Blood Negative (Negative) Urine Nitrite Negative (Negative) Urine Bilirubin Negative (Negative) Urine Urobilinogen <2.0 (<2.0) mg/dL Ur Leukocyte Esterase Negative (Negative) Urine Opiates Screen Not Detected (NotDetected) Ur Oxycodone Screen Not Detected (NotDetected) Urine Methadone Screen Not Detected (NotDetected) Ur Barbiturates Screen Not Detected (NotDetected) U Tricyclic Antidepress Not Detected (NotDetected) Ur Phencyclidine Scrn Not Detected (NotDetected) Ur Amphetamines Screen Not Detected (NotDetected) U Methamphetamines Scrn Not Detected (NotDetected) U Benzodiazepines Scrn Detected H (NotDetected) [place] mmol/L Urine Cocaine Screen Not Detected (NotDetected) U Marijuana (THC) Screen Not Detected (NotDetected) SARS-CoV-2 (PCR) (Not Detectd) 05/20/23 05/24/23 Range/Units 09:12 02:38 WBC (3.8-10.6) k/uL RBC (4.30-5.90) m/uL Hgb (13.0-17.5) gm/dL Hct (39.0-53.0) % MCV (80.0-100.0) fL MCH (25.0-35.0) pg MCHC (31.0-37.0) g/dL RDW (11.5-15.5) % Plt Count (150-450) k/uL MPV Neutrophils % % Lymphocytes % % Monocytes % % Eosinophils % % Basophils % % Neutrophils # (1.3-7.7) k/uL Lymphocytes # (1.0-4.8) k/uL Monocytes # (0-1.0) k/uL Eosinophils # (0-0.7) k/uL Basophils # (0-0.2) k/uL Sodium (137-145) mmol/L Potassium (3.5-5.1) mmol/L Chloride (98-107) mmol/L Carbon Dioxide (22-30) mmol/L Anion Gap mmol/L BUN (9-20) mg/dL Creatinine (0.66-1.25) mg/dL Est GFR (CKD-EPI)AfAm (>60 ml/min/1.73 sqM) Est GFR (CKD-EPI)NonAf (>60 ml/min/1.73 sqM) Glucose (74-99) mg/dL Calcium (8.4-10.2) mg/dL Total Bilirubin (0.2-1.3) mg/dL AST (17-59) U/L ALT (4-49) U/L Alkaline Phosphatase (38-126) U/L Total Protein (6.3-8.2) g/dL Albumin (3.5-5.0) g/dL Urine Color Urine Appearance (Clear) Urine pH (5.0-8.0) Ur Specific [place] (1.001-1.035) Urine Protein (Negative) Urine Glucose (UA) (Negative) Urine Ketones (Negative) Urine Blood (Negative) Urine Nitrite (Negative) Urine Bilirubin (Negative) Urine Urobilinogen (<2.0) mg/dL Ur Leukocyte Esterase (Negative) Urine Opiates Screen (NotDetected) Ur Oxycodone Screen (NotDetected) Urine Methadone Screen (NotDetected) Ur Barbiturates Screen (NotDetected) U Tricyclic Antidepress (NotDetected) Ur Phencyclidine Scrn (NotDetected) Ur Amphetamines Screen (NotDetected) U Methamphetamines Scrn (NotDetected) U Benzodiazepines Scrn (NotDetected) [place] 0.3 mmol/L Urine Cocaine Screen (NotDetected) U Marijuana (THC) Screen (NotDetected) SARS-CoV-2 (PCR) Not Detected (Not Detectd) Disposition Clinical Impression: Acute psychosis Disposition: ADMITTED IP TO THIS HOSP Condition: Stable Is patient prescribed a controlled substance at d/c from ED?: No Procedures - Restraint - Face to Face Restraint Occurrence 1 Patient's Immediate Situation: Endangers self safety, Endangers others' safety Patient's Reaction to the Intervention: Hostile, Belligerent, Aggressive, Combative Patient's Medical & Behavioral Condition: Awake, Alert, Follows directions Need to Continue or Terminate Restraint or Seclusion: Continue Face to Face Eval of Restraint Date: 05/24/23 Face to Face Eval of Restraint Time: 07:51
[2023-05-24] MEDS: LORazepam 2 MG/ML INJ IM PRN ×2 (07:55→21:32)
[2023-05-24] MEDS: SERTRALINE 100 MG TAB PO SCH (09:29)
--- NOTE | 2023-05-24 15:08 | P.PN ---
Progress Note - Text Progress Note Date: 05/24/23 Interval history: Patient was seen today for psychiatric follow-up. Patient apparently attempted to elope from the ER this morning. She has been agitated and aggressive again with staff. He required restraints this morning. Patient was started on several different medications since yesterday putting Prolixin addition of Depakote and also Zoloft. Patient was seen this afternoon was in restraints. He didn't appear to be somewhat confused and was a bit more directable during conversation. He continues to have very poor insight and poor judgment. Continues to be fairly defiant with song writer in conversation and oppositional. He was not able to verbally express why he wanted to restraints again continues to have very poor impulse control. Claims that his mood and anxiety are fine. He does appear to be internally preoccupied and has been known to be talking to himself in his room and responding to internal stimuli. At this time he is denying any auditory or visual hallucinations. Denying any suicidal or homicidal ideations intent or plan. Patient has been taking his medications. Patient signed a deferral with the director of sports medicine this morning. MENTAL STATUS EXAM: General Appearance: Patient appears to be tall, overweight, longer hair, stated age is alert, unpleasant, defiant and agitated. confused at times. Patient appears to have poor hygiene and grooming wearing hospital gown with intense eye contact. Behavior: Patient is lying in bed in restraints, defiant, aggressive and agitated Speech: Patient's speech is fluent and nonpressured. [place] Mood/Affect: Patient reports their mood is "fine", affect is incongruent Suicidality/Homicidality: Patient denies having any suicidal or homicidal ideation intent or plan. Perceptions: Patient denies any visual hallucinations and denies any auditory hallucinations Though content/process: There is no evidence of any delusional thought content, concrete. demanding release Memory and concentration: AOX3, grossly intact for the purposes of this session. Judgment and insight: poor/impulsive IMPRESSIONS: Schizoaffective disorder, bipolar type Rule out antisocial personality disorder PLAN: -At this time patient DOES meet criteria for inpatient psychiatric admission however due to patient currently being over the weight limit for the unit, will continue to look for outside placement/transfer. -Would recommend the following medication changes/additions: increase Prolixin 10 mg at 0900 and 1600 for psychosis/mood stabilization, plant to transition patient onto GAN to ensure compliance. increase Depakote ER 750 mg qhs for mood stabilization. Continue with lithium 450 mg daily at bedtime for mood stabilization. Trazodone 100 mg daily at bedtime when necessary for sleep. Vistaril 50 mg twice a day prn for anxiety. d/c Zoloft at this time. added zyprexa 15 mg QHS for mood stabilization/sleep. -Thorazine and Ativan IM and by mouth options when necessary for agitation. -reviewed EKG to check QTc interval, lithium level 0.3 on 05/24 -Cannot leave AMA at this time. Braid Cutter completed a second certificate and filed for involuntary process. Patient ended up signing deferral with director of sports medicine on 05/24 -Communicated plan to patient's nurse -Will continue to follow along -Please contact with any questions.
[2023-05-24] MEDS: chlorproMAZINE 25 MG/ML 2 ML AMP IM PRN ×2 (15:15→22:05)
[2023-05-24] MEDS: LITHIUM CARBONATE ER 450 MG TABLET.ER PO SCH (20:47)
[2023-05-24] MEDS ORDERED: DIVALPROEX ER 250 MG TAB.ER.24H PO SCH (21:00)
[2023-05-24] MEDS ORDERED: OLANZapine 5 MG TAB PO SCH (21:00)
[2023-05-25] MEDS: chlorproMAZINE 25 MG TAB PO PRN ×3 (01:34→21:38)
[2023-05-25] MEDS: hydrOXYzine pamoate 25 MG CAP PO PRN ×2 (08:26→21:37)
[2023-05-25] MEDS: LORazepam 1 MG TAB PO PRN ×3 (08:27→21:38)
--- NOTE | 2023-05-25 11:59 | P.PN ---
Progress Note - Text Progress Note Date: 05/25/23 Interval history: Patient was seen today for psychiatric follow-up. Patient was in restraints e arlier today. Patient was seen coming out of the bathroom today and remains on a one-to-one sitter. He received several Thorazine when necessary's in the past 24 hours. He appeared to be calmer today and was agreeable to speak to physician underwriter and directable during conversation. He appeared to be less defiant today. He appeared to be responding to internal stimuli last today. He states that he ate his lunch okay. He was more directable with physician underwriter during the conversation. He answered questions more appropriately today. Denies any anxiety or depression today. He did claim that he had a difficult time sleeping last night. At this time he is denying any auditory or visual hallucinations. Denying any suicidal or homicidal ideations intent or plan. Patient has been taking his medications. MENTAL STATUS EXAM: General Appearance: Patient appears to be tall, overweight, longer hair, stated age is alert, more pleasant today and directable. Less defiant. confused at times however improving. Patient appears to have improving mildly hygiene and grooming wearing hospital gown with improving eye contact. Behavior: Patient is lying in bed in restraints, less defiant, no agitation today. Speech: Patient's speech is fluent and nonpressured. [place] Mood/Affect: Patient reports their mood is "ok", affect is congruent and constricted Suicidality/Homicidality: Patient denies having any suicidal or homicidal ideation intent or plan. Perceptions: Patient denies any visual hallucinations and denies any auditory hallucinations Though content/process: There is no evidence of any delusional thought content, concrete. Not endorsing paranoia. Memory and concentration: AOX3, grossly intact for the purposes of this session. Judgment and insight: poor/impulsive, improving IMPRESSIONS: Schizoaffective disorder, bipolar type Rule out antisocial personality disorder PLAN: -At this time patient DOES meet criteria for inpatient psychiatric admission however due to patient currently being over the weight limit for the unit, will continue to look for outside placement/transfer. -Would recommend the following medication changes/additions: Continue Prolixin 10 mg at 0900 and 1600 for psychosis/mood stabilization, plant to transition patient onto GAN to ensure compliance will likely plan for this tomorrow if patient is tolerating medication well. increase Depakote ER 1000 mg qhs for mood stabilization. Continue with lithium 450 mg daily at bedtime for mood stabilization. Increase Trazodone 200 mg daily at bedtime for sleep. Vistaril 50 mg twice a day prn for anxiety. Increase zyprexa 20 mg QHS for mood stabilization/sleep. -Thorazine and Ativan IM and by mouth options when necessary for agitation. -reviewed EKG to check QTc interval, lithium level 0.3 on 05/24, will repeat level on saturday am. -Cannot leave AMA at this time. It Desktop Support Specialist completed a second certificate and filed for involuntary process. Patient ended up signing deferral with document review attorney on 05/24 -Communicated plan to patient's nurse -Will continue to follow along -Please contact with any questions.
[2023-05-25] MEDS: LORazepam 2 MG/ML INJ IM PRN (14:11)
[2023-05-25] MEDS ORDERED: traZODone HCL 100 MG TAB PO SCH (21:00)
[2023-05-25] MEDS: LITHIUM CARBONATE ER 450 MG TABLET.ER PO SCH (21:37)
[2023-05-25] MEDS: DIVALPROEX ER 500 MG TAB.ER.24H PO SCH (21:37)
[2023-05-25] MEDS: OLANZapine 10 MG TAB PO SCH (21:38)
[2023-05-26] MEDS: chlorproMAZINE 25 MG/ML 2 ML AMP IM PRN (02:35)
[2023-05-26] MEDS: LORazepam 2 MG/ML INJ IM PRN (02:36)
[2023-05-26] MEDS: LORazepam 1 MG TAB PO PRN (08:07)
[2023-05-26] MEDS: chlorproMAZINE 25 MG TAB PO PRN ×3 (10:06→20:27)
--- NOTE | 2023-05-26 12:22 | P.PN ---
Progress Note - Text Progress Note Date: 05/26/23 Interval history: Patient was seen today for psychiatric follow-up. Patient's daughter states t hat patient have a difficult time this morning, did not sleep well last night. He went back into restraints earlier today. He received 2 doses of Thorazine this morning. Patient also received 2 doses of Ativan. Patient was seen sleeping on his bed. He was briefly woke and my loan underwriter. He appears to be calmer in his demeanor, claims he was hearing some voices earlier however they stopped. He is claiming that he is feeling bored in the hospital. He claims that he just wanted to have the phone to talk to his family law attorney and got upset. He was not able to recall most of what had occurred before getting the when necessary's. Things that he had a difficult time sleeping last night once again. Appetite is fair. Denies any anxiety or depression today. At this time he is denying any current auditory or visual hallucinations. Denying any current suicidal or homicidal ideations intent or plan. Patient has been taking his medications. MENTAL STATUS EXAM: General Appearance: Patient appears to be tall, overweight, longer hair, stated age is alert, more pleasant today and directable. Less defiant. confused at times however improving. Patient appears to have improving mildly hygiene and grooming wearing hospital gown with improving eye contact. Behavior: Patient is lying in bed in restraints, less defiant, no agitation today. Speech: Patient's speech is fluent and nonpressured. [place] Mood/Affect: Patient reports their mood is "same", affect is congruent and constricted Suicidality/Homicidality: Patient denies having any suicidal or homicidal ideation intent or plan. Perceptions: Patient denies any visual hallucinations and denies any auditory hallucinations Though content/process: There is no evidence of any delusional thought content, concrete. Not endorsing paranoia. Memory and concentration: AOX3, grossly intact for the purposes of this session. Judgment and insight: poor/impulsive, improving IMPRESSIONS: Schizoaffective disorder, bipolar type Rule out antisocial personality disorder PLAN: -At this time patient DOES meet criteria for inpatient psychiatric admission however due to patient currently being over the weight limit for the unit, will continue to look for outside placement/transfer. -Would recommend the following medication changes/additions: Continue Prolixin 10 mg at 0900 and 1600 for psychosis/mood stabilization, plant to transition patient onto GAN to ensure compliance will likely plan for this tomorrow if patient is tolerating medication well. continue Depakote ER 1000 mg qhs for mood stabilization. Continue with lithium 450 mg daily at bedtime for mood stabilization. Increase Trazodone 300 mg daily at bedtime for sleep. Vistaril 50 mg twice a day prn for anxiety. zyprexa 20 mg QHS for mood stabilization/sleep, consider increasing tomorrow if needed. added remeron 15 mg qhs for sleep/mood, if this is not helping then will consider switching to doxepin. -Thorazine and Ativan IM and by mouth options when necessary for agitation. -reviewed EKG to check QTc interval, lithium level 0.3 on 05/24, will repeat level on saturday am. -Cannot leave AMA at this time. Gambling Dealer completed a second certificate and filed for involuntary process. Patient ended up signing deferral with family law attorney on 05/24 -Communicated plan to patient's nurse -Will continue to follow along -Please contact with any questions.
[2023-05-26] MEDS: OLANZapine 10 MG TAB PO SCH (20:26)
[2023-05-26] MEDS: DIVALPROEX ER 500 MG TAB.ER.24H PO SCH (20:26)
[2023-05-26] MEDS: traZODone HCL 100 MG TAB PO SCH (20:26)
[2023-05-26] MEDS: LITHIUM CARBONATE ER 450 MG TABLET.ER PO SCH (20:27)
[2023-05-26] MEDS: hydrOXYzine pamoate 25 MG CAP PO PRN (20:27)
[2023-05-26] MEDS ORDERED: MIRTAZAPINE 15 MG TAB PO SCH (21:00)
[2023-05-27] MEDS: chlorproMAZINE 25 MG/ML 2 ML AMP IM PRN (05:25)
[2023-05-27 09:23] LABS: Basophils % (A) 0 %; Eosinophils # (A) 0.3 k/uL (0-0.7); Eosinophils % (A) 2 %; HCT 44.1 % (39.0-53.0); HGB 14.6 gm/dL (13.0-17.5); Lymphocytes # (A) 2.4 k/uL (1.0-4.8); Lymphocytes % (A) 20 %; MCH 29.4 pg (25.0-35.0); MCV 89.1 fL (80.0-100.0); Mean Platelet Volume 7.6; Monocytes # (A) 1.1 k/uL (0-1.0); Monocytes % (A) 9 %; Neutrophils % (A) 67 %; Platelet Count 306 k/uL (150-450); RBC 4.96 m/uL (4.30-5.90); RDW 13.7 % (11.5-15.5); WBC 11.9 k/uL (3.8-10.6)
[2023-05-27 10:41] LABS: African American GFR (CKD) >90 (>60 ml/min/1.73 sqM); Anion Gap 7 mmol/L; Blood Urea Nitrogen 9 mg/dL (9-20); Calcium 8.9 mg/dL (8.4-10.2); Carbon Dioxide 27 mmol/L (22-30); Chloride 104 mmol/L (98-107); Glucose 89 mg/dL (74-99); Lithium 0.2 mmol/L; Non-African American GFR(CKD) >90 (>60 ml/min/1.73 sqM); Potassium 4.3 mmol/L (3.5-5.1); Sodium 138 mmol/L (137-145)
[2023-05-27] MEDS ORDERED: MAGNESIUM HYDROXIDE 2,400 MG/30 ML CUP PO PRN (18:56)
[2023-05-27] MEDS ORDERED: IBUPROFEN 600 MG TAB PO PRN (18:56)
[2023-05-27] MEDS ORDERED: ACETAMINOPHEN TAB 325 MG TAB PO PRN (18:56)
[2023-05-27] MEDS ORDERED: MAG HYDROX/AL HYDROX/SIMETH 30 ML CUP PO PRN (18:56)
[2023-05-27] MEDS: LITHIUM CARBONATE ER 450 MG TABLET.ER PO SCH (20:52)
[2023-05-27] MEDS: DIVALPROEX ER 500 MG TAB.ER.24H PO SCH (20:52)
[2023-05-27] MEDS: traZODone HCL 100 MG TAB PO SCH (20:52)
[2023-05-27] MEDS: chlorproMAZINE 25 MG TAB PO PRN (20:52)
[2023-05-27] MEDS: OLANZapine 10 MG TAB PO SCH (20:52)
[2023-05-27] MEDS: LORazepam 1 MG TAB PO PRN (20:52)
--- NOTE | 2023-05-28 04:36 | P.PN ---
Progress Note - Text Progress Note Date: 05/27/23 patient agitated psychotic in restraints, medicated and inappropriate for evaluation at this time
[2023-05-28] MEDS: LITHIUM CARBONATE ER 450 MG TABLET.ER PO SCH ×2 (08:57→20:03)
[2023-05-28] MEDS: chlorproMAZINE 25 MG TAB PO PRN (16:53)
--- NOTE | 2023-05-28 17:53 | P.HP ---
Psychiatric H&P - . H&P Date: 05/28/23 History & Physical: Allergies Allergy/AdvReac Type Severity Reaction Status Date / Time dog dander AdvReac Dyspnea Verified 05/27/23 21:27 Vital Signs Temp 98.0 F 05/28/23 06:45 Pulse 91 05/28/23 06:45 Resp 16 05/28/23 06:45 BP 105/56 05/28/23 06:45 Pulse Ox 98 05/28/23 06:45 FiO2 Intake & Output 05/27/23 05/28/23 05/28/23 18:59 06:59 18:59 Weight 161.054 kg Laboratory Last Values WBC 11.9 k/uL (3.8-10.6) H 05/27/23 08:50 RBC 4.96 m/uL (4.30-5.90) 05/27/23 08:50 Hgb 14.6 gm/dL (13.0-17.5) 05/27/23 08:50 Hct 44.1 % (39.0-53.0) 05/27/23 08:50 MCV 89.1 fL (80.0-100.0) 05/27/23 08:50 MCH 29.4 pg (25.0-35.0) 05/27/23 08:50 MCHC 33.0 g/dL (31.0-37.0) 05/27/23 08:50 RDW 13.7 % (11.5-15.5) 05/27/23 08:50 Plt Count 306 k/uL (150-450) 05/27/23 08:50 MPV 7.6 05/27/23 08:50 Neutrophils % 67 % 05/27/23 08:50 Lymphocytes % 20 % 05/27/23 08:50 Monocytes % 9 % 05/27/23 08:50 Eosinophils % 2 % 05/27/23 08:50 Basophils % 0 % 05/27/23 08:50 Neutrophils # 8.0 k/uL (1.3-7.7) H 05/27/23 08:50 Lymphocytes # 2.4 k/uL (1.0-4.8) 05/27/23 08:50 Monocytes # 1.1 k/uL (0-1.0) H 05/27/23 08:50 Eosinophils # 0.3 k/uL (0-0.7) 05/27/23 08:50 Basophils # 0.0 k/uL (0-0.2) 05/27/23 08:50 Sodium 138 mmol/L (137-145) 05/27/23 08:50 Potassium 4.3 mmol/L (3.5-5.1) 05/27/23 08:50 Chloride 104 mmol/L (98-107) 05/27/23 08:50 Carbon Dioxide 27 mmol/L (22-30) 05/27/23 08:50 Anion Gap 7 mmol/L 05/27/23 08:50 BUN 9 mg/dL (9-20) 05/27/23 08:50 Creatinine 0.85 mg/dL (0.66-1.25) 05/27/23 08:50 Est GFR (CKD-EPI)AfAm >90 (>60 ml/min/1.73 sqM) 05/27/23 08:50 Est GFR (CKD-EPI)NonAf >90 (>60 ml/min/1.73 sqM) 05/27/23 08:50 Glucose 89 mg/dL (74-99) 05/27/23 08:50 Calcium 8.9 mg/dL (8.4-10.2) 05/27/23 08:50 Total Bilirubin 0.9 mg/dL (0.2-1.3) 05/20/23 09:12 AST 30 U/L (17-59) 05/20/23 09:12 ALT 30 U/L (4-49) 05/20/23 09:12 Alkaline Phosphatase 96 U/L (38-126) 05/20/23 09:12 Total Protein 7.1 g/dL (6.3-8.2) 05/20/23 09:12 Albumin 4.4 g/dL (3.5-5.0) 05/20/23 09:12 Urine Color Colorless 05/20/23 09:12 Urine Appearance Clear (Clear) 05/20/23 09:12 Urine pH 6.0 (5.0-8.0) 05/20/23 09:12 Ur Specific [place] 1.007 (1.001-1.035) 05/20/23 09:12 Urine Protein Negative (Negative) 05/20/23 09:12 Urine Glucose (UA) Negative (Negative) 05/20/23 09:12 Urine Ketones Negative (Negative) 05/20/23 09:12 Urine Blood Negative (Negative) 05/20/23 09:12 Urine Nitrite Negative (Negative) 05/20/23 09:12 Urine Bilirubin Negative (Negative) 05/20/23 09:12 Urine Urobilinogen <2.0 mg/dL (<2.0) 05/20/23 09:12 Ur Leukocyte Esterase Negative (Negative) 05/20/23 09:12 Urine Opiates Screen Not Detected (NotDetected) 05/20/23 09:12 Ur Oxycodone Screen Not Detected (NotDetected) 05/20/23 09:12 Urine Methadone Screen Not Detected (NotDetected) 05/20/23 09:12 Ur Barbiturates Screen Not Detected (NotDetected) 05/20/23 09:12 U Tricyclic Antidepress Not Detected (NotDetected) 05/20/23 09:12 Ur Phencyclidine Scrn Not Detected (NotDetected) 05/20/23 09:12 Ur Amphetamines Screen Not Detected (NotDetected) 05/20/23 09:12 U Methamphetamines Scrn Not Detected (NotDetected) 05/20/23 09:12 U Benzodiazepines Scrn Detected (NotDetected) H 05/20/23 09:12 [place] 0.2 mmol/L 05/27/23 08:50 Urine Cocaine Screen Not Detected (NotDetected) 05/20/23 09:12 U Marijuana (THC) Screen Not Detected (NotDetected) 05/20/23 09:12 SARS-CoV-2 (PCR) Not Detected (Not Detectd) 05/27/23 16:50 05/28/23 12:31 IDENTIFYING DATA: Patient is a 41 y/o male male who was previously living with friends in a "drug house" in [place], is single, has 7 kids, collects Social Security disability HPI: Patient presents from ED and was seen by psychiatry while in ED. Psych ED note as follows: The patient presented to the hospital initially on 05/19 was brought in night previously for evaluation of his mental health. Patient apparently returned back with his father and was petitioned. According to petition and father states that he has been more aggressive and also squeeze the arm of the baby and would not let go. Also reported the patient has not been taking his psychiatric medications. Patient is currently following up with Dr. Garcia from [facility] and also with the act team. Patient was positive for benzodiazepines in his urine. He has been restrained multiple times since being in the emergency room attending to get placement. Patient has been given several when necessary medications. Patient was seen today by telegraphic typewriter installer at the bedside. Patient was in restraints. He initially was somewhat cooperative however fairly oppositional. He is redirected several questions back to telegraphic typewriter installer, was fairly irritable and agitated with telegraphic typewriter installer. He told telegraphic typewriter installer "if you turn off the lights I'm going to get really upset". He appeared to have very poor decision-making skills, very poor insight and judgment. He believes that his mental illness is "cured". He appears to have very low impulse control. Administration Assistant attempted to asked patient more about the circumstances of being in the hospital and patient did not answer. He apparently has been attacking staff members and fairly aggressive with others since being in the ER. Administration Assistant attempted to speak with act business team leader however patient began shaking the bed furiously and yelling and when telegraphic typewriter installer and nurse came back to the bad patient stopped immediately looked at this and began laughing. Vision has poor hygiene and grooming. At this time patient denies any suicidal or homicidal ideations, intent or plan. Patient denies any auditory, visual hallucinations. Patient denies using any recreational drugs. Patient is denying any depression or anxiety at this time. States that he sleeps fairly at nighttime. QTc was 411. He needed to be given meds for agitation in the ED. Dr. Manrique (psych) restarted on home psychotropic meds while in ED, and increased dose of trazodone and Remeron was added for sleep. Today, patient was seen via HIPAA- compliant Zoom (pt consented). Patient admits to chronic noncompliance with meds resulting in hospitalization. He states that when ACT team drops off his meds, he takes the meds when they watch him take them and otherwise "The half that is not in front of people, I'm not going to take". He is quite defensive of his periods of labile mood and agitation. He says his physical aggression is a result of being trapped and not because he wants to attack others. He externalizes blame and displays no insight into his condition. He currently endorses "neutral" mood. He denies depressed moods recently. However, he is irritable on exam and displays poor frustration tolerance and impulse control. He currently reports sleeping better. He endorses good appetite. He has not been agitated while on the inpatient psychiatric unit. He has been taking meds as prescribed while in the ED. He says he would like to stay on PO meds and does not want injection. He denies side effects to the medications. He denies auditory and visual hallucinations currently. He denies suicidal and homicidal ideation. PAST PSYCHIATRIC HISTORY: Per chart review- Patient has a a history of schizoaffective disorder. Patient is currently on several different psychiatric medications through [facility]. Patient sees Dr. Garcia as a psychiatrist regularly. He is currently on lithium, trazodone, haloperidol, Trileptal, Zoloft, Thorazine, Vistaril. Patient apparently does have a history of being at [facility] previously. Patient has been admitted psychiatrically several times in the past. According to EMR patient was last admitted to the psychiatric unit here at the hospital in 2018. Patient denies any history of suicide attempts in the past. PMH: Past Medical History: GERD/Reflux Additional Past Medical History / Comment(s): FATTY LIVER. History of Any Multi-Drug Resistant Organisms: None Reported Past Surgical History: No Surgical Hx Reported Additional Past Surgical History / Comment(s): [place] teeth extraction with anesthesia. Past Anesthesia/Blood Transfusion Reactions: No Reported Reaction Past Psychological History: ADD/ADHD, Anxiety, Depression Smoking Status: Current every day smoker, Vaper Past Alcohol Use History: None Reported Past Drug Use History: Cocaine, IV Drug Use, Marijuana, Methamphetamine, Opiates ALLERGIES: as per EMR CHEMICAL DEPENDENCY HISTORY: Vapes tobacco daily- quit May 2023. Denies other substance use for the past 4 years; he would not expand on what he used in the past. He reports using whippets once and cannabis rarely. FAMILY PSYCHIATRIC/SUBSTANCE USE HISTORY: Did not answer this SOCIAL HISTORY: Patient reports living by himself in an apartment. His father is his guardian. His father takes him grocery shopping. He endorses having SSD and SSI. MENTAL STATUS EXAM: General Appearance: Patient appears to be tall, overweight, longer hair, stated age is alert. Fair hygiene and grooming with fair eye contact. Behavior: Calm, superficially cooperative. Speech: Patient's speech is fluent and nonpressured. [place] Mood/Affect: Patient reports their mood is "neutral", affect is irritable Suicidality/Homicidality: Patient denies having any suicidal or homicidal ideation intent or plan. Perceptions: Patient denies any visual hallucinations and denies any auditory hallucinations Though content/process: There is no evidence of any delusional thought content, concrete. [place] Memory and concentration: AOX3, grossly intact for the purposes of this session. Judgment and insight: poor, chronically impulsive STRENGTHS/WEAKNESSES: strength is that patient has outpatient f/u. Weakness is that patient has poor judgment and is noncompliant with medication INTELLECT: Below average IMPRESSIONS: Schizoaffective disorder, bipolar type Cluster B traits R/o intellectual disability PLAN: -Patient is admitted under involuntary status to MHU for stabilization of psychiatric symptoms and safety. Patient has not signed adult voluntary form and medication consent and is placed in patient's chart. A second certification was completed and along with petition will be filed for court. Patient ended up signing deferral with claim attorney on 05/24 -Medications : Continue Prolixin 10 mg at 0900 and 1600 for psychosis/mood stabilization Continue Depakote ER 1000 mg qhs for mood stabilization. Increase lithium to 450 mg BID for mood stabilization. Li level subtherapeutic Continue Trazodone 300 mg daily at bedtime for sleep. Continue Vistaril 50 mg twice a day prn for anxiety. Continue Zyprexa 20 mg QHS for mood stabilization/sleep, consider increasing tomorrow if needed. [place] remeron 15 mg qhs for sleep/mood -Ativan, Vistaril, and Thorazine PRN for agitation/aggression -Patient was counselled on substance abuse but would not participate in motivational interviewing -Patient was informed of the risks, benefits and side effects of the medication -Internal Medicine consult to perform medical evaluation and physical. -SW on board for discharge planning. Encourage patient to participate in groups to work on coping skills. Will await deferral and court date. 05/28/23 13:01 05/28/23 17:36
[2023-05-28] MEDS: OLANZapine 10 MG TAB PO SCH (20:03)
[2023-05-28] MEDS: DIVALPROEX ER 500 MG TAB.ER.24H PO SCH (20:03)
[2023-05-28] MEDS: traZODone HCL 100 MG TAB PO SCH (20:37)
[2023-05-28] MEDS: NICOTINE GUM (POLACRILEX) 2 MG GUM BUCCAL PRN (21:37)
--- NOTE | 2023-05-29 04:43 | P.PN ---
Progress Note - Text Progress Note Date: 05/28/23 patient continues to be psychotic , unable to evaluate
[2023-05-29] MEDS: LITHIUM CARBONATE ER 450 MG TABLET.ER PO SCH ×2 (08:09→19:47)
[2023-05-29] MEDS ORDERED: traZODone HCL 100 MG TAB PO PRN (10:30)
--- NOTE | 2023-05-29 11:12 | P.PN ---
Progress Note - Text Progress Note Date: 05/29/23 Interval History: Patient was seen in his room and was directable and agreeable to speak with janeth louie at the bedside at this time, patient states he is doing good. States his energy level is good and that he has not tired. States that he has auditory hallucinations when it is very quiet. And endorses visual hallucinations when it is very dark. Patient states auditory hallucinations are different when he is angry, than when he is not. he appears to be fairly cooperative today however was concerneed about the dosing of his night time medications. Patient states his appetite is good, he is going to some groups. Patient appears to be very demanding today about his medications. Stating he will not take medicines that he does not need. Patient is overall acting very manipulative. Spoke with patient about GAN, to ensure compliance, patient refusing at this time. At this time patient denies any suicidal or homical ideations, intent or plan. Patient endorses auditory, visual hallucinations and denies any paranoia or delusions. Patient denies any side effects from the medications and has been compliant with meds. MENTAL STATUS EXAM: General Appearance: Patient appears to be tall, overweight, longer hair, stated age is alert. Fair hygiene and grooming with fair eye contact. Behavior: Calm, superficially cooperative. Speech: Patient's speech is fluent and nonpressured. [place] Mood/Affect: Patient reports their mood is "good", affect is demanding Suicidality/Homicidality: Patient denies having any suicidal or homicidal ideation intent or plan. Perceptions: Patient denies any visual hallucinations and denies any auditory hallucinations Though content/process: There is no evidence of any delusional thought content, concrete. [place] Memory and concentration: AOX3, grossly intact for the purposes of this session. Judgment and insight: chronically poor, chronically impulsive IMPRESSIONS: Schizoaffective disorder, bipolar type Cluster B traits R/o intellectual disability PLAN: -Patient is admitted under involuntary status to [facility]HU for stabilization of psychiatric symptoms and safety. Patient is currently admitted to the MHU on an active deferral. -Medications : Prolixin 10 mg at 0900 and 1600 for psychosis/mood stabilization Depakote ER 1000 mg qhs for mood stabilization. lithium 450 mg BID for mood stabilization. switch Trazodone 300 mg to PRN at bedtime for sleep. Vistaril 50 mg twice a day prn for anxiety. Zyprexa 20 mg QHS for mood stabilization/sleep, consider increasing tomorrow if needed. -Ativan, Vistaril, and Thorazine PRN for agitation/aggression -SW on board for discharge planning. Encourage patient to participate in groups to work on coping skills. Deferred with finance attorney on 05/24. will request that patients father come to visit him today and will try and prepare discharge saturday with ACT team follow up.
[2023-05-29] MEDS: NICOTINE GUM (POLACRILEX) 2 MG GUM BUCCAL PRN (17:18)
[2023-05-29] MEDS: DIVALPROEX ER 500 MG TAB.ER.24H PO SCH (19:47)
[2023-05-29] MEDS: OLANZapine 10 MG TAB PO SCH (19:48)
[2023-05-29] MEDS: chlorproMAZINE 25 MG TAB PO PRN (23:16)
[2023-05-29] MEDS: hydrOXYzine pamoate 25 MG CAP PO PRN (23:16)
[2023-05-30 07:15] VITALS: BP 134/86; PULSE 93; RESP 18; TEMP 97.9
[2023-05-30] MEDS: LITHIUM CARBONATE ER 450 MG TABLET.ER PO SCH (08:25)
[2023-05-30] MEDS: chlorproMAZINE 25 MG TAB PO PRN (10:09)
[2023-05-30] MEDS: NICOTINE GUM (POLACRILEX) 2 MG GUM BUCCAL PRN (10:49)
--- NOTE | 2023-05-30 11:52 | P.DS ---
Providers Date of admission: 05/27/23 18:42 Expected date of discharge: 05/30/23 Attending physician: Damaso Manrique MD Consults: 05/22/23 19:35 Consult Physician Urgent Consulting Provider: Damaso Manrique Consult Reason/Comments: aggressive behavior Do you want consulting provider notified?: Yes 05/27/23 18:56 Consult Physician Routine Consulting Provider: [facility] Consult Reason/Comments: H&P and medical Do you want consulting provider notified?: Yes Primary care physician: [facility] - Discharge Diagnosis(es) (1) Schizoaffective disorder, bipolar type Current Visit: Yes Status: Acute Priority: High (2) Cluster B personality disorder Current Visit: Yes Status: Acute Priority: Medium Hospital Course: Admission HPI: Admission note was completed by Dr Reese "Patient presents from ED and was seen by psychiatry while in ED. Psych ED note as follows: The patient presented to the hospital initially on 05/19 was brought in night previously for evaluation of his mental health. Patient apparently returned back with his father and was petitioned. According to petition and father states that he has been more aggressive and also squeeze the arm of the baby and would not let go. Also reported the patient has not been taking his psychiatric medications. Patient is currently following up with Dr. Garcia from [facility] and also with the act team. Patient was positive for benzodiazepines in his urine. He has been restrained multiple times since being in the emergency room attending to get placement. Patient has been given several when necessary medications. Patient was seen today by speech writer at the bedside. Patient was in restraints. He initially was somewhat cooperative however fairly oppositional. He is redirected several questions back to speech writer, was fairly irritable and agitated with speech writer. He told speech writer "if you turn off the lights I'm going to get really upset". He appeared to have very poor decision-making skills, very poor insight and judgment. He believes that his mental illness is "cured". He appears to have very low impulse control. Marketing Pr Intern attempted to asked patient more about the circumstances of being in the hospital and patient did not answer. He apparently has been attacking staff members and fairly aggressive with others since being in the ER. Marketing Pr Intern attempted to speak with act steam press tender however patient began shaking the bed furiously and yelling and when speech writer and nurse came back to the bad patient stopped immediately looked at this and began laughing. Vision has poor hygiene and grooming. At this time patient denies any suicidal or homicidal ideations, intent or plan. Patient denies any auditory, visual hallucinations. Patient denies using any recreational drugs. P sudhakar is denying any depression or anxiety at this time. States that he sleeps fairly at nighttime. QTc was 411. He needed to be given meds for agitation in the ED. Dr. Manrique (psych) restarted on home psychotropic meds while in ED, and increased dose of trazodone and Remeron was added for sleep. Today, patient was seen via HIPAA- compliant Zoom (pt consented). Patient admits to chronic noncompliance with meds resulting in hospitalization. He states that when ACT team drops off his meds, he takes the meds when they watch him take them and otherwise "The half that is not in front of people, I'm not going to take". He is quite defensive of his periods of labile mood and agitation. He says his physical aggression is a result of being trapped and not because he wants to attack others. He exte rnalizes blame and displays no insight into his condition. He currently endorses "neutral" mood. He denies depressed moods recently. However, he is irritable on exam and displays poor frustration tolerance and impulse control. He currently reports sleeping better. He endorses good appetite. He has not been agitated while on the inpatient psychiatric unit. He has been taking meds as prescribed while in the ED. He says he would like to stay on PO meds and does not want injection. He denies side effects to the medications. He denies auditory and visual hallucinations currently. He denies suicidal and homicidal ideation." Hospital course: Upon admission to the unit patient was admitted involuntarily on a petition and certificate and a second certificate was completed and faxed with the courts. Patient ended up signing a deferral with the money market dealer and agreeing to treatment. Patient got along well with other patients on the unit and followed unit protocol. Patient was compliant with the medications and denied any side effects throughout hospital course. Patient was started on Prolixin and increase her dose of 10 mg twice a day, for psychosis/mood stabilization, Depakote ER increased her dose to 1000 mg daily at bedtime for mood stabilization, lithium 450 mg twice a day for mood stabilization, trazodone 300 mg daily at bedtime for sleep, Vistaril 50 mg twice a day when necessary for anxiety, Ativan when necessary for anxiety, Zyprexa increased dose of 20 mg daily at bedtime for mood stabilization/sleep, Thorazine when necessary for agitation/psychosis. Marketing Pr Intern spoke with patient about transitioning on to long-acting injection however patient adamantly refused and wanted to take medications by mouth at this time and in the future and would not be reliable for continued injection. Patient spoke of his stressors and engaged in therapy both group and individual. Patient was also seen by medical team for history and physical exam. Throughout the course of the hospitalization patient gradually improved with regards to mood, anxiety, psychosis, aggression/agitation, sleep and returned back to their baseline level of functioning. On the day of discharge patient denied any fong icidal or homicidal ideations intent or plan denied any auditory or visual hallucinations. Patient endorsed wanting to live for his health and family. The patient denied any access to guns or weapons. Patient denied any paranoia and did not endorse any delusions. Patient does not have a significant history of substance abuse and was counseled on abstaining from all substances including alcohol and marijuana. Patient was also counseled on the medications and need for regular compliance and was encouraged to follow-up with their outpatient appointment for mental health and also for primary care. Prior to discharge a family meeting will be arranged by social worker clinical to answer any questions and ensure safety upon discharge. Patient's parents also came in for a family meeting and visit yesterday which apparently went very well. Patient will be seen one to 2 times a day at home by act team to help with oral medications. Mental status exam: General Appearance: Patient appears to be tall, overweight, stated age is alert, pleasant, and cooperative. Patient is in no acute distress and has improved hygiene and grooming Behavior: Patient is calmly seated without any agitated behavior. Speech: Patient's speech is fluent and nonpressured. Mood/Affect: Patient reports their mood is "good", affect is congruent Suicidality/Homicidality: Patient denies having any suicidal or homicidal i deation intent or plan. Perceptions: Patient denies any auditory or visual hallucinations. Though content/process: There is no evidence of any delusional thought content and thought process is linear and goal-directed. Memory and concentration: AOX3, grossly intact for the purposes of this session. Can spell "WORLD" backwards correctly. Judgment and insight: chronically poor, however has improved with guarded prognosis Impression: Schizoaffective disorder, bipolar type Cluster B traits R/o intellectual disability Plan: -Continue with discharge today as patient has improved and stabilized psychiatrically and is not currently an imminent threat to himself and/or others. Patient will remain at chronically elevated risk for harm to self and/or others due to his impulsivity and chronic mental illness. -Continue medications: Prolixin 10 mg by mouth 9 AM and also at 4 PM for psychosis/mood stabilization, Depakote ER 1000 mg daily at bedtime for mood stabilization, lithium 450 mg twice a day for mood stabilization, [place] level will be checked in 1 week on . Trazodone 200 mg daily at bedtime for sleep, Vistaril 50 mg twice a day when necessary for anxiety, Ativan 2 mg daily when necessary for agitation, Zyprexa 20 mg daily at bedtime scheduled for mood stabilization/sleep, Thorazine 100 mg when necessary for aggression/psychosis. -Patient was counseled on the need for medication compliance and appropriate follow-up at mental health and also primary care for medical issues. Patient verbalized understanding and agreed. -Social work to arrange for and conduct family meeting to ensure safety upon discharge and answer any questions/concerns. Patient had a visitation and meeting with his parents prior to discharge and also will be in coordination in close contact with act team for very close follow-up. Social work also to arrange for patients follow up appointments with [facility] for psychiatric care along with follow up with primary care provider. -Patient counseled on abstaining from recreational drugs and marijuana and alcohol. Was informed/educated on the adverse effects on their physical and mental health. Patient verbally agreed and understood. -Patient was instructed to return to the hospital or seek immediate medical care if their psychiatric or medical symptoms do worsen or reoccur. Allergies Allergy/AdvReac Type Severity Reaction Status Date / Time dog dander AdvReac Dyspnea Verified 05/27/23 21:27 Laboratory Results WBC 11.9 k/uL (3.8-10.6) H 05/27/23 08:50 RBC 4.96 m/uL (4.30-5.90) 05/27/23 08:50 Hgb 14.6 gm/dL (13.0-17.5) 05/27/23 08:50 Hct 44.1 % (39.0-53.0) 05/27/23 08:50 MCV 89.1 fL (80.0-100.0) 05/27/23 08:50 MCH 29.4 pg (25.0-35.0) 05/27/23 08:50 MCHC 33.0 g/dL (31.0-37.0) 05/27/23 08:50 RDW 13.7 % (11.5-15.5) 05/27/23 08:50 Plt Count 306 k/uL (150-450) 05/27/23 08:50 MPV 7.6 05/27/23 08:50 Neutrophils % 67 % 05/27/23 08:50 Lymphocytes % 20 % 05/27/23 08:50 Monocytes % 9 % 05/27/23 08:50 Eosinophils % 2 % 05/27/23 08:50 Basophils % 0 % 05/27/23 08:50 Neutrophils # 8.0 k/uL (1.3-7.7) H 05/27/23 08:50 Lymphocytes # 2.4 k/uL (1.0-4.8) 05/27/23 08:50 Monocytes # 1.1 k/uL (0-1.0) H 05/27/23 08:50 Eosinophils # 0.3 k/uL (0-0.7) 05/27/23 08:50 Basophils # 0.0 k/uL (0-0.2) 05/27/23 08:50 Sodium 138 mmol/L (137-145) 05/27/23 08:50 Potassium 4.3 mmol/L (3.5-5.1) 05/27/23 08:50 Chloride 104 mmol/L (98-107) 05/27/23 08:50 Carbon Dioxide 27 mmol/L (22-30) 05/27/23 08:50 Anion Gap 7 mmol/L 05/27/23 08:50 BUN 9 mg/dL (9-20) 05/27/23 08:50 Creatinine 0.85 mg/dL (0.66-1.25) 05/27/23 08:50 Est GFR (CKD-EPI)AfAm >90 (>60 ml/min/1.73 sqM) 05/27/23 08:50 Est GFR (CKD-EPI)NonAf >90 (>60 ml/min/1.73 sqM) 05/27/23 08:50 Glucose 89 mg/dL (74-99) 05/27/23 08:50 Calcium 8.9 mg/dL (8.4-10.2) 05/27/23 08:50 Total Bilirubin 0.9 mg/dL (0.2-1.3) 05/20/23 09:12 AST 30 U/L (17-59) 05/20/23 09:12 ALT 30 U/L (4-49) 05/20/23 09:12 Alkaline Phosphatase 96 U/L (38-126) 05/20/23 09:12 Total Protein 7.1 g/dL (6.3-8.2) 05/20/23 09:12 Albumin 4.4 g/dL (3.5-5.0) 05/20/23 09:12 Urine Color Colorless 05/20/23 09:12 Urine Appearance Clear (Clear) 05/20/23 09:12 Urine pH 6.0 (5.0-8.0) 05/20/23 09:12 Ur Specific [place] 1.007 (1.001-1.035) 05/20/23 09:12 Urine Protein Negative (Negative) 05/20/23 09:12 Urine Glucose (UA) Negative (Negative) 05/20/23 09:12 Urine Ketones Negative (Negative) 05/20/23 09:12 Urine Blood Negative (Negative) 05/20/23 09:12 Urine Nitrite Negative (Negative) 05/20/23 09:12 Urine Bilirubin Negative (Negative) 05/20/23 09:12 Urine Urobilinogen <2.0 mg/dL (<2.0) 05/20/23 09:12 Ur Leukocyte Esterase Negative (Negative) 05/20/23 09:12 Urine Opiates Screen Not Detected (NotDetected) 05/20/23 09:12 Ur Oxycodone Screen Not Detected (NotDetected) 05/20/23 09:12 Urine Methadone Screen Not Detected (NotDetected) 05/20/23 09:12 Ur Barbiturates Screen Not Detected (NotDetected) 05/20/23 09:12 U Tricyclic Antidepress Not Detected (NotDetected) 05/20/23 09:12 Ur Phencyclidine Scrn Not Detected (NotDetected) 05/20/23 09:12 Ur Amphetamines Screen Not Detected (NotDetected) 05/20/23 09:12 U Methamphetamines Scrn Not Detected (NotDetected) 05/20/23 09:12 U Benzodiazepines Scrn Detected (NotDetected) H 05/20/23 09:12 [place] 0.2 mmol/L 05/27/23 08:50 Urine Cocaine Screen Not Detected (NotDetected) 05/20/23 09:12 U Marijuana (THC) Screen Not Detected (NotDetected) 05/20/23 09:12 SARS-CoV-2 (PCR) Not Detected (Not Detectd) 05/27/23 16:50 Vital Signs Temp 97.9 F 05/30/23 04:50 Pulse 93 05/30/23 04:50 Resp 18 05/30/23 04:50 BP 134/86 05/30/23 04:50 Pulse Ox 99 05/30/23 04:50 FiO2 Patient Condition at Discharge: Stable Plan - Discharge Summary Discharge Rx Participant: No New Discharge Prescriptions: New LORazepam [Ativan] 2 mg PO HS 10 Days #10 tab Divalproex ER [Depakote ER] 1,000 mg PO HS 30 Days #60 tab [place] Carbonate ER [Lithobid] 450 mg PO BID 30 Days #60 tab Nicotine Gum (Polacrilex) [Nicorette] 2 mg BUCCAL Q4HR PRN 30 Days #180 pieceofgum PRN Reason: Nicotine Cravings OLANZapine [ZyPREXA] 20 mg PO HS 30 Days #60 tab fluPHENAZine [Prolixin 5MG] 10 mg PO 0900,1600 30 Days #120 tablet chlorproMAZINE HCL [Thorazine] 100 mg PO DAILY PRN 14 Days #14 tablet PRN Reason: Psychosis traZODone HCL 300 mg PO HS 30 Days #30 tab Continue hydrOXYzine pamoate [Vistaril] 50 mg PO BID PRN 30 Days #60 cap PRN Reason: Anxiety Discontinued Paliperidone [Invega] 9 mg PO HS [place] Carbonate ER [Lithobid] 450 mg PO HS OXcarbazepine [Trileptal] 300 mg PO BID chlorproMAZINE [Thorazine] 100 mg PO HS chlorproMAZINE HCL [Thorazine] 50 mg PO DAILY Sertraline [Zoloft] 100 mg PO DAILY traZODone HCL [Desyrel] 50 mg PO HS PRN PRN Reason: Anxiety Discharge Medication List Divalproex ER [Depakote ER] 1,000 mg PO HS 30 Days #60 tab 05/30/23 [Rx] LORazepam [Ativan] 2 mg PO HS 10 Days #10 tab 05/30/23 [Rx] [place] Carbonate ER [Lithobid] 450 mg PO BID 30 Days #60 tab 05/30/23 [Rx] Nicotine Gum (Polacrilex) [Nicorette] 2 mg BUCCAL Q4HR PRN 30 Days #180 pieceofgum 05/30/23 [Rx] OLANZapine [ZyPREXA] 20 mg PO HS 30 Days #60 tab 05/30/23 [Rx] chlorproMAZINE HCL [Thorazine] 100 mg PO DAILY PRN 14 Days #14 tablet 05/30/23 [Rx] fluPHENAZine [Prolixin 5MG] 10 mg PO 0900,1600 30 Days #120 tablet 05/30/23 [Rx] hydrOXYzine pamoate [Vistaril] 50 mg PO BID PRN 30 Days #60 cap 05/30/23 [Rx] traZODone HCL 300 mg PO HS 30 Days #30 tab 05/30/23 [Rx] Follow up Appointment(s)/Referral(s): [facility] [Outside] - 06/12/23 8:30 am (06/12/2023 8:30AM - 9:00AM ARELY GARCIA ) [facility] - 1-2 days Activity/Diet/Wound Care/Special Instructions: Avoid the use of street drugs and alcohol. Take all medications as prescribed. When you are in need of refills on your medications, please contact your medical provider and/or outpatient psychiatrist/provider to have this done. Please go to your scheduled outpatient appointment for aftercare treatment. If symptoms return or become worse, call the crisis line at and/or go to the nearest emergency room for evaluation. National Suicide Hotline 988. Discharge Disposition: HOME SELF-CARE
[2023-05-30] MEDS: hydrOXYzine pamoate 25 MG CAP PO PRN (13:10)
== END 2023-05-30 14:41 | disposition home or self-care (01) | DRG 885 ==
LOC: EC 18:51 → 3MHU 05-27 18:42
PROVIDERS: ADMIT Psychiatry & Neurology Psychiatry; ATTEND Psychiatry & Neurology Psychiatry
DX: F25.0 Schizoaffective disorder, bipolar type (principal); Z59.00 Homelessness unspecified; Z68.42 Body mass index [BMI] 45.0-49.9, adult; Z91.128 Patient's intentional underdosing of medication regimen for other reason; K76.0 Fatty (change of) liver, not elsewhere classified; F60.89 Other specific personality disorders; E66.3 Overweight; F14.11 Cocaine abuse, in remission; F15.11 Other stimulant abuse, in remission; F11.11 Opioid abuse, in remission; Z11.52 Encounter for screening for COVID-19; Z28.310 Unvaccinated for COVID-19; T50.906A Underdosing of unspecified drugs, medicaments and biological substances, initial encounter; K21.9 Gastro-esophageal reflux disease without esophagitis; F12.11 Cannabis abuse, in remission; F90.9 Attention-deficit hyperactivity disorder, unspecified type; F17.290 Nicotine dependence, other tobacco product, uncomplicated; Z71.6 Tobacco abuse counseling; Z79.899 Other long term (current) drug therapy; Z78.1 Physical restraint status; Z71.51 Drug abuse counseling and surveillance of drug abuser; Z71.41 Alcohol abuse counseling and surveillance of alcoholic
CPT/HCPCS: 36415; 80048; 80053; 80178; 80306; 81003; 82075; 85025; 87635; 93005; 96372; 99285

== ENCOUNTER 2023-06-03 22:21 | Emergency (ER) | payer MEDICARE, OTHER ==
--- NOTE | 2023-06-03 23:13 | ED ---
General Adult HPI <Jose J Craven - Last Filed: 06/04/23 12:54> - General Source: patient, police, RN notes reviewed, old records reviewed Mode of arrival: ambulatory Limitations: no limitations <Yves Payne - Last Filed: 06/05/23 08:34> - General Chief complaint: Psychiatric Symptoms Stated complaint: Mental Health Petitioned Time Seen by Provider: 06/03/23 22:46 - History of Present Illness Initial comments: Patient is a 23-year-old male well-known to our facility presenting for psych iatric complaints. Has a history of polysubstance abuse. Was petitioned by police officers today after he stated that he wanted the officer to shoot him. Denies any attempts to hurt himself. Denies any homicidal ideations or attempts or plans. Denies any hallucinations. Denies any other acute complaints at this time. Is requesting a sandwich and something to drink. Presents for further evaluation at this time. Patient was petitioned by police officers. (Yves Payne) - Related Data Home Medications Medication Instructions Recorded Confirmed OLANZapine [ZyPREXA] 20 mg PO HS 06/03/23 06/03/23 fluPHENAZine HCl 10 mg PO BID@0900,1600 06/03/23 06/03/23 traZODone HCL 300 mg PO HS 06/03/23 06/03/23 Previous Rx's Medication Instructions Recorded Divalproex ER [Depakote ER] 1,000 mg PO HS 30 Days #60 tab 05/30/23 LORazepam [Ativan] 2 mg PO HS 10 Days #10 tab 05/30/23 [place] Carbonate ER [Lithobid] 450 mg PO BID 30 Days #60 tab 05/30/23 Nicotine Gum (Polacrilex) 2 mg BUCCAL Q4HR PRN 30 Days #180 05/30/23 [Nicorette] pieceofgum chlorproMAZINE HCL [Thorazine] 100 mg PO DAILY PRN 14 Days #14 05/30/23 tablet hydrOXYzine pamoate [Vistaril] 50 mg PO BID PRN 30 Days #60 cap 05/30/23 Allergies Allergy/AdvReac Type Severity Reaction Status Date / Time dog dander AdvReac Dyspnea Verified 06/03/23 23:27 Review of Systems ROS Other: All systems not noted in ROS Statement are negative. <Jose J Craven - Last Filed: 06/04/23 12:54> ROS Other: All systems not noted in ROS Statement are negative. <Yves Payne - Last Filed: 06/05/23 08:34> ROS Statement: Those systems with pertinent positive or pertinent negative responses have been documented in the HPI. Review of Systems: CONST: Denies fever EYES: Denies blurry vision ENT: Denies nasal congestion C/V: Denies Chest pain RESP: Denies shortness of breath GI: Denies abdominal pain : Denies dysuria SKIN: Denies rash. MSK: Denies joint pain. NEURO: Denies headache (Yves Payne) Past Medical History Past Medical History: GERD/Reflux Additional Past Medical History / Comment(s): FATTY LIVER. History of Any Multi-Drug Resistant Organisms: None Reported Past Surgical History: No Surgical Hx Reported Additional Past Surgical History / Comment(s): [place] teeth extraction with anesthesia. Past Anesthesia/Blood Transfusion Reactions: No Reported Reaction Past Psychological History: ADD/ADHD, Anxiety, Depression Smoking Status: Current every day smoker, Vaper Past Alcohol Use History: None Reported Past Drug Use History: Cocaine, IV Drug Use, Marijuana, Methamphetamine, Opiates - Past Family History Father Family Medical History: No Reported History Additional Family Medical History / Comment(s): Pt states his dad is healthy-"I guess". Mother Family Medical History: No Reported History Additional Family Medical History / Comment(s): Pt states his mother is healthy- "I guess." <Yves Panye - Last Filed: 06/05/23 08:34> General Exam Limitations: no limitations <Yves Payne - Last Filed: 06/05/23 08:34> - General Exam Comments Initial Comments: General: Appears in no acute distress. HEAD: Normal with no signs of head trauma. EYES: EOMI ENT: Hearing grossly intact, normal oropharynx. RESPIRATORY: Clear breath sounds bilaterally. No wheezes, rales, or rhonchi. C/V: Regular rate and rhythm. S1 and S2 auscultated, ABD: Abd is soft, nontender, nondistended EXT: no obvious deformity SKIN: No rashes or lesions observed on exposed skin. NEURO: Alert and oriented x 4. (Yves Payne) Course Vital Signs 06/03/23 06/04/23 06/04/23 22:41 08:16 14:35 Temperature 99.2 F 98 F Pulse Rate 99 101 H 100 Respiratory 22 20 Rate Blood Pressure 146/96 141/86 122/73 O2 Sat by Pulse 96 95 97 Oximetry Procedures - Restraint - Face to Face Restraint Occurrence 2 Patient's Immediate Situation: Endangers self safety, Endangers others' safety, Endangers staff safety Patient's Reaction to the Intervention: Uncooperative, Hostile, Belligerent, Aggressive Patient's Medical & Behavioral Condition: Awake, Alert, Follows directions Need to Continue or Terminate Restraint or Seclusion: Continue Face to Face Eval of Restraint Date: 06/04/23 Face to Face Eval of Restraint Time: 07:45 Restraint Occurrence 3 Patient's Immediate Situation: Endangers self safety, Endangers others' safety, Endangers staff safety Patient's Reaction to the Intervention: Hostile, Belligerent, Aggressive Patient's Medical & Behavioral Condition: Awake, Alert Need to Continue or Terminate Restraint or Seclusion: Continue Face to Face Eval of Restraint Date: 06/04/23 Face to Face Eval of Restraint Time: 10:05 <Jose J Craven - Last Filed: 06/04/23 12:54> - Restraint - Face to Face Restraint Occurrence 1 Patient's Immediate Situation: Endangers others' safety, Endangers staff safety, Violent behavior Patient's Reaction to the Intervention: Uncooperative Patient's Medical & Behavioral Condition: Awake, Alert Face to Face Eval of Restraint Date: 06/04/23 Face to Face Eval of Restraint Time: 03:50 <Yves Payne - Last Filed: 06/05/23 08:34> Medical Decision Making - Lab Data Result diagrams: 06/04/23 00:07 06/04/23 00:07 <Jose J Craven - Last Filed: 06/04/23 12:54> - Lab Data Result diagrams: 06/04/23 00:07 06/04/23 00:07 <Yves Payne - Last Filed: 06/05/23 08:34> - Medical Decision Making She has been evaluated by EPS and felt to be safe for discharge. I agree with this assessment. She has good outpatient resources with the act team. (Jose J Craven) Was pt. sent in by a medical professional or institution (, [facility], [facility], urgent care, hospital, or fci...) When possible be specific @ -No Did you speak to anyone other than the patient for history (EMS, parent, family, police, friend...)? What history was obtained from this source @ -No Did you review nursing and triage notes (agree or disagree)? Why? @ -I reviewed and agree with nursing and triage notes Were old charts reviewed (outside hosp., previous admission, EMS record, old EKG, old radiological studies, urgent care reports/EKG's, fci records)? Report findings @ -Old charts reviewed Differential Diagnosis (chest pain, altered mental status, abdominal pain women, abdominal pain men, vaginal bleeding, weakness, fever, dyspnea, syncope, headache, dizziness, GI bleed, back pain, seizure, CVA, palpatations, mental health, musculoskeletal)? @ -Differential Mental Health Depression, anxiety, bipolar, psychosis, schizophrenia, borderline personality, situational depression, adjustment disorder, behavioral disorder, brain tumor, malingering, substance abuse, encephalopathy, medication reaction, dementia, hypothyroidism, degenerative neurologic disorder, lupus.... This is not meant to be all-inclusive list EKG interpreted by me (3pts min.). @ -None done X-rays interpreted by me (1pt min.). @ -None done CT interpreted by me (1pt min.). @ -None done U/S interpreted by me (1pt. min.). @ -None done What testing was considered but not performed or refused? (CT, X-rays, U/S, labs )? Why? @ -None What meds were considered but not given or refused? Why? @ -None Did you discuss the management of the patient with other professionals (professionals i.e. , [facility], [facility], lab, RT, psych nurse, social work professor, printed circuit board assembly repairer, teacher, fare enforcement officer, rehabilitation case coordinator)? Give summary @ -EPS notified of the consult Was smoking cessation discussed for >3mins.? @ -No Was critical care preformed (if so, how long)? @ -No Were there social determinants of health that impacted care today? How? (Homelessness, low income, unemployed, alcoholism, drug addiction, transportation, low edu. Level, literacy, decrease access to med. care, [facility], rehab)? @ -No Was there de-escalation of care discussed even if they declined (Discuss DNR or withdrawal of care, Hospice)? DNR status @ -No What co-morbidities impacted this encounter? (DM, HTN, Smoking, COPD, CAD, Cancer, CVA, ARF, Chemo, Hep., AIDS, mental health diagnosis, sleep apnea, morbid obesity)? @ -None Was patient admitted / discharged? Hospital course, mention meds given and route, prescriptions, significant lab abnormalities, going to OR and other pertinent info. @ -Based on the patient's presentation and physical exam, presents for psychiatric evaluation. Patient is well-known to our facility. He was placed in green scrubs. He was petitioned by police. Suicide precautions consider were ordered. BAT is 0. UDS is pending. Vital signs within acceptable limits. At this time patient is medically cleared for evaluation by psychiatry. Disposition is pending psychiatric evaluation. EPS notified of the consult. Undiagnosed new problem with uncertain prognosis? @ -No Drug Therapy requiring intensive monitoring for toxicity (Heparin, Nitro, Insulin, Cardizem)? @ -No Were any procedures done? @ -No Diagnosis/symptom? @ -Psychomotor agitation, depression Acute, or Chronic, or Acute on Chronic? @ -Chronic Uncomplicated (without systemic symptoms) or Complicated (systemic symptoms)? @ -Complicated Side effects of treatment? @ -none Exacerbation, Progression, or Severe Exacerbation] @ -no Poses a threat to life or bodily function? @ -Unlikely. (Yves Payne) - Lab Data Lab Results 06/03/23 06/03/23 06/04/23 Range/Units 23:03 23:50 00:07 WBC 11.8 H (3.8-10.6) k/uL RBC 5.35 (4.30-5.90) m/uL Hgb 16.0 (13.0-17.5) gm/dL Hct 48.0 (39.0-53.0) % MCV 89.8 (80.0-100.0) fL MCH 29.9 (25.0-35.0) pg MCHC 33.3 (31.0-37.0) g/dL RDW 13.3 (11.5-15.5) % Plt Count 363 (150-450) k/uL MPV 7.3 Neutrophils % 73 % Lymphocytes % 18 % Monocytes % 6 % Eosinophils % 1 % Basophils % 0 % Neutrophils # 8.6 H (1.3-7.7) k/uL Lymphocytes # 2.2 (1.0-4.8) k/uL Monocytes # 0.7 (0-1.0) k/uL Eosinophils # 0.2 (0-0.7) k/uL Basophils # 0.0 (0-0.2) k/uL Sodium (137-145) mmol/L Potassium (3.5-5.1) mmol/L Chloride (98-107) mmol/L Carbon Dioxide (22-30) mmol/L Anion Gap mmol/L BUN (9-20) mg/dL Creatinine (0.66-1.25) mg/dL Est GFR (CKD-EPI)AfAm (>60 ml/min/1.73 sqM) Est GFR (CKD-EPI)NonAf (>60 ml/min/1.73 sqM) Glucose (74-99) mg/dL Calcium (8.4-10.2) mg/dL Total Bilirubin (0.2-1.3) mg/dL AST (17-59) U/L ALT (4-49) U/L Alkaline Phosphatase (38-126) U/L Total Protein (6.3-8.2) g/dL Albumin (3.5-5.0) g/dL Urine Color Light Yellow Urine Appearance Clear (Clear) Urine pH 6.5 (5.0-8.0) Ur Specific [place] 1.018 (1.001-1.035) Urine Protein Negative (Negative) Urine Glucose (UA) Negative (Negative) Urine Ketones Negative (Negative) Urine Blood Negative (Negative) Urine Nitrite Negative (Negative) Urine Bilirubin Negative (Negative) Urine Urobilinogen <2.0 (<2.0) mg/dL Ur Leukocyte Esterase Negative (Negative) Urine Opiates Screen Not Detected (NotDetected) Ur Oxycodone Screen Not Detected (NotDetected) Urine Methadone Screen Not Detected (NotDetected) Ur Barbiturates Screen Not Detected (NotDetected) U Tricyclic Antidepress Not Detected (NotDetected) Ur Phencyclidine Scrn Not Detected (NotDetected) Ur Amphetamines Screen Not Detected (NotDetected) U Methamphetamines Scrn Not Detected (NotDetected) U Benzodiazepines Scrn Detected H (NotDetected) Urine Cocaine Screen Not Detected (NotDetected) U Marijuana (THC) Screen Not Detected (NotDetected) Influenza Type A (PCR) (Not Detectd) Influenza Type B (PCR) (Not Detectd) RSV (PCR) (Not Detectd) SARS-CoV-2 (PCR) (Not Detectd) 06/04/23 06/04/23 Range/Units 00:07 00:07 WBC (3.8-10.6) k/uL RBC (4.30-5.90) m/uL Hgb (13.0-17.5) gm/dL Hct (39.0-53.0) % MCV (80.0-100.0) fL MCH (25.0-35.0) pg MCHC (31.0-37.0) g/dL RDW (11.5-15.5) % Plt Count (150-450) k/uL MPV Neutrophils % % Lymphocytes % % Monocytes % % Eosinophils % % Basophils % % Neutrophils # (1.3-7.7) k/uL Lymphocytes # (1.0-4.8) k/uL Monocytes # (0-1.0) k/uL Eosinophils # (0-0.7) k/uL Basophils # (0-0.2) k/uL Sodium 140 (137-145) mmol/L Potassium 4.1 (3.5-5.1) mmol/L Chloride 109 H (98-107) mmol/L Carbon Dioxide 20 L (22-30) mmol/L Anion Gap 11 mmol/L BUN 8 L (9-20) mg/dL Creatinine 0.72 (0.66-1.25) mg/dL Est GFR (CKD-EPI)AfAm >90 (>60 ml/min/1.73 sqM) Est GFR (CKD-EPI)NonAf >90 (>60 ml/min/1.73 sqM) Glucose 112 H (74-99) mg/dL Calcium 9.2 (8.4-10.2) mg/dL Total Bilirubin 0.4 (0.2-1.3) mg/dL AST 27 (17-59) U/L ALT 33 (4-49) U/L Alkaline Phosphatase 77 (38-126) U/L Total Protein 7.4 (6.3-8.2) g/dL Albumin 4.4 (3.5-5.0) g/dL Urine Color Urine Appearance (Clear) Urine pH (5.0-8.0) Ur Specific [place] (1.001-1.035) Urine Protein (Negative) Urine Glucose (UA) (Negative) Urine Ketones (Negative) Urine Blood (Negative) Urine Nitrite (Negative) Urine Bilirubin (Negative) Urine Urobilinogen (<2.0) mg/dL Ur Leukocyte Esterase (Negative) Urine Opiates Screen (NotDetected) Ur Oxycodone Screen (NotDetected) Urine Methadone Screen (NotDetected) Ur Barbiturates Screen (NotDetected) U Tricyclic Antidepress (NotDetected) Ur Phencyclidine Scrn (NotDetected) Ur Amphetamines Screen (NotDetected) U Methamphetamines Scrn (NotDetected) U Benzodiazepines Scrn (NotDetected) Urine Cocaine Screen (NotDetected) U Marijuana (THC) Screen (NotDetected) Influenza Type A (PCR) Not Detected (Not Detectd) Influenza Type B (PCR) Not Detected (Not Detectd) RSV (PCR) Not Detected (Not Detectd) SARS-CoV-2 (PCR) Not Detected (Not Detectd) Disposition Is patient prescribed a controlled substance at d/c from ED?: No Time of Disposition: 12:56 <Jose J Craven - Last Filed: 06/04/23 12:54> <Yves Payne - Last Filed: 06/05/23 08:34> Clinical Impression: Psychomotor agitation, Depression Disposition: HOME SELF-CARE Condition: Fair Instructions (If sedation given, give patient instructions): Depression (ED) Referrals: [facility] [Primary Care Provider] - 1-2 days
[2023-06-03 23:30] LABS: Amphetamine Screen,Urine Not Detected (NotDetected); Barbiturate Screen,Urine Not Detected (NotDetected); Benzodiazepines Screen,Urine Detected (NotDetected); Cocaine Screen,Urine Not Detected (NotDetected); Methadone Screen, Urine Not Detected (NotDetected); Opiate Screen,Urine Not Detected (NotDetected); Oxycodone Screen, Urine Not Detected (NotDetected); Phencyclidine Screen,Urine Not Detected (NotDetected); Tricyclic Antidepressant,Urine Not Detected (NotDetected); Urn Cannabinoid Scrn Not Detected (NotDetected)
[2023-06-03] MEDS ORDERED: LORazepam 1 MG TAB PO STA (23:39)
[2023-06-03 23:58] LABS: Appearance,Urine Clear (Clear); Bilirubin,Urine Negative (Negative); Blood,Urine Negative (Negative); Color,Urine Light Yellow; Glucose,Urine (UA) Negative (Negative); Ketones,Urine Negative (Negative); Leukocyte Esterase,Urine Negative (Negative); Nitrite,Urine Negative (Negative); PH, Urine 6.5 (5.0-8.0); Protein,Urine Negative (Negative); Specific Gravity,Urine 1.018 (1.001-1.035); Urobilinogen,Urine <2.0 mg/dL (<2.0)
[2023-06-04] MEDS ORDERED: hydrOXYzine pamoate 25 MG CAP PO ONE (00:29)
[2023-06-04] MEDS ORDERED: chlorproMAZINE 25 MG TAB PO PRN (00:30)
[2023-06-04 00:37] LABS: Basophils % (A) 0 %; Eosinophils # (A) 0.2 k/uL (0-0.7); Eosinophils % (A) 1 %; Lymphocytes # (A) 2.2 k/uL (1.0-4.8); Lymphocytes % (A) 18 %; MCH 29.9 pg (25.0-35.0); MCHC 33.3 g/dL (31.0-37.0); MCV 89.8 fL (80.0-100.0); Mean Platelet Volume 7.3; Monocytes # (A) 0.7 k/uL (0-1.0); Monocytes % (A) 6 %; Neutrophils # (A) 8.6 k/uL (1.3-7.7); Neutrophils % (A) 73 %; Platelet Count 363 k/uL (150-450); RBC 5.35 m/uL (4.30-5.90); RDW 13.3 % (11.5-15.5); WBC 11.8 k/uL (3.8-10.6)
[2023-06-04 00:48] LABS: ALT 33 U/L (4-49); AST 27 U/L (17-59); African American GFR (CKD) >90 (>60 ml/min/1.73 sqM); Albumin 4.4 g/dL (3.5-5.0); Alkaline Phosphatase 77 U/L (38-126); Anion Gap 11 mmol/L; Blood Urea Nitrogen 8 mg/dL (9-20); Calcium 9.2 mg/dL (8.4-10.2); Carbon Dioxide 20 mmol/L (22-30); Chloride 109 mmol/L (98-107); Glucose 112 mg/dL (74-99); Non-African American GFR(CKD) >90 (>60 ml/min/1.73 sqM); Potassium 4.1 mmol/L (3.5-5.1); Sodium 140 mmol/L (137-145); Total Bilirubin 0.4 mg/dL (0.2-1.3); Total Protein 7.4 g/dL (6.3-8.2)
[2023-06-04] MEDS ORDERED: LORazepam 2 MG/ML INJ IM STA (03:42)
[2023-06-04] MEDS ORDERED: HALOPERIDOL LACTATE 5 MG/ML 1 ML VIAL IM STA (03:42)
[2023-06-04 08:41] VITALS: TEMP 98
[2023-06-04] MEDS ORDERED: LORazepam 1 MG TAB PO STA (13:00)
[2023-06-04 14:58] VITALS: BP 122/73; PULSE 100; RESP 20
== END 2023-06-04 14:50 | disposition home or self-care (01) ==
LOC: EC 22:21
DX: R45.1 Restlessness and agitation (principal); F32.A Depression, unspecified; F90.9 Attention-deficit hyperactivity disorder, unspecified type; F41.9 Anxiety disorder, unspecified; F17.290 Nicotine dependence, other tobacco product, uncomplicated; F14.90 Cocaine use, unspecified, uncomplicated; F12.90 Cannabis use, unspecified, uncomplicated; F11.90 Opioid use, unspecified, uncomplicated; F15.90 Other stimulant use, unspecified, uncomplicated; Z79.899 Other long term (current) drug therapy; Z88.8 Allergy status to other drugs, medicaments and biological substances; Z20.822 Contact with and (suspected) exposure to COVID-19
CPT/HCPCS: 99285; 96372 ×2; 82075; 36415; 80053; 85025; 81003; 80306; 87636; J2060; J1630